=== PATIENT | male | born 1940 | race African-American/Black ===

== ENCOUNTER 2016-09-23 01:32 | Inpatient (IN) | payer MEDICARE, OTHER ==
[~2016-09-23] VITALS: Ht 172.7 cm; Wt 108.9 kg
[~2016-09-23 01:32] MED LIST: ALBU6.7H3 IH; ATOR20TA PO; BUME1TAB4 PO; DIGO250T4 PO; ELIQUIS 5 MG PO; FLUT1DIS3 IH; HYDR-3511 PO; LISI-653 PO; METF100C2 PO; METO-411 PO; NEOM10SO7 OT; OMEP20CA10 PO; P20 PO; SIMV20TA2 PO; SOTA80TA PO; SPIR25TA4 PO; TERAZOSIN; TIOT18CA3 IH; WARF7.5T22 PO; [UNRECOGNIZED DRUG - OTHER]
[2016-09-23] MEDS ORDERED: METHYLPREDNISOLONE SOD SUCC 125 MG/2 ML VIAL IV STA (01:55)
[2016-09-23] MEDS ORDERED: ALBUTEROL (0.083%) 2.5MG/3ML NEB HHN STA (01:55)
[2016-09-23] MEDS ORDERED: MORPHINE SULFATE 4 MG/ML CPJ (NOT FOR IM USE) IV STA (01:55)
[2016-09-23] MEDS ORDERED: IPRATROPIUM BROMIDE (0.02%) 0.5MG/2.5ML NEB HHN STA (01:55)
[2016-09-23] MEDS ORDERED: ONDANSETRON HCL 4MG/2ML VIAL IV STA (01:55)
[2016-09-23] MEDS ORDERED: FUROSEMIDE 40MG/4ML VIAL IV ONE (02:00)
[2016-09-23 02:26] LABS: INR 1.1; PROTHROMBIN TIME 11.7 sec
[2016-09-23 02:29] LABS: BG BASE EXCESS 2.1 mmol/L (-2.0-2.0); BG CARBOXYHEMOGLOBIN 0.8 % (0.5-1.5); BG DEOXYHEMOGLOBIN 7.7 % (0.0-5.0); BG FRACTION INSPIRED OXYGEN 28; BG HCO3 ACT 27.4 mmol/L (22.0-26.0); BG METHEMOGLOBIN 0.2 % (0.0-1.5); BG OXYGEN SATURATION 92.2 % (92.0-98.5); BG OXYHEMOGLOBIN 91.3 % (94.0-97.0); BG PCO2 45.3 mmHg (35.0-45.0); BG PH 7.399 (7.350-7.450); BG PO2 68.9 mmHg (75.0-100.0); BG SAMPLE SITE RIGHT RADIAL; BG TOTAL HEMOGLOBIN 12.7 g/dL (12.0-18.0); BG VENT MODE NASAL CANNULA
[2016-09-23 02:31] LABS: HEMATOCRIT. 37.6 % (42.0-52.0); HEMOGLOBIN. 12.2 g/dL (14.0-18.0); MEAN CORPUSCULAR HEMOGLOBIN 26.3 pg (28.0-32.0); MEAN PLATELET VOLUME 9.8 fl (7.4-10.4); PLATELET 142 x1000/uL (130-400); RED BLOOD CELL COUNT 4.64 mill/uL (4.7-6.1); RED CELL DISTRIBUTION WIDTH 15.3 % (11.6-14.6)
[2016-09-23 02:34] LABS: CARBON DIOXIDE 28 mEq/L (21-32); CHLORIDE 108 mEq/L (98-107); TROPONIN I 0.04 ng/mL (0.00-0.04)
[2016-09-23] MEDS ORDERED: MORPHINE SULFATE 4 MG/ML CPJ (NOT FOR IM USE) IV ONE (05:45)
[2016-09-23 07:49] LABS: PLATELET ESTIMATE NORMAL
[2016-09-23] MEDS: FUROSEMIDE 40MG/4ML VIAL IVP SCH (09:30)
[2016-09-23] MEDS ORDERED: LISINOPRIL 20MG TABLET PO SCH (09:30)
[2016-09-23] MEDS ORDERED: IPRATROPIUM/ALBUTEROL 0.5-3(2.5)MG/3ML NEB HHN PRN (09:30)
[2016-09-23] MEDS ORDERED: NON FORMULARY PATIENT HOME MED EA XX SCH (09:30)
[2016-09-23] MEDS: POTASSIUM CHLORIDE 20MEQ TABLET SR PO SCH (10:15)
[2016-09-23] MEDS: METFORMIN HCL 500MG TABLET PO SCH (12:43)
[2016-09-23] MEDS: DOFETILIDE 500 MCG PO SCH ×2 (14:50→17:49)
[2016-09-23] MEDS: SOTALOL HCL 80MG TABLET PO SCH (15:27)
[2016-09-23 15:48] LABS: CLARITY URINE CLEAR (CLEAR); COLOR URINE YELLOW (YELLOW); KETONES URINE NEGATIVE (NEGATIVE); LEUKOCYTE ESTERASE URINE NEGATIVE (NEGATIVE); NITRITE URINE NEGATIVE (NEGATIVE); OCCULT BLOOD URINE NEGATIVE (NEGATIVE); PROTEIN URINE NEGATIVE (NEGATIVE); UROBILINOGEN URINE 0.2 E.U./dL (0.2-1.0)
[2016-09-23] MEDS: DIGOXIN 250MCG TABLET PO SCH (17:49)
[2016-09-23] MEDS: APIXABAN 5 MG TABLET PO SCH (17:49)
[2016-09-23] MEDS: BUDESONIDE 0.5MG/2ML NEB HHN SCH (20:10)
[2016-09-23] MEDS: IPRATROPIUM/ALBUTEROL 0.5-3(2.5)MG/3ML NEB HHN SCH (20:10)
[2016-09-23] MEDS: ATORVASTATIN CALCIUM 40MG TABLET PO SCH (20:48)
[2016-09-23] MEDS ORDERED: ATORVASTATIN CALCIUM 20MG TABLET PO SCH (21:00)
[2016-09-24] MEDS: IPRATROPIUM/ALBUTEROL 0.5-3(2.5)MG/3ML NEB HHN SCH ×4 (02:10→20:09)
[2016-09-24] MEDS: SOTALOL HCL 80MG TABLET PO SCH ×2 (03:13→15:31)
[2016-09-24] MEDS: OMEPRAZOLE 20MG CAPSULE EXTENDED RELEASE PO SCH (06:38)
[2016-09-24] MEDS: BUDESONIDE 0.5MG/2ML NEB HHN SCH ×2 (07:27→20:09)
[2016-09-24] MEDS: FUROSEMIDE 40MG/4ML VIAL IVP SCH (08:53)
[2016-09-24] MEDS: DOFETILIDE 500 MCG PO SCH ×2 (08:56→18:13)
[2016-09-24] MEDS: METFORMIN HCL 500MG TABLET PO SCH (08:56)
[2016-09-24] MEDS: POTASSIUM CHLORIDE 20MEQ TABLET SR PO SCH (08:56)
[2016-09-24] MEDS: LISINOPRIL 40MG TABLET PO SCH (08:56)
[2016-09-24] MEDS: APIXABAN 5 MG TABLET PO SCH ×2 (08:56→18:13)
[2016-09-24] MEDS: SPIRONOLACTONE 25MG TABLET PO SCH (08:56)
[2016-09-24] MEDS ORDERED: HYDROCODONE/ACETAMINOPHEN 10/325MG TABLET PO PRN (10:00)
[2016-09-24] MEDS ORDERED: MAGNESIUM HYDROXIDE 400MG/5ML 30ML UDC PO PRN (10:00)
[2016-09-24 11:57] LABS: HEMATOCRIT 38.3 % (42.0-52.0); HEMOGLOBIN 12.2 g/dL (14.0-18.0); MEAN CORPUSCULAR HEMOGLOBIN 25.9 pg (28.0-32.0); MEAN CORPUSCULAR VOLUME 81.5 fL (80.0-94.0); PLATELET 160 x1000/uL (130-400); RED CELL DISTRIBUTION WIDTH 15.3 % (11.6-14.6)
[2016-09-24] MEDS ORDERED: BISACODYL 10MG SUPP PR PRN (12:00)
[2016-09-24] MEDS ORDERED: BISACODYL 5MG TABLET PO PRN (12:00)
[2016-09-24 12:22] LABS: CARBON DIOXIDE 34 mEq/L (21-32); CHLORIDE 100 mEq/L (98-107)
[2016-09-24] MEDS: DOCUSATE SODIUM 250MG CAPSULE PO SCH (18:13)
[2016-09-24] MEDS: DIGOXIN 250MCG TABLET PO SCH (18:13)
[2016-09-24] MEDS: ATORVASTATIN CALCIUM 40MG TABLET PO SCH (21:13)
[2016-09-25] MEDS: IPRATROPIUM/ALBUTEROL 0.5-3(2.5)MG/3ML NEB HHN SCH ×2 (01:46→09:24)
[2016-09-25] MEDS: SOTALOL HCL 80MG TABLET PO SCH (03:22)
[2016-09-25] MEDS: OMEPRAZOLE 20MG CAPSULE EXTENDED RELEASE PO SCH (06:24)
[2016-09-25] MEDS: FUROSEMIDE 40MG/4ML VIAL IVP SCH (08:42)
[2016-09-25] MEDS: DOFETILIDE 500 MCG PO SCH (08:43)
[2016-09-25] MEDS: METFORMIN HCL 500MG TABLET PO SCH (08:43)
[2016-09-25] MEDS: DOCUSATE SODIUM 250MG CAPSULE PO SCH (08:46)
[2016-09-25] MEDS: APIXABAN 5 MG TABLET PO SCH (08:46)
[2016-09-25] MEDS: POTASSIUM CHLORIDE 20MEQ TABLET SR PO SCH (08:47)
[2016-09-25] MEDS: SPIRONOLACTONE 25MG TABLET PO SCH (08:48)
[2016-09-25] MEDS: LISINOPRIL 40MG TABLET PO SCH (08:58)
[2016-09-25] MEDS: BUDESONIDE 0.5MG/2ML NEB HHN SCH (09:24)
[2016-09-25 12:14] VITALS: BP 118/76
[2016-09-25] MEDS ORDERED: HYDROCODONE/ACETAMINOPHEN 10/325MG TABLET PO PRN (16:00)
[2017-02-10] MEDS ORDERED: DIGO-26 PO (16:19)
[2017-02-10] MEDS ORDERED: COR25 PO (16:19)
[2017-04-14] MEDS ORDERED: BUME1TAB4 PO (10:08)
== END 2016-09-25 13:10 | disposition home or self-care (01) | DRG 291 ==
LOC: ER 01:32 → 6WST 05:59 → EDBEDREQ 06:06 → EDBEDREQTM 06:06 → ENRESERV 07:10
PROVIDERS: ADMIT Internal Medicine; ATTEND Internal Medicine
DX: I11.0 Hypertensive heart disease with heart failure (principal); J96.00 Acute respiratory failure, unspecified whether with hypoxia or hypercapnia; J44.1 Chronic obstructive pulmonary disease with (acute) exacerbation; I50.23 Acute on chronic systolic (congestive) heart failure; E11.9 Type 2 diabetes mellitus without complications; E66.9 Obesity, unspecified; I48.0 Paroxysmal atrial fibrillation; I42.9 Cardiomyopathy, unspecified; K59.00 Constipation, unspecified; Z79.899 Other long term (current) drug therapy; Z68.36 Body mass index [BMI] 36.0-36.9, adult
CPT/HCPCS: 36415; 36600; 71010; 80048; 80053; 81001; 81025; 82375; 82805; 83880; 84484; 85025; 85027; 85610; 87040; 87086; 93005; 93970; 94640; 94664; 96374; 96375; 96376; 97162; 99291; J1940; J2270; J2405; J2930; J7611; J7620; J7626

== ENCOUNTER 2016-10-10 22:09 | Inpatient (IN) | payer MEDICARE, OTHER ==
[~2016-10-10] VITALS: Ht 172.7 cm; Wt 108.0 kg
[~2016-10-10 22:09] MED LIST changes: +ALBU6.7H2 IH; -ALBU6.7H3 IH; +METO-300 PO; -METO-411 PO
[2016-10-10] MEDS ORDERED: ALBUTEROL (0.083%) 2.5MG/3ML NEB HHN STA (22:35)
[2016-10-10] MEDS ORDERED: IPRATROPIUM BROMIDE (0.02%) 0.5MG/2.5ML NEB HHN STA (22:35)
[2016-10-10] MEDS ORDERED: METHYLPREDNISOLONE SOD SUCC 125 MG/2 ML VIAL IV STA (22:35)
[2016-10-10 22:56] LABS: BASOPHILS % 0.5 % (0.0-2.0); EOSINOPHILS % 2.4 % (0.0-5.0); HEMATOCRIT. 36.5 % (42.0-52.0); HEMOGLOBIN. 11.8 g/dL (14.0-18.0); LYMPHOCYTES % 11.1 % (20.0-50.0); MEAN CORPUSCULAR HEMOGLOBIN 25.9 pg (28.0-32.0); MEAN CORPUSCULAR VOLUME 80.3 fL (80.0-94.0); MEAN PLATELET VOLUME 9.5 fl (7.4-10.4); MONOCYTES % 8.3 % (2.0-8.0); NEUTROPHILS % 77.7 % (40.0-76.0); PLATELET 141 x1000/uL (130-400); RED BLOOD CELL COUNT 4.55 mill/uL (4.7-6.1); RED CELL DISTRIBUTION WIDTH 15.1 % (11.6-14.6)
[2016-10-10 23:00] LABS: CHLORIDE 104 mEq/L (98-107)
[2016-10-10 23:01] LABS: INR 1.1; PROTHROMBIN TIME 11.1 sec
[2016-10-10 23:10] LABS: CARBON DIOXIDE 31 mEq/L (21-32); TROPONIN I 0.03 ng/mL (0.00-0.04)
[2016-10-10] MEDS ORDERED: ONDANSETRON HCL 4MG/2ML VIAL IV ONE (23:15)
[2016-10-10 23:16] LABS: BG BASE EXCESS 0.1 mmol/L (-2.0-2.0); BG CARBOXYHEMOGLOBIN 0.2 % (0.5-1.5); BG FRACTION INSPIRED OXYGEN 21; BG METHEMOGLOBIN 0.3 % (0.0-1.5); BG OXYHEMOGLOBIN 94.5 % (94.0-97.0); BG PCO2 36.8 mmHg (35.0-45.0); BG PH 7.433 (7.350-7.450); BG PO2 78.1 mmHg (75.0-100.0); BG SAMPLE SITE RIGHT RADIAL; BG TOTAL HEMOGLOBIN 12.5 g/dL (12.0-18.0); BG VENT MODE ROOM AIR
[2016-10-10] MEDS ORDERED: FUROSEMIDE 40MG/4ML VIAL IVP ONE (23:45)
[2016-10-11 01:53] LABS: CLARITY URINE CLEAR (CLEAR); COLOR URINE YELLOW (YELLOW); GLUCOSE URINE NEGATIVE (NEGATIVE); KETONES URINE NEGATIVE (NEGATIVE); LEUKOCYTE ESTERASE URINE NEGATIVE (NEGATIVE); NITRITE URINE NEGATIVE (NEGATIVE); OCCULT BLOOD URINE NEGATIVE (NEGATIVE); PROTEIN URINE NEGATIVE (NEGATIVE); SPECIFIC GRAVITY URINE 1.006 (1.005-1.030); UROBILINOGEN URINE 0.2 E.U./dL (0.2-1.0)
[2016-10-11 03:35] VITALS: BP 109/61
[2016-10-11 04:00] VITALS: BP 109/61
[2016-10-11] MEDS ORDERED: DEXTROSE 50% WATER 50ML SYRINGE IV PRN (05:15)
[2016-10-11] MEDS: DILTIAZEM HCL 30MG TABLET PO SCH ×3 (05:49→21:53)
[2016-10-11] MEDS: BLOOD SUGAR DIAGNOSTIC STRIP TEST SCH ×4 (06:31→20:34)
[2016-10-11 08:05] VITALS: BP 117/60
[2016-10-11] MEDS: INSULIN LISPRO 100 UNITS/ML SUBCUT SCH ×4 (08:32→20:41)
[2016-10-11] MEDS: METOPROLOL TARTRATE 25MG TABLET PO SCH ×2 (08:37→20:34)
[2016-10-11] MEDS: APIXABAN 5 MG TABLET PO SCH ×2 (08:37→17:08)
[2016-10-11] MEDS: SPIRONOLACTONE 25MG TABLET PO SCH (08:38)
[2016-10-11] MEDS: LISINOPRIL 5MG TABLET PO SCH (08:38)
[2016-10-11] MEDS: BUMETANIDE 1MG TABLET PO SCH ×3 (09:00→17:08)
[2016-10-11] MEDS: IPRATROPIUM/ALBUTEROL 0.5-3(2.5)MG/3ML NEB HHN SCH ×4 (09:00→21:19)
[2016-10-11] MEDS: HYDROCODONE/ACETAMINOPHEN 5/325MG TABLET PO PRN ×2 (10:30→17:07)
[2016-10-11] MEDS ORDERED: POTASSIUM CHLORIDE 20MEQ TABLET SR PO SCH (14:45)
[2016-10-11] MEDS ORDERED: FUROSEMIDE 40MG/4ML VIAL IVP SCH (14:45)
[2016-10-11] MEDS ORDERED: METHYLPREDNISOLONE SOD SUCC 125 MG/2 ML VIAL IV NR (15:00)
[2016-10-11 16:06] VITALS: BP 116/56
[2016-10-11 20:05] VITALS: BP 101/47
[2016-10-11 20:06] VITALS: BP 97/44
[2016-10-11] MEDS: ATORVASTATIN CALCIUM 20MG TABLET PO SCH (20:40)
[2016-10-11] MEDS ORDERED: ATORVASTATIN CALCIUM 20MG TABLET PO SCH (21:00)
[2016-10-11] MEDS: BUDESONIDE 0.5MG/2ML NEB HHN SCH (21:18)
[2016-10-12] VITALS (7 sets, daily range): BP systolic 106–126; BP diastolic 57–85
[2016-10-12] MEDS: HYDROCODONE/ACETAMINOPHEN 5/325MG TABLET PO PRN (00:27)
[2016-10-12] MEDS: IPRATROPIUM/ALBUTEROL 0.5-3(2.5)MG/3ML NEB HHN SCH ×6 (01:07→21:05)
[2016-10-12] MEDS: DILTIAZEM HCL 30MG TABLET PO SCH ×3 (05:52→21:01)
[2016-10-12 06:09] LABS: CARBON DIOXIDE 31 mEq/L (21-32); CHLORIDE 99 mEq/L (98-107)
[2016-10-12 06:19] LABS: CREATINE KINASE 124 IU/L (39-308); CREATINE KINASE MB FRACTION 1.3 ng/mL (0.5-3.6); HDL CHOLESTEROL 72 mg/dL (40-59); LDL CHOLESTEROL 81 mg/dL (5-100); TROPONIN I 0.02 ng/mL (0.00-0.04)
[2016-10-12] MEDS: BLOOD SUGAR DIAGNOSTIC STRIP TEST SCH ×4 (06:22→20:55)
[2016-10-12 06:23] LABS: HEMATOCRIT. 35.4 % (42.0-52.0); HEMOGLOBIN. 11.7 g/dL (14.0-18.0); MEAN CORPUSCULAR HEMOGLOBIN 26.3 pg (28.0-32.0); MEAN CORPUSCULAR VOLUME 79.6 fL (80.0-94.0); PLATELET 155 x1000/uL (130-400); RED BLOOD CELL COUNT 4.44 mill/uL (4.7-6.1); RED CELL DISTRIBUTION WIDTH 14.8 % (11.6-14.6)
[2016-10-12] MEDS: INSULIN LISPRO 100 UNITS/ML SUBCUT SCH ×4 (07:50→20:57)
[2016-10-12] MEDS: BUDESONIDE 0.5MG/2ML NEB HHN SCH ×2 (08:22→21:05)
[2016-10-12] MEDS: METOPROLOL TARTRATE 25MG TABLET PO SCH ×2 (08:51→20:41)
[2016-10-12] MEDS: APIXABAN 5 MG TABLET PO SCH ×2 (08:51→16:59)
[2016-10-12] MEDS: SPIRONOLACTONE 25MG TABLET PO SCH (08:53)
[2016-10-12] MEDS: BUMETANIDE 1MG TABLET PO SCH ×2 (08:53→16:59)
[2016-10-12] MEDS: LISINOPRIL 5MG TABLET PO SCH (08:53)
[2016-10-12 13:19] LABS: PLATELET ESTIMATE NORMAL
[2016-10-12] MEDS: NAPROXEN 375MG TABLET PO SCH ×2 (13:44→20:55)
[2016-10-12] MEDS: FUROSEMIDE 40MG/4ML VIAL IVP SCH (16:59)
[2016-10-12] MEDS: ATORVASTATIN CALCIUM 20MG TABLET PO SCH (20:55)
[2016-10-13 00:09] VITALS: BP 126/63
[2016-10-13] MEDS: IPRATROPIUM/ALBUTEROL 0.5-3(2.5)MG/3ML NEB HHN SCH ×4 (00:38→11:42)
[2016-10-13 04:47] VITALS: BP 123/65
[2016-10-13] MEDS: DILTIAZEM HCL 30MG TABLET PO SCH ×2 (05:58→13:15)
[2016-10-13 06:47] LABS: CARBON DIOXIDE 31 mEq/L (21-32); CHLORIDE 97 mEq/L (98-107)
[2016-10-13 06:49] LABS: BASOPHILS % 0.6 % (0.0-2.0); EOSINOPHILS % 3.6 % (0.0-5.0); HEMATOCRIT. 39.7 % (42.0-52.0); HEMOGLOBIN. 13.2 g/dL (14.0-18.0); LYMPHOCYTES % 14.8 % (20.0-50.0); MEAN CORPUSCULAR HEMOGLOBIN 26.4 pg (28.0-32.0); MEAN CORPUSCULAR VOLUME 79.6 fL (80.0-94.0); MEAN PLATELET VOLUME 9.7 fl (7.4-10.4); MONOCYTES % 7.6 % (2.0-8.0); NEUTROPHILS % 73.4 % (40.0-76.0); PLATELET 174 x1000/uL (130-400); RED BLOOD CELL COUNT 4.99 mill/uL (4.7-6.1); RED CELL DISTRIBUTION WIDTH 14.8 % (11.6-14.6)
[2016-10-13] MEDS: BLOOD SUGAR DIAGNOSTIC STRIP TEST SCH ×2 (07:20→12:20)
[2016-10-13] MEDS: INSULIN LISPRO 100 UNITS/ML SUBCUT SCH ×2 (07:49→12:50)
[2016-10-13 08:00] VITALS: BP 119/85
[2016-10-13] MEDS: BUDESONIDE 0.5MG/2ML NEB HHN SCH (08:02)
[2016-10-13] MEDS: FUROSEMIDE 40MG/4ML VIAL IVP SCH (08:57)
[2016-10-13] MEDS ORDERED: POTASSIUM CHLORIDE 20MEQ TABLET SR PO SCH (09:15)
[2016-10-13] MEDS: NAPROXEN 375MG TABLET PO SCH (09:26)
[2016-10-13] MEDS: METOPROLOL TARTRATE 25MG TABLET PO SCH (09:26)
[2016-10-13] MEDS: APIXABAN 5 MG TABLET PO SCH (09:26)
[2016-10-13] MEDS: BUMETANIDE 1MG TABLET PO SCH (09:26)
[2016-10-13] MEDS: LISINOPRIL 5MG TABLET PO SCH (09:26)
[2016-10-13] MEDS: SPIRONOLACTONE 25MG TABLET PO SCH (09:26)
[2016-10-13] MEDS ORDERED: MAGNESIUM 2 G PREMIX 50 ML IV SCH (09:30)
[2016-10-13 12:19] VITALS: BP 103/68
[2016-10-13 13:29] VITALS: BP 103/68
== END 2016-10-13 15:05 | disposition home or self-care (01) | DRG 291 ==
LOC: ER 22:23 → 6WST 22:46 → EDBEDREQ 10-11 02:05 → ENRESERV 10-11 02:11
PROVIDERS: ADMIT Internal Medicine; ATTEND Internal Medicine
DX: I11.0 Hypertensive heart disease with heart failure (principal); J96.00 Acute respiratory failure, unspecified whether with hypoxia or hypercapnia; J44.1 Chronic obstructive pulmonary disease with (acute) exacerbation; I48.92 Unspecified atrial flutter; I50.23 Acute on chronic systolic (congestive) heart failure; I42.0 Dilated cardiomyopathy; E11.9 Type 2 diabetes mellitus without complications; E66.9 Obesity, unspecified; E78.5 Hyperlipidemia, unspecified; I48.0 Paroxysmal atrial fibrillation; I48.2 Chronic atrial fibrillation; Z87.891 Personal history of nicotine dependence; Z88.0 Allergy status to penicillin; Z79.899 Other long term (current) drug therapy; Z68.36 Body mass index [BMI] 36.0-36.9, adult
CPT/HCPCS: 36415; 36600; 71010; 80053; 80061; 81003; 82375; 82550; 82553; 82805; 82962; 83735; 83880; 84443; 84484; 85025; 85379; 85610; 93005; 94640; 94644; 96374; 96375; 99285; J1815; J1940; J2405; J2930; J3475; J7050; J7611; J7620; J7626

== ENCOUNTER 2016-11-20 03:27 | Inpatient (IN) | payer MEDICARE, OTHER ==
[~2016-11-20] VITALS: Ht 172.7 cm; Wt 108.9 kg
[~2016-11-20 03:27] MED LIST changes: -ALBU6.7H2 IH; -METO-300 PO; +METO-411 PO
[2016-11-20] MEDS ORDERED: METHYLPREDNISOLONE SOD SUCC 125 MG/2 ML VIAL IV STA (03:52)
[2016-11-20] MEDS ORDERED: IPRATROPIUM BROMIDE (0.02%) 0.5MG/2.5ML NEB HHN STA (03:52)
[2016-11-20] MEDS ORDERED: ALBUTEROL (0.083%) 2.5MG/3ML NEB HHN STA (03:52)
[2016-11-20] MEDS ORDERED: FUROSEMIDE 40MG/4ML VIAL IV STA (03:52)
[2016-11-20] MEDS ORDERED: MAGNESIUM 2 G PREMIX 50 ML IV ONE (04:00)
[2016-11-20 04:27] LABS: BASOPHILS % 1.2 % (0.0-2.0); HEMATOCRIT. 38.7 % (42.0-52.0); HEMOGLOBIN. 12.2 g/dL (14.0-18.0); LYMPHOCYTES % 22.5 % (20.0-50.0); MEAN CORPUSCULAR HEMOGLOBIN 25.8 pg (28.0-32.0); MEAN CORPUSCULAR VOLUME 81.8 fL (80.0-94.0); MEAN PLATELET VOLUME 9.2 fl (7.4-10.4); MONOCYTES % 9.3 % (2.0-8.0); PLATELET 106 x1000/uL (130-400); RED BLOOD CELL COUNT 4.72 mill/uL (4.7-6.1); RED CELL DISTRIBUTION WIDTH 15.8 % (11.6-14.6)
[2016-11-20 04:40] LABS: CARBON DIOXIDE 32 mEq/L (21-32); CHLORIDE 105 mEq/L (98-107); TROPONIN I 0.04 ng/mL (0.00-0.04)
[2016-11-20 08:53] VITALS: BP 110/56
[2016-11-20 09:50] VITALS: BP 110/56
[2016-11-20 12:00] VITALS: BP 113/56
[2016-11-20] MEDS: CARVEDILOL 3.125 MG TABLET PO SCH ×2 (12:19→21:00)
[2016-11-20] MEDS: FUROSEMIDE 40MG/4ML VIAL IVP SCH (12:19)
[2016-11-20] MEDS: SPIRONOLACTONE 25MG TABLET PO SCH (12:19)
[2016-11-20] MEDS: APIXABAN 5 MG TABLET PO SCH ×2 (12:54→17:13)
[2016-11-20 16:00] VITALS: BP 113/49
[2016-11-20 16:05] LABS: HEMATOCRIT 39.3 % (42.0-52.0); HEMOGLOBIN 12.8 g/dL (14.0-18.0); MEAN CORPUSCULAR HEMOGLOBIN 26.2 pg (28.0-32.0); MEAN CORPUSCULAR VOLUME 80.4 fL (80.0-94.0); PLATELET 131 x1000/uL (130-400); RED BLOOD CELL COUNT 4.89 mill/uL (4.7-6.1); RED CELL DISTRIBUTION WIDTH 15.5 % (11.6-14.6)
[2016-11-20 16:39] LABS: CARBON DIOXIDE 30 mEq/L (21-32); CHLORIDE 101 mEq/L (98-107); HDL CHOLESTEROL 77 mg/dL (40-59); LDL CHOLESTEROL 64 mg/dL (5-100); TROPONIN I 0.03 ng/mL (0.00-0.04)
[2016-11-20 16:51] LABS: *AMPHETAMINES SCREEN URINE NEGATIVE (NEGATIVE); *BARBITURATES SCREEN URINE NEGATIVE (NEGATIVE); *BENZODIAZEPINES SCREEN URINE NEGATIVE (NEGATIVE); *COCAINE SCREEN URINE NEGATIVE (NEGATIVE); CANNABINOID URINE SCREEN NEGATIVE (NEGATIVE); METHADONE URINE SCREEN NEGATIVE (NEGATIVE); OPIATES URINE SCREEN PRESUMTIVE POSITIVE (NEGATIVE); PHENCYCLIDINE URINE SCREEN NEGATIVE (NEGATIVE)
[2016-11-20] MEDS: HYDROCODONE/ACETAMINOPHEN 5/325MG TABLET PO PRN (18:12)
[2016-11-20 20:00] VITALS: BP 110/55
[2016-11-20] MEDS: LISINOPRIL 10MG TABLET PO SCH (21:00)
[2016-11-20] MEDS: ATORVASTATIN CALCIUM 20MG TABLET PO SCH (21:46)
[2016-11-21] VITALS: BP 100/53
[2016-11-21] MEDS: HYDROCODONE/ACETAMINOPHEN 5/325MG TABLET PO PRN (00:05)
[2016-11-21 04:00] VITALS: BP 109/60
[2016-11-21 06:42] LABS: HEMATOCRIT. 39.4 % (42.0-52.0); HEMOGLOBIN. 12.7 g/dL (14.0-18.0); MEAN CORPUSCULAR VOLUME 80.8 fL (80.0-94.0); PLATELET 133 x1000/uL (130-400); RED BLOOD CELL COUNT 4.87 mill/uL (4.7-6.1); RED CELL DISTRIBUTION WIDTH 16.2 % (11.6-14.6)
[2016-11-21 07:39] VITALS: BP 108/64
[2016-11-21 08:15] LABS: CHLORIDE 100 mEq/L (98-107)
[2016-11-21 08:23] LABS: CARBON DIOXIDE 30 mEq/L (21-32)
[2016-11-21] MEDS: FUROSEMIDE 40MG/4ML VIAL IVP SCH ×2 (10:11→17:59)
[2016-11-21] MEDS: CARVEDILOL 3.125 MG TABLET PO SCH ×2 (10:12→21:00)
[2016-11-21] MEDS: APIXABAN 5 MG TABLET PO SCH ×2 (10:13→17:59)
[2016-11-21] MEDS: SPIRONOLACTONE 25MG TABLET PO SCH (10:13)
[2016-11-21] MEDS: LISINOPRIL 10MG TABLET PO SCH ×2 (10:13→21:00)
[2016-11-21 11:14] LABS: PLATELET ESTIMATE NORMAL
[2016-11-21 11:45] VITALS: BP 107/51
[2016-11-21 16:00] VITALS: BP 114/56
[2016-11-21] MEDS ORDERED: BUDESONIDE 0.5MG/2ML NEB HHN SCH (16:00)
[2016-11-21] MEDS ORDERED: LEVOFLOXACIN 750MG PREMIX 150 ML IV SCH (18:00)
[2016-11-21 19:14] LABS: CLARITY URINE CLEAR (CLEAR); COLOR URINE YELLOW (YELLOW); GLUCOSE URINE NEGATIVE (NEGATIVE); KETONES URINE NEGATIVE (NEGATIVE); LEUKOCYTE ESTERASE URINE NEGATIVE (NEGATIVE); NITRITE URINE NEGATIVE (NEGATIVE); OCCULT BLOOD URINE NEGATIVE (NEGATIVE); PH URINE 6.5 (4.5-8.0); PROTEIN URINE NEGATIVE (NEGATIVE); SPECIFIC GRAVITY URINE 1.016 (1.005-1.030)
[2016-11-21 19:30] LABS: *AMPHETAMINES SCREEN URINE NEGATIVE (NEGATIVE); *BARBITURATES SCREEN URINE NEGATIVE (NEGATIVE); *BENZODIAZEPINES SCREEN URINE NEGATIVE (NEGATIVE); *COCAINE SCREEN URINE NEGATIVE (NEGATIVE); CANNABINOID URINE SCREEN NEGATIVE (NEGATIVE); METHADONE URINE SCREEN NEGATIVE (NEGATIVE); OPIATES URINE SCREEN PRESUMTIVE POSITIVE (NEGATIVE); PHENCYCLIDINE URINE SCREEN NEGATIVE (NEGATIVE)
[2016-11-21 20:00] VITALS: BP 127/70
[2016-11-21] MEDS: ATORVASTATIN CALCIUM 20MG TABLET PO SCH (21:13)
[2016-11-22] VITALS: BP 157/61
[2016-11-22 04:00] VITALS: BP 126/79
[2016-11-22 07:01] LABS: BASOPHILS % 0.6 % (0.0-2.0); EOSINOPHILS % 2.6 % (0.0-5.0); HEMATOCRIT. 42.2 % (42.0-52.0); HEMOGLOBIN. 13.5 g/dL (14.0-18.0); MEAN CORPUSCULAR HEMOGLOBIN 25.8 pg (28.0-32.0); MEAN CORPUSCULAR VOLUME 80.9 fL (80.0-94.0); MEAN PLATELET VOLUME 9.9 fl (7.4-10.4); MONOCYTES % 9.5 % (2.0-8.0); NEUTROPHILS % 74.3 % (40.0-76.0); PLATELET 147 x1000/uL (130-400); RED BLOOD CELL COUNT 5.22 mill/uL (4.7-6.1)
[2016-11-22 07:18] VITALS: BP 105/51
[2016-11-22 08:39] LABS: CARBON DIOXIDE 31 mEq/L (21-32); CHLORIDE 100 mEq/L (98-107)
[2016-11-22] MEDS: APIXABAN 5 MG TABLET PO SCH (08:47)
[2016-11-22] MEDS: FUROSEMIDE 40MG/4ML VIAL IVP SCH (08:47)
[2016-11-22] MEDS: CARVEDILOL 3.125 MG TABLET PO SCH (08:49)
[2016-11-22] MEDS: LISINOPRIL 10MG TABLET PO SCH (08:49)
[2016-11-22] MEDS: HYDROCODONE/ACETAMINOPHEN 5/325MG TABLET PO PRN (08:49)
[2016-11-22] MEDS ORDERED: POTASSIUM CHLORIDE 20MEQ TABLET SR PO SCH (10:45)
[2016-11-22 11:28] VITALS: BP 112/60
== END 2016-11-22 15:10 | disposition home or self-care (01) | DRG 291 ==
LOC: ER 03:27 → 6WST 05:24 → ENRESERV 07:37
PROVIDERS: ADMIT Family Medicine; ATTEND Family Medicine
DX: I11.0 Hypertensive heart disease with heart failure (principal); J96.00 Acute respiratory failure, unspecified whether with hypoxia or hypercapnia; I47.2 Ventricular tachycardia; J18.9 Pneumonia, unspecified organism; D68.59 Other primary thrombophilia; I48.92 Unspecified atrial flutter; Z99.81 Dependence on supplemental oxygen; J44.1 Chronic obstructive pulmonary disease with (acute) exacerbation; I42.0 Dilated cardiomyopathy; J98.11 Atelectasis; I50.23 Acute on chronic systolic (congestive) heart failure; D72.829 Elevated white blood cell count, unspecified; E11.9 Type 2 diabetes mellitus without complications; E78.5 Hyperlipidemia, unspecified; I48.0 Paroxysmal atrial fibrillation; K21.9 Gastro-esophageal reflux disease without esophagitis; N40.0 Benign prostatic hyperplasia without lower urinary tract symptoms; Z88.0 Allergy status to penicillin; Z79.84 Long term (current) use of oral hypoglycemic drugs; Z79.01 Long term (current) use of anticoagulants; Z79.899 Other long term (current) drug therapy
CPT/HCPCS: 36415; 71010; 80048; 80061; 80162; 80305; 81003; 83735; 83880; 84484; 85025; 85027; 85610; 85730; 93005; 93306; 94640; 96365; 96375; 99285; J1940; J1956; J2930; J3475; J7050; J7611; J7626

== ENCOUNTER 2016-12-22 00:25 | Inpatient (IN) | payer MEDICARE, OTHER ==
[~2016-12-22] VITALS: Ht 172.7 cm; Wt 113.4 kg
[2016-12-22] MEDS ORDERED: FUROSEMIDE 40MG/4ML VIAL IV SCH (01:15)
[2016-12-22] MEDS ORDERED: ALBUTEROL (0.083%) 2.5MG/3ML NEB HHN SCH (01:15)
[2016-12-22] MEDS ORDERED: IPRATROPIUM BROMIDE (0.02%) 0.5MG/2.5ML NEB HHN SCH (01:15)
[2016-12-22 01:38] LABS: BASOPHILS % 0.9 % (0.0-2.0); EOSINOPHILS % 3.4 % (0.0-5.0); HEMATOCRIT. 35.7 % (42.0-52.0); HEMOGLOBIN. 11.7 g/dL (14.0-18.0); LYMPHOCYTES % 11.1 % (20.0-50.0); MEAN CORPUSCULAR HEMOGLOBIN 26.3 pg (28.0-32.0); MEAN CORPUSCULAR VOLUME 80.6 fL (80.0-94.0); MEAN PLATELET VOLUME 9.8 fl (7.4-10.4); MONOCYTES % 9.5 % (2.0-8.0); NEUTROPHILS % 75.1 % (40.0-76.0); PLATELET 122 x1000/uL (130-400); RED BLOOD CELL COUNT 4.43 mill/uL (4.7-6.1); RED CELL DISTRIBUTION WIDTH 16.1 % (11.6-14.6)
[2016-12-22 01:45] LABS: INR 1.1
[2016-12-22 01:54] LABS: CARBON DIOXIDE 30 mEq/L (21-32); CHLORIDE 107 mEq/L (98-107); TROPONIN I 0.04 ng/mL (0.00-0.04)
[2016-12-22] MEDS ORDERED: IPRATROPIUM/ALBUTEROL 0.5-3(2.5)MG/3ML NEB HHN ONE (07:15)
[2016-12-22 08:30] VITALS: BP 144/77
[2016-12-22 12:00] VITALS: BP 124/85
[2016-12-22] MEDS ORDERED: DOCUSATE SODIUM 100MG CAPSULE PO PRN (13:00)
[2016-12-22] MEDS ORDERED: IPRATROPIUM/ALBUTEROL 0.5-3(2.5)MG/3ML NEB INH PRN (13:00)
[2016-12-22] MEDS ORDERED: ONDANSETRON HCL 4MG/2ML VIAL IV PRN (13:00)
[2016-12-22] MEDS ORDERED: GUAIFENESIN 200MG/10ML SUGAR FREE UDC PO PRN (13:00)
[2016-12-22] MEDS ORDERED: CLONIDINE 0.1MG TABLET PO PRN (13:00)
[2016-12-22] MEDS: IPRATROPIUM/ALBUTEROL 0.5-3(2.5)MG/3ML NEB INH SCH ×2 (15:05→21:24)
[2016-12-22] MEDS: BUMETANIDE 1MG/4ML VIAL IV SCH ×2 (15:47→18:32)
[2016-12-22] MEDS: LISINOPRIL 40MG TABLET PO SCH (15:47)
[2016-12-22] MEDS: SPIRONOLACTONE 25MG TABLET PO SCH (15:48)
[2016-12-22] MEDS: APIXABAN 5 MG TABLET PO SCH (15:48)
[2016-12-22 16:00] VITALS: BP 110/69
[2016-12-22 16:53] VITALS: BP 140/75
[2016-12-22] MEDS: HYDROCODONE/ACETAMINOPHEN 5/325MG TABLET PO PRN (19:55)
[2016-12-22 20:00] VITALS: BP 128/73
[2016-12-22] MEDS: ATORVASTATIN CALCIUM 20MG TABLET PO SCH (20:02)
[2016-12-23] VITALS: BP 118/73
[2016-12-23] MEDS: IPRATROPIUM/ALBUTEROL 0.5-3(2.5)MG/3ML NEB INH SCH ×4 (02:42→20:23)
[2016-12-23 04:00] VITALS: BP 124/58
[2016-12-23 06:27] LABS: EOSINOPHILS % 4.6 % (0.0-5.0); HEMATOCRIT. 40.6 % (42.0-52.0); HEMOGLOBIN. 13.2 g/dL (14.0-18.0); LYMPHOCYTES % 11.7 % (20.0-50.0); MEAN CORPUSCULAR HEMOGLOBIN 26.3 pg (28.0-32.0); MEAN CORPUSCULAR VOLUME 80.9 fL (80.0-94.0); MEAN PLATELET VOLUME 10.1 fl (7.4-10.4); MONOCYTES % 10.4 % (2.0-8.0); NEUTROPHILS % 72.3 % (40.0-76.0); PLATELET 96 x1000/uL (130-400); RED BLOOD CELL COUNT 5.02 mill/uL (4.7-6.1); RED CELL DISTRIBUTION WIDTH 16.1 % (11.6-14.6)
[2016-12-23 06:53] LABS: CHLORIDE 99 mEq/L (98-107)
[2016-12-23 06:58] LABS: CARBON DIOXIDE 31 mEq/L (21-32); HDL CHOLESTEROL 53 mg/dL (40-59); LDL CHOLESTEROL 56 mg/dL (5-100)
[2016-12-23 08:00] VITALS: BP 123/79
[2016-12-23] MEDS: SPIRONOLACTONE 25MG TABLET PO SCH (09:07)
[2016-12-23] MEDS: LISINOPRIL 40MG TABLET PO SCH (09:07)
[2016-12-23] MEDS: APIXABAN 5 MG TABLET PO SCH ×2 (09:07→17:46)
[2016-12-23] MEDS: BUMETANIDE 1MG/4ML VIAL IV SCH ×2 (09:29→18:02)
[2016-12-23 12:00] VITALS: BP 115/75
[2016-12-23] MEDS: DILTIAZEM HCL 60MG TABLET PO SCH ×2 (14:38→21:04)
[2016-12-23 16:00] VITALS: BP 112/61
[2016-12-23] MEDS: POTASSIUM CHLORIDE 20MEQ TABLET SR PO NR ×2 (17:00→17:46)
[2016-12-23] MEDS ORDERED: DIGOXIN 250MCG TABLET PO SCH (18:00)
[2016-12-23] MEDS: HYDROCODONE/ACETAMINOPHEN 5/325MG TABLET PO PRN ×2 (18:22→22:12)
[2016-12-23 20:00] VITALS: BP 115/65
[2016-12-23] MEDS: ATORVASTATIN CALCIUM 20MG TABLET PO SCH (21:03)
[2016-12-24] VITALS: BP 120/70
[2016-12-24] MEDS: IPRATROPIUM/ALBUTEROL 0.5-3(2.5)MG/3ML NEB INH SCH ×3 (01:15→14:15)
[2016-12-24 04:00] VITALS: BP 104/57
[2016-12-24] MEDS: DILTIAZEM HCL 60MG TABLET PO SCH ×2 (05:00→14:00)
[2016-12-24 08:00] VITALS: BP 111/65
[2016-12-24] MEDS: APIXABAN 5 MG TABLET PO SCH (08:49)
[2016-12-24] MEDS: SPIRONOLACTONE 25MG TABLET PO SCH (08:50)
[2016-12-24] MEDS: LISINOPRIL 40MG TABLET PO SCH (08:50)
[2016-12-24] MEDS: BUMETANIDE 1MG/4ML VIAL IV SCH (09:00)
[2016-12-24 12:00] VITALS: BP 118/66
== END 2016-12-24 16:00 | disposition home or self-care (01) | DRG 308 ==
LOC: ER 02:00 → 7WST 03:10 → ENRESERV 06:29
PROVIDERS: ADMIT Hospitalist; ATTEND Hospitalist
DX: I48.92 Unspecified atrial flutter (principal); I50.23 Acute on chronic systolic (congestive) heart failure; I42.0 Dilated cardiomyopathy; J44.0 Chronic obstructive pulmonary disease with (acute) lower respiratory infection; J44.9 Chronic obstructive pulmonary disease, unspecified; E11.9 Type 2 diabetes mellitus without complications; I11.0 Hypertensive heart disease with heart failure; I48.2 Chronic atrial fibrillation; E78.5 Hyperlipidemia, unspecified; K21.9 Gastro-esophageal reflux disease without esophagitis; Z82.49 Family history of ischemic heart disease and other diseases of the circulatory system; Z87.891 Personal history of nicotine dependence; Z88.0 Allergy status to penicillin; Z79.01 Long term (current) use of anticoagulants; Z79.899 Other long term (current) drug therapy
CPT/HCPCS: 36415; 71010; 80053; 80061; 80162; 83880; 84484; 85025; 85610; 93005; 93970; 94640; 94664; 96374; 99285; J1940; J3490; J7611; J7620

== ENCOUNTER 2016-12-29 10:10 | Inpatient (IN) | payer MEDICARE, OTHER ==
[~2016-12-29] VITALS: Ht 180.3 cm; Wt 116.1 kg
[2016-12-29] MEDS ORDERED: IPRATROPIUM BROMIDE (0.02%) 0.5MG/2.5ML NEB HHN STA (10:14)
[2016-12-29] MEDS ORDERED: ALBUTEROL (0.083%) 2.5MG/3ML NEB HHN STA (10:14)
[2016-12-29 10:29] LABS: BASOPHILS % 0.6 % (0.0-2.0); EOSINOPHILS % 2.3 % (0.0-5.0); HEMATOCRIT. 38.3 % (42.0-52.0); HEMOGLOBIN. 12.2 g/dL (14.0-18.0); LYMPHOCYTES % 9.3 % (20.0-50.0); MEAN CORPUSCULAR VOLUME 81.8 fL (80.0-94.0); MEAN PLATELET VOLUME 9.1 fl (7.4-10.4); MONOCYTES % 8.2 % (2.0-8.0); NEUTROPHILS % 79.6 % (40.0-76.0); PLATELET 139 x1000/uL (130-400); RED BLOOD CELL COUNT 4.68 mill/uL (4.7-6.1); RED CELL DISTRIBUTION WIDTH 16.2 % (11.6-14.6)
[2016-12-29 10:41] LABS: INR 1.1; PROTHROMBIN TIME 11.5 sec (9.4-11.6)
[2016-12-29 10:48] LABS: CARBON DIOXIDE 33 mEq/L (21-32); CHLORIDE 104 mEq/L (98-107); TROPONIN I 0.04 ng/mL (0.00-0.04)
[2016-12-29] MEDS ORDERED: FUROSEMIDE 40MG/4ML VIAL IVP ONE (11:00)
[2016-12-29 12:13] LABS: BG BASE EXCESS 1.3 mmol/L (-2.0-2.0); BG BILEVEL POS AIRWAY PRESSURE 15/5; BG CARBOXYHEMOGLOBIN 0.3 % (0.5-1.5); BG FRACTION INSPIRED OXYGEN 50; BG HCO3 ACT 26.3 mmol/L (22.0-26.0); BG METHEMOGLOBIN 0.3 % (0.0-1.5); BG OXYHEMOGLOBIN 98.4 % (94.0-97.0); BG PCO2 43.1 mmHg (35.0-45.0); BG PH 7.403 (7.350-7.450); BG PO2 188.6 mmHg (75.0-100.0); BG SAMPLE SITE RIGHT BRACHIAL; BG TOTAL HEMOGLOBIN 12.3 g/dL (12.0-18.0); BG VENT MODE MASK - BIPAP; BG VENT RATE 15 set
[2016-12-29] MEDS ORDERED: IPRATROPIUM/ALBUTEROL 0.5-3(2.5)MG/3ML NEB HHN PRN (16:15)
[2016-12-29 16:26] VITALS: BP 138/71
[2016-12-29 16:27] VITALS: BP 114/58
[2016-12-29 18:00] VITALS: BP 141/74
[2016-12-29] MEDS: METHYLPREDNISOLONE SOD SUCC 40 MG/ML VIAL IV SCH (18:18)
[2016-12-29 20:00] VITALS: BP 122/70
[2016-12-29] MEDS: BUDESONIDE 0.5MG/2ML NEB HHN SCH (20:22)
[2016-12-29] MEDS: IPRATROPIUM/ALBUTEROL 0.5-3(2.5)MG/3ML NEB HHN SCH (20:23)
[2016-12-29] MEDS: APIXABAN 5 MG TABLET PO SCH (21:28)
[2016-12-29 22:00] VITALS: BP 131/61
[2016-12-30] VITALS (11 sets, daily range): BP systolic 105–153; BP diastolic 52–75
[2016-12-30] MEDS: IPRATROPIUM/ALBUTEROL 0.5-3(2.5)MG/3ML NEB HHN SCH ×6 (00:13→19:44)
[2016-12-30] MEDS: METHYLPREDNISOLONE SOD SUCC 40 MG/ML VIAL IV SCH ×3 (02:27→19:03)
[2016-12-30] MEDS: APIXABAN 5 MG TABLET PO SCH ×2 (06:56→17:48)
[2016-12-30] MEDS: BUDESONIDE 0.5MG/2ML NEB HHN SCH ×2 (08:49→19:44)
[2016-12-30] MEDS ORDERED: APIXABAN 5 MG TABLET PO SCH (09:00)
[2016-12-30] MEDS ORDERED: ENOXAPARIN 30MG/0.3ML SYR SUBCUT SCH (09:00)
[2016-12-30 10:37] LABS: BG BASE EXCESS 4.5 mmol/L (-2.0-2.0); BG CARBOXYHEMOGLOBIN 0.8 % (0.5-1.5); BG DEOXYHEMOGLOBIN 3.1 % (0.0-5.0); BG FRACTION INSPIRED OXYGEN 21; BG HCO3 ACT 28.7 mmol/L (22.0-26.0); BG METHEMOGLOBIN 0.4 % (0.0-1.5); BG OXYGEN SATURATION 96.9 % (92.0-98.5); BG OXYHEMOGLOBIN 95.7 % (94.0-97.0); BG PCO2 41.4 mmHg (35.0-45.0); BG PH 7.459 (7.350-7.450); BG PO2 83.9 mmHg (75.0-100.0); BG SAMPLE SITE LEFT RADIAL; BG TOTAL HEMOGLOBIN 13.9 g/dL (12.0-18.0); BG VENT MODE ROOM AIR
[2016-12-30 10:57] LABS: T4 FREE 1.23 ng/dL (0.76-1.46)
[2016-12-30 15:53] LABS: CREATINE KINASE MB FRACTION 2.3 ng/mL (0.5-3.6); TROPONIN I 0.02 ng/mL (0.00-0.04)
[2016-12-30] MEDS ORDERED: ELIQUIS 5 MG PO SCH (18:00)
[2016-12-31] VITALS (12 sets, daily range): BP systolic 100–136; BP diastolic 53–74
[2016-12-31] MEDS: METHYLPREDNISOLONE SOD SUCC 40 MG/ML VIAL IV SCH ×3 (02:33→17:11)
[2016-12-31] MEDS: IPRATROPIUM/ALBUTEROL 0.5-3(2.5)MG/3ML NEB HHN SCH ×6 (04:20→20:07)
[2016-12-31 07:50] LABS: CREATINE KINASE MB FRACTION 2.1 ng/mL (0.5-3.6); TROPONIN I 0.03 ng/mL (0.00-0.04)
[2016-12-31] MEDS: APIXABAN 5 MG TABLET PO SCH ×2 (08:28→16:29)
[2016-12-31] MEDS: BUDESONIDE 0.5MG/2ML NEB HHN SCH ×2 (09:11→20:07)
[2016-12-31] MEDS ORDERED: HYDROCODONE/ACETAMINOPHEN 5/325MG TABLET PO PRN (13:00)
[2016-12-31] MEDS: BUMETANIDE 1MG TABLET PO SCH (16:51)
[2016-12-31] MEDS: METFORMIN HCL 500MG TABLET PO SCH (16:52)
[2016-12-31 18:09] LABS: HEMATOCRIT. 40.2 % (42.0-52.0); HEMOGLOBIN. 12.9 g/dL (14.0-18.0); MEAN CORPUSCULAR VOLUME 80.9 fL (80.0-94.0); MEAN PLATELET VOLUME 10.3 fl (7.4-10.4); PLATELET 162 x1000/uL (130-400); RED BLOOD CELL COUNT 4.97 mill/uL (4.7-6.1); RED CELL DISTRIBUTION WIDTH 15.9 % (11.6-14.6)
[2016-12-31 18:21] LABS: CARBON DIOXIDE 30 mEq/L (21-32); CHLORIDE 103 mEq/L (98-107)
[2016-12-31 20:47] LABS: PLATELET ESTIMATE NORMAL
[2016-12-31] MEDS ORDERED: ATORVASTATIN CALCIUM 20MG TABLET PO SCH (21:00)
[2016-12-31] MEDS: METOPROLOL TARTRATE 50MG TABLET PO SCH (21:36)
[2017-01-01] VITALS: BP 129/69
[2017-01-01] MEDS: IPRATROPIUM/ALBUTEROL 0.5-3(2.5)MG/3ML NEB HHN SCH ×4 (00:23→11:13)
[2017-01-01 02:00] VITALS: BP 125/83
[2017-01-01] MEDS: METHYLPREDNISOLONE SOD SUCC 40 MG/ML VIAL IV SCH ×2 (02:27→10:00)
[2017-01-01 04:00] VITALS: BP 131/79
[2017-01-01] MEDS: METFORMIN HCL 500MG TABLET PO SCH (07:20)
[2017-01-01] MEDS: APIXABAN 5 MG TABLET PO SCH (07:21)
[2017-01-01] MEDS: BUDESONIDE 0.5MG/2ML NEB HHN SCH (07:42)
[2017-01-01 08:03] VITALS: BP 147/69
[2017-01-01] MEDS: METOPROLOL TARTRATE 50MG TABLET PO SCH (08:45)
[2017-01-01] MEDS: BUMETANIDE 1MG TABLET PO SCH (08:45)
[2017-01-01] MEDS ORDERED: LISINOPRIL 40MG TABLET PO SCH (09:00)
[2017-01-01] MEDS ORDERED: MEDICATION NOT ON FORMULARY EA (Metoprolol Succinate 100 MG) PO SCH (09:00)
[2017-01-01] MEDS ORDERED: MEDICATION NOT ON FORMULARY EA (Simvastatin (Zocor) 40 MG) PO SCH (09:00)
[2017-01-01] MEDS ORDERED: SPIRONOLACTONE 25MG TABLET PO SCH (09:00)
[2017-01-01 10:05] VITALS: BP 144/75
[2017-01-01 11:34] VITALS: BP 144/75
== END 2017-01-01 12:05 | disposition home or self-care (01) | DRG 291 ==
LOC: ER 10:19 → EDBEDREQTM 11:39 → EDBEDREQ 11:39 → 3WST 11:42 → EDBEDREQ 11:43 → EDBEDREQTM 11:43 → EDBEDREQSVC 11:43 → ENRESERV 15:28 → CANBEDREQ 16:13
PROVIDERS: ADMIT Family Medicine; ATTEND Internal Medicine
PROC: 5A09357 Assistance with Respiratory Ventilation, Less than 24 Consecutive Hours, Continuous Positive Airway Pressure (ICD-10-PCS; principal; 2016-12-29)
DX: I11.0 Hypertensive heart disease with heart failure (principal); J96.00 Acute respiratory failure, unspecified whether with hypoxia or hypercapnia; I48.92 Unspecified atrial flutter; I42.9 Cardiomyopathy, unspecified; E11.9 Type 2 diabetes mellitus without complications; D72.829 Elevated white blood cell count, unspecified; J44.1 Chronic obstructive pulmonary disease with (acute) exacerbation; I50.23 Acute on chronic systolic (congestive) heart failure; E78.5 Hyperlipidemia, unspecified; T38.0X5A Adverse effect of glucocorticoids and synthetic analogues, initial encounter; E66.01 Morbid (severe) obesity due to excess calories; I25.10 Atherosclerotic heart disease of native coronary artery without angina pectoris; I48.91 Unspecified atrial fibrillation; Z82.49 Family history of ischemic heart disease and other diseases of the circulatory system; Z87.891 Personal history of nicotine dependence; Z88.0 Allergy status to penicillin; Z79.84 Long term (current) use of oral hypoglycemic drugs; Z79.899 Other long term (current) drug therapy; Z68.35 Body mass index [BMI] 35.0-35.9, adult; Y92.89 Other specified places as the place of occurrence of the external cause
CPT/HCPCS: 36415; 36600; 71010; 76700; 80053; 80061; 82375; 82550; 82553; 82805; 82962; 83036; 83880; 84439; 84443; 84484; 85025; 85379; 85610; 93005; 93970; 94640; 94660; 96374; 99291; J1650; J1940; J2920; J7611; J7620; J7626

== ENCOUNTER 2017-01-06 00:53 | Inpatient (IN) | payer MEDICARE, OTHER ==
[~2017-01-06] VITALS: Ht 172.7 cm; Wt 111.1 kg
[~2017-01-06 00:53] MED LIST changes: -ATOR20TA PO; -DIGO250T4 PO; -FLUT1DIS3 IH; -NEOM10SO7 OT; -OMEP20CA10 PO; -P20 PO; -SOTA80TA PO; -WARF7.5T22 PO
[2017-01-06] MEDS ORDERED: ALBUTEROL (0.083%) 2.5MG/3ML NEB HHN STA (01:23)
[2017-01-06] MEDS ORDERED: ONDANSETRON HCL 4MG/2ML VIAL IV STA (01:23)
[2017-01-06] MEDS ORDERED: METHYLPREDNISOLONE SOD SUCC 125 MG/2 ML VIAL IV STA (01:23)
[2017-01-06] MEDS ORDERED: MORPHINE SULFATE 4 MG/ML CPJ (NOT FOR IM USE) IV STA (01:23)
[2017-01-06] MEDS ORDERED: IPRATROPIUM BROMIDE (0.02%) 0.5MG/2.5ML NEB HHN STA (01:23)
[2017-01-06] MEDS ORDERED: ASPIRIN 81MG TABLET PO ONE (01:30)
[2017-01-06] MEDS ORDERED: SODIUM CHLORIDE 0.9% 1000ML BAG (SEPSIS BOLUS) IV ONE (01:30)
[2017-01-06] MEDS ORDERED: NITROGLYCERIN OINT 1GM/INCH UDPKT TD ONE (01:30)
[2017-01-06] MEDS ORDERED: MAGNESIUM 2 G PREMIX 50 ML IV ONE (01:30)
[2017-01-06 01:47] LABS: BASOPHILS % 0.3 % (0.0-2.0); EOSINOPHILS % 4.4 % (0.0-5.0); HEMATOCRIT. 40.4 % (42.0-52.0); HEMOGLOBIN. 13.1 g/dL (14.0-18.0); LYMPHOCYTES % 7.6 % (20.0-50.0); MEAN CORPUSCULAR HEMOGLOBIN 26.6 pg (28.0-32.0); MEAN CORPUSCULAR VOLUME 82.4 fL (80.0-94.0); MEAN PLATELET VOLUME 9.4 fl (7.4-10.4); MONOCYTES % 8.2 % (2.0-8.0); NEUTROPHILS % 79.5 % (40.0-76.0); PLATELET 128 x1000/uL (130-400); RED BLOOD CELL COUNT 4.91 mill/uL (4.7-6.1); RED CELL DISTRIBUTION WIDTH 16.1 % (11.6-14.6)
[2017-01-06 01:55] LABS: D-DIMER < 0.19 mg/L FEU (<0.50); INR 1.1; PROTHROMBIN TIME 11.5 sec (9.4-11.6)
[2017-01-06 02:03] LABS: CARBON DIOXIDE 32 mEq/L (21-32); CHLORIDE 104 mEq/L (98-107); ETHANOL BLOOD < 10 mg/dL; TROPONIN I 0.06 ng/mL (0.00-0.04)
[2017-01-06] MEDS ORDERED: MORPHINE SULFATE 2 MG/ML CPJ (NOT FOR IM USE) IV ONE (02:23)
[2017-01-06] MEDS ORDERED: FUROSEMIDE 40MG/4ML VIAL IVP SCH (03:30)
[2017-01-06 10:53] VITALS: BP 138/83
[2017-01-06] MEDS ORDERED: IPRATROPIUM/ALBUTEROL 0.5-3(2.5)MG/3ML NEB HHN PRN (11:00)
[2017-01-06] MEDS ORDERED: DEXTROSE 50% WATER 50ML SYRINGE IV PRN (11:15)
[2017-01-06] MEDS: BLOOD SUGAR DIAGNOSTIC STRIP TEST SCH ×3 (12:13→21:19)
[2017-01-06 12:25] VITALS: BP 116/78
[2017-01-06] MEDS: INSULIN LISPRO 100 UNITS/ML SUBCUT SCH ×3 (13:06→21:19)
[2017-01-06 16:00] VITALS: BP 99/64
[2017-01-06] MEDS: ENOXAPARIN 30MG/0.3ML SYR SUBCUT SCH (18:07)
[2017-01-06 18:12] LABS: CREATINE KINASE MB FRACTION 2.9 ng/mL (0.5-3.6); TROPONIN I 0.03 ng/mL (0.00-0.04)
[2017-01-06 20:00] VITALS: BP 105/70
[2017-01-06] MEDS: BUDESONIDE 0.5MG/2ML NEB HHN SCH (20:55)
[2017-01-06] MEDS: IPRATROPIUM/ALBUTEROL 0.5-3(2.5)MG/3ML NEB HHN SCH (20:55)
[2017-01-06] MEDS: FAMOTIDINE 20MG/2ML VIAL IV SCH (21:20)
[2017-01-07] VITALS: BP 131/78
[2017-01-07] MEDS: IPRATROPIUM/ALBUTEROL 0.5-3(2.5)MG/3ML NEB HHN SCH ×4 (01:19→21:12)
[2017-01-07] MEDS ORDERED: ACETAMINOPHEN 650MG/20.3ML UDC PO PRN (02:30)
[2017-01-07 04:00] VITALS: BP 140/68
[2017-01-07] MEDS: BLOOD SUGAR DIAGNOSTIC STRIP TEST SCH ×4 (06:26→21:14)
[2017-01-07] MEDS: INSULIN LISPRO 100 UNITS/ML SUBCUT SCH ×4 (06:26→21:00)
[2017-01-07] MEDS: ENOXAPARIN 30MG/0.3ML SYR SUBCUT SCH (06:36)
[2017-01-07 08:00] VITALS: BP 126/82
[2017-01-07] MEDS: BUDESONIDE 0.5MG/2ML NEB HHN SCH ×2 (09:11→21:12)
[2017-01-07] MEDS: FAMOTIDINE 20MG/2ML VIAL IV SCH ×2 (09:48→22:43)
[2017-01-07] MEDS: FUROSEMIDE 40MG/4ML VIAL IVP SCH (09:48)
[2017-01-07 12:00] VITALS: BP 131/86
[2017-01-07] MEDS ORDERED: MEDICATION NOT ON FORMULARY EA (Metoprolol Succinate 100 MG) PO SCH (15:15)
[2017-01-07] MEDS ORDERED: MEDICATION NOT ON FORMULARY EA (Simvastatin (Zocor) 40 MG) PO SCH (15:15)
[2017-01-07 16:00] VITALS: BP 108/78
[2017-01-07] MEDS: SPIRONOLACTONE 25MG TABLET PO SCH (16:00)
[2017-01-07] MEDS: LISINOPRIL 40MG TABLET PO SCH (16:00)
[2017-01-07] MEDS: METOPROLOL TARTRATE 50MG TABLET PO SCH ×2 (16:01→21:13)
[2017-01-07] MEDS: APIXABAN 5 MG TABLET PO SCH (17:39)
[2017-01-07] MEDS ORDERED: ELIQUIS 5 MG PO SCH (18:00)
[2017-01-07 20:00] VITALS: BP 109/61
[2017-01-07 20:51] LABS: BASOPHILS % 0.4 % (0.0-2.0); EOSINOPHILS % 1.6 % (0.0-5.0); HEMATOCRIT. 39.4 % (42.0-52.0); HEMOGLOBIN. 12.6 g/dL (14.0-18.0); LYMPHOCYTES % 8.8 % (20.0-50.0); MEAN CORPUSCULAR HEMOGLOBIN 26.3 pg (28.0-32.0); MEAN CORPUSCULAR VOLUME 82.1 fL (80.0-94.0); MEAN PLATELET VOLUME 9.6 fl (7.4-10.4); MONOCYTES % 8.4 % (2.0-8.0); NEUTROPHILS % 80.8 % (40.0-76.0); PLATELET 150 x1000/uL (130-400); RED BLOOD CELL COUNT 4.79 mill/uL (4.7-6.1); RED CELL DISTRIBUTION WIDTH 16.4 % (11.6-14.6)
[2017-01-07 20:58] LABS: CHLORIDE 102 mEq/L (98-107)
[2017-01-07] MEDS ORDERED: ATORVASTATIN CALCIUM 20MG TABLET PO SCH (21:00)
[2017-01-07] MEDS ORDERED: METOPROLOL TARTRATE 50MG TABLET PO SCH (21:00)
[2017-01-07 21:12] LABS: CARBON DIOXIDE 33 mEq/L (21-32)
[2017-01-07] MEDS: BUMETANIDE 1MG TABLET PO SCH (21:13)
[2017-01-08] VITALS: BP 112/53
[2017-01-08] MEDS: IPRATROPIUM/ALBUTEROL 0.5-3(2.5)MG/3ML NEB HHN SCH ×2 (00:56→01:28)
[2017-01-08 04:00] VITALS: BP 147/85
[2017-01-08] MEDS: INSULIN LISPRO 100 UNITS/ML SUBCUT SCH (06:20)
[2017-01-08] MEDS: BLOOD SUGAR DIAGNOSTIC STRIP TEST SCH ×2 (06:20→11:45)
[2017-01-08] MEDS: APIXABAN 5 MG TABLET PO SCH (07:15)
[2017-01-08] MEDS: IPRATROPIUM/ALBUTEROL 0.5-3(2.5)MG/3ML NEB HHN PRN ×2 (07:32→11:09)
[2017-01-08] MEDS: BUDESONIDE 0.5MG/2ML NEB HHN SCH (07:32)
[2017-01-08 08:00] VITALS: BP 114/70
[2017-01-08] MEDS: SPIRONOLACTONE 25MG TABLET PO SCH (08:34)
[2017-01-08] MEDS: BUMETANIDE 1MG TABLET PO SCH (08:34)
[2017-01-08] MEDS: METOPROLOL TARTRATE 50MG TABLET PO SCH (08:35)
[2017-01-08] MEDS: LISINOPRIL 40MG TABLET PO SCH (08:35)
[2017-01-08] MEDS: FUROSEMIDE 40MG/4ML VIAL IVP SCH (08:35)
[2017-01-08] MEDS: FAMOTIDINE 20MG/2ML VIAL IV SCH (08:35)
[2017-01-08 11:50] VITALS: BP 118/59
== END 2017-01-08 11:53 | disposition home or self-care (01) | DRG 291 ==
LOC: ER 01:03 → 5WST 06:29 → ENRESERV 07:00
PROVIDERS: ADMIT Family Medicine; ATTEND Family Medicine
DX: I11.0 Hypertensive heart disease with heart failure (principal); J96.00 Acute respiratory failure, unspecified whether with hypoxia or hypercapnia; J44.1 Chronic obstructive pulmonary disease with (acute) exacerbation; I48.92 Unspecified atrial flutter; I50.23 Acute on chronic systolic (congestive) heart failure; I48.91 Unspecified atrial fibrillation; I42.9 Cardiomyopathy, unspecified; E11.9 Type 2 diabetes mellitus without complications; E78.00 Pure hypercholesterolemia, unspecified; K29.70 Gastritis, unspecified, without bleeding; K21.9 Gastro-esophageal reflux disease without esophagitis; G89.29 Other chronic pain; Z79.899 Other long term (current) drug therapy; Z88.0 Allergy status to penicillin
CPT/HCPCS: 36415; 71010; 80053; 82550; 82553; 82962; 83605; 83690; 83880; 84484; 85025; 85379; 85610; 87040; 93005; 94640; 96365; 96366; 96375; 99285; G0482; J1650; J1815; J1940; J2270; J2405; J2930; J3475; J3490; J7030; J7611; J7620; J7626

== ENCOUNTER 2017-01-10 02:41 | Inpatient (IN) | payer MEDICARE, OTHER ==
[~2017-01-10] VITALS: Ht 172.7 cm; Wt 111.6 kg
[~2017-01-10 02:41] MED LIST changes: -TERAZOSIN; -[UNRECOGNIZED DRUG - OTHER]
[2017-01-10] MEDS ORDERED: ALBUTEROL (0.083%) 2.5MG/3ML NEB HHN STA (03:19)
[2017-01-10] MEDS ORDERED: METHYLPREDNISOLONE SOD SUCC 125 MG/2 ML VIAL IV STA (03:19)
[2017-01-10] MEDS ORDERED: IPRATROPIUM BROMIDE (0.02%) 0.5MG/2.5ML NEB HHN STA (03:19)
[2017-01-10] MEDS ORDERED: ASPIRIN 81MG TABLET PO ONE (03:30)
[2017-01-10] MEDS ORDERED: LEVOFLOXACIN 750MG PREMIX 150 ML IV ONE (03:30)
[2017-01-10] MEDS ORDERED: NITROGLYCERIN OINT 1GM/INCH UDPKT TD ONE (03:30)
[2017-01-10] MEDS ORDERED: MAGNESIUM 2 G PREMIX 50 ML IV ONE (03:30)
[2017-01-10 03:54] LABS: PROTHROMBIN TIME 10.9 sec (9.4-11.6)
[2017-01-10 03:57] LABS: BASOPHILS % 0.6 % (0.0-2.0); EOSINOPHILS % 2.6 % (0.0-5.0); HEMOGLOBIN. 12.9 g/dL (14.0-18.0); LYMPHOCYTES % 10.2 % (20.0-50.0); MEAN CORPUSCULAR HEMOGLOBIN 26.6 pg (28.0-32.0); MEAN CORPUSCULAR VOLUME 82.6 fL (80.0-94.0); MEAN PLATELET VOLUME 9.4 fl (7.4-10.4); MONOCYTES % 8.6 % (2.0-8.0); PLATELET 120 x1000/uL (130-400); RED BLOOD CELL COUNT 4.84 mill/uL (4.7-6.1); RED CELL DISTRIBUTION WIDTH 16.5 % (11.6-14.6)
[2017-01-10 04:04] LABS: CARBON DIOXIDE 32 mEq/L (21-32); CHLORIDE 104 mEq/L (98-107); ETHANOL BLOOD < 10 mg/dL; TROPONIN I 0.05 ng/mL (0.00-0.04)
[2017-01-10 04:05] LABS: BG BASE EXCESS 3.3 mmol/L (-2.0-2.0); BG CARBOXYHEMOGLOBIN 0.5 % (0.5-1.5); BG DEOXYHEMOGLOBIN 0.7 % (0.0-5.0); BG FRACTION INSPIRED OXYGEN 60; BG HCO3 ACT 27.5 mmol/L (22.0-26.0); BG METHEMOGLOBIN 0.4 % (0.0-1.5); BG OXYGEN SATURATION 99.3 % (92.0-98.5); BG OXYHEMOGLOBIN 98.4 % (94.0-97.0); BG PCO2 40.6 mmHg (35.0-45.0); BG PH 7.449 (7.350-7.450); BG PO2 219.3 mmHg (75.0-100.0); BG SAMPLE SITE RIGHT RADIAL; BG TOTAL HEMOGLOBIN 13.4 g/dL (12.0-18.0)
[2017-01-10] MEDS ORDERED: SODIUM CHLORIDE 0.9% 1000ML BAG (SEPSIS BOLUS) IV ONE (06:30)
[2017-01-10] MEDS ORDERED: FUROSEMIDE 40MG/4ML VIAL IVP ONE (06:30)
[2017-01-10 08:19] LABS: *AMPHETAMINES SCREEN URINE NEGATIVE (NEGATIVE); *BARBITURATES SCREEN URINE NEGATIVE (NEGATIVE); *BENZODIAZEPINES SCREEN URINE NEGATIVE (NEGATIVE); *COCAINE SCREEN URINE NEGATIVE (NEGATIVE); CANNABINOID URINE SCREEN NEGATIVE (NEGATIVE); METHADONE URINE SCREEN NEGATIVE (NEGATIVE); OPIATES URINE SCREEN PRESUMTIVE POSITIVE (NEGATIVE); PHENCYCLIDINE URINE SCREEN NEGATIVE (NEGATIVE)
[2017-01-10] MEDS ORDERED: DEXTROSE 50% WATER 50ML SYRINGE IV PRN (10:00)
[2017-01-10] MEDS ORDERED: HYDROMORPHONE HCL/PF 2MG/ML CPJ IV PRN (10:00)
[2017-01-10] MEDS ORDERED: HYDROCODONE/ACETAMINOPHEN 10/325MG TABLET PO PRN (10:00)
[2017-01-10] MEDS ORDERED: IPRATROPIUM/ALBUTEROL 0.5-3(2.5)MG/3ML NEB INH PRN (10:00)
[2017-01-10] MEDS ORDERED: ACETAMINOPHEN 325MG TABLET PO PRN (10:00)
[2017-01-10] MEDS ORDERED: ONDANSETRON HCL 4MG/2ML VIAL IV PRN (10:00)
[2017-01-10] MEDS ORDERED: HYDROCODONE/ACETAMINOPHEN 5/325MG TABLET PO PRN (10:00)
[2017-01-10 11:45] VITALS: BP 119/66
[2017-01-10] MEDS ORDERED: AZITHROMYCIN IVPB XX SCH (11:45)
[2017-01-10 12:00] VITALS: BP 119/60
[2017-01-10] MEDS: BLOOD SUGAR DIAGNOSTIC STRIP TEST SCH ×3 (12:15→20:24)
[2017-01-10] MEDS: METHYLPREDNISOLONE SOD SUCC 40 MG/ML VIAL IV SCH ×2 (12:19→20:23)
[2017-01-10] MEDS: LISINOPRIL 40MG TABLET PO SCH (12:20)
[2017-01-10] MEDS: SPIRONOLACTONE 25MG TABLET PO SCH (12:20)
[2017-01-10] MEDS: INSULIN LISPRO 100 UNITS/ML SUBCUT SCH ×3 (12:21→20:24)
[2017-01-10] MEDS ORDERED: AZITHROMYCIN 500 MG in DEXT 5% WATER 250 ML IV SCH (14:00)
[2017-01-10 14:29] LABS: TROPONIN I 0.03 ng/mL (0.00-0.04)
[2017-01-10] MEDS: AZITHROMYCIN 500 MG in DEXT 5% WATER 250 ML IV SCH (14:54)
[2017-01-10 16:00] VITALS: BP 107/65
[2017-01-10] MEDS: APIXABAN 5 MG TABLET PO SCH (16:54)
[2017-01-10] MEDS ORDERED: BUMETANIDE 1MG TABLET PO SCH (17:00)
[2017-01-10] MEDS: BUMETANIDE 1MG/4ML VIAL IV SCH (17:53)
[2017-01-10 20:00] VITALS: BP 118/64
[2017-01-10] MEDS: CARVEDILOL 3.125 MG TABLET PO SCH (20:24)
[2017-01-10 23:22] LABS: TROPONIN I 0.03 ng/mL (0.00-0.04)
[2017-01-11] VITALS: BP 117/58
[2017-01-11] MEDS: IPRATROPIUM/ALBUTEROL 0.5-3(2.5)MG/3ML NEB INH SCH ×7 (00:27→20:24)
[2017-01-11 04:00] VITALS: BP 118/69
[2017-01-11] MEDS: METHYLPREDNISOLONE SOD SUCC 40 MG/ML VIAL IV SCH ×2 (05:38→12:08)
[2017-01-11] MEDS: INSULIN LISPRO 100 UNITS/ML SUBCUT SCH ×4 (06:35→21:02)
[2017-01-11] MEDS: BLOOD SUGAR DIAGNOSTIC STRIP TEST SCH ×4 (06:35→20:29)
[2017-01-11 06:37] LABS: CARBON DIOXIDE 32 mEq/L (21-32); CHLORIDE 102 mEq/L (98-107); HDL CHOLESTEROL 79 mg/dL (40-59); LDL CHOLESTEROL 94 mg/dL (5-100); TROPONIN I 0.03 ng/mL (0.00-0.04)
[2017-01-11 07:32] VITALS: BP 122/80
[2017-01-11 08:05] LABS: HEMATOCRIT. 41.6 % (42.0-52.0); HEMOGLOBIN. 13.1 g/dL (14.0-18.0); MEAN CORPUSCULAR HEMOGLOBIN 26.2 pg (28.0-32.0); MEAN CORPUSCULAR VOLUME 83.2 fL (80.0-94.0); MEAN PLATELET VOLUME 10.8 fl (7.4-10.4); PLATELET 137 x1000/uL (130-400); RED CELL DISTRIBUTION WIDTH 16.5 % (11.6-14.6)
[2017-01-11] MEDS: BUDESONIDE 0.5MG/2ML NEB HHN SCH ×2 (08:06→20:24)
[2017-01-11] MEDS: BUMETANIDE 1MG/4ML VIAL IV SCH ×2 (08:19→17:02)
[2017-01-11] MEDS: SPIRONOLACTONE 25MG TABLET PO SCH (08:20)
[2017-01-11] MEDS: CARVEDILOL 3.125 MG TABLET PO SCH ×2 (08:20→21:02)
[2017-01-11] MEDS: APIXABAN 5 MG TABLET PO SCH ×2 (08:20→17:02)
[2017-01-11] MEDS: LISINOPRIL 40MG TABLET PO SCH (08:20)
[2017-01-11] MEDS ORDERED: AMLODIPINE 2.5MG TABLET PO SCH (09:00)
[2017-01-11 12:14] VITALS: BP 107/59
[2017-01-11] MEDS: AZITHROMYCIN 500 MG in DEXT 5% WATER 250 ML IV SCH (14:11)
[2017-01-11 16:14] VITALS: BP 113/67
[2017-01-11 16:41] LABS: PLATELET ESTIMATE NORMAL
[2017-01-11 20:00] VITALS: BP 102/60
[2017-01-11] MEDS ORDERED: METHYLPREDNISOLONE SOD SUCC 40 MG/ML VIAL IV SCH (21:00)
[2017-01-12] VITALS: BP 106/65
[2017-01-12 08:00] VITALS: BP 135/72
[2017-01-12] MEDS: IPRATROPIUM/ALBUTEROL 0.5-3(2.5)MG/3ML NEB INH SCH (09:40)
[2017-01-12] MEDS: BUDESONIDE 0.5MG/2ML NEB HHN SCH (09:40)
[2017-01-12 09:52] LABS: HEMATOCRIT. 42.9 % (42.0-52.0); HEMOGLOBIN. 13.6 g/dL (14.0-18.0); MEAN CORPUSCULAR HEMOGLOBIN 26.2 pg (28.0-32.0); MEAN CORPUSCULAR VOLUME 82.4 fL (80.0-94.0); MEAN PLATELET VOLUME 10.1 fl (7.4-10.4); PLATELET 149 x1000/uL (130-400); RED BLOOD CELL COUNT 5.21 mill/uL (4.7-6.1); RED CELL DISTRIBUTION WIDTH 16.6 % (11.6-14.6)
[2017-01-12 10:27] LABS: CARBON DIOXIDE 32 mEq/L (21-32); CHLORIDE 100 mEq/L (98-107); TROPONIN I 0.03 ng/mL (0.00-0.04)
[2017-01-12 10:50] VITALS: BP 135/72
[2017-01-13 05:54] LABS: PLATELET ESTIMATE NORMAL
== END 2017-01-12 11:55 | disposition home or self-care (01) | DRG 871 ==
LOC: ER 02:41 → 8WST 06:21 → ENRESERV 09:54 → CANRESERV 09:54 → ENRESERV 10:25
PROVIDERS: ADMIT Internal Medicine; ATTEND Internal Medicine
DX: A41.9 Sepsis, unspecified organism (principal); J96.20 Acute and chronic respiratory failure, unspecified whether with hypoxia or hypercapnia; I47.2 Ventricular tachycardia; I50.43 Acute on chronic combined systolic (congestive) and diastolic (congestive) heart failure; E87.2 Acidosis; J44.0 Chronic obstructive pulmonary disease with (acute) lower respiratory infection; J44.1 Chronic obstructive pulmonary disease with (acute) exacerbation; I42.0 Dilated cardiomyopathy; I11.0 Hypertensive heart disease with heart failure; I48.0 Paroxysmal atrial fibrillation; E11.9 Type 2 diabetes mellitus without complications; G89.29 Other chronic pain; I49.3 Ventricular premature depolarization; Z87.891 Personal history of nicotine dependence; Z88.0 Allergy status to penicillin
CPT/HCPCS: 36415; 36600; 71010; 71250; 80053; 80061; 80305; 82375; 82550; 82805; 82962; 83605; 83690; 83880; 84443; 84484; 85025; 85610; 87040; 87086; 93005; 93970; 94640; 94664; 96361; 96365; 96366; 96367; 96375; 99285; C1893; G0482; J0456; J1815; J1940; J1956; J2920; J2930; J3475; J3490; J7030; J7050; J7060; J7611; J7620; J7626

== ENCOUNTER 2017-01-15 19:40 | Inpatient (IN) | payer MEDICARE, OTHER ==
[~2017-01-15] VITALS: Ht 172.7 cm; Wt 112.0 kg
[2017-01-15] MEDS ORDERED: FUROSEMIDE 40MG/4ML VIAL IV STA (22:00)
[2017-01-15] MEDS ORDERED: ASPIRIN 81MG TABLET PO STA (22:00)
[2017-01-15] MEDS ORDERED: METHYLPREDNISOLONE SOD SUCC 125 MG/2 ML VIAL IV STA (22:00)
[2017-01-15 23:44] LABS: BASOPHILS % 0.5 % (0.0-2.0); EOSINOPHILS % 2.9 % (0.0-5.0); HEMATOCRIT. 42.2 % (42.0-52.0); HEMOGLOBIN. 13.5 g/dL (14.0-18.0); LYMPHOCYTES % 9.7 % (20.0-50.0); MEAN CORPUSCULAR HEMOGLOBIN 26.8 pg (28.0-32.0); MEAN CORPUSCULAR VOLUME 83.8 fL (80.0-94.0); MEAN PLATELET VOLUME 9.5 fl (7.4-10.4); MONOCYTES % 6.7 % (2.0-8.0); NEUTROPHILS % 80.2 % (40.0-76.0); PLATELET 114 x1000/uL (130-400); RED BLOOD CELL COUNT 5.04 mill/uL (4.7-6.1); RED CELL DISTRIBUTION WIDTH 16.3 % (11.6-14.6)
[2017-01-15 23:50] LABS: INR 1.1; PARTIAL THROMBOPLASTIN TIME 24.1 sec (23.4-31.0); PROTHROMBIN TIME 11.9 sec (9.4-11.6)
[2017-01-15 23:59] LABS: CARBON DIOXIDE 31 mEq/L (21-32); CHLORIDE 104 mEq/L (98-107); TROPONIN I 0.06 ng/mL (0.00-0.04)
[2017-01-16 03:42] VITALS: BP 114/67
[2017-01-16 03:43] VITALS: BP 114/67
[2017-01-16 08:00] VITALS: BP 128/66
[2017-01-16] MEDS ORDERED: ENOXAPARIN 30MG/0.3ML SYR SUBCUT SCH (09:00)
[2017-01-16] MEDS ORDERED: FUROSEMIDE 40MG/4ML VIAL IVP SCH ×3 (09:00→21:00)
[2017-01-16 09:37] LABS: HEMATOCRIT. 41.2 % (42.0-52.0); HEMOGLOBIN. 13.1 g/dL (14.0-18.0); MEAN CORPUSCULAR HEMOGLOBIN 26.2 pg (28.0-32.0); MEAN CORPUSCULAR VOLUME 82.3 fL (80.0-94.0); MEAN PLATELET VOLUME 9.4 fl (7.4-10.4); PLATELET 113 x1000/uL (130-400); RED BLOOD CELL COUNT 5.01 mill/uL (4.7-6.1); RED CELL DISTRIBUTION WIDTH 16.5 % (11.6-14.6)
[2017-01-16 09:59] LABS: CARBON DIOXIDE 32 mEq/L (21-32); CHLORIDE 98 mEq/L (98-107); CREATINE KINASE 63 IU/L (39-308); CREATINE KINASE MB FRACTION 2.5 ng/mL (0.5-3.6); TROPONIN I 0.04 ng/mL (0.00-0.04)
[2017-01-16 12:00] VITALS: BP 114/61
[2017-01-16 13:04] LABS: *AMPHETAMINES SCREEN URINE NEGATIVE (NEGATIVE); *BARBITURATES SCREEN URINE NEGATIVE (NEGATIVE); *BENZODIAZEPINES SCREEN URINE NEGATIVE (NEGATIVE); *COCAINE SCREEN URINE NEGATIVE (NEGATIVE); CANNABINOID URINE SCREEN NEGATIVE (NEGATIVE); METHADONE URINE SCREEN NEGATIVE (NEGATIVE); OPIATES URINE SCREEN PRESUMTIVE POSITIVE (NEGATIVE); PHENCYCLIDINE URINE SCREEN NEGATIVE (NEGATIVE)
[2017-01-16] MEDS ORDERED: DEXTROSE 50% WATER 50ML SYRINGE IV PRN (13:15)
[2017-01-16] MEDS ORDERED: PREDNISONE 20MG TABLET PO SCH (14:00)
[2017-01-16 16:00] VITALS: BP 100/53
[2017-01-16] MEDS ORDERED: HYDROCODONE/ACETAMINOPHEN 5/325MG TABLET PO PRN (16:30)
[2017-01-16 16:40] LABS: CREATINE KINASE MB FRACTION 2.4 ng/mL (0.5-3.6); TROPONIN I 0.02 ng/mL (0.00-0.04)
[2017-01-16] MEDS: METOPROLOL TARTRATE 50MG TABLET PO SCH (17:00)
[2017-01-16] MEDS ORDERED: BUMETANIDE 1MG TABLET PO SCH (17:00)
[2017-01-16] MEDS: BLOOD SUGAR DIAGNOSTIC STRIP TEST SCH ×2 (17:28→20:57)
[2017-01-16 17:42] LABS: PLATELET ESTIMATE SLIGHTLY DECREASED
[2017-01-16] MEDS ORDERED: ELIQUIS 5 MG PO SCH (18:00)
[2017-01-16] MEDS: FUROSEMIDE 40MG/4ML VIAL IVP SCH (18:03)
[2017-01-16] MEDS: APIXABAN 5 MG TABLET PO SCH (18:03)
[2017-01-16] MEDS: INSULIN LISPRO 100 UNITS/ML SUBCUT SCH ×2 (18:10→21:21)
[2017-01-16 20:00] VITALS: BP 98/62
[2017-01-16] MEDS: ATORVASTATIN CALCIUM 20MG TABLET PO SCH (21:18)
[2017-01-16] MEDS: FAMOTIDINE 20MG TABLET PO SCH (21:18)
[2017-01-17] MEDS: IPRATROPIUM BROMIDE (0.02%) 0.5MG/2.5ML NEB HHN SCH ×4 (02:01→20:49)
[2017-01-17] MEDS: BUDESONIDE 0.5MG/2ML NEB HHN SCH ×3 (02:01→20:49)
[2017-01-17 06:52] LABS: HEMATOCRIT. 40.9 % (42.0-52.0); HEMOGLOBIN. 13.3 g/dL (14.0-18.0); MEAN CORPUSCULAR HEMOGLOBIN 27.1 pg (28.0-32.0); MEAN CORPUSCULAR VOLUME 83.4 fL (80.0-94.0); PLATELET 117 x1000/uL (130-400); RED CELL DISTRIBUTION WIDTH 16.5 % (11.6-14.6)
[2017-01-17] MEDS: INSULIN LISPRO 100 UNITS/ML SUBCUT SCH ×4 (07:01→21:53)
[2017-01-17] MEDS: BLOOD SUGAR DIAGNOSTIC STRIP TEST SCH ×4 (07:01→21:00)
[2017-01-17] MEDS: FUROSEMIDE 40MG/4ML VIAL IVP SCH ×2 (07:08→17:34)
[2017-01-17 08:00] VITALS: BP 102/69
[2017-01-17 08:13] LABS: CARBON DIOXIDE 35 mEq/L (21-32); CHLORIDE 99 mEq/L (98-107)
[2017-01-17] MEDS: METOPROLOL TARTRATE 50MG TABLET PO SCH (09:00)
[2017-01-17] MEDS ORDERED: MEDICATION NOT ON FORMULARY EA (Simvastatin (Zocor) 40 MG) PO SCH (09:00)
[2017-01-17] MEDS ORDERED: MEDICATION NOT ON FORMULARY EA (Tiotropium Bromide (Spiriva) 18 MCG) IH SCH (09:00)
[2017-01-17] MEDS ORDERED: LISINOPRIL 40MG TABLET PO SCH (09:00)
[2017-01-17] MEDS ORDERED: MEDICATION NOT ON FORMULARY EA (Metoprolol Succinate 100 MG) PO SCH (09:00)
[2017-01-17] MEDS ORDERED: METFORMIN HCL 500 MG PO SCH (09:00)
[2017-01-17] MEDS: APIXABAN 5 MG TABLET PO SCH ×2 (09:22→17:32)
[2017-01-17] MEDS: METFORMIN HCL 500MG TABLET PO SCH (09:22)
[2017-01-17] MEDS: SPIRONOLACTONE 25MG TABLET PO SCH (09:26)
[2017-01-17 12:00] VITALS: BP 116/65
[2017-01-17 14:08] LABS: PLATELET ESTIMATE SLIGHTLY DECREASED
[2017-01-17] MEDS: DILTIAZEM HCL 90MG TABLET PO SCH ×2 (14:11→21:50)
[2017-01-17] MEDS ORDERED: PROMETHAZINE/DEXTROMETHORPHAN 6.25-15MG/5ML BOTTLE 120ML PO PRN (14:30)
[2017-01-17 16:00] VITALS: BP 102/65
[2017-01-17 20:00] VITALS: BP 94/51
[2017-01-17] MEDS: FAMOTIDINE 20MG TABLET PO SCH (21:48)
[2017-01-17] MEDS: ATORVASTATIN CALCIUM 20MG TABLET PO SCH (21:50)
[2017-01-18] VITALS: BP 120/60
[2017-01-18] MEDS: IPRATROPIUM BROMIDE (0.02%) 0.5MG/2.5ML NEB HHN SCH ×2 (00:40→08:11)
[2017-01-18 04:00] VITALS: BP 109/70
[2017-01-18] MEDS: FUROSEMIDE 40MG/4ML VIAL IVP SCH (06:05)
[2017-01-18] MEDS: DILTIAZEM HCL 90MG TABLET PO SCH (06:05)
[2017-01-18 06:10] LABS: CHLORIDE 99 mEq/L (98-107)
[2017-01-18] MEDS: INSULIN LISPRO 100 UNITS/ML SUBCUT SCH ×2 (06:11→12:15)
[2017-01-18] MEDS: BLOOD SUGAR DIAGNOSTIC STRIP TEST SCH ×2 (06:11→12:57)
[2017-01-18 06:22] LABS: CARBON DIOXIDE 32 mEq/L (21-32)
[2017-01-18 06:30] LABS: BASOPHILS % 0.1 % (0.0-2.0); EOSINOPHILS % 1.8 % (0.0-5.0); HEMATOCRIT. 42.9 % (42.0-52.0); HEMOGLOBIN. 13.8 g/dL (14.0-18.0); LYMPHOCYTES % 11.2 % (20.0-50.0); MEAN CORPUSCULAR HEMOGLOBIN 26.6 pg (28.0-32.0); MEAN CORPUSCULAR VOLUME 82.8 fL (80.0-94.0); MEAN PLATELET VOLUME 9.7 fl (7.4-10.4); NEUTROPHILS % 79.9 % (40.0-76.0); PLATELET 127 x1000/uL (130-400); RED BLOOD CELL COUNT 5.18 mill/uL (4.7-6.1); RED CELL DISTRIBUTION WIDTH 16.7 % (11.6-14.6)
[2017-01-18 08:00] VITALS: BP 103/60
[2017-01-18] MEDS ORDERED: LISINOPRIL 20MG TABLET PO SCH (09:00)
[2017-01-18] MEDS: METFORMIN HCL 500MG TABLET PO SCH (09:00)
[2017-01-18] MEDS: SPIRONOLACTONE 25MG TABLET PO SCH (09:57)
[2017-01-18] MEDS: APIXABAN 5 MG TABLET PO SCH (09:57)
[2017-01-18 12:00] VITALS: BP 119/53
[2017-01-18 13:16] VITALS: BP 119/53
== END 2017-01-18 13:50 | disposition home or self-care (01) | DRG 291 ==
LOC: ER 19:44 → 5WST 01-16 00:29 → EDBEDREQTM 01-16 00:36 → EDBEDREQ 01-16 00:36 → ENRESERV 01-16 01:18
PROVIDERS: ADMIT Internal Medicine; ATTEND Internal Medicine
DX: I11.0 Hypertensive heart disease with heart failure (principal); J96.00 Acute respiratory failure, unspecified whether with hypoxia or hypercapnia; E66.01 Morbid (severe) obesity due to excess calories; I42.0 Dilated cardiomyopathy; E11.9 Type 2 diabetes mellitus without complications; D72.829 Elevated white blood cell count, unspecified; I48.92 Unspecified atrial flutter; J44.1 Chronic obstructive pulmonary disease with (acute) exacerbation; I50.23 Acute on chronic systolic (congestive) heart failure; G89.29 Other chronic pain; T38.0X5A Adverse effect of glucocorticoids and synthetic analogues, initial encounter; R10.9 Unspecified abdominal pain; I48.0 Paroxysmal atrial fibrillation; E78.5 Hyperlipidemia, unspecified; Z79.01 Long term (current) use of anticoagulants; Z79.899 Other long term (current) drug therapy; Z88.0 Allergy status to penicillin; Z79.84 Long term (current) use of oral hypoglycemic drugs; Z68.37 Body mass index [BMI] 37.0-37.9, adult
CPT/HCPCS: 36415; 71010; 80048; 80053; 80305; 82550; 82553; 82962; 83036; 83605; 83735; 83880; 84484; 85025; 85610; 85730; 87040; 87086; 93005; 93970; 94640; 94664; 96374; 96375; 97110; 97116; 97162; 99285; C1893; J1650; J1815; J1940; J2930; J7626

== ENCOUNTER 2017-01-25 09:42 | Inpatient (IN) | payer MEDICARE, OTHER ==
[~2017-01-25] VITALS: Ht 172.7 cm; Wt 111.1 kg
[2017-01-25] MEDS ORDERED: NITROGLYCERIN OINT 1GM/INCH UDPKT TD STA (10:01)
[2017-01-25] MEDS ORDERED: FUROSEMIDE 40MG/4ML VIAL IV STA (10:01)
[2017-01-25 10:38] LABS: BASOPHILS % 0.6 % (0.0-2.0); EOSINOPHILS % 3.8 % (0.0-5.0); HEMATOCRIT. 39.1 % (42.0-52.0); HEMOGLOBIN. 12.5 g/dL (14.0-18.0); LYMPHOCYTES % 12.8 % (20.0-50.0); MEAN CORPUSCULAR HEMOGLOBIN 26.8 pg (28.0-32.0); MEAN PLATELET VOLUME 9.3 fl (7.4-10.4); NEUTROPHILS % 74.8 % (40.0-76.0); PLATELET 118 x1000/uL (130-400); RED BLOOD CELL COUNT 4.66 mill/uL (4.7-6.1); RED CELL DISTRIBUTION WIDTH 16.4 % (11.6-14.6)
[2017-01-25 10:45] LABS: PROTHROMBIN TIME 10.6 sec (9.4-11.6)
[2017-01-25 10:56] LABS: CARBON DIOXIDE 33 mEq/L (21-32); CHLORIDE 106 mEq/L (98-107); TROPONIN I 0.05 ng/mL (0.00-0.04)
[2017-01-25 12:00] VITALS: BP 91/61
[2017-01-25 13:08] VITALS: BP 112/64
[2017-01-25] MEDS ORDERED: ENOXAPARIN 40MG/0.4ML SYR SUBCUT SCH ×2 (14:00→16:30)
[2017-01-25 16:00] VITALS: BP 94/48
[2017-01-25] MEDS ORDERED: MVI, ADULT NO.1 10 ML, FOLIC ACID 1 MG, THIAMINE HCL 100 MG in SODIUM CHLORIDE 0.9% 1,0... IV SCH ×4 (16:30)
[2017-01-25] MEDS ORDERED: MORPHINE SULFATE 4 MG/ML CPJ (NOT FOR IM USE) IV PRN (16:30)
[2017-01-25] MEDS ORDERED: LORAZEPAM 2MG/ML CPJ IV PRN (16:30)
[2017-01-25] MEDS ORDERED: FUROSEMIDE 40MG/4ML VIAL IV SCH (16:30)
[2017-01-25] MEDS ORDERED: BUMETANIDE 1MG TABLET PO SCH (17:00)
[2017-01-25] MEDS: FERROUS SULFATE 325MG TABLET PO SCH (17:14)
[2017-01-25] MEDS: HYDROCODONE/ACETAMINOPHEN 5/325MG TABLET PO PRN ×2 (17:15→23:26)
[2017-01-25] MEDS: INSULIN LISPRO 100 UNITS/ML SUBCUT SCH ×2 (17:15→20:50)
[2017-01-25] MEDS ORDERED: DEXTROSE 50% WATER 50ML SYRINGE IV PRN (17:15)
[2017-01-25] MEDS ORDERED: ELIQUIS 5 MG PO SCH (18:00)
[2017-01-25 20:00] VITALS: BP 105/60
[2017-01-25 20:43] LABS: TROPONIN I 0.06 ng/mL (0.00-0.04)
[2017-01-25] MEDS: ATORVASTATIN CALCIUM 20MG TABLET PO SCH (20:49)
[2017-01-25] MEDS: METOPROLOL TARTRATE 50MG TABLET PO SCH (20:49)
[2017-01-25] MEDS: BLOOD SUGAR DIAGNOSTIC STRIP TEST SCH (20:50)
[2017-01-25] MEDS: IPRATROPIUM/ALBUTEROL 0.5-3(2.5)MG/3ML NEB INH PRN (22:07)
[2017-01-26] VITALS: BP 110/62
[2017-01-26 04:00] VITALS: BP 111/57
[2017-01-26 04:47] LABS: CARBON DIOXIDE 30 mEq/L (21-32); CHLORIDE 103 mEq/L (98-107); CREATINE KINASE 71 IU/L (39-308); TROPONIN I 0.06 ng/mL (0.00-0.04)
[2017-01-26] MEDS: IPRATROPIUM/ALBUTEROL 0.5-3(2.5)MG/3ML NEB INH PRN (05:10)
[2017-01-26 05:41] LABS: BASOPHILS % 0.9 % (0.0-2.0); EOSINOPHILS % 5.5 % (0.0-5.0); HEMATOCRIT 37.5 % (42.0-52.0); HEMATOCRIT. 37.5 % (42.0-52.0); HEMOGLOBIN 11.8 g/dL (14.0-18.0); HEMOGLOBIN. 11.8 g/dL (14.0-18.0); LYMPHOCYTES % 16.8 % (20.0-50.0); MEAN CORPUSCULAR HEMOGLOBIN 26.3 pg (28.0-32.0); MEAN CORPUSCULAR VOLUME 83.5 fL (80.0-94.0); MEAN PLATELET VOLUME 10.1 fl (7.4-10.4); MONOCYTES % 8.5 % (2.0-8.0); NEUTROPHILS % 68.3 % (40.0-76.0); PLATELET 120 x1000/uL (130-400); RED BLOOD CELL COUNT 4.49 mill/uL (4.7-6.1); RED CELL DISTRIBUTION WIDTH 16.5 % (11.6-14.6)
[2017-01-26 06:06] LABS: *AMPHETAMINES SCREEN URINE NEGATIVE (NEGATIVE); *BARBITURATES SCREEN URINE NEGATIVE (NEGATIVE); *BENZODIAZEPINES SCREEN URINE NEGATIVE (NEGATIVE); *COCAINE SCREEN URINE NEGATIVE (NEGATIVE); CANNABINOID URINE SCREEN NEGATIVE (NEGATIVE); OPIATES URINE SCREEN PRESUMTIVE POSITIVE (NEGATIVE); PHENCYCLIDINE URINE SCREEN NEGATIVE (NEGATIVE)
[2017-01-26 06:30] LABS: METHADONE URINE SCREEN NEGATIVE (NEGATIVE)
[2017-01-26] MEDS: BLOOD SUGAR DIAGNOSTIC STRIP TEST SCH ×4 (06:39→21:39)
[2017-01-26] MEDS: INSULIN LISPRO 100 UNITS/ML SUBCUT SCH ×4 (06:39→21:00)
[2017-01-26 08:00] VITALS: BP 100/61
[2017-01-26] MEDS ORDERED: METFORMIN HCL 500 MG PO SCH (09:00)
[2017-01-26] MEDS: METOPROLOL TARTRATE 50MG TABLET PO SCH ×2 (09:00→21:00)
[2017-01-26] MEDS ORDERED: SPIRONOLACTONE 5MG/ML 1ML ORAL SYR(NEO) PO SCH (09:00)
[2017-01-26] MEDS ORDERED: LISINOPRIL 40MG TABLET PO SCH (09:00)
[2017-01-26] MEDS ORDERED: MEDICATION NOT ON FORMULARY EA (Metoprolol Succinate 100 MG) PO SCH (09:00)
[2017-01-26] MEDS ORDERED: MEDICATION NOT ON FORMULARY EA (Simvastatin (Zocor) 40 MG) PO SCH (09:00)
[2017-01-26] MEDS: APIXABAN 5 MG TABLET PO SCH ×2 (09:26→18:15)
[2017-01-26] MEDS: FERROUS SULFATE 325MG TABLET PO SCH (09:26)
[2017-01-26] MEDS: THIAMINE HCL 100MG TABLET PO SCH (09:26)
[2017-01-26] MEDS: ASPIRIN 81MG EC TABLET PO SCH (09:27)
[2017-01-26] MEDS: METFORMIN HCL 500MG SR TABLET 24HR PO SCH (09:27)
[2017-01-26] MEDS: MULTIVITAMINS,THER W-MINERALS TABLET PO SCH (09:27)
[2017-01-26] MEDS: FOLIC ACID 1MG TABLET PO SCH (09:27)
[2017-01-26 11:54] LABS: TROPONIN I 0.05 ng/mL (0.00-0.04)
[2017-01-26 12:00] VITALS: BP 116/56
[2017-01-26 15:56] VITALS: BP 107/41
[2017-01-26] MEDS: IPRATROPIUM/ALBUTEROL 0.5-3(2.5)MG/3ML NEB HHN SCH ×2 (17:29→21:04)
[2017-01-26] MEDS: FUROSEMIDE 40MG/4ML VIAL IV SCH (18:15)
[2017-01-26 20:00] VITALS: BP 100/61
[2017-01-26] MEDS: BUDESONIDE 0.5MG/2ML NEB HHN SCH (21:03)
[2017-01-26] MEDS: ATORVASTATIN CALCIUM 20MG TABLET PO SCH (21:38)
[2017-01-27] VITALS: BP 113/47
[2017-01-27] MEDS: IPRATROPIUM/ALBUTEROL 0.5-3(2.5)MG/3ML NEB HHN SCH ×5 (00:43→20:25)
[2017-01-27 04:00] VITALS: BP 111/58
[2017-01-27] MEDS: FUROSEMIDE 40MG/4ML VIAL IV SCH ×2 (06:45→17:41)
[2017-01-27] MEDS: BLOOD SUGAR DIAGNOSTIC STRIP TEST SCH ×4 (06:45→20:39)
[2017-01-27] MEDS: INSULIN LISPRO 100 UNITS/ML SUBCUT SCH ×4 (06:55→20:43)
[2017-01-27 08:00] VITALS: BP 100/63
[2017-01-27] MEDS: BUDESONIDE 0.5MG/2ML NEB HHN SCH ×2 (08:28→20:25)
[2017-01-27] MEDS: MULTIVITAMINS,THER W-MINERALS TABLET PO SCH (08:49)
[2017-01-27] MEDS: THIAMINE HCL 100MG TABLET PO SCH (08:49)
[2017-01-27] MEDS: FOLIC ACID 1MG TABLET PO SCH (08:49)
[2017-01-27] MEDS: ASPIRIN 81MG EC TABLET PO SCH (08:50)
[2017-01-27] MEDS: METFORMIN HCL 500MG SR TABLET 24HR PO SCH (08:50)
[2017-01-27] MEDS: APIXABAN 5 MG TABLET PO SCH ×2 (08:50→17:41)
[2017-01-27] MEDS: FERROUS SULFATE 325MG TABLET PO SCH (08:50)
[2017-01-27] MEDS: CARVEDILOL 12.5MG TABLET PO SCH ×2 (08:54→20:12)
[2017-01-27] MEDS: LISINOPRIL 40MG TABLET PO SCH (08:55)
[2017-01-27] MEDS: HYDROCODONE/ACETAMINOPHEN 5/325MG TABLET PO PRN ×2 (11:03→20:13)
[2017-01-27 12:00] VITALS: BP 112/70
[2017-01-27 16:16] VITALS: BP 105/69
[2017-01-27 20:00] VITALS: BP 110/48
[2017-01-27] MEDS: ATORVASTATIN CALCIUM 10MG TABLET PO SCH (20:11)
[2017-01-27 23:56] LABS: CLARITY URINE CLEAR (CLEAR); COLOR URINE YELLOW (YELLOW); GLUCOSE URINE NEGATIVE (NEGATIVE); KETONES URINE NEGATIVE (NEGATIVE); LEUKOCYTE ESTERASE URINE TRACE (NEGATIVE); NITRITE URINE NEGATIVE (NEGATIVE); OCCULT BLOOD URINE NEGATIVE (NEGATIVE); PROTEIN URINE NEGATIVE (NEGATIVE); SPECIFIC GRAVITY URINE 1.013 (1.005-1.030); UROBILINOGEN URINE 0.2 E.U./dL (0.2-1.0)
[2017-01-28] VITALS: BP 114/62
[2017-01-28] MEDS: IPRATROPIUM/ALBUTEROL 0.5-3(2.5)MG/3ML NEB HHN SCH ×6 (00:34→22:56)
[2017-01-28] MEDS: HYDROCODONE/ACETAMINOPHEN 5/325MG TABLET PO PRN ×3 (01:01→21:04)
[2017-01-28 04:00] VITALS: BP 107/61
[2017-01-28 05:41] LABS: BASOPHILS % 0.9 % (0.0-2.0); EOSINOPHILS % 4.3 % (0.0-5.0); HEMOGLOBIN. 12.7 g/dL (14.0-18.0); LYMPHOCYTES % 10.5 % (20.0-50.0); MEAN CORPUSCULAR VOLUME 82.8 fL (80.0-94.0); MEAN PLATELET VOLUME 9.5 fl (7.4-10.4); MONOCYTES % 8.5 % (2.0-8.0); NEUTROPHILS % 75.8 % (40.0-76.0); PLATELET 130 x1000/uL (130-400); RED BLOOD CELL COUNT 4.71 mill/uL (4.7-6.1); RED CELL DISTRIBUTION WIDTH 15.8 % (11.6-14.6)
[2017-01-28 06:01] LABS: CARBON DIOXIDE 32 mEq/L (21-32); CHLORIDE 97 mEq/L (98-107); PHOSPHORUS 2.8 mg/dL (2.5-4.9); TROPONIN I 0.05 ng/mL (0.00-0.04)
[2017-01-28] MEDS: FUROSEMIDE 40MG/4ML VIAL IV SCH (07:01)
[2017-01-28] MEDS: APIXABAN 5 MG TABLET PO SCH ×2 (07:01→16:50)
[2017-01-28] MEDS: BLOOD SUGAR DIAGNOSTIC STRIP TEST SCH ×4 (07:04→20:07)
[2017-01-28] MEDS: INSULIN LISPRO 100 UNITS/ML SUBCUT SCH ×4 (07:05→20:08)
[2017-01-28 08:00] VITALS: BP 106/55
[2017-01-28] MEDS: BUDESONIDE 0.5MG/2ML NEB HHN SCH ×2 (08:32→22:56)
[2017-01-28] MEDS: METFORMIN HCL 500MG SR TABLET 24HR PO SCH (08:47)
[2017-01-28] MEDS: ASPIRIN 81MG EC TABLET PO SCH (08:47)
[2017-01-28] MEDS: MULTIVITAMINS,THER W-MINERALS TABLET PO SCH (08:48)
[2017-01-28] MEDS: THIAMINE HCL 100MG TABLET PO SCH (08:48)
[2017-01-28] MEDS: CARVEDILOL 12.5MG TABLET PO SCH ×2 (08:48→21:00)
[2017-01-28] MEDS: FERROUS SULFATE 325MG TABLET PO SCH (08:48)
[2017-01-28] MEDS: FOLIC ACID 1MG TABLET PO SCH (08:48)
[2017-01-28] MEDS: LISINOPRIL 40MG TABLET PO SCH (08:48)
[2017-01-28 12:00] VITALS: BP 108/61
[2017-01-28 16:00] VITALS: BP 109/68
[2017-01-28] MEDS: FUROSEMIDE 40MG/4ML VIAL IVP SCH (17:44)
[2017-01-28 20:00] VITALS: BP 95/55
[2017-01-28] MEDS: LACTULOSE 20G/30ML UDC PO SCH ×2 (20:35→21:04)
[2017-01-28] MEDS ORDERED: FUROSEMIDE 40MG TABLET PO SCH (21:00)
[2017-01-28] MEDS: ATORVASTATIN CALCIUM 10MG TABLET PO SCH (21:04)
[2017-01-29] VITALS: BP 133/73
[2017-01-29] MEDS: IPRATROPIUM/ALBUTEROL 0.5-3(2.5)MG/3ML NEB HHN SCH ×5 (00:50→15:27)
[2017-01-29] MEDS: LACTULOSE 20G/30ML UDC PO SCH ×3 (03:18→14:54)
[2017-01-29 04:00] VITALS: BP 103/66
[2017-01-29] MEDS: BLOOD SUGAR DIAGNOSTIC STRIP TEST SCH ×2 (05:52→11:55)
[2017-01-29] MEDS: HYDROCODONE/ACETAMINOPHEN 5/325MG TABLET PO PRN (06:08)
[2017-01-29] MEDS: FUROSEMIDE 40MG/4ML VIAL IVP SCH (07:15)
[2017-01-29] MEDS: INSULIN LISPRO 100 UNITS/ML SUBCUT SCH ×2 (07:15→11:55)
[2017-01-29] MEDS: BUDESONIDE 0.5MG/2ML NEB HHN SCH (07:20)
[2017-01-29 08:00] VITALS: BP 109/64
[2017-01-29] MEDS: LISINOPRIL 40MG TABLET PO SCH (08:34)
[2017-01-29] MEDS: CARVEDILOL 12.5MG TABLET PO SCH (08:34)
[2017-01-29] MEDS: FOLIC ACID 1MG TABLET PO SCH (08:35)
[2017-01-29] MEDS: THIAMINE HCL 100MG TABLET PO SCH (08:35)
[2017-01-29] MEDS: METFORMIN HCL 500MG SR TABLET 24HR PO SCH (08:35)
[2017-01-29] MEDS: APIXABAN 5 MG TABLET PO SCH (08:35)
[2017-01-29] MEDS: MULTIVITAMINS,THER W-MINERALS TABLET PO SCH (08:35)
[2017-01-29] MEDS: FERROUS SULFATE 325MG TABLET PO SCH (08:35)
[2017-01-29] MEDS: ASPIRIN 81MG EC TABLET PO SCH (08:35)
[2017-01-29 10:20] LABS: CARBON DIOXIDE 30 mEq/L (21-32); CHLORIDE 100 mEq/L (98-107)
[2017-01-29 12:02] VITALS: BP 101/65
[2017-01-29 15:25] VITALS: BP 103/66
[2017-01-29 16:00] VITALS: BP 116/76
== END 2017-01-29 16:00 | disposition home or self-care (01) | DRG 291 ==
LOC: ER 09:54 → 5WST 11:16 → EDBEDREQTM 11:18 → EDBEDREQ 11:18 → ENRESERV 11:39
PROVIDERS: ADMIT Internal Medicine Nephrology; ATTEND Internal Medicine Nephrology
DX: I11.0 Hypertensive heart disease with heart failure (principal); J96.00 Acute respiratory failure, unspecified whether with hypoxia or hypercapnia; I47.2 Ventricular tachycardia; E66.01 Morbid (severe) obesity due to excess calories; E11.9 Type 2 diabetes mellitus without complications; D50.9 Iron deficiency anemia, unspecified; I48.92 Unspecified atrial flutter; I50.43 Acute on chronic combined systolic (congestive) and diastolic (congestive) heart failure; I42.0 Dilated cardiomyopathy; I48.0 Paroxysmal atrial fibrillation; E78.5 Hyperlipidemia, unspecified; J44.9 Chronic obstructive pulmonary disease, unspecified; Z60.2 Problems related to living alone; E78.00 Pure hypercholesterolemia, unspecified; Z82.49 Family history of ischemic heart disease and other diseases of the circulatory system; Z88.0 Allergy status to penicillin; Z79.899 Other long term (current) drug therapy; Z68.37 Body mass index [BMI] 37.0-37.9, adult
CPT/HCPCS: 36415; 71010; 80048; 80053; 80305; 81001; 82550; 82553; 82962; 83605; 83690; 83735; 83880; 84100; 84443; 84484; 85025; 85027; 85610; 87040; 93005; 94640; 94664; 96374; 99285; J1650; J1815; J1940; J7620; J7626

== ENCOUNTER 2017-02-02 10:15 | Emergency (ER) | payer MEDICARE, OTHER ==
[~2017-02-02] VITALS: Ht 177.8 cm; Wt 95.0 kg
[2017-02-02] MEDS ORDERED: PREDNISONE 20MG TABLET PO STA (10:39)
[2017-02-02] MEDS ORDERED: IPRATROPIUM BROMIDE (0.02%) 0.5MG/2.5ML NEB HHN STA (10:39)
[2017-02-02] MEDS ORDERED: ALBUTEROL (0.083%) 2.5MG/3ML NEB HHN STA (10:39)
[2017-02-02 10:50] LABS: BASOPHILS % 0.8 % (0.0-2.0); EOSINOPHILS % 1.9 % (0.0-5.0); HEMATOCRIT. 40.2 % (42.0-52.0); MEAN CORPUSCULAR HEMOGLOBIN 27.3 pg (28.0-32.0); MEAN CORPUSCULAR VOLUME 84.5 fL (80.0-94.0); MEAN PLATELET VOLUME 9.3 fl (7.4-10.4); NEUTROPHILS % 76.3 % (40.0-76.0); PLATELET 152 x1000/uL (130-400); RED BLOOD CELL COUNT 4.76 mill/uL (4.7-6.1); RED CELL DISTRIBUTION WIDTH 16.3 % (11.6-14.6)
[2017-02-02 11:05] LABS: INR 1.1; PROTHROMBIN TIME 11.2 sec (9.4-11.6)
[2017-02-02 11:12] LABS: CARBON DIOXIDE 26 mEq/L (21-32); CHLORIDE 108 mEq/L (98-107); TROPONIN I 0.05 ng/mL (0.00-0.04)
[2017-02-02 13:50] VITALS: BP 111/56
== END 2017-02-02 14:14 | disposition home or self-care (01) ==
LOC: ER 10:22
DX: J44.1 Chronic obstructive pulmonary disease with (acute) exacerbation (principal); R10.9 Unspecified abdominal pain; I50.9 Heart failure, unspecified; I11.0 Hypertensive heart disease with heart failure; I48.91 Unspecified atrial fibrillation; E11.9 Type 2 diabetes mellitus without complications; Z88.0 Allergy status to penicillin; Z79.01 Long term (current) use of anticoagulants
CPT/HCPCS: 36415; 71010; 80053; 83880; 84484; 85025; 85610; 93005; 94640; 99285; J7512; J7611

== ENCOUNTER 2017-03-01 18:22 | Inpatient (IN) | payer MEDICARE, OTHER ==
[~2017-03-01] VITALS: Ht 172.7 cm; Wt 109.9 kg
[~2017-03-01 18:22] MED LIST changes: +COR25 PO; +DIGO-26 PO
[2017-03-01] MEDS ORDERED: ASPIRIN 81MG TABLET PO STA (18:57)
[2017-03-01] MEDS ORDERED: NITROGLYCERIN OINT 1GM/INCH UDPKT TD STA (18:57)
[2017-03-01] MEDS ORDERED: FUROSEMIDE 40MG/4ML VIAL IV STA (18:57)
[2017-03-01 19:37] LABS: BASOPHILS % 0.5 % (0.0-2.0); EOSINOPHILS % 2.4 % (0.0-5.0); HEMATOCRIT. 40.1 % (42.0-52.0); HEMOGLOBIN. 12.8 g/dL (14.0-18.0); LYMPHOCYTES % 9.2 % (20.0-50.0); MEAN CORPUSCULAR VOLUME 84.5 fL (80.0-94.0); MEAN PLATELET VOLUME 9.6 fl (7.4-10.4); MONOCYTES % 8.2 % (2.0-8.0); NEUTROPHILS % 79.7 % (40.0-76.0); PLATELET 140 x1000/uL (130-400); RED BLOOD CELL COUNT 4.75 mill/uL (4.7-6.1); RED CELL DISTRIBUTION WIDTH 15.7 % (11.6-14.6)
[2017-03-01 19:43] LABS: INR 1.1; PARTIAL THROMBOPLASTIN TIME 26.4 sec (23.4-31.0); PROTHROMBIN TIME 11.8 sec (9.4-11.6)
[2017-03-01 19:51] LABS: CARBON DIOXIDE 32 mEq/L (21-32); CHLORIDE 102 mEq/L (98-107); TROPONIN I 0.04 ng/mL (0.00-0.04)
[2017-03-01] MEDS ORDERED: ONDANSETRON HCL 4MG/2ML VIAL IV PRN (21:30)
[2017-03-01] MEDS ORDERED: IPRATROPIUM/ALBUTEROL 0.5-3(2.5)MG/3ML NEB INH PRN (21:30)
[2017-03-01] MEDS ORDERED: ACETAMINOPHEN 325MG TABLET PO PRN (21:30)
[2017-03-01] MEDS ORDERED: MAGNESIUM/ALUMINUM HYDROXIDE/SIMETHICONE 30ML UDC PO PRN (21:30)
[2017-03-01] MEDS ORDERED: LORAZEPAM 2MG/ML CPJ IV PRN (21:30)
[2017-03-01] MEDS ORDERED: DIPHENHYDRAMINE 50MG/ML VIAL IV PRN (21:30)
[2017-03-01] MEDS ORDERED: ENOXAPARIN 40MG/0.4ML SYR SUBCUT SCH (21:30)
[2017-03-01] MEDS ORDERED: GUAIFENESIN 200MG/10ML SUGAR FREE UDC PO PRN (21:30)
[2017-03-01] MEDS ORDERED: CLONIDINE 0.1MG TABLET PO PRN (21:30)
[2017-03-01] MEDS ORDERED: NA PHOS,M-B/NA PHOS,DI-BA ENEMA 118ML PR PRN (21:30)
[2017-03-01] MEDS ORDERED: DOCUSATE SODIUM 100MG CAPSULE PO PRN (21:30)
[2017-03-01 22:15] VITALS: BP 128/73
[2017-03-01 22:43] LABS: CHLORIDE 101 mEq/L (98-107)
[2017-03-01 22:49] VITALS: BP 128/77
[2017-03-01 22:51] LABS: CARBON DIOXIDE 34 mEq/L (21-32)
[2017-03-01 22:53] LABS: TROPONIN I 0.06 ng/mL (0.00-0.04)
[2017-03-01] MEDS ORDERED: METO-396 PO (22:58)
[2017-03-01] MEDS ORDERED: ATOR40TA70 PO (22:58)
[2017-03-01] MEDS ORDERED: DOFE500C4 PO (22:58)
[2017-03-01] MEDS ORDERED: METF500T4 PO (22:58)
[2017-03-01] MEDS ORDERED: ALBU2.5V13 NEB (22:58)
[2017-03-01] MEDS ORDERED: LISI-604 PO (22:58)
[2017-03-01] MEDS ORDERED: ALBUTEROL (0.083%) 2.5MG/3ML NEB HHN PRN (23:30)
[2017-03-01] MEDS ORDERED: DEXTROSE 50% WATER 50ML SYRINGE IV PRN (23:30)
[2017-03-02] VITALS: BP 106/53
[2017-03-02 04:00] VITALS: BP 123/34
[2017-03-02] MEDS: BLOOD SUGAR DIAGNOSTIC STRIP TEST SCH ×4 (06:00→21:03)
[2017-03-02] MEDS: INSULIN LISPRO 100 UNITS/ML SUBCUT SCH ×4 (06:08→21:00)
[2017-03-02 06:23] LABS: BASOPHILS % 0.7 % (0.0-2.0); EOSINOPHILS % 4.8 % (0.0-5.0); HEMATOCRIT. 37.1 % (42.0-52.0); HEMOGLOBIN. 12.1 g/dL (14.0-18.0); LYMPHOCYTES % 10.3 % (20.0-50.0); MEAN CORPUSCULAR HEMOGLOBIN 27.2 pg (28.0-32.0); MEAN CORPUSCULAR VOLUME 83.3 fL (80.0-94.0); MEAN PLATELET VOLUME 9.8 fl (7.4-10.4); MONOCYTES % 10.6 % (2.0-8.0); NEUTROPHILS % 73.6 % (40.0-76.0); PLATELET 142 x1000/uL (130-400); RED BLOOD CELL COUNT 4.45 mill/uL (4.7-6.1); RED CELL DISTRIBUTION WIDTH 15.6 % (11.6-14.6)
[2017-03-02 07:21] LABS: CHLORIDE 103 mEq/L (98-107)
[2017-03-02 07:49] LABS: CARBON DIOXIDE 31 mEq/L (21-32); HDL CHOLESTEROL 66 mg/dL (40-59); LDL CHOLESTEROL 64 mg/dL (5-100); T4 FREE 1.25 ng/dL (0.76-1.46); TROPONIN I 0.05 ng/mL (0.00-0.04)
[2017-03-02 08:10] VITALS: BP 106/58
[2017-03-02] MEDS: BUMETANIDE 1MG TABLET PO SCH ×2 (08:10→21:00)
[2017-03-02] MEDS: LISINOPRIL 20MG TABLET PO SCH (08:10)
[2017-03-02] MEDS ORDERED: MEDICATION NOT ON FORMULARY EA (Metoprolol Succinate 1 TAB) PO SCH (09:00)
[2017-03-02] MEDS ORDERED: ASPIRIN 81MG EC TABLET PO SCH (09:00)
[2017-03-02] MEDS ORDERED: METFORMIN HCL 500MG TABLET PO SCH (09:00)
[2017-03-02] MEDS ORDERED: ENOXAPARIN 30MG/0.3ML SYR SUBCUT SCH (09:00)
[2017-03-02] MEDS ORDERED: DOFETILIDE 500 MCG PO SCH ×2 (09:00)
[2017-03-02] MEDS ORDERED: FUROSEMIDE 40MG/4ML VIAL IV SCH (09:00)
[2017-03-02 11:35] VITALS: BP 103/53
[2017-03-02] MEDS ORDERED: SPIRONOLACTONE 25MG TABLET PO SCH (13:15)
[2017-03-02 17:02] VITALS: BP 115/48
[2017-03-02] MEDS: ATORVASTATIN CALCIUM 40MG TABLET PO SCH (17:20)
[2017-03-02] MEDS: APIXABAN 5 MG TABLET PO SCH (17:21)
[2017-03-02] MEDS: METFORMIN HCL 500MG TABLET PO SCH (17:21)
[2017-03-02 17:28] LABS: CREATINE KINASE MB FRACTION 1.8 ng/mL (0.5-3.6); T4 FREE 1.14 ng/dL (0.76-1.46); TROPONIN I 0.05 ng/mL (0.00-0.04)
[2017-03-02] MEDS ORDERED: ELIQUIS 5 MG PO SCH (18:00)
[2017-03-02 20:00] VITALS: BP 114/53
[2017-03-02] MEDS: METOPROLOL TARTRATE 25MG TABLET PO SCH (20:59)
[2017-03-02] MEDS: HYDROCODONE/ACETAMINOPHEN 10/325MG TABLET PO PRN (21:03)
[2017-03-02] MEDS: BUDESONIDE 0.5MG/2ML NEB HHN SCH (22:25)
[2017-03-02] MEDS: IPRATROPIUM/ALBUTEROL 0.5-3(2.5)MG/3ML NEB HHN SCH (22:30)
[2017-03-02 23:21] LABS: CREATINE KINASE MB FRACTION 1.5 ng/mL (0.5-3.6); TROPONIN I 0.06 ng/mL (0.00-0.04)
[2017-03-03] VITALS: BP 109/45
[2017-03-03] MEDS: HYDROCODONE/ACETAMINOPHEN 10/325MG TABLET PO PRN ×3 (01:22→22:37)
[2017-03-03] MEDS: IPRATROPIUM/ALBUTEROL 0.5-3(2.5)MG/3ML NEB HHN SCH ×4 (03:08→19:59)
[2017-03-03 04:00] VITALS: BP 97/53
[2017-03-03] MEDS: METFORMIN HCL 500MG TABLET PO SCH ×2 (07:15→17:38)
[2017-03-03] MEDS: INSULIN LISPRO 100 UNITS/ML SUBCUT SCH ×4 (07:15→20:04)
[2017-03-03] MEDS: BLOOD SUGAR DIAGNOSTIC STRIP TEST SCH ×4 (07:16→19:55)
[2017-03-03 08:00] VITALS: BP 97/54
[2017-03-03] MEDS: BUDESONIDE 0.5MG/2ML NEB HHN SCH ×2 (08:25→20:00)
[2017-03-03 08:48] LABS: CREATINE KINASE MB FRACTION 1.4 ng/mL (0.5-3.6); TROPONIN I 0.05 ng/mL (0.00-0.04)
[2017-03-03] MEDS: LISINOPRIL 20MG TABLET PO SCH (09:00)
[2017-03-03] MEDS: METOPROLOL TARTRATE 25MG TABLET PO SCH ×2 (09:00→20:06)
[2017-03-03] MEDS: SPIRONOLACTONE 50MG TABLET PO SCH (09:32)
[2017-03-03] MEDS: APIXABAN 5 MG TABLET PO SCH ×2 (09:32→17:38)
[2017-03-03] MEDS: BUMETANIDE 1MG TABLET PO SCH ×2 (09:32→20:07)
[2017-03-03 12:00] VITALS: BP 102/52
[2017-03-03 16:00] VITALS: BP 91/44
[2017-03-03] MEDS: ATORVASTATIN CALCIUM 40MG TABLET PO SCH (17:38)
[2017-03-03 20:00] VITALS: BP 101/42
[2017-03-04] VITALS: BP 118/66
[2017-03-04] MEDS: BLOOD SUGAR DIAGNOSTIC STRIP TEST SCH ×4 (05:42→21:08)
[2017-03-04] MEDS: INSULIN LISPRO 100 UNITS/ML SUBCUT SCH ×4 (05:42→21:00)
[2017-03-04 05:44] VITALS: BP 101/46
[2017-03-04] MEDS: METFORMIN HCL 500MG TABLET PO SCH ×2 (06:45→17:18)
[2017-03-04] MEDS: LISINOPRIL 20MG TABLET PO SCH (09:00)
[2017-03-04] MEDS: METOPROLOL TARTRATE 25MG TABLET PO SCH ×2 (09:00→21:00)
[2017-03-04] MEDS: IPRATROPIUM/ALBUTEROL 0.5-3(2.5)MG/3ML NEB HHN SCH ×4 (09:20→20:06)
[2017-03-04] MEDS: BUDESONIDE 0.5MG/2ML NEB HHN SCH ×2 (09:22→20:06)
[2017-03-04] MEDS: APIXABAN 5 MG TABLET PO SCH ×2 (09:38→17:18)
[2017-03-04] MEDS: BUMETANIDE 1MG TABLET PO SCH ×2 (09:38→21:00)
[2017-03-04] MEDS: SPIRONOLACTONE 50MG TABLET PO SCH (09:38)
[2017-03-04 16:00] VITALS: BP 111/59
[2017-03-04] MEDS: ATORVASTATIN CALCIUM 40MG TABLET PO SCH (17:18)
[2017-03-04 20:00] VITALS: BP 96/51
[2017-03-05] VITALS: BP 111/55
[2017-03-05] MEDS: IPRATROPIUM/ALBUTEROL 0.5-3(2.5)MG/3ML NEB HHN SCH ×2 (00:44→08:37)
[2017-03-05 04:00] VITALS: BP 133/77
[2017-03-05] MEDS: BLOOD SUGAR DIAGNOSTIC STRIP TEST SCH (06:01)
[2017-03-05] MEDS: INSULIN LISPRO 100 UNITS/ML SUBCUT SCH (06:01)
[2017-03-05 08:00] VITALS: BP 90/61
[2017-03-05] MEDS: METFORMIN HCL 500MG TABLET PO SCH (08:15)
[2017-03-05] MEDS: BUDESONIDE 0.5MG/2ML NEB HHN SCH (08:37)
[2017-03-05] MEDS: METOPROLOL TARTRATE 25MG TABLET PO SCH (09:00)
[2017-03-05] MEDS: SPIRONOLACTONE 50MG TABLET PO SCH (09:00)
[2017-03-05] MEDS: APIXABAN 5 MG TABLET PO SCH (09:00)
[2017-03-05] MEDS: BUMETANIDE 1MG TABLET PO SCH (09:00)
[2017-03-05] MEDS: LISINOPRIL 20MG TABLET PO SCH (09:00)
[2017-03-05 10:16] VITALS: BP 90/61
== END 2017-03-05 11:28 | disposition home or self-care (01) | DRG 291 ==
LOC: ER 18:29 → 5WST 20:54 → ENRESERV 21:11 → EDBEDREQTM 21:16 → EDBEDREQ 21:16
PROVIDERS: ADMIT Internal Medicine; ATTEND Internal Medicine
DX: I11.0 Hypertensive heart disease with heart failure (principal); J96.00 Acute respiratory failure, unspecified whether with hypoxia or hypercapnia; I48.92 Unspecified atrial flutter; J44.1 Chronic obstructive pulmonary disease with (acute) exacerbation; I50.23 Acute on chronic systolic (congestive) heart failure; I42.9 Cardiomyopathy, unspecified; I48.91 Unspecified atrial fibrillation; E11.9 Type 2 diabetes mellitus without complications; E66.01 Morbid (severe) obesity due to excess calories; E78.00 Pure hypercholesterolemia, unspecified; I25.10 Atherosclerotic heart disease of native coronary artery without angina pectoris; Z79.01 Long term (current) use of anticoagulants; Z79.84 Long term (current) use of oral hypoglycemic drugs; Z79.899 Other long term (current) drug therapy; Z91.14 Patient's other noncompliance with medication regimen; Z88.6 Allergy status to analgesic agent; Z88.0 Allergy status to penicillin
CPT/HCPCS: 36415; 71010; 80048; 80053; 80061; 82550; 82553; 82962; 83036; 83880; 84439; 84443; 84484; 85025; 85379; 85610; 85730; 93005; 93306; 93970; 94640; 96374; 99285; J1650; J1940; J7611; J7620; J7626

== ENCOUNTER 2018-04-13 15:28 | Inpatient (IN) | payer MEDICARE, MEDICAID, OTHER ==
[~2018-04-13] VITALS: Ht 172.7 cm; Wt 117.9 kg
[~2018-04-13 15:28] MED LIST changes: +ALBU2.5V13 NEB; +ATOR40TA70 PO; -COR25 PO; -DIGO-26 PO; +DOFE500C4 PO; +LISI-604 PO; -LISI-653 PO; +METF-414 PO; -METF100C2 PO; +METO-396 PO; -METO-411 PO; +OXYC5CAP12 MT; +POTA99TA4 MT; -SIMV20TA2 PO; -SPIR25TA4 PO; -TIOT18CA3 IH
[2018-04-13] MEDS ORDERED: ACETAMINOPHEN 325MG TABLET PO STA (15:51)
[2018-04-13] MEDS ORDERED: SODIUM CHLORIDE 0.9% 1000ML BAG (SEPSIS BOLUS) IV ONE (16:00)
[2018-04-13] MEDS ORDERED: LEVOFLOXACIN 750MG PREMIX 150 ML IV ONE (16:00)
[2018-04-13] MEDS ORDERED: VANCOMYCIN 1 G PREMIX 200 ML IV ONE (16:00)
[2018-04-13 16:35] LABS: BASOPHILS % 0.4 % (0.0-2.0); EOSINOPHILS % 2.1 % (0.0-5.0); HEMATOCRIT. 41.4 % (42.0-52.0); HEMOGLOBIN. 13.3 g/dL (14.0-18.0); LYMPHOCYTES % 11.2 % (20.0-50.0); MEAN CORPUSCULAR HEMOGLOBIN 26.7 pg (28.0-32.0); MEAN CORPUSCULAR VOLUME 83.5 fL (80.0-94.0); MEAN PLATELET VOLUME 8.8 fl (7.4-10.4); MONOCYTES % 13.7 % (2.0-8.0); NEUTROPHILS % 72.6 % (40.0-76.0); PLATELET 136 x1000/uL (130-400); RED BLOOD CELL COUNT 4.96 mill/uL (4.7-6.1); RED CELL DISTRIBUTION WIDTH 17.1 % (11.6-14.6)
[2018-04-13 16:42] LABS: CHLORIDE 91 mEq/L (98-107)
[2018-04-13 16:46] LABS: INR 1.1; PROTHROMBIN TIME 11.5 sec (9.1-11.1)
[2018-04-13 18:34] LABS: CLARITY URINE CLEAR (CLEAR); COLOR URINE YELLOW (YELLOW); KETONES URINE NEGATIVE (NEGATIVE); LEUKOCYTE ESTERASE URINE NEGATIVE (NEGATIVE); NITRITE URINE NEGATIVE (NEGATIVE); OCCULT BLOOD URINE NEGATIVE (NEGATIVE); PROTEIN URINE NEGATIVE (NEGATIVE); SPECIFIC GRAVITY URINE 1.014 (1.005-1.030); UROBILINOGEN URINE 0.2 E.U./dL (0.2-1.0)
[2018-04-13] MEDS ORDERED: CLONIDINE 0.1MG TABLET PO PRN (19:30)
[2018-04-13] MEDS ORDERED: ENOXAPARIN 150MG/ML SYR SUBCUT ONE (19:30)
[2018-04-13] MEDS ORDERED: ACETAMINOPHEN 325MG TABLET PO PRN (19:30)
[2018-04-13] MEDS ORDERED: ONDANSETRON HCL 4MG/2ML INJ IV PRN (19:30)
[2018-04-13] MEDS: SODIUM CHLORIDE 0.45% 1,000 ML IV SCH (20:19)
[2018-04-13 23:40] VITALS: BP 107/59
[2018-04-14] VITALS: BP 107/59
[2018-04-14 04:00] VITALS: BP 124/44
[2018-04-14 07:25] LABS: BASOPHILS % 0.6 % (0.0-2.0); HEMATOCRIT. 36.7 % (42.0-52.0); HEMOGLOBIN. 11.9 g/dL (14.0-18.0); LYMPHOCYTES % 11.1 % (20.0-50.0); MEAN CORPUSCULAR HEMOGLOBIN 26.7 pg (28.0-32.0); MEAN CORPUSCULAR VOLUME 82.6 fL (80.0-94.0); MEAN PLATELET VOLUME 9.4 fl (7.4-10.4); MONOCYTES % 14.9 % (2.0-8.0); NEUTROPHILS % 69.4 % (40.0-76.0); PLATELET 153 x1000/uL (130-400); RED BLOOD CELL COUNT 4.44 mill/uL (4.7-6.1); RED CELL DISTRIBUTION WIDTH 16.6 % (11.6-14.6)
[2018-04-14 07:35] LABS: CHLORIDE 98 mEq/L (98-107)
[2018-04-14] MEDS ORDERED: NA PHOS,M-B/NA PHOS,DI-BA ENEMA 118ML PR NR (07:45)
[2018-04-14] MEDS ORDERED: LACTULOSE 20G/30ML UDC PO NR (07:45)
[2018-04-14 07:47] LABS: HDL CHOLESTEROL 40 mg/dL (40-59)
[2018-04-14 07:48] LABS: LDL CHOLESTEROL 54 mg/dL (5-100)
[2018-04-14 08:00] VITALS: BP 110/49
[2018-04-14] MEDS ORDERED: ENOXAPARIN 40MG/0.4ML SYR SUBCUT SCH (09:00)
[2018-04-14 09:40] LABS: BG BASE EXCESS 6.9 mmol/L (-2.0-2.0); BG CARBOXYHEMOGLOBIN 1.7 % (0.5-1.5); BG DEOXYHEMOGLOBIN 3.3 % (0.0-5.0); BG FRACTION INSPIRED OXYGEN 21; BG HCO3 ACT 33.6 mmol/L (22.0-26.0); BG METHEMOGLOBIN 0.2 % (0.0-1.5); BG OXYGEN SATURATION 96.6 % (92.0-98.5); BG OXYHEMOGLOBIN 94.8 % (94.0-97.0); BG PCO2 56.9 mmHg (35.0-45.0); BG PH 7.389 (7.350-7.450); BG PO2 90.2 mmHg (75.0-100.0); BG SAMPLE SITE RIGHT RADIAL; BG TOTAL HEMOGLOBIN 13.5 g/dL (12.0-18.0); BG VENT MODE ROOM AIR
[2018-04-14] MEDS: SODIUM CHLORIDE 0.45% 1,000 ML IV SCH (09:58)
[2018-04-14] MEDS: APIXABAN 5 MG TABLET PO SCH ×2 (09:59→21:41)
[2018-04-14] MEDS: FUROSEMIDE 40MG/4ML VIAL IVP SCH ×2 (09:59→17:16)
[2018-04-14 12:00] VITALS: BP 119/59
[2018-04-14] MEDS ORDERED: LIDOCAINE HCL/PF 1% 2ML VIAL ONE (14:40)
[2018-04-14 16:00] VITALS: BP 115/55
[2018-04-14] MEDS ORDERED: LEVOFLOXACIN 500MG PREMIX 100 ML IV SCH (16:00)
[2018-04-14] MEDS: LEVOFLOXACIN 500MG PREMIX 100 ML IV SCH (17:15)
[2018-04-14 20:00] VITALS: BP 107/54
[2018-04-14] MEDS: ATORVASTATIN CALCIUM 40MG TABLET PO SCH (21:42)
[2018-04-15] VITALS (7 sets, daily range): BP systolic 110–134; BP diastolic 53–64
[2018-04-15] MEDS: SODIUM CHLORIDE 0.45% 1,000 ML IV SCH ×2 (04:29→09:41)
[2018-04-15 07:45] LABS: HEMATOCRIT. 37.8 % (42.0-52.0); HEMOGLOBIN. 11.9 g/dL (14.0-18.0); MEAN CORPUSCULAR HEMOGLOBIN 26.3 pg (28.0-32.0); MEAN CORPUSCULAR VOLUME 83.5 fL (80.0-94.0); PLATELET 148 x1000/uL (130-400); RED BLOOD CELL COUNT 4.53 mill/uL (4.7-6.1)
[2018-04-15 08:14] LABS: CHLORIDE 98 mEq/L (98-107)
[2018-04-15] MEDS: IPRATROPIUM/ALBUTEROL 0.5-3(2.5)MG/3ML NEB INH SCH ×3 (08:31→20:32)
[2018-04-15] MEDS: FUROSEMIDE 40MG/4ML VIAL IVP SCH ×2 (09:41→18:05)
[2018-04-15] MEDS: APIXABAN 5 MG TABLET PO SCH ×2 (09:41→21:17)
[2018-04-15] MEDS: CARVEDILOL 6.25 MG TABLET PO SCH ×2 (13:47→21:17)
[2018-04-15 14:22] LABS: PLATELET ESTIMATE NORMAL
[2018-04-15] MEDS: LEVOFLOXACIN 500MG PREMIX 100 ML IV SCH (16:32)
[2018-04-15] MEDS: GUAIFENESIN 600MG ER TABLET PO SCH (21:17)
[2018-04-15] MEDS: ATORVASTATIN CALCIUM 40MG TABLET PO SCH (21:17)
[2018-04-16] VITALS: BP 118/66
[2018-04-16] MEDS: IPRATROPIUM/ALBUTEROL 0.5-3(2.5)MG/3ML NEB INH SCH ×4 (02:55→21:33)
[2018-04-16 04:00] VITALS: BP 103/57
[2018-04-16 05:51] LABS: BASOPHILS % 0.5 % (0.0-2.0); EOSINOPHILS % 4.3 % (0.0-5.0); HEMATOCRIT. 38.9 % (42.0-52.0); HEMOGLOBIN. 12.6 g/dL (14.0-18.0); LYMPHOCYTES % 12.2 % (20.0-50.0); MEAN CORPUSCULAR HEMOGLOBIN 26.7 pg (28.0-32.0); MEAN CORPUSCULAR VOLUME 82.8 fL (80.0-94.0); MEAN PLATELET VOLUME 9.1 fl (7.4-10.4); MONOCYTES % 13.3 % (2.0-8.0); NEUTROPHILS % 69.7 % (40.0-76.0); PLATELET 151 x1000/uL (130-400); RED CELL DISTRIBUTION WIDTH 15.8 % (11.6-14.6)
[2018-04-16 06:00] LABS: CHLORIDE 98 mEq/L (98-107)
[2018-04-16 08:00] VITALS: BP 127/66
[2018-04-16] MEDS: APIXABAN 5 MG TABLET PO SCH (10:10)
[2018-04-16] MEDS: ASCORBIC ACID 500 MG TABLET PO SCH (10:10)
[2018-04-16] MEDS: GUAIFENESIN 600MG ER TABLET PO SCH (10:10)
[2018-04-16] MEDS: ZINC SULFATE 220 MG ( 50 ) CAPSULE PO SCH (10:10)
[2018-04-16] MEDS: CARVEDILOL 6.25 MG TABLET PO SCH ×2 (10:11→21:00)
[2018-04-16] MEDS: FUROSEMIDE 40MG/4ML VIAL IVP SCH ×2 (10:11→16:58)
[2018-04-16] MEDS: SODIUM CHLORIDE 0.45% 1,000 ML IV SCH (10:12)
[2018-04-16 12:00] VITALS: BP 104/77
[2018-04-16 16:00] VITALS: BP 100/60
[2018-04-16] MEDS ORDERED: LORAZEPAM 2MG/ML CPJ IV NR (16:05)
[2018-04-16] MEDS: LEVOFLOXACIN 500MG PREMIX 100 ML IV SCH (16:58)
[2018-04-16 20:00] VITALS: BP 95/50
[2018-04-17] VITALS: BP 127/67
[2018-04-17] MEDS: APIXABAN 5 MG TABLET PO SCH ×3 (00:58→21:17)
[2018-04-17] MEDS: ATORVASTATIN CALCIUM 40MG TABLET PO SCH ×2 (00:58→21:17)
[2018-04-17] MEDS: GUAIFENESIN 600MG ER TABLET PO SCH ×3 (00:58→21:17)
[2018-04-17] MEDS: IPRATROPIUM/ALBUTEROL 0.5-3(2.5)MG/3ML NEB INH SCH ×4 (01:48→20:21)
[2018-04-17 04:00] VITALS: BP 119/62
[2018-04-17 08:00] VITALS: BP 110/50
[2018-04-17] MEDS: ZINC SULFATE 220 MG ( 50 ) CAPSULE PO SCH (08:59)
[2018-04-17] MEDS: ASCORBIC ACID 500 MG TABLET PO SCH (08:59)
[2018-04-17] MEDS: FUROSEMIDE 40MG/4ML VIAL IVP SCH ×2 (08:59→17:52)
[2018-04-17] MEDS: CARVEDILOL 6.25 MG TABLET PO SCH ×2 (09:00→21:00)
[2018-04-17] MEDS: HYDROCODONE/APAP 7.5/325MG 1 TAB TABLET PO PRN (09:01)
[2018-04-17 10:36] LABS: CHLORIDE 95 mEq/L (98-107)
[2018-04-17 10:38] LABS: HEMATOCRIT. 39.2 % (42.0-52.0); HEMOGLOBIN. 12.6 g/dL (14.0-18.0); MEAN CORPUSCULAR VOLUME 83.8 fL (80.0-94.0); PLATELET 167 x1000/uL (130-400); RED BLOOD CELL COUNT 4.68 mill/uL (4.7-6.1); RED CELL DISTRIBUTION WIDTH 15.7 % (11.6-14.6)
[2018-04-17 12:00] VITALS: BP 100/54
[2018-04-17 12:09] LABS: PLATELET ESTIMATE NORMAL
[2018-04-17] MEDS ORDERED: LORAZEPAM 2MG/ML CPJ IV NR (12:30)
[2018-04-17 16:00] VITALS: BP 103/55
[2018-04-17] MEDS ORDERED: LEVOFLOXACIN 500MG TABLET PO SCH (17:00)
[2018-04-17] MEDS: SODIUM CHLORIDE 0.45% 1,000 ML IV SCH (17:51)
[2018-04-17 20:00] VITALS: BP 107/51
[2018-04-18] VITALS (7 sets, daily range): BP systolic 104–121; BP diastolic 50–76
[2018-04-18] MEDS: IPRATROPIUM/ALBUTEROL 0.5-3(2.5)MG/3ML NEB INH SCH ×3 (00:39→11:56)
[2018-04-18] MEDS: HYDROCODONE/APAP 7.5/325MG 1 TAB TABLET PO PRN (02:12)
[2018-04-18] MEDS: ZINC SULFATE 220 MG ( 50 ) CAPSULE PO SCH (08:28)
[2018-04-18] MEDS: CARVEDILOL 6.25 MG TABLET PO SCH (08:28)
[2018-04-18] MEDS: ASCORBIC ACID 500 MG TABLET PO SCH (08:28)
[2018-04-18] MEDS: GUAIFENESIN 600MG ER TABLET PO SCH (08:28)
[2018-04-18] MEDS: APIXABAN 5 MG TABLET PO SCH (08:28)
[2018-04-18] MEDS: FUROSEMIDE 40MG/4ML VIAL IVP SCH (08:29)
== END 2018-04-18 16:20 | DRG 314 ==
LOC: ER 15:28 → 8WST 19:17 → EDBEDREQTM 19:28 → EDBEDREQSVC 19:28 → EDBEDREQ 19:28 → ENRESERV 20:55 → 8WST 04-17 14:57
PROVIDERS: ADMIT Hospitalist; ATTEND Hospitalist
DX: I95.9 Hypotension, unspecified (principal); E43 Unspecified severe protein-calorie malnutrition; G92 Toxic encephalopathy; I50.23 Acute on chronic systolic (congestive) heart failure; N17.9 Acute kidney failure, unspecified; E87.1 Hypo-osmolality and hyponatremia; I48.1 Persistent atrial fibrillation; I42.0 Dilated cardiomyopathy; J98.11 Atelectasis; M48.56XA Collapsed vertebra, not elsewhere classified, lumbar region, initial encounter for fracture; R65.10 Systemic inflammatory response syndrome (SIRS) of non-infectious origin without acute organ dysfunction; I11.0 Hypertensive heart disease with heart failure; E87.5 Hyperkalemia; E11.65 Type 2 diabetes mellitus with hyperglycemia; L89.159 Pressure ulcer of sacral region, unspecified stage; I48.2 Chronic atrial fibrillation; E66.01 Morbid (severe) obesity due to excess calories; E78.5 Hyperlipidemia, unspecified; J44.9 Chronic obstructive pulmonary disease, unspecified; K21.9 Gastro-esophageal reflux disease without esophagitis; K57.90 Diverticulosis of intestine, part unspecified, without perforation or abscess without bleeding; L89.309 Pressure ulcer of unspecified buttock, unspecified stage; M47.816 Spondylosis without myelopathy or radiculopathy, lumbar region; M48.02 Spinal stenosis, cervical region; M50.322 Other cervical disc degeneration at C5-C6 level; Z82.49 Family history of ischemic heart disease and other diseases of the circulatory system; Z86.74 Personal history of sudden cardiac arrest; Z79.01 Long term (current) use of anticoagulants; Z88.0 Allergy status to penicillin; Z91.19 Patient's noncompliance with other medical treatment and regimen; Z68.39 Body mass index [BMI] 39.0-39.9, adult; Z88.5 Allergy status to narcotic agent
CPT/HCPCS: 36415; 36600; 70551; 71045; 72141; 72146; 72148; 74176; 80048; 80061; 82375; 82805; 83605; 84484; 92523; 93005; 93306; 93970; 94640; 96365; 96366; 96367; 96372; 97162; 97166; 97530; 99291; C1893; J1650; J1940; J1956; J2060; J3370; J3490; J7030; J7620

== ENCOUNTER 2018-06-08 02:17 | Inpatient (IN) | payer MEDICARE, OTHER ==
[~2018-06-08] VITALS: Ht 175.3 cm; Wt 126.3 kg
[2018-06-08] MEDS ORDERED: ALBUTEROL (0.083%) 2.5MG/3ML NEB HHN STA (02:23)
[2018-06-08] MEDS ORDERED: ONDANSETRON HCL 4MG/2ML INJ IV STA (02:23)
[2018-06-08] MEDS ORDERED: IPRATROPIUM BROMIDE (0.02%) 0.5MG/2.5ML NEB HHN STA (02:23)
[2018-06-08] MEDS ORDERED: ASPIRIN 81MG TABLET PO ONE (02:30)
[2018-06-08 03:05] LABS: HEMATOCRIT. 39.3 % (42.0-52.0); HEMOGLOBIN. 11.9 g/dL (14.0-18.0); MEAN CORPUSCULAR HEMOGLOBIN 26.2 pg (28.0-32.0); MEAN CORPUSCULAR VOLUME 86.6 fL (80.0-94.0); MEAN PLATELET VOLUME 9.1 fl (7.4-10.4); PLATELET 171 x1000/uL (130-400); RED BLOOD CELL COUNT 4.54 mill/uL (4.7-6.1); RED CELL DISTRIBUTION WIDTH 16.6 % (11.6-14.6)
[2018-06-08 04:13] LABS: PLATELET ESTIMATE NORMAL
[2018-06-08 04:22] LABS: BG BASE EXCESS 17.8 mmol/L (-2.0-2.0); BG CARBOXYHEMOGLOBIN 0.8 % (0.5-1.5); BG DEOXYHEMOGLOBIN 56.1 % (0.0-5.0); BG FRACTION INSPIRED OXYGEN 45; BG HCO3 ACT 48.3 mmol/L (22.0-26.0); BG METHEMOGLOBIN 0.1 % (0.0-1.5); BG OXYGEN SATURATION 43.4 % (92.0-98.5); BG PCO2 100.4 mmHg (35.0-45.0); BG PO2 < 30.3 mmHg (75.0-100.0); BG SAMPLE SITE LEFT RADIAL; BG TOTAL HEMOGLOBIN 11.2 g/dL (12.0-18.0); BG VENT MODE MASK - SIMPLE
[2018-06-08 04:26] LABS: CHLORIDE 95 mEq/L (98-107)
[2018-06-08] MEDS ORDERED: ALBUTEROL (0.083%) 2.5MG/3ML NEB HHN ONE (04:45)
[2018-06-08] MEDS ORDERED: METHYLPREDNISOLONE SOD SUCC 125 MG/2 ML VIAL IV ONE (04:45)
[2018-06-08] MEDS ORDERED: FUROSEMIDE 20MG/2ML VIAL IVP ONE (05:30)
[2018-06-08 05:37] LABS: BG BASE EXCESS 14.4 mmol/L (-2.0-2.0); BG CARBOXYHEMOGLOBIN 0.7 % (0.5-1.5); BG DEOXYHEMOGLOBIN 1.4 % (0.0-5.0); BG FRACTION INSPIRED OXYGEN 60; BG HCO3 ACT 44.5 mmol/L (22.0-26.0); BG METHEMOGLOBIN 0.3 % (0.0-1.5); BG OXYGEN SATURATION 98.6 % (92.0-98.5); BG OXYHEMOGLOBIN 97.6 % (94.0-97.0); BG PCO2 92.1 mmHg (35.0-45.0); BG PH 7.302 (7.350-7.450); BG PO2 145.1 mmHg (75.0-100.0); BG SAMPLE SITE RIGHT RADIAL
[2018-06-08] MEDS ORDERED: ZOLPIDEM TARTRATE 5MG TABLET PO PRN (09:45)
[2018-06-08] MEDS ORDERED: NA PHOS,M-B/NA PHOS,DI-BA ENEMA 118ML PR PRN (09:45)
[2018-06-08] MEDS ORDERED: GUAIFENESIN 200MG/10ML SUGAR FREE UDC PO PRN (09:45)
[2018-06-08] MEDS ORDERED: ONDANSETRON HCL 4MG/2ML INJ IV PRN (09:45)
[2018-06-08] MEDS ORDERED: ACETAMINOPHEN 325MG TABLET PO PRN (09:45)
[2018-06-08] MEDS ORDERED: MAGNESIUM/ALUMINUM HYDROXIDE/SIMETHICONE 30ML UDC PO PRN (09:45)
[2018-06-08] MEDS ORDERED: DEXTROSE 50% WATER 50ML SYRINGE IV PRN (09:45)
[2018-06-08] MEDS ORDERED: KETOROLAC 15MG/ML VIAL IV PRN (09:45)
[2018-06-08] MEDS ORDERED: IPRATROPIUM/ALBUTEROL 0.5-3(2.5)MG/3ML NEB INH PRN (09:45)
[2018-06-08] MEDS ORDERED: CLONIDINE 0.1MG TABLET PO PRN (09:45)
[2018-06-08] MEDS ORDERED: NITROGLYCERIN 0.4MG TABLET SL SL PRN (09:45)
[2018-06-08] MEDS ORDERED: GUAIFENESIN/DM 600MG/30MG ER TAB 12HR PO NR (10:00)
[2018-06-08] MEDS ORDERED: LEVOFLOXACIN 500MG PREMIX 100 ML IV SCH (10:15)
[2018-06-08] MEDS ORDERED: ENOXAPARIN 40MG/0.4ML SYR SUBCUT NR (10:30)
[2018-06-08] MEDS: IPRATROPIUM/ALBUTEROL 0.5-3(2.5)MG/3ML NEB HHN SCH (13:00)
[2018-06-08] MEDS: BLOOD SUGAR DIAGNOSTIC STRIP TEST SCH ×2 (13:26→22:33)
[2018-06-08 14:19] LABS: BG BILEVEL POS AIRWAY PRESSURE 20/5; BG CARBOXYHEMOGLOBIN 0.8 % (0.5-1.5); BG DEOXYHEMOGLOBIN 3.3 % (0.0-5.0); BG FRACTION INSPIRED OXYGEN 40; BG HCO3 ACT 49.8 mmol/L (22.0-26.0); BG METHEMOGLOBIN 0.1 % (0.0-1.5); BG OXYGEN SATURATION 96.7 % (92.0-98.5); BG OXYHEMOGLOBIN 95.8 % (94.0-97.0); BG PCO2 89.4 mmHg (35.0-45.0); BG PH 7.364 (7.350-7.450); BG PO2 94.9 mmHg (75.0-100.0); BG SAMPLE SITE RIGHT RADIAL; BG TOTAL HEMOGLOBIN 12.3 g/dL (12.0-18.0); BG VENT MODE MASK - BIPAP
[2018-06-08 17:55] LABS: CREATINE KINASE MB FRACTION 1.2 ng/mL (0.5-3.6)
[2018-06-08 21:30] VITALS: BP 140/69
[2018-06-08 22:00] VITALS: BP 117/76
[2018-06-08] MEDS ORDERED: ACETAZOLAMIDE SODIUM 500MG/VIAL IV NR (22:00)
[2018-06-08] MEDS ORDERED: ENOXAPARIN 30MG/0.3ML SYR SUBCUT SCH (22:00)
[2018-06-08] MEDS: INSULIN LISPRO 100 UNITS/ML SUBCUT SCH (22:34)
[2018-06-08] MEDS: SPIRONOLACTONE 25MG TABLET PO SCH (22:36)
[2018-06-08] MEDS: FAMOTIDINE 20MG TABLET PO SCH (22:36)
[2018-06-08] MEDS: GUAIFENESIN/DM 600MG/30MG ER TAB 12HR PO SCH (22:36)
[2018-06-08] MEDS: ASCORBIC ACID 500 MG TABLET PO SCH (22:36)
[2018-06-08] MEDS: METHYLPREDNISOLONE SOD SUCC 125 MG/2 ML VIAL IV SCH (22:37)
[2018-06-08] MEDS: FUROSEMIDE 40MG/4ML VIAL IVP SCH (22:37)
[2018-06-09] VITALS (11 sets, daily range): BP systolic 99–124; BP diastolic 41–79
[2018-06-09] MEDS: IPRATROPIUM/ALBUTEROL 0.5-3(2.5)MG/3ML NEB HHN SCH ×6 (00:34→20:36)
[2018-06-09 00:41] LABS: CREATINE KINASE 71 IU/L (39-308)
[2018-06-09 00:43] LABS: CREATINE KINASE MB FRACTION < 1.0 ng/mL (0.5-3.6)
[2018-06-09] MEDS ORDERED: LIDO700A30 TP (04:54)
[2018-06-09] MEDS ORDERED: METH10TA7 PO (04:54)
[2018-06-09] MEDS ORDERED: AMIO100T4 PO (04:54)
[2018-06-09] MEDS ORDERED: GUAI600T88 PO (04:54)
[2018-06-09] MEDS ORDERED: OMEP20TA2 PO (04:54)
[2018-06-09] MEDS ORDERED: ACET-2178 PO ×2 (04:54→05:00)
[2018-06-09] MEDS ORDERED: SPIR25TA6 PO (04:54)
[2018-06-09] MEDS ORDERED: FURO-152 PO (04:54)
[2018-06-09] MEDS ORDERED: TRAM50TA3 PO (04:54)
[2018-06-09] MEDS ORDERED: SIME125C PO (04:54)
[2018-06-09] MEDS ORDERED: CARV6.2548 PO (04:54)
[2018-06-09] MEDS ORDERED: DOCU-150 PO (04:54)
[2018-06-09] MEDS: TRAMADOL 50MG TABLET PO PRN ×2 (04:56→17:51)
[2018-06-09] MEDS: METHYLPREDNISOLONE SOD SUCC 125 MG/2 ML VIAL IV SCH ×3 (06:00→21:34)
[2018-06-09] MEDS: BLOOD SUGAR DIAGNOSTIC STRIP TEST SCH ×4 (06:32→20:05)
[2018-06-09 07:48] LABS: HEMATOCRIT. 33.6 % (42.0-52.0); HEMOGLOBIN. 10.3 g/dL (14.0-18.0); MEAN CORPUSCULAR HEMOGLOBIN 25.9 pg (28.0-32.0); MEAN CORPUSCULAR VOLUME 84.6 fL (80.0-94.0); PLATELET 186 x1000/uL (130-400); RED BLOOD CELL COUNT 3.97 mill/uL (4.7-6.1); RED CELL DISTRIBUTION WIDTH 16.5 % (11.6-14.6)
[2018-06-09] MEDS: INSULIN LISPRO 100 UNITS/ML SUBCUT SCH ×4 (07:52→20:05)
[2018-06-09] MEDS: FUROSEMIDE 40MG/4ML VIAL IVP SCH ×2 (07:52→16:43)
[2018-06-09 08:12] LABS: CHLORIDE 91 mEq/L (98-107)
[2018-06-09] MEDS ORDERED: ENOXAPARIN 30MG/0.3ML SYR SUBCUT SCH (09:00)
[2018-06-09] MEDS: ZINC SULFATE 220 MG ( 50 ) CAPSULE PO SCH (09:42)
[2018-06-09] MEDS: FAMOTIDINE 20MG TABLET PO SCH ×2 (09:42→20:11)
[2018-06-09] MEDS: DOCUSATE SODIUM 100MG CAPSULE PO PRN ×2 (09:42→20:11)
[2018-06-09] MEDS: SPIRONOLACTONE 25MG TABLET PO SCH ×2 (09:42→20:11)
[2018-06-09] MEDS: ASCORBIC ACID 500 MG TABLET PO SCH ×2 (09:42→20:11)
[2018-06-09] MEDS: ASPIRIN 325MG EC TABLET PO SCH (09:42)
[2018-06-09] MEDS: GUAIFENESIN/DM 600MG/30MG ER TAB 12HR PO SCH ×2 (09:43→20:11)
[2018-06-09] MEDS ORDERED: LEVOFLOXACIN 500MG PREMIX 100 ML IV SCH (11:00)
[2018-06-09 12:42] LABS: BG BASE EXCESS 17.6 mmol/L (-2.0-2.0); BG CARBOXYHEMOGLOBIN 0.5 % (0.5-1.5); BG DEOXYHEMOGLOBIN 3.3 % (0.0-5.0); BG FRACTION INSPIRED OXYGEN 28; BG HCO3 ACT 44.7 mmol/L (22.0-26.0); BG OXYGEN SATURATION 96.7 % (92.0-98.5); BG OXYHEMOGLOBIN 96.2 % (94.0-97.0); BG PCO2 66.7 mmHg (35.0-45.0); BG PH 7.444 (7.350-7.450); BG SAMPLE SITE RIGHT RADIAL; BG TOTAL HEMOGLOBIN 11.4 g/dL (12.0-18.0); BG VENT MODE NASAL CANNULA
[2018-06-09] MEDS ORDERED: LIDOCAINE HCL/PF 1% 2ML VIAL ONE (15:45)
[2018-06-09] MEDS: APIXABAN 5 MG TABLET PO SCH (16:43)
[2018-06-09 21:56] LABS: PLATELET ESTIMATE NORMAL
[2018-06-10] VITALS (13 sets, daily range): BP systolic 105–153; BP diastolic 48–85
[2018-06-10] MEDS: TRAMADOL 50MG TABLET PO PRN ×2 (00:06→06:06)
[2018-06-10] MEDS: IPRATROPIUM/ALBUTEROL 0.5-3(2.5)MG/3ML NEB HHN SCH ×6 (00:13→20:54)
[2018-06-10 06:01] LABS: CHLORIDE 90 mEq/L (98-107)
[2018-06-10] MEDS: METHYLPREDNISOLONE SOD SUCC 125 MG/2 ML VIAL IV SCH ×2 (06:01→13:48)
[2018-06-10 06:05] LABS: HEMATOCRIT. 33.3 % (42.0-52.0); HEMOGLOBIN. 10.4 g/dL (14.0-18.0); MEAN CORPUSCULAR HEMOGLOBIN 26.1 pg (28.0-32.0); MEAN PLATELET VOLUME 9.8 fl (7.4-10.4); PLATELET 189 x1000/uL (130-400); RED BLOOD CELL COUNT 3.96 mill/uL (4.7-6.1); RED CELL DISTRIBUTION WIDTH 16.7 % (11.6-14.6)
[2018-06-10] MEDS: BLOOD SUGAR DIAGNOSTIC STRIP TEST SCH ×4 (06:06→20:29)
[2018-06-10] MEDS: FUROSEMIDE 40MG/4ML VIAL IVP SCH ×2 (08:06→16:58)
[2018-06-10] MEDS: INSULIN LISPRO 100 UNITS/ML SUBCUT SCH ×4 (08:07→20:51)
[2018-06-10] MEDS: GUAIFENESIN/DM 600MG/30MG ER TAB 12HR PO SCH ×2 (08:21→20:29)
[2018-06-10] MEDS: FAMOTIDINE 20MG TABLET PO SCH ×2 (08:21→20:29)
[2018-06-10] MEDS: ASCORBIC ACID 500 MG TABLET PO SCH ×2 (08:21→20:29)
[2018-06-10] MEDS: ZINC SULFATE 220 MG ( 50 ) CAPSULE PO SCH (08:21)
[2018-06-10] MEDS: ASPIRIN 325MG EC TABLET PO SCH (08:21)
[2018-06-10] MEDS: SPIRONOLACTONE 25MG TABLET PO SCH ×2 (08:21→20:29)
[2018-06-10] MEDS: DOCUSATE SODIUM 100MG CAPSULE PO PRN ×2 (08:21→16:57)
[2018-06-10] MEDS: APIXABAN 5 MG TABLET PO SCH ×2 (08:21→16:57)
[2018-06-10 12:43] LABS: *COCAINE SCREEN URINE NEGATIVE (NEGATIVE); METHADONE URINE SCREEN NEGATIVE (NEGATIVE); OPIATES URINE SCREEN PRESUMTIVE POSITIVE (NEGATIVE)
[2018-06-10 12:44] LABS: *AMPHETAMINES SCREEN URINE NEGATIVE (NEGATIVE); *BARBITURATES SCREEN URINE NEGATIVE (NEGATIVE); *BENZODIAZEPINES SCREEN URINE NEGATIVE (NEGATIVE); PHENCYCLIDINE URINE SCREEN NEGATIVE (NEGATIVE)
[2018-06-10 12:46] LABS: CANNABINOID URINE SCREEN NEGATIVE (NEGATIVE)
[2018-06-10] MEDS: LEVOFLOXACIN 500MG PREMIX 100 ML IV SCH (13:48)
[2018-06-10] MEDS: LACTULOSE 20G/30ML UDC PO SCH ×2 (13:56→21:04)
[2018-06-10 20:48] LABS: PLATELET ESTIMATE NORMAL
[2018-06-10] MEDS: METHYLPREDNISOLONE SOD SUCC 40 MG/ML VIAL IV SCH (22:00)
[2018-06-11] VITALS (11 sets, daily range): BP systolic 93–132; BP diastolic 42–77
[2018-06-11] MEDS: IPRATROPIUM/ALBUTEROL 0.5-3(2.5)MG/3ML NEB HHN SCH ×6 (01:19→20:44)
[2018-06-11] MEDS: LACTULOSE 20G/30ML UDC PO SCH ×3 (05:45→20:55)
[2018-06-11] MEDS: BLOOD SUGAR DIAGNOSTIC STRIP TEST SCH ×4 (05:46→20:56)
[2018-06-11] MEDS: METHYLPREDNISOLONE SOD SUCC 40 MG/ML VIAL IV SCH ×2 (08:15→20:56)
[2018-06-11] MEDS: FUROSEMIDE 40MG/4ML VIAL IVP SCH ×2 (08:15→17:10)
[2018-06-11] MEDS: ZINC SULFATE 220 MG ( 50 ) CAPSULE PO SCH (08:15)
[2018-06-11] MEDS: ASCORBIC ACID 500 MG TABLET PO SCH ×2 (08:16→20:56)
[2018-06-11] MEDS: GUAIFENESIN/DM 600MG/30MG ER TAB 12HR PO SCH ×2 (08:16→20:55)
[2018-06-11] MEDS: FAMOTIDINE 20MG TABLET PO SCH ×2 (08:16→20:55)
[2018-06-11] MEDS: SPIRONOLACTONE 25MG TABLET PO SCH ×2 (08:16→20:56)
[2018-06-11] MEDS: APIXABAN 5 MG TABLET PO SCH ×2 (08:16→17:10)
[2018-06-11] MEDS: ASPIRIN 81MG EC TABLET PO SCH (08:16)
[2018-06-11] MEDS: INSULIN LISPRO 100 UNITS/ML SUBCUT SCH ×4 (08:28→22:01)
[2018-06-11] MEDS: LEVOFLOXACIN 500MG PREMIX 100 ML IV SCH (12:26)
[2018-06-11] MEDS: DOCUSATE SODIUM 100MG CAPSULE PO PRN (17:10)
[2018-06-12] VITALS (12 sets, daily range): BP systolic 123–152; BP diastolic 55–95
[2018-06-12] MEDS: IPRATROPIUM/ALBUTEROL 0.5-3(2.5)MG/3ML NEB HHN SCH ×5 (01:45→17:12)
[2018-06-12] MEDS: BLOOD SUGAR DIAGNOSTIC STRIP TEST SCH ×3 (05:20→17:46)
[2018-06-12] MEDS: LACTULOSE 20G/30ML UDC PO SCH ×2 (05:20→13:28)
[2018-06-12] MEDS: ASCORBIC ACID 500 MG TABLET PO SCH (08:36)
[2018-06-12] MEDS: GUAIFENESIN/DM 600MG/30MG ER TAB 12HR PO SCH (08:36)
[2018-06-12] MEDS: APIXABAN 5 MG TABLET PO SCH ×2 (08:37→17:53)
[2018-06-12] MEDS: ZINC SULFATE 220 MG ( 50 ) CAPSULE PO SCH (08:37)
[2018-06-12] MEDS: FAMOTIDINE 20MG TABLET PO SCH (08:37)
[2018-06-12] MEDS: PREDNISONE 20MG TABLET PO SCH ×2 (08:37→17:53)
[2018-06-12] MEDS: FUROSEMIDE 40MG/4ML VIAL IVP SCH ×2 (08:37→17:53)
[2018-06-12] MEDS: ASPIRIN 81MG EC TABLET PO SCH (08:38)
[2018-06-12] MEDS: DOCUSATE SODIUM 100MG CAPSULE PO PRN (08:38)
[2018-06-12] MEDS: SPIRONOLACTONE 25MG TABLET PO SCH (08:38)
[2018-06-12] MEDS: INSULIN LISPRO 100 UNITS/ML SUBCUT SCH ×3 (08:40→17:55)
[2018-06-12] MEDS: LEVOFLOXACIN 500MG PREMIX 100 ML IV SCH (13:28)
== END 2018-06-12 19:45 | DRG 291 ==
LOC: ER 02:17 → 3WST 05:20 → EDBEDREQSVC 16:53 → ENRESERV 16:55 → CANRESERV 16:55 → EDBEDREQSVC 17:06 → ENRESERV 19:14
PROVIDERS: ADMIT Internal Medicine; ATTEND Internal Medicine
PROC: 5A09357 Assistance with Respiratory Ventilation, Less than 24 Consecutive Hours, Continuous Positive Airway Pressure (ICD-10-PCS; principal; 2018-06-08)
DX: I11.0 Hypertensive heart disease with heart failure (principal); J96.02 Acute respiratory failure with hypercapnia; J96.01 Acute respiratory failure with hypoxia; J44.1 Chronic obstructive pulmonary disease with (acute) exacerbation; E44.0 Moderate protein-calorie malnutrition; E87.4 Mixed disorder of acid-base balance; I48.1 Persistent atrial fibrillation; I48.92 Unspecified atrial flutter; Z68.41 Body mass index [BMI] 40.0-44.9, adult; L89.320 Pressure ulcer of left buttock, unstageable; L89.310 Pressure ulcer of right buttock, unstageable; E78.00 Pure hypercholesterolemia, unspecified; I50.23 Acute on chronic systolic (congestive) heart failure; I42.0 Dilated cardiomyopathy; D72.829 Elevated white blood cell count, unspecified; E11.9 Type 2 diabetes mellitus without complications; D63.8 Anemia in other chronic diseases classified elsewhere; I48.2 Chronic atrial fibrillation; E66.01 Morbid (severe) obesity due to excess calories; E78.5 Hyperlipidemia, unspecified; Z79.4 Long term (current) use of insulin; Z79.01 Long term (current) use of anticoagulants; Z88.5 Allergy status to narcotic agent; Z88.0 Allergy status to penicillin; Z79.899 Other long term (current) drug therapy
CPT/HCPCS: 36415; 36600; 71045; 80048; 80061; 80305; 82375; 82550; 82553; 82805; 82962; 83036; 83880; 84134; 84484; 93005; 93970; 94640; 94660; 96374; 96375; 97162; 99285; A6261; J1120; J1650; J1815; J1885; J1940; J1956; J2405; J2920; J2930; J3490; J7050; J7512; J7611; J7620

== ENCOUNTER 2018-07-19 19:07 | Inpatient (IN) | payer MEDICARE, MEDICAID, OTHER ==
[~2018-07-19] VITALS: Ht 172.7 cm; Wt 118.1 kg
[~2018-07-19 19:07] MED LIST changes: -ALBU2.5V13 NEB; -ATOR40TA70 PO; -DOFE500C4 PO; -ELIQUIS 5 MG PO; -HYDR-3511 PO; -LISI-604 PO; -METF-414 PO; -METO-396 PO; -OXYC5CAP12 MT; -POTA99TA4 MT
[2018-07-19] MEDS ORDERED: MORPHINE SULFATE 4 MG/ML CPJ (NOT FOR IM USE) IV STA (20:25)
[2018-07-19] MEDS ORDERED: ONDANSETRON HCL 4MG/2ML INJ IV STA (20:25)
[2018-07-19] MEDS ORDERED: SODIUM CHLORIDE 0.9% 1,000 ML IV ONE (20:25)
[2018-07-19] MEDS ORDERED: IPRATROPIUM/ALBUTEROL 0.5-3(2.5)MG/3ML NEB HHN ONE (20:30)
[2018-07-19 21:12] LABS: HEMATOCRIT. 43.5 % (42.0-52.0); HEMOGLOBIN. 14.1 g/dL (14.0-18.0); MEAN CORPUSCULAR HEMOGLOBIN 27.8 pg (28.0-32.0); MEAN PLATELET VOLUME 8.8 fl (7.4-10.4); PLATELET 174 x1000/uL (130-400); RED BLOOD CELL COUNT 5.06 mill/uL (4.7-6.1); RED CELL DISTRIBUTION WIDTH 17.6 % (11.6-14.6)
[2018-07-19 21:20] LABS: CHLORIDE 92 mEq/L (98-107)
[2018-07-19 21:21] LABS: INR 1.1; PARTIAL THROMBOPLASTIN TIME 30.6 sec (23.4-31.0); PROTHROMBIN TIME 11.1 sec (9.6-11.0)
[2018-07-19 21:42] LABS: PLATELET ESTIMATE NORMAL
[2018-07-19] MEDS ORDERED: LEVOFLOXACIN 750MG PREMIX 150 ML IV ONE (22:45)
[2018-07-19] MEDS ORDERED: METRONIDAZOLE 500 MG PREMIX 100 ML IV ONE (22:45)
[2018-07-19] MEDS: DEXT 5%/0.45% NACL 1000ML 1,000 ML IV SCH (23:05)
[2018-07-19] MEDS ORDERED: LEVOFLOXACIN 500MG PREMIX 100 ML IV SCH (23:15)
[2018-07-19] MEDS ORDERED: DEXTROSE 50% WATER 50ML SYRINGE IV PRN (23:15)
[2018-07-19] MEDS ORDERED: MAGNESIUM/ALUMINUM HYDROXIDE/SIMETHICONE 30ML UDC PO PRN (23:15)
[2018-07-19] MEDS ORDERED: LORAZEPAM 0.5MG TABLET PO PRN (23:15)
[2018-07-19] MEDS ORDERED: DIPHENHYDRAMINE 50MG/ML VIAL IV PRN (23:15)
[2018-07-19] MEDS ORDERED: KETOROLAC 15MG/ML VIAL IV PRN (23:15)
[2018-07-19] MEDS ORDERED: NITROGLYCERIN 0.4MG TABLET SL SL PRN (23:15)
[2018-07-19] MEDS ORDERED: TRAMADOL 50MG TABLET PO PRN (23:15)
[2018-07-19] MEDS ORDERED: CLONIDINE 0.1MG TABLET PO PRN (23:15)
[2018-07-19] MEDS ORDERED: ACETAMINOPHEN 325MG TABLET PO PRN (23:15)
[2018-07-19] MEDS ORDERED: ZOLPIDEM TARTRATE 5MG TABLET PO PRN (23:15)
[2018-07-19] MEDS ORDERED: ENOXAPARIN 40MG/0.4ML SYR SUBCUT SCH (23:15)
[2018-07-19] MEDS ORDERED: GUAIFENESIN 200MG/10ML SUGAR FREE UDC PO PRN (23:15)
[2018-07-19] MEDS ORDERED: DOCUSATE SODIUM 100MG CAPSULE PO PRN (23:15)
[2018-07-19] MEDS ORDERED: ONDANSETRON HCL 4MG/2ML INJ IV PRN (23:15)
[2018-07-20] VITALS (8 sets, daily range): BP systolic 109–153; BP diastolic 49–77
[2018-07-20] MEDS ORDERED: MORPHINE SULFATE 4 MG/ML CPJ (NOT FOR IM USE) IV ONE (00:30)
[2018-07-20] MEDS ORDERED: ONDANSETRON HCL 4MG/2ML INJ IV ONE (00:30)
[2018-07-20] MEDS: METRONIDAZOLE 500 MG PREMIX 100 ML IV SCH ×2 (05:05→14:00)
[2018-07-20] MEDS: INSULIN LISPRO 100 UNITS/ML SUBCUT SCH ×4 (07:20→20:30)
[2018-07-20] MEDS: BLOOD SUGAR DIAGNOSTIC STRIP TEST SCH ×4 (07:29→20:30)
[2018-07-20] MEDS: ENOXAPARIN 30MG/0.3ML SYR SUBCUT SCH ×3 (08:37→20:07)
[2018-07-20] MEDS: MORPHINE SULFATE 4 MG/ML CPJ (NOT FOR IM USE) IV PRN ×3 (08:38→17:33)
[2018-07-20] MEDS: METOPROLOL TARTRATE 25MG TABLET PO SCH ×2 (08:38→20:08)
[2018-07-20] MEDS: PANTOPRAZOLE SODIUM 40 MG/VIAL IV SCH (08:39)
[2018-07-20] MEDS: DEXT 5%/0.45% NACL 1000ML 1,000 ML IV SCH ×2 (08:39→19:32)
[2018-07-20 20:06] LABS: CHLORIDE 97 mEq/L (98-107)
[2018-07-20 20:07] LABS: HEMATOCRIT. 42.7 % (42.0-52.0); HEMOGLOBIN. 13.8 g/dL (14.0-18.0); MEAN CORPUSCULAR HEMOGLOBIN 28.4 pg (28.0-32.0); MEAN PLATELET VOLUME 8.8 fl (7.4-10.4); PLATELET 137 x1000/uL (130-400); RED BLOOD CELL COUNT 4.85 mill/uL (4.7-6.1); RED CELL DISTRIBUTION WIDTH 17.2 % (11.6-14.6)
[2018-07-20] MEDS: IPRATROPIUM/ALBUTEROL 0.5-3(2.5)MG/3ML NEB INH PRN (20:07)
[2018-07-20] MEDS: LEVOFLOXACIN 500MG PREMIX 100 ML IV SCH (20:08)
[2018-07-21] VITALS (11 sets, daily range): BP systolic 102–147; BP diastolic 49–75
[2018-07-21] MEDS: METRONIDAZOLE 500 MG PREMIX 100 ML IV SCH ×4 (00:24→22:33)
[2018-07-21 01:09] LABS: PLATELET ESTIMATE NORMAL
[2018-07-21] MEDS: MORPHINE SULFATE 4 MG/ML CPJ (NOT FOR IM USE) IV PRN ×4 (01:34→20:19)
[2018-07-21] MEDS: IPRATROPIUM/ALBUTEROL 0.5-3(2.5)MG/3ML NEB INH PRN ×2 (04:09→22:00)
[2018-07-21] MEDS: DEXT 5%/0.45% NACL 1000ML 1,000 ML IV SCH ×2 (06:25→15:59)
[2018-07-21] MEDS: BLOOD SUGAR DIAGNOSTIC STRIP TEST SCH ×4 (06:25→20:18)
[2018-07-21] MEDS: INSULIN LISPRO 100 UNITS/ML SUBCUT SCH ×4 (07:20→20:18)
[2018-07-21] MEDS: ENOXAPARIN 30MG/0.3ML SYR SUBCUT SCH ×2 (09:00→20:18)
[2018-07-21] MEDS ORDERED: DIATR MEGLU/DIATRIZOATE SOLN 120ML ONE (09:27)
[2018-07-21] MEDS: PANTOPRAZOLE SODIUM 40 MG/VIAL IV SCH (10:44)
[2018-07-21] MEDS: METOPROLOL TARTRATE 25MG TABLET PO SCH ×2 (10:44→20:18)
[2018-07-21 13:42] LABS: CHLORIDE 99 mEq/L (98-107)
[2018-07-21] MEDS: CEFEPIME 1,000 MG in DEXTROSE 5% WATER 50 ML IV SCH (15:53)
[2018-07-21] MEDS: MUPIROCIN 2% OINT 22GM NS SCH (20:18)
[2018-07-21] MEDS: LEVOFLOXACIN 500MG PREMIX 100 ML IV SCH (20:18)
[2018-07-22] VITALS (15 sets, daily range): BP systolic 103–148; BP diastolic 37–110
[2018-07-22] MEDS: DEXT 5%/0.45% NACL 1000ML 1,000 ML IV SCH ×2 (00:09→11:05)
[2018-07-22] MEDS: MORPHINE SULFATE 4 MG/ML CPJ (NOT FOR IM USE) IV PRN ×3 (00:09→20:09)
[2018-07-22] MEDS: CEFEPIME 1,000 MG in DEXTROSE 5% WATER 50 ML IV SCH ×2 (02:22→14:29)
[2018-07-22] MEDS: BLOOD SUGAR DIAGNOSTIC STRIP TEST SCH ×4 (06:21→20:34)
[2018-07-22] MEDS: METRONIDAZOLE 500 MG PREMIX 100 ML IV SCH ×3 (06:21→23:39)
[2018-07-22] MEDS: INSULIN LISPRO 100 UNITS/ML SUBCUT SCH ×4 (06:21→20:35)
[2018-07-22] MEDS: METOPROLOL TARTRATE 25MG TABLET PO SCH ×2 (08:26→22:26)
[2018-07-22] MEDS: FAMOTIDINE 20MG TABLET PO SCH ×2 (08:27→16:18)
[2018-07-22] MEDS: ENOXAPARIN 30MG/0.3ML SYR SUBCUT SCH ×2 (08:28→20:40)
[2018-07-22] MEDS: MUPIROCIN 2% OINT 22GM NS SCH ×2 (08:28→20:09)
[2018-07-22] MEDS ORDERED: LIDOCAINE HCL 1% 20ML VIAL (Pyxis) INJ ONE (10:28)
[2018-07-22 12:38] LABS: CHLORIDE 101 mEq/L (98-107)
[2018-07-22 12:40] LABS: BASOPHILS % 0.3 % (0.0-2.0); EOSINOPHILS % 0.8 % (0.0-5.0); HEMATOCRIT. 39.4 % (42.0-52.0); HEMOGLOBIN. 12.9 g/dL (14.0-18.0); LYMPHOCYTES % 7.4 % (20.0-50.0); MEAN CORPUSCULAR HEMOGLOBIN 28.5 pg (28.0-32.0); MEAN CORPUSCULAR VOLUME 86.8 fL (80.0-94.0); MEAN PLATELET VOLUME 8.7 fl (7.4-10.4); NEUTROPHILS % 84.5 % (40.0-76.0); PLATELET 132 x1000/uL (130-400); RED BLOOD CELL COUNT 4.53 mill/uL (4.7-6.1); RED CELL DISTRIBUTION WIDTH 16.8 % (11.6-14.6)
[2018-07-22] MEDS: FUROSEMIDE 40MG/4ML VIAL IVP SCH ×2 (12:57→16:17)
[2018-07-22] MEDS: LEVOFLOXACIN 500MG PREMIX 100 ML IV SCH (20:10)
[2018-07-23] VITALS (12 sets, daily range): BP systolic 99–169; BP diastolic 55–97
[2018-07-23] MEDS: IPRATROPIUM/ALBUTEROL 0.5-3(2.5)MG/3ML NEB INH PRN ×2 (00:08→21:06)
[2018-07-23] MEDS: DEXT 5%/0.45% NACL 1000ML 1,000 ML IV SCH ×3 (01:26→17:37)
[2018-07-23] MEDS: MORPHINE SULFATE 4 MG/ML CPJ (NOT FOR IM USE) IV PRN ×3 (05:11→20:09)
[2018-07-23] MEDS: CEFEPIME 1,000 MG in DEXTROSE 5% WATER 50 ML IV SCH ×2 (05:13→14:33)
[2018-07-23] MEDS: BLOOD SUGAR DIAGNOSTIC STRIP TEST SCH ×4 (05:32→21:49)
[2018-07-23] MEDS: INSULIN LISPRO 100 UNITS/ML SUBCUT SCH ×4 (05:32→21:00)
[2018-07-23] MEDS: FUROSEMIDE 40MG/4ML VIAL IVP SCH ×2 (06:49→17:31)
[2018-07-23] MEDS: METRONIDAZOLE 500 MG PREMIX 100 ML IV SCH ×2 (06:57→14:33)
[2018-07-23 07:23] LABS: BASOPHILS % 0.6 % (0.0-2.0); EOSINOPHILS % 1.1 % (0.0-5.0); HEMATOCRIT. 37.6 % (42.0-52.0); LYMPHOCYTES % 7.7 % (20.0-50.0); MEAN CORPUSCULAR HEMOGLOBIN 27.7 pg (28.0-32.0); MEAN CORPUSCULAR VOLUME 86.7 fL (80.0-94.0); MEAN PLATELET VOLUME 8.6 fl (7.4-10.4); MONOCYTES % 8.4 % (2.0-8.0); NEUTROPHILS % 82.2 % (40.0-76.0); PLATELET 142 x1000/uL (130-400); RED BLOOD CELL COUNT 4.34 mill/uL (4.7-6.1); RED CELL DISTRIBUTION WIDTH 16.7 % (11.6-14.6)
[2018-07-23 07:37] LABS: CHLORIDE 100 mEq/L (98-107)
[2018-07-23] MEDS: FAMOTIDINE 20MG TABLET PO SCH ×2 (08:35→17:31)
[2018-07-23] MEDS: ENOXAPARIN 30MG/0.3ML SYR SUBCUT SCH ×2 (08:35→20:10)
[2018-07-23] MEDS: MUPIROCIN 2% OINT 22GM NS SCH ×2 (08:35→20:11)
[2018-07-23] MEDS: METOPROLOL TARTRATE 25MG TABLET PO SCH ×2 (08:35→21:14)
[2018-07-23] MEDS: LEVOFLOXACIN 500MG PREMIX 100 ML IV SCH (21:13)
[2018-07-24] VITALS (12 sets, daily range): BP systolic 92–152; BP diastolic 40–87
[2018-07-24] MEDS: MORPHINE SULFATE 4 MG/ML CPJ (NOT FOR IM USE) IV PRN ×5 (00:38→18:25)
[2018-07-24] MEDS: METRONIDAZOLE 500 MG PREMIX 100 ML IV SCH ×3 (00:44→15:45)
[2018-07-24] MEDS: CEFEPIME 1,000 MG in DEXTROSE 5% WATER 50 ML IV SCH ×2 (02:14→13:21)
[2018-07-24] MEDS: DEXT 5%/0.45% NACL 1000ML 1,000 ML IV SCH ×2 (04:26→13:05)
[2018-07-24] MEDS: FUROSEMIDE 40MG/4ML VIAL IVP SCH ×2 (06:34→17:51)
[2018-07-24 06:43] LABS: CHLORIDE 100 mEq/L (98-107)
[2018-07-24 06:45] LABS: BASOPHILS % 0.7 % (0.0-2.0); HEMATOCRIT. 37.6 % (42.0-52.0); LYMPHOCYTES % 11.9 % (20.0-50.0); MEAN CORPUSCULAR HEMOGLOBIN 27.7 pg (28.0-32.0); MEAN CORPUSCULAR VOLUME 86.5 fL (80.0-94.0); MEAN PLATELET VOLUME 9.1 fl (7.4-10.4); NEUTROPHILS % 75.4 % (40.0-76.0); PLATELET 136 x1000/uL (130-400); RED BLOOD CELL COUNT 4.35 mill/uL (4.7-6.1); RED CELL DISTRIBUTION WIDTH 17.5 % (11.6-14.6)
[2018-07-24] MEDS: BLOOD SUGAR DIAGNOSTIC STRIP TEST SCH ×3 (07:04→17:47)
[2018-07-24] MEDS: INSULIN LISPRO 100 UNITS/ML SUBCUT SCH ×3 (07:04→17:20)
[2018-07-24] MEDS: MUPIROCIN 2% OINT 22GM NS SCH (08:38)
[2018-07-24] MEDS: METOPROLOL TARTRATE 25MG TABLET PO SCH (08:38)
[2018-07-24] MEDS: FAMOTIDINE 20MG TABLET PO SCH ×2 (08:38→17:51)
[2018-07-24] MEDS: ENOXAPARIN 30MG/0.3ML SYR SUBCUT SCH (08:39)
== END 2018-07-24 21:35 | DRG 871 ==
LOC: ER 19:07 → 3WST 22:52 → EDBEDREQSVC 22:54 → EDBEDREQTM 22:54 → EDBEDREQ 22:54 → SUPCPDRO 23:03 → ENRESERV 23:26
PROVIDERS: ADMIT Internal Medicine; ATTEND Internal Medicine
PROC: 02HV33Z Insertion of Infusion Device into Superior Vena Cava, Percutaneous Approach (ICD-10-PCS; principal; 2018-07-21)
PROC: B5181ZA Fluoroscopy of Superior Vena Cava using Low Osmolar Contrast, Guidance (ICD-10-PCS; 2018-07-21)
PROC: B548ZZA Ultrasonography of Superior Vena Cava, Guidance (ICD-10-PCS; 2018-07-21)
PROC: 02HV33Z Insertion of Infusion Device into Superior Vena Cava, Percutaneous Approach (ICD-10-PCS; 2018-07-22)
PROC: B5181ZA Fluoroscopy of Superior Vena Cava using Low Osmolar Contrast, Guidance (ICD-10-PCS; 2018-07-22)
PROC: B548ZZA Ultrasonography of Superior Vena Cava, Guidance (ICD-10-PCS; 2018-07-22)
DX: A41.9 Sepsis, unspecified organism (principal); K65.9 Peritonitis, unspecified; K57.80 Diverticulitis of intestine, part unspecified, with perforation and abscess without bleeding; E44.0 Moderate protein-calorie malnutrition; I48.92 Unspecified atrial flutter; I47.2 Ventricular tachycardia; I42.0 Dilated cardiomyopathy; Z68.41 Body mass index [BMI] 40.0-44.9, adult; R32 Unspecified urinary incontinence; I11.0 Hypertensive heart disease with heart failure; I50.9 Heart failure, unspecified; J44.9 Chronic obstructive pulmonary disease, unspecified; D64.9 Anemia, unspecified; E11.65 Type 2 diabetes mellitus with hyperglycemia; E66.01 Morbid (severe) obesity due to excess calories; E78.5 Hyperlipidemia, unspecified; G47.33 Obstructive sleep apnea (adult) (pediatric); I25.10 Atherosclerotic heart disease of native coronary artery without angina pectoris; I48.2 Chronic atrial fibrillation; Z22.322 Carrier or suspected carrier of Methicillin resistant Staphylococcus aureus; Z79.01 Long term (current) use of anticoagulants; Z79.4 Long term (current) use of insulin; Z68.39 Body mass index [BMI] 39.0-39.9, adult; Z88.0 Allergy status to penicillin; Z88.8 Allergy status to other drugs, medicaments and biological substances; Z79.899 Other long term (current) drug therapy; Z87.891 Personal history of nicotine dependence
CPT/HCPCS: 36415; 36569; 36573; 71045; 74176; 80048; 82962; 83036; 83605; 83735; 83880; 84134; 84484; 93005; 93970; 94640; 97162; 97530; 99285; A6261; C1725; C9113; J0692; J1650; J1815; J1940; J1956; J2270; J2405; J3490; J7030; J7040; J7050; J7060; J7620; Q9963; A4315

== ENCOUNTER 2018-09-22 10:12 | Emergency (ER) | payer MEDICARE, MEDICAID, OTHER ==
[~2018-09-22] VITALS: Ht 180.3 cm; Wt 91.0 kg
[~2018-09-22 10:12] MED LIST changes: -BUME1TAB4 PO; +BUME1TAB8 PO
[2018-09-22] MEDS ORDERED: MORPHINE SULFATE 4 MG/ML CPJ (NOT FOR IM USE) IV ONE ×2 (10:45→18:00)
[2018-09-22 11:29] LABS: HEMATOCRIT. 38.3 % (42.0-52.0); HEMOGLOBIN. 11.9 g/dL (14.0-18.0); MEAN CORPUSCULAR HEMOGLOBIN 27.7 pg (28.0-32.0); PLATELET 165 x1000/uL (130-400); RED BLOOD CELL COUNT 4.31 mill/uL (4.7-6.1); RED CELL DISTRIBUTION WIDTH 16.4 % (11.6-14.6)
[2018-09-22 11:36] LABS: INR 1.1; PROTHROMBIN TIME 11.6 sec (9.6-11.0)
[2018-09-22 11:37] LABS: CHLORIDE 98 mEq/L (98-107)
[2018-09-22 12:13] LABS: PLATELET ESTIMATE NORMAL
[2018-09-22] MEDS ORDERED: IOHEXOL-300 100 ML BOTTLE ONE (14:18)
[2018-09-22] MEDS ORDERED: ONDANSETRON HCL 4MG/2ML INJ IV ONE (18:00)
[2018-09-22] MEDS ORDERED: DIPHENHYDRAMINE 50MG/ML VIAL IV ONE (18:00)
[2018-09-22 20:24] VITALS: BP 176/81
== END 2018-09-22 20:27 ==
LOC: ER 10:12 → EDBEDREQTM 13:05 → CANRESERV 14:10 → ENRESERV 14:10 → CANBEDREQ 15:35 → ER 20:27
DX: R10.11 Right upper quadrant pain (principal); R10.31 Right lower quadrant pain; I11.0 Hypertensive heart disease with heart failure; I50.9 Heart failure, unspecified; J44.9 Chronic obstructive pulmonary disease, unspecified; I48.91 Unspecified atrial fibrillation; E11.9 Type 2 diabetes mellitus without complications; Z88.0 Allergy status to penicillin; Z88.9 Allergy status to unspecified drugs, medicaments and biological substances
CPT/HCPCS: 96374; 96375; 96376; 99284; J1200; J2270; J2405; Q9967; 36415; 71045; 74177; 76705; 83605; 84484

== ENCOUNTER 2018-09-25 12:34 | Inpatient (IN) | payer MEDICARE, OTHER ==
[2018-09-25] VITALS (33 sets, daily range): BP systolic 62–164; BP diastolic 34–142
[~2018-09-25] VITALS: Ht 172.7 cm; Wt 123.4 kg
[2018-09-25] MEDS ORDERED: IPRATROPIUM BROMIDE (0.02%) 0.5MG/2.5ML NEB HHN STA (12:46)
[2018-09-25] MEDS ORDERED: ALBUTEROL (0.083%) 2.5MG/3ML NEB ONE (12:49)
[2018-09-25] MEDS ORDERED: IPRATROPIUM BROMIDE (0.02%) 0.5MG/2.5ML NEB ONE (12:50)
[2018-09-25] MEDS ORDERED: ETOMIDATE 2MG/ML 10ML VIAL IV ONE ×2 (12:59→13:15)
[2018-09-25] MEDS ORDERED: SUCCINYLCHOLINE CHLORIDE 200MG/10ML IV ONE ×2 (12:59→13:15)
[2018-09-25] MEDS ORDERED: SODIUM CHLORIDE 0.9% 10ML VIAL ONE (12:59)
[2018-09-25] MEDS ORDERED: EPINEPHRINE 0.1MG/ML (1:10,000) 10ML SYR ONE (12:59)
[2018-09-25] MEDS ORDERED: ALBUTEROL (0.083%) 2.5MG/3ML NEB HHN SCH (13:00)
[2018-09-25] MEDS ORDERED: FUROSEMIDE 40MG/4ML VIAL IV ONE (13:00)
[2018-09-25] MEDS ORDERED: PROPOFOL 10MG/ML 100ML 100 ML IV ONE (13:15)
[2018-09-25] MEDS ORDERED: NOREPINEPHRINE 4MG/250ML PMX 250 ML IV ONE (13:28)
[2018-09-25] MEDS ORDERED: MIDAZOLAM HCL 2 MG/2 ML VIAL ONE (13:29)
[2018-09-25 13:32] LABS: HEMOGLOBIN. 12.1 g/dL (14.0-18.0); MEAN CORPUSCULAR HEMOGLOBIN 27.6 pg (28.0-32.0); MEAN CORPUSCULAR VOLUME 90.9 fL (80.0-94.0); MEAN PLATELET VOLUME 9.4 fl (7.4-10.4); PLATELET 182 x1000/uL (130-400); RED BLOOD CELL COUNT 4.41 mill/uL (4.7-6.1); RED CELL DISTRIBUTION WIDTH 16.2 % (11.6-14.6)
[2018-09-25 13:41] LABS: CHLORIDE 94 mEq/L (98-107)
[2018-09-25 13:49] LABS: INR 1.2; PARTIAL THROMBOPLASTIN TIME 29.7 sec (23.4-31.0); PROTHROMBIN TIME 12.2 sec (9.6-11.0)
[2018-09-25 13:53] LABS: PLATELET ESTIMATE NORMAL
[2018-09-25 14:23] LABS: BG BASE EXCESS -11.6 mmol/L (-2.0-2.0); BG CARBOXYHEMOGLOBIN 0.7 % (0.5-1.5); BG DEOXYHEMOGLOBIN 14.1 % (0.0-5.0); BG FRACTION INSPIRED OXYGEN 100; BG HCO3 ACT 14.6 mmol/L (22.0-26.0); BG METHEMOGLOBIN 0.5 % (0.0-1.5); BG OXYGEN SATURATION 85.7 % (92.0-98.5); BG OXYHEMOGLOBIN 84.7 % (94.0-97.0); BG PCO2 34.3 mmHg (35.0-45.0); BG PH 7.246 (7.350-7.450); BG PO2 58.5 mmHg (75.0-100.0); BG SAMPLE SITE RIGHT RADIAL; BG TIDAL VOLUME(mL) 550 mL; BG TOTAL HEMOGLOBIN 4.8 g/dL (12.0-18.0); BG VENT MODE VENT - A/C; BG VENT RATE 14 set
[2018-09-25] MEDS ORDERED: DOBUTAMINE HCL IN DEXTROSE 5 % 250 ML IV STA (14:23)
[2018-09-25] MEDS ORDERED: NOREPINEPHRINE 4 MG in DEXT 5% WATER 250 ML IV STA (14:23)
[2018-09-25] MEDS ORDERED: LEVOFLOXACIN 750MG PREMIX 150 ML IV ONE (14:30)
[2018-09-25] MEDS ORDERED: MEROPENEM 1,000 MG in SODIUM CHLORIDE 0.9% 100 ML IV ONE (14:30)
[2018-09-25] MEDS ORDERED: VANCOMYCIN 1 G PREMIX 200 ML IV SCH (14:30)
[2018-09-25 14:31] LABS: CLARITY URINE CLEAR (CLEAR); COLOR URINE DARK YELLOW (YELLOW); KETONES URINE NEGATIVE (NEGATIVE); LEUKOCYTE ESTERASE URINE NEGATIVE (NEGATIVE); NITRITE URINE NEGATIVE (NEGATIVE); OCCULT BLOOD URINE NEGATIVE (NEGATIVE); PROTEIN URINE TRACE (NEGATIVE); SPECIFIC GRAVITY URINE 1.021 (1.005-1.030); UROBILINOGEN URINE 0.2 E.U./dL (0.2-1.0)
[2018-09-25] MEDS: IPRATROPIUM/ALBUTEROL 0.5-3(2.5)MG/3ML NEB HHN SCH ×2 (14:40→19:50)
[2018-09-25] MEDS ORDERED: DOBUTAMINE HCL IN DEXTROSE 5 % 250 ML IV SCH (15:15)
[2018-09-25] MEDS ORDERED: NOREPINEPHRINE 16 MG in DEXT 5% WATER 234 ML IV PRN ×2 (15:30→18:45)
[2018-09-25] MEDS ORDERED: VANCOMYCIN 1250MG in DEXTROSE 5% WATER 250ML IV SCH (18:00)
[2018-09-25 18:15] LABS: BG CARBOXYHEMOGLOBIN 0.4 % (0.5-1.5); BG DEOXYHEMOGLOBIN 0.4 % (0.0-5.0); BG FRACTION INSPIRED OXYGEN 100; BG HCO3 ACT 35.4 mmol/L (22.0-26.0); BG METHEMOGLOBIN 0.6 % (0.0-1.5); BG OXYGEN SATURATION 99.6 % (92.0-98.5); BG OXYHEMOGLOBIN 98.6 % (94.0-97.0); BG PCO2 69.6 mmHg (35.0-45.0); BG PH 7.324 (7.350-7.450); BG PO2 315.6 mmHg (75.0-100.0); BG SAMPLE SITE RIGHT RADIAL; BG TIDAL VOLUME(mL) 550 mL; BG TOTAL HEMOGLOBIN 12.9 g/dL (12.0-18.0); BG VENT MODE VENT - A/C; BG VENT RATE 14 set
[2018-09-25] MEDS: METRONIDAZOLE 500 MG PREMIX 100 ML IV SCH (18:17)
[2018-09-25] MEDS: FAMOTIDINE 20MG/2ML VIAL IV SCH (18:19)
[2018-09-25] MEDS: PROPOFOL 10MG/ML 100ML 100 ML IV SCH (18:20)
[2018-09-25 18:46] LABS: *AMPHETAMINES SCREEN URINE NEGATIVE (NEGATIVE); *BARBITURATES SCREEN URINE NEGATIVE (NEGATIVE); *BENZODIAZEPINES SCREEN URINE PRESUMTIVE POSITIVE (NEGATIVE); *COCAINE SCREEN URINE NEGATIVE (NEGATIVE); OPIATES URINE SCREEN PRESUMTIVE POSITIVE (NEGATIVE)
[2018-09-25 18:47] LABS: CANNABINOID URINE SCREEN NEGATIVE (NEGATIVE); METHADONE URINE SCREEN NEGATIVE (NEGATIVE); PHENCYCLIDINE URINE SCREEN NEGATIVE (NEGATIVE)
[2018-09-26] VITALS (96 sets, daily range): BP systolic 77–138; BP diastolic 28–102
[2018-09-26] MEDS: ACETYLCYSTEINE 100MG/ML 10% VIAL 4ML INH SCH ×4 (00:14→23:46)
[2018-09-26] MEDS: IPRATROPIUM/ALBUTEROL 0.5-3(2.5)MG/3ML NEB HHN SCH ×7 (00:14→23:46)
[2018-09-26] MEDS: PROPOFOL 10MG/ML 100ML 100 ML IV SCH ×2 (00:31→05:47)
[2018-09-26] MEDS: METRONIDAZOLE 500 MG PREMIX 100 ML IV SCH ×3 (01:12→18:38)
[2018-09-26 05:32] LABS: CHLORIDE 95 mEq/L (98-107)
[2018-09-26 05:36] LABS: HEMATOCRIT. 36.1 % (42.0-52.0); HEMOGLOBIN. 11.1 g/dL (14.0-18.0); MEAN CORPUSCULAR HEMOGLOBIN 27.7 pg (28.0-32.0); MEAN CORPUSCULAR VOLUME 89.6 fL (80.0-94.0); PLATELET 165 x1000/uL (130-400); RED BLOOD CELL COUNT 4.03 mill/uL (4.7-6.1); RED CELL DISTRIBUTION WIDTH 16.2 % (11.6-14.6)
[2018-09-26 07:48] LABS: BG BASE EXCESS 9.9 mmol/L (-2.0-2.0); BG CARBOXYHEMOGLOBIN 0.6 % (0.5-1.5); BG DEOXYHEMOGLOBIN 2.2 % (0.0-5.0); BG HCO3 ACT 33.3 mmol/L (22.0-26.0); BG METHEMOGLOBIN 0.2 % (0.0-1.5); BG OXYGEN SATURATION 97.8 % (92.0-98.5); BG PCO2 40.1 mmHg (35.0-45.0); BG PH 7.537 (7.350-7.450); BG PO2 92.4 mmHg (75.0-100.0); BG SAMPLE SITE RIGHT RADIAL; BG TIDAL VOLUME(mL) 550 mL; BG TOTAL HEMOGLOBIN 11.6 g/dL (12.0-18.0); BG VENT MODE VENT - A/C; BG VENT RATE 18 set
[2018-09-26] MEDS: FAMOTIDINE 20MG/2ML VIAL IV SCH (08:48)
[2018-09-26] MEDS: DOBUTAMINE 250MG PREMIX 250 ML IV SCH ×5 (08:48→22:43)
[2018-09-26 09:53] LABS: NUCLEATED RED BLOOD CELLS 1 /100 WBC; PLATELET ESTIMATE NORMAL
[2018-09-26] MEDS: FENTANYL CITRATE/PF 500 MCG in SODIUM CHLORIDE 0.9% 40 ML IV PRN ×2 (10:24→18:39)
[2018-09-26] MEDS: MIDAZOLAM HCL 100 MG in DEXT 5% WATER 80 ML IV PRN (10:25)
[2018-09-26] MEDS: VANCOMYCIN 1250MG in DEXTROSE 5% WATER 250ML IV SCH (12:11)
[2018-09-26] MEDS: LEVOFLOXACIN 750MG PREMIX 150 ML IV SCH (14:48)
[2018-09-26] MEDS ORDERED: LEVOFLOXACIN 500MG PREMIX 100 ML IV SCH ×2 (16:00)
[2018-09-27] VITALS (73 sets, daily range): BP systolic 67–154; BP diastolic 23–100
[2018-09-27] MEDS: METRONIDAZOLE 500 MG PREMIX 100 ML IV SCH ×3 (01:09→20:00)
[2018-09-27] MEDS: DOBUTAMINE 250MG PREMIX 250 ML IV SCH ×7 (02:29→23:22)
[2018-09-27] MEDS: IPRATROPIUM/ALBUTEROL 0.5-3(2.5)MG/3ML NEB HHN SCH ×5 (04:20→20:26)
[2018-09-27 05:12] LABS: HEMATOCRIT. 32.6 % (42.0-52.0); HEMOGLOBIN. 10.3 g/dL (14.0-18.0); MEAN CORPUSCULAR HEMOGLOBIN 27.8 pg (28.0-32.0); MEAN CORPUSCULAR VOLUME 87.9 fL (80.0-94.0); MEAN PLATELET VOLUME 9.5 fl (7.4-10.4); PLATELET 154 x1000/uL (130-400); RED BLOOD CELL COUNT 3.71 mill/uL (4.7-6.1); RED CELL DISTRIBUTION WIDTH 16.2 % (11.6-14.6)
[2018-09-27] MEDS: VANCOMYCIN 1250MG in DEXTROSE 5% WATER 250ML IV SCH (05:13)
[2018-09-27 05:22] LABS: CHLORIDE 97 mEq/L (98-107)
[2018-09-27 05:30] LABS: VANCOMYCIN TROUGH 13.6 ug/mL (5.0-10.0)
[2018-09-27] MEDS: MIDAZOLAM HCL 100 MG in DEXT 5% WATER 80 ML IV PRN (06:40)
[2018-09-27 07:21] LABS: PLATELET ESTIMATE NORMAL
[2018-09-27] MEDS: FENTANYL CITRATE/PF 500 MCG in SODIUM CHLORIDE 0.9% 40 ML IV PRN (07:27)
[2018-09-27] MEDS: ACETYLCYSTEINE 100MG/ML 10% VIAL 4ML INH SCH ×2 (08:20→16:52)
[2018-09-27 08:27] LABS: BG BASE EXCESS 6.9 mmol/L (-2.0-2.0); BG CARBOXYHEMOGLOBIN 0.3 % (0.5-1.5); BG FRACTION INSPIRED OXYGEN 40; BG HCO3 ACT 32.7 mmol/L (22.0-26.0); BG METHEMOGLOBIN 0.2 % (0.0-1.5); BG OXYHEMOGLOBIN 96.5 % (94.0-97.0); BG PCO2 52.9 mmHg (35.0-45.0); BG PH 7.409 (7.350-7.450); BG PO2 97.2 mmHg (75.0-100.0); BG SAMPLE SITE LEFT BRACHIAL; BG TIDAL VOLUME(mL) 550 mL; BG VENT MODE VENT - A/C; BG VENT RATE 14 set
[2018-09-27] MEDS: FAMOTIDINE 20MG/2ML VIAL IV SCH (08:45)
[2018-09-27] MEDS: FUROSEMIDE 40MG/4ML VIAL IVP SCH (10:23)
[2018-09-27] MEDS ORDERED: KCL 20MEQ/100ML PREMIX 100 ML IV NR (10:30)
[2018-09-27] MEDS: LEVOFLOXACIN 750MG PREMIX 150 ML IV SCH (14:46)
[2018-09-27] MEDS ORDERED: FUROSEMIDE 40MG/4ML VIAL IVP NR (19:00)
[2018-09-27] MEDS ORDERED: METOLAZONE 10MG TABLET PEG NR (19:00)
[2018-09-27] MEDS: VANCOMYCIN 1500MG in DEXTROSE 5% WATER 250ML IV SCH (21:29)
[2018-09-28] VITALS (94 sets, daily range): BP systolic 39–142; BP diastolic 19–103
[2018-09-28] MEDS: ACETYLCYSTEINE 100MG/ML 10% VIAL 4ML INH SCH ×4 (00:12→23:45)
[2018-09-28] MEDS: IPRATROPIUM/ALBUTEROL 0.5-3(2.5)MG/3ML NEB HHN SCH ×7 (00:12→23:45)
[2018-09-28] MEDS: METRONIDAZOLE 500 MG PREMIX 100 ML IV SCH ×3 (02:07→16:52)
[2018-09-28] MEDS: DOBUTAMINE 250MG PREMIX 250 ML IV SCH ×2 (02:57→06:11)
[2018-09-28 05:13] LABS: HEMOGLOBIN. 11.4 g/dL (14.0-18.0); MEAN CORPUSCULAR HEMOGLOBIN 27.9 pg (28.0-32.0); MEAN CORPUSCULAR VOLUME 88.5 fL (80.0-94.0); MEAN PLATELET VOLUME 9.2 fl (7.4-10.4); PLATELET 163 x1000/uL (130-400); RED BLOOD CELL COUNT 4.07 mill/uL (4.7-6.1); RED CELL DISTRIBUTION WIDTH 16.6 % (11.6-14.6)
[2018-09-28 05:34] LABS: CHLORIDE 93 mEq/L (98-107)
[2018-09-28] MEDS: FUROSEMIDE 40MG/4ML VIAL IVP SCH ×2 (08:36→16:52)
[2018-09-28] MEDS: FAMOTIDINE 20MG/2ML VIAL IV SCH (08:36)
[2018-09-28 11:15] LABS: NUCLEATED RED BLOOD CELLS 1 /100 WBC
[2018-09-28 11:18] LABS: PLATELET ESTIMATE NORMAL
[2018-09-28] MEDS: VANCOMYCIN 1500MG in DEXTROSE 5% WATER 250ML IV SCH (12:25)
[2018-09-28] MEDS: LEVOFLOXACIN 750MG PREMIX 150 ML IV SCH (13:55)
[2018-09-28] MEDS ORDERED: DOBUTAMINE 250MG PREMIX 250 ML IV SCH (16:31)
[2018-09-29] VITALS (88 sets, daily range): BP systolic 74–138; BP diastolic 27–90
[2018-09-29] MEDS: ACETYLCYSTEINE 100MG/ML 10% VIAL 4ML INH SCH ×3 (00:12→16:15)
[2018-09-29] MEDS: FENTANYL CITRATE/PF 500 MCG in SODIUM CHLORIDE 0.9% 40 ML IV PRN ×2 (00:57→19:01)
[2018-09-29] MEDS: METRONIDAZOLE 500 MG PREMIX 100 ML IV SCH ×3 (02:08→17:06)
[2018-09-29] MEDS: IPRATROPIUM/ALBUTEROL 0.5-3(2.5)MG/3ML NEB HHN SCH ×5 (03:04→20:15)
[2018-09-29 04:54] LABS: BASOPHILS % 0.2 % (0.0-2.0); EOSINOPHILS % 5.9 % (0.0-5.0); HEMATOCRIT. 34.5 % (42.0-52.0); HEMOGLOBIN. 10.7 g/dL (14.0-18.0); LYMPHOCYTES % 10.9 % (20.0-50.0); MEAN CORPUSCULAR HEMOGLOBIN 27.1 pg (28.0-32.0); MEAN CORPUSCULAR VOLUME 87.3 fL (80.0-94.0); MEAN PLATELET VOLUME 9.3 fl (7.4-10.4); MONOCYTES % 9.2 % (2.0-8.0); NEUTROPHILS % 73.8 % (40.0-76.0); PLATELET 173 x1000/uL (130-400); RED BLOOD CELL COUNT 3.95 mill/uL (4.7-6.1); RED CELL DISTRIBUTION WIDTH 16.4 % (11.6-14.6)
[2018-09-29 05:01] LABS: CHLORIDE 91 mEq/L (98-107)
[2018-09-29] MEDS: MIDAZOLAM HCL 100 MG in DEXT 5% WATER 80 ML IV PRN (05:39)
[2018-09-29] MEDS ORDERED: PHENYLEPHRINE 20 MG in DEXT 5% WATER 248 ML IV PRN (06:00)
[2018-09-29] MEDS: VANCOMYCIN 1500MG in DEXTROSE 5% WATER 250ML IV SCH ×2 (06:17→23:37)
[2018-09-29] MEDS: FUROSEMIDE 40MG/4ML VIAL IVP SCH ×2 (06:17→17:06)
[2018-09-29 08:32] LABS: BG BASE EXCESS 12.7 mmol/L (-2.0-2.0); BG CARBOXYHEMOGLOBIN 0.3 % (0.5-1.5); BG DEOXYHEMOGLOBIN 3.1 % (0.0-5.0); BG FRACTION INSPIRED OXYGEN 40; BG HCO3 ACT 38.3 mmol/L (22.0-26.0); BG METHEMOGLOBIN 0.3 % (0.0-1.5); BG OXYGEN SATURATION 96.9 % (92.0-98.5); BG OXYHEMOGLOBIN 96.3 % (94.0-97.0); BG PCO2 53.8 mmHg (35.0-45.0); BG PO2 89.5 mmHg (75.0-100.0); BG SAMPLE SITE RIGHT RADIAL; BG TIDAL VOLUME(mL) 550 mL; BG TOTAL HEMOGLOBIN 11.8 g/dL (12.0-18.0); BG VENT MODE VENT - A/C; BG VENT RATE 14 set
[2018-09-29] MEDS: FAMOTIDINE 20MG/2ML VIAL IV SCH (10:15)
[2018-09-29] MEDS: LEVOFLOXACIN 750MG PREMIX 150 ML IV SCH (13:43)
[2018-09-30] VITALS (76 sets, daily range): BP systolic 89–152; BP diastolic 42–78
[2018-09-30] MEDS: ACETYLCYSTEINE 100MG/ML 10% VIAL 4ML INH SCH ×3 (00:08→16:47)
[2018-09-30] MEDS: IPRATROPIUM/ALBUTEROL 0.5-3(2.5)MG/3ML NEB HHN SCH ×6 (00:12→20:30)
[2018-09-30] MEDS: METRONIDAZOLE 500 MG PREMIX 100 ML IV SCH ×3 (02:02→18:51)
[2018-09-30] MEDS: MIDAZOLAM HCL 100 MG in DEXT 5% WATER 80 ML IV PRN (02:57)
[2018-09-30 05:18] LABS: HEMATOCRIT. 35.6 % (42.0-52.0); HEMOGLOBIN. 11.2 g/dL (14.0-18.0); MEAN CORPUSCULAR HEMOGLOBIN 27.4 pg (28.0-32.0); MEAN CORPUSCULAR VOLUME 87.1 fL (80.0-94.0); MEAN PLATELET VOLUME 9.5 fl (7.4-10.4); PLATELET 188 x1000/uL (130-400); RED BLOOD CELL COUNT 4.09 mill/uL (4.7-6.1); RED CELL DISTRIBUTION WIDTH 16.3 % (11.6-14.6)
[2018-09-30 05:35] LABS: CHLORIDE 89 mEq/L (98-107)
[2018-09-30] MEDS: FENTANYL CITRATE/PF 500 MCG in SODIUM CHLORIDE 0.9% 40 ML IV PRN (07:28)
[2018-09-30] MEDS: FUROSEMIDE 40MG/4ML VIAL IVP SCH ×2 (08:25→16:44)
[2018-09-30] MEDS: FAMOTIDINE 20MG/2ML VIAL IV SCH (08:26)
[2018-09-30 09:29] LABS: BG BASE EXCESS 14.1 mmol/L (-2.0-2.0); BG CARBOXYHEMOGLOBIN 0.3 % (0.5-1.5); BG DEOXYHEMOGLOBIN 3.2 % (0.0-5.0); BG HCO3 ACT 41.8 mmol/L (22.0-26.0); BG METHEMOGLOBIN 0.7 % (0.0-1.5); BG OXYGEN SATURATION 96.8 % (92.0-98.5); BG OXYHEMOGLOBIN 95.8 % (94.0-97.0); BG PCO2 67.1 mmHg (35.0-45.0); BG PH 7.412 (7.350-7.450); BG PO2 92.9 mmHg (75.0-100.0); BG SAMPLE SITE RIGHT RADIAL; BG TIDAL VOLUME(mL) 550 mL; BG TOTAL HEMOGLOBIN 13.2 g/dL (12.0-18.0); BG VENT MODE VENT - SIMV; BG VENT RATE 10 set
[2018-09-30 10:33] LABS: PLATELET ESTIMATE NORMAL
[2018-09-30] MEDS: ENOXAPARIN 30MG/0.3ML SYR SUBCUT SCH ×2 (12:52→21:12)
[2018-09-30] MEDS: LEVOFLOXACIN 750MG PREMIX 150 ML IV SCH (16:43)
[2018-09-30] MEDS: BUDESONIDE 0.5MG/2ML NEB HHN SCH ×2 (16:47→20:30)
[2018-10-01] VITALS (47 sets, daily range): BP systolic 56–164; BP diastolic 23–103
[2018-10-01] MEDS: IPRATROPIUM/ALBUTEROL 0.5-3(2.5)MG/3ML NEB HHN SCH ×6 (00:08→20:05)
[2018-10-01] MEDS: METRONIDAZOLE 500 MG PREMIX 100 ML IV SCH ×3 (02:22→19:26)
[2018-10-01] MEDS: VANCOMYCIN 1500MG in DEXTROSE 5% WATER 250ML IV SCH (05:50)
[2018-10-01] MEDS: FUROSEMIDE 40MG/4ML VIAL IVP SCH (06:08)
[2018-10-01] MEDS: BUDESONIDE 0.5MG/2ML NEB HHN SCH ×2 (07:42→20:04)
[2018-10-01 08:09] LABS: BG BASE EXCESS 19.2 mmol/L (-2.0-2.0); BG CARBOXYHEMOGLOBIN 0.9 % (0.5-1.5); BG HCO3 ACT 47.7 mmol/L (22.0-26.0); BG METHEMOGLOBIN 0.2 % (0.0-1.5); BG OXYHEMOGLOBIN 95.9 % (94.0-97.0); BG PCO2 77.5 mmHg (35.0-45.0); BG PH 7.407 (7.350-7.450); BG SAMPLE SITE RIGHT RADIAL; BG TIDAL VOLUME(mL) 550 mL; BG TOTAL HEMOGLOBIN 12.1 g/dL (12.0-18.0); BG VENT MODE VENT - SIMV; BG VENT RATE 10 set
[2018-10-01] MEDS: ENOXAPARIN 30MG/0.3ML SYR SUBCUT SCH ×2 (10:27→21:18)
[2018-10-01] MEDS: METHYLPREDNISOLONE SOD SUCC 40 MG/ML VIAL IV SCH ×2 (10:28→19:27)
[2018-10-01] MEDS: FAMOTIDINE 20MG/2ML VIAL IV SCH (10:28)
[2018-10-01 13:24] LABS: BG CARBOXYHEMOGLOBIN 0.8 % (0.5-1.5); BG DEOXYHEMOGLOBIN 3.6 % (0.0-5.0); BG FRACTION INSPIRED OXYGEN 40; BG HCO3 ACT 45.1 mmol/L (22.0-26.0); BG METHEMOGLOBIN 0.2 % (0.0-1.5); BG OXYGEN SATURATION 96.4 % (92.0-98.5); BG OXYHEMOGLOBIN 95.4 % (94.0-97.0); BG PCO2 80.8 mmHg (35.0-45.0); BG PH 7.365 (7.350-7.450); BG PO2 92.8 mmHg (75.0-100.0); BG PRESSURE SUPPORT 8; BG SAMPLE SITE LEFT RADIAL; BG TOTAL HEMOGLOBIN 12.5 g/dL (12.0-18.0); BG VENT MODE VENT - CPAP
[2018-10-01] MEDS: LEVOFLOXACIN 750MG PREMIX 150 ML IV SCH (14:56)
[2018-10-01] MEDS: FUROSEMIDE 100MG/10ML VIAL IVP SCH (19:26)
[2018-10-02] VITALS (37 sets, daily range): BP systolic 92–140; BP diastolic 33–80
[2018-10-02] MEDS: IPRATROPIUM/ALBUTEROL 0.5-3(2.5)MG/3ML NEB HHN SCH ×6 (00:30→20:30)
[2018-10-02] MEDS: METRONIDAZOLE 500 MG PREMIX 100 ML IV SCH ×3 (01:30→17:45)
[2018-10-02] MEDS: METHYLPREDNISOLONE SOD SUCC 40 MG/ML VIAL IV SCH ×3 (01:31→17:45)
[2018-10-02] MEDS: VANCOMYCIN 1500MG in DEXTROSE 5% WATER 250ML IV SCH (05:00)
[2018-10-02 05:15] LABS: HEMATOCRIT. 35.3 % (42.0-52.0); HEMOGLOBIN. 11.4 g/dL (14.0-18.0); MEAN CORPUSCULAR HEMOGLOBIN 28.1 pg (28.0-32.0); MEAN CORPUSCULAR VOLUME 86.9 fL (80.0-94.0); PLATELET 204 x1000/uL (130-400); RED BLOOD CELL COUNT 4.06 mill/uL (4.7-6.1)
[2018-10-02 05:32] LABS: CHLORIDE 90 mEq/L (98-107)
[2018-10-02] MEDS: FUROSEMIDE 100MG/10ML VIAL IVP SCH ×2 (06:39→17:45)
[2018-10-02] MEDS: BUDESONIDE 0.5MG/2ML NEB HHN SCH ×2 (08:15→20:30)
[2018-10-02] MEDS: ENOXAPARIN 30MG/0.3ML SYR SUBCUT SCH ×2 (08:40→21:50)
[2018-10-02] MEDS: FAMOTIDINE 20MG/2ML VIAL IV SCH (08:40)
[2018-10-02] MEDS ORDERED: DEXTROSE 50% WATER 50ML SYRINGE IV PRN (11:00)
[2018-10-02] MEDS: BLOOD SUGAR DIAGNOSTIC STRIP TEST SCH ×3 (11:47→21:59)
[2018-10-02] MEDS: INSULIN LISPRO 100 UNITS/ML SUBCUT SCH ×3 (11:58→21:59)
[2018-10-02 12:58] LABS: BG BASE EXCESS 21.5 mmol/L (-2.0-2.0); BG CARBOXYHEMOGLOBIN 0.1 % (0.5-1.5); BG FRACTION INSPIRED OXYGEN 40; BG HCO3 ACT 49.1 mmol/L (22.0-26.0); BG METHEMOGLOBIN 0.4 % (0.0-1.5); BG OXYHEMOGLOBIN 96.5 % (94.0-97.0); BG PCO2 68.8 mmHg (35.0-45.0); BG PH 7.471 (7.350-7.450); BG PRESSURE SUPPORT 8; BG SAMPLE SITE RIGHT RADIAL; BG TOTAL HEMOGLOBIN 12.4 g/dL (12.0-18.0); BG VENT MODE VENT - CPAP
[2018-10-02] MEDS: LEVOFLOXACIN 750MG PREMIX 150 ML IV SCH (16:20)
[2018-10-02 17:04] LABS: PLATELET ESTIMATE NORMAL
[2018-10-03] VITALS (34 sets, daily range): BP systolic 3–166; BP diastolic 34–93
[2018-10-03] MEDS: METHYLPREDNISOLONE SOD SUCC 40 MG/ML VIAL IV SCH ×3 (02:00→17:22)
[2018-10-03] MEDS: IPRATROPIUM/ALBUTEROL 0.5-3(2.5)MG/3ML NEB HHN SCH ×7 (02:12→20:00)
[2018-10-03 05:39] LABS: HEMATOCRIT. 35.6 % (42.0-52.0); HEMOGLOBIN. 11.1 g/dL (14.0-18.0); MEAN CORPUSCULAR VOLUME 87.1 fL (80.0-94.0); MEAN PLATELET VOLUME 9.2 fl (7.4-10.4); PLATELET 220 x1000/uL (130-400); RED BLOOD CELL COUNT 4.09 mill/uL (4.7-6.1); RED CELL DISTRIBUTION WIDTH 16.4 % (11.6-14.6)
[2018-10-03 05:45] LABS: CHLORIDE 92 mEq/L (98-107)
[2018-10-03] MEDS: FUROSEMIDE 100MG/10ML VIAL IVP SCH ×2 (06:31→17:22)
[2018-10-03] MEDS: BLOOD SUGAR DIAGNOSTIC STRIP TEST SCH ×4 (06:32→21:45)
[2018-10-03] MEDS: INSULIN LISPRO 100 UNITS/ML SUBCUT SCH ×4 (06:35→21:44)
[2018-10-03] MEDS: BUDESONIDE 0.5MG/2ML NEB HHN SCH (07:53)
[2018-10-03 07:58] LABS: PLATELET ESTIMATE NORMAL
[2018-10-03] MEDS: FAMOTIDINE 20MG/2ML VIAL IV SCH (08:30)
[2018-10-03] MEDS: ENOXAPARIN 30MG/0.3ML SYR SUBCUT SCH ×2 (08:30→21:42)
[2018-10-03] MEDS ORDERED: POTASSIUM CHLORIDE 20MEQ/PACKET PO NR (09:00)
[2018-10-03] MEDS: ACETAMINOPHEN 650MG/20.3ML UDC PO PRN (10:20)
[2018-10-03] MEDS: ACETYLCYSTEINE 100MG/ML 10% VIAL 4ML INH SCH (12:04)
[2018-10-03] MEDS: INSULIN GLARGINE UD 100 UNITS/ML SYR SUBCUT SCH (21:45)
[2018-10-04] VITALS (18 sets, daily range): BP systolic 97–167; BP diastolic 48–87
[2018-10-04] MEDS: IPRATROPIUM/ALBUTEROL 0.5-3(2.5)MG/3ML NEB HHN SCH ×6 (00:10→21:00)
[2018-10-04] MEDS: ACETYLCYSTEINE 100MG/ML 10% VIAL 4ML INH SCH ×3 (00:11→16:31)
[2018-10-04 05:33] LABS: HEMATOCRIT. 37.3 % (42.0-52.0); HEMOGLOBIN. 11.6 g/dL (14.0-18.0); MEAN CORPUSCULAR HEMOGLOBIN 27.2 pg (28.0-32.0); MEAN CORPUSCULAR VOLUME 87.3 fL (80.0-94.0); MEAN PLATELET VOLUME 8.8 fl (7.4-10.4); PLATELET 219 x1000/uL (130-400); RED BLOOD CELL COUNT 4.27 mill/uL (4.7-6.1); RED CELL DISTRIBUTION WIDTH 16.1 % (11.6-14.6)
[2018-10-04 05:34] LABS: CHLORIDE 93 mEq/L (98-107)
[2018-10-04] MEDS: BLOOD SUGAR DIAGNOSTIC STRIP TEST SCH ×4 (06:35→21:19)
[2018-10-04 06:57] LABS: PLATELET ESTIMATE NORMAL
[2018-10-04] MEDS: INSULIN LISPRO 100 UNITS/ML SUBCUT SCH ×4 (07:00→21:25)
[2018-10-04] MEDS ORDERED: BUDESONIDE 0.5MG/2ML NEB ONE (07:57)
[2018-10-04] MEDS: FAMOTIDINE 20MG/2ML VIAL IV SCH (09:00)
[2018-10-04] MEDS: METHYLPREDNISOLONE SOD SUCC 40 MG/ML VIAL IV SCH (09:00)
[2018-10-04] MEDS: ENOXAPARIN 30MG/0.3ML SYR SUBCUT SCH ×2 (09:00→21:13)
[2018-10-04] MEDS: FUROSEMIDE 100MG/10ML VIAL IVP SCH ×2 (09:00→18:09)
[2018-10-04] MEDS: BUDESONIDE 0.5MG/2ML NEB HHN SCH ×2 (16:34→21:00)
[2018-10-04] MEDS: INSULIN GLARGINE UD 100 UNITS/ML SYR SUBCUT SCH (21:25)
[2018-10-05] VITALS (16 sets, daily range): BP systolic 82–156; BP diastolic 35–99
[2018-10-05] MEDS: IPRATROPIUM/ALBUTEROL 0.5-3(2.5)MG/3ML NEB HHN SCH ×6 (05:09→21:32)
[2018-10-05] MEDS: INSULIN LISPRO 100 UNITS/ML SUBCUT SCH ×4 (06:00→21:06)
[2018-10-05] MEDS: BLOOD SUGAR DIAGNOSTIC STRIP TEST SCH ×4 (06:00→21:00)
[2018-10-05] MEDS: FUROSEMIDE 100MG/10ML VIAL IVP SCH ×2 (06:41→17:14)
[2018-10-05 07:41] LABS: HEMATOCRIT. 37.7 % (42.0-52.0); HEMOGLOBIN. 11.8 g/dL (14.0-18.0); MEAN CORPUSCULAR HEMOGLOBIN 27.1 pg (28.0-32.0); MEAN CORPUSCULAR VOLUME 86.5 fL (80.0-94.0); MEAN PLATELET VOLUME 9.3 fl (7.4-10.4); PLATELET 248 x1000/uL (130-400); RED BLOOD CELL COUNT 4.36 mill/uL (4.7-6.1); RED CELL DISTRIBUTION WIDTH 16.3 % (11.6-14.6)
[2018-10-05 07:56] LABS: CHLORIDE 88 mEq/L (98-107)
[2018-10-05] MEDS: METHYLPREDNISOLONE SOD SUCC 40 MG/ML VIAL IV SCH (08:20)
[2018-10-05] MEDS: FAMOTIDINE 20MG/2ML VIAL IV SCH (08:20)
[2018-10-05] MEDS: ENOXAPARIN 30MG/0.3ML SYR SUBCUT SCH ×2 (08:21→21:06)
[2018-10-05] MEDS: BUDESONIDE 0.5MG/2ML NEB HHN SCH (08:59)
[2018-10-05 12:48] LABS: PLATELET ESTIMATE NORMAL
[2018-10-05] MEDS ORDERED: TRAMADOL 50MG TABLET PO PRN (17:00)
[2018-10-05] MEDS ORDERED: POTASSIUM CHLORIDE 20MEQ TABLET SR PO NR (18:45)
[2018-10-05] MEDS: INSULIN GLARGINE UD 100 UNITS/ML SYR SUBCUT SCH (21:07)
[2018-10-06] VITALS (13 sets, daily range): BP systolic 103–168; BP diastolic 36–92
[2018-10-06] MEDS: IPRATROPIUM/ALBUTEROL 0.5-3(2.5)MG/3ML NEB HHN SCH ×6 (01:17→21:42)
[2018-10-06] MEDS: BUDESONIDE 0.5MG/2ML NEB HHN SCH ×3 (01:17→21:42)
[2018-10-06] MEDS: ACETYLCYSTEINE 100MG/ML 10% VIAL 4ML INH SCH ×3 (04:51→17:33)
[2018-10-06] MEDS: BLOOD SUGAR DIAGNOSTIC STRIP TEST SCH ×4 (06:50→20:45)
[2018-10-06 07:52] LABS: CHLORIDE 88 mEq/L (98-107)
[2018-10-06] MEDS: FUROSEMIDE 100MG/10ML VIAL IVP SCH (07:53)
[2018-10-06] MEDS: INSULIN LISPRO 100 UNITS/ML SUBCUT SCH ×4 (07:53→21:00)
[2018-10-06] MEDS: FAMOTIDINE 20MG/2ML VIAL IV SCH (09:52)
[2018-10-06] MEDS: METHYLPREDNISOLONE SOD SUCC 40 MG/ML VIAL IV SCH (09:53)
[2018-10-06] MEDS: ENOXAPARIN 30MG/0.3ML SYR SUBCUT SCH ×2 (10:07→20:46)
[2018-10-06] MEDS: POTASSIUM CHLORIDE 20MEQ TABLET SR PO SCH (10:09)
[2018-10-06] MEDS: HYDRALAZINE HCL 10MG TABLET PO SCH ×2 (14:00→22:42)
[2018-10-06] MEDS: SPIRONOLACTONE 25MG TABLET PO SCH (14:17)
[2018-10-06] MEDS: FUROSEMIDE 40MG TABLET PO SCH (18:33)
[2018-10-06] MEDS: INSULIN GLARGINE UD 100 UNITS/ML SYR SUBCUT SCH (22:43)
[2018-10-07] VITALS (13 sets, daily range): BP systolic 101–128; BP diastolic 38–87
[2018-10-07] MEDS: IPRATROPIUM/ALBUTEROL 0.5-3(2.5)MG/3ML NEB HHN SCH ×7 (01:22→23:48)
[2018-10-07] MEDS: ACETYLCYSTEINE 100MG/ML 10% VIAL 4ML INH SCH ×4 (01:22→23:48)
[2018-10-07] MEDS: HYDRALAZINE HCL 10MG TABLET PO SCH ×3 (06:20→22:09)
[2018-10-07] MEDS: FUROSEMIDE 40MG TABLET PO SCH ×2 (06:20→18:04)
[2018-10-07] MEDS: BLOOD SUGAR DIAGNOSTIC STRIP TEST SCH ×4 (07:01→21:00)
[2018-10-07] MEDS: INSULIN LISPRO 100 UNITS/ML SUBCUT SCH ×4 (07:20→22:10)
[2018-10-07] MEDS: BUDESONIDE 0.5MG/2ML NEB HHN SCH (08:59)
[2018-10-07] MEDS: METHYLPREDNISOLONE SOD SUCC 40 MG/ML VIAL IV SCH (09:13)
[2018-10-07] MEDS: FAMOTIDINE 20MG/2ML VIAL IV SCH (09:13)
[2018-10-07] MEDS: POTASSIUM CHLORIDE 20MEQ TABLET SR PO SCH (09:13)
[2018-10-07] MEDS: SPIRONOLACTONE 25MG TABLET PO SCH (09:14)
[2018-10-07] MEDS: ENOXAPARIN 30MG/0.3ML SYR SUBCUT SCH (09:15)
[2018-10-07 12:51] LABS: HEMATOCRIT. 35.9 % (42.0-52.0); HEMOGLOBIN. 11.2 g/dL (14.0-18.0); MEAN CORPUSCULAR HEMOGLOBIN 26.9 pg (28.0-32.0); MEAN PLATELET VOLUME 9.2 fl (7.4-10.4); PLATELET 254 x1000/uL (130-400); RED BLOOD CELL COUNT 4.18 mill/uL (4.7-6.1); RED CELL DISTRIBUTION WIDTH 16.2 % (11.6-14.6)
[2018-10-07 13:01] LABS: CHLORIDE 89 mEq/L (98-107)
[2018-10-07 15:15] LABS: PLATELET ESTIMATE NORMAL
[2018-10-07] MEDS: MUPIROCIN 2% OINT 22GM NS SCH (22:07)
[2018-10-07] MEDS: CARVEDILOL 3.125 MG TABLET PO SCH (22:08)
[2018-10-07] MEDS: INSULIN GLARGINE UD 100 UNITS/ML SYR SUBCUT SCH (22:09)
[2018-10-07] MEDS: ENOXAPARIN 120MG/0.8ML SYR SUBCUT SCH (22:11)
[2018-10-08] VITALS (14 sets, daily range): BP systolic 91–130; BP diastolic 38–90
[2018-10-08] MEDS: ACETAMINOPHEN 650MG/20.3ML UDC PO PRN ×2 (01:29→18:57)
[2018-10-08] MEDS: IPRATROPIUM/ALBUTEROL 0.5-3(2.5)MG/3ML NEB HHN SCH ×5 (04:09→21:19)
[2018-10-08] MEDS: HYDRALAZINE HCL 10MG TABLET PO SCH (06:00)
[2018-10-08] MEDS: FUROSEMIDE 40MG TABLET PO SCH ×3 (06:00→18:54)
[2018-10-08] MEDS: BLOOD SUGAR DIAGNOSTIC STRIP TEST SCH ×4 (06:57→22:28)
[2018-10-08] MEDS: INSULIN LISPRO 100 UNITS/ML SUBCUT SCH ×4 (07:20→22:38)
[2018-10-08 07:26] LABS: HEMATOCRIT. 34.6 % (42.0-52.0); MEAN CORPUSCULAR HEMOGLOBIN 27.3 pg (28.0-32.0); MEAN CORPUSCULAR VOLUME 86.1 fL (80.0-94.0); MEAN PLATELET VOLUME 9.1 fl (7.4-10.4); PLATELET 270 x1000/uL (130-400); RED BLOOD CELL COUNT 4.02 mill/uL (4.7-6.1); RED CELL DISTRIBUTION WIDTH 15.7 % (11.6-14.6)
[2018-10-08 07:48] LABS: CHLORIDE 91 mEq/L (98-107)
[2018-10-08] MEDS: ACETYLCYSTEINE 100MG/ML 10% VIAL 4ML INH SCH ×2 (08:32→15:28)
[2018-10-08] MEDS: CARVEDILOL 3.125 MG TABLET PO SCH ×2 (09:00→21:00)
[2018-10-08] MEDS: FAMOTIDINE 20MG/2ML VIAL IV SCH (09:05)
[2018-10-08] MEDS: POTASSIUM CHLORIDE 20MEQ TABLET SR PO SCH (09:06)
[2018-10-08] MEDS: MUPIROCIN 2% OINT 22GM NS SCH ×2 (09:06→22:24)
[2018-10-08] MEDS: ENOXAPARIN 120MG/0.8ML SYR SUBCUT SCH ×2 (09:07→22:06)
[2018-10-08] MEDS: GUAIFENESIN 200MG/10ML SUGAR FREE UDC PO PRN (11:31)
[2018-10-08] MEDS: SPIRONOLACTONE 25MG TABLET PO SCH (11:31)
[2018-10-08 14:03] LABS: PLATELET ESTIMATE NORMAL
[2018-10-08] MEDS ORDERED: MUPIROCIN 2% OINT 22GM NS SCH (21:00)
[2018-10-08] MEDS: BUDESONIDE 0.5MG/2ML NEB HHN SCH (21:19)
[2018-10-08] MEDS: INSULIN GLARGINE UD 100 UNITS/ML SYR SUBCUT SCH (22:40)
[2018-10-09] VITALS (13 sets, daily range): BP systolic 93–135; BP diastolic 47–90
[2018-10-09] MEDS: ACETYLCYSTEINE 100MG/ML 10% VIAL 4ML INH SCH ×3 (01:04→15:58)
[2018-10-09] MEDS: IPRATROPIUM/ALBUTEROL 0.5-3(2.5)MG/3ML NEB HHN SCH ×6 (01:04→20:34)
[2018-10-09] MEDS: FUROSEMIDE 40MG TABLET PO SCH ×2 (05:21→17:48)
[2018-10-09] MEDS: BLOOD SUGAR DIAGNOSTIC STRIP TEST SCH ×4 (06:39→20:37)
[2018-10-09] MEDS: INSULIN LISPRO 100 UNITS/ML SUBCUT SCH ×4 (06:40→20:37)
[2018-10-09 06:45] LABS: HEMATOCRIT. 37.1 % (42.0-52.0); HEMOGLOBIN. 11.8 g/dL (14.0-18.0); MEAN CORPUSCULAR HEMOGLOBIN 27.5 pg (28.0-32.0); MEAN CORPUSCULAR VOLUME 86.4 fL (80.0-94.0); MEAN PLATELET VOLUME 9.1 fl (7.4-10.4); PLATELET 255 x1000/uL (130-400); RED BLOOD CELL COUNT 4.29 mill/uL (4.7-6.1); RED CELL DISTRIBUTION WIDTH 16.1 % (11.6-14.6)
[2018-10-09 07:30] LABS: CHLORIDE 92 mEq/L (98-107)
[2018-10-09] MEDS: MUPIROCIN 2% OINT 22GM NS SCH ×2 (09:00→22:52)
[2018-10-09] MEDS: BUDESONIDE 0.5MG/2ML NEB HHN SCH ×2 (09:20→20:34)
[2018-10-09] MEDS: FAMOTIDINE 20MG/2ML VIAL IV SCH (09:46)
[2018-10-09] MEDS: POTASSIUM CHLORIDE 20MEQ TABLET SR PO SCH (09:46)
[2018-10-09] MEDS: SPIRONOLACTONE 25MG TABLET PO SCH (09:46)
[2018-10-09] MEDS: CARVEDILOL 3.125 MG TABLET PO SCH ×2 (09:47→22:51)
[2018-10-09] MEDS: ACETAMINOPHEN 650MG/20.3ML UDC PO PRN (09:47)
[2018-10-09] MEDS: ENOXAPARIN 120MG/0.8ML SYR SUBCUT SCH ×2 (09:51→22:52)
[2018-10-09 10:20] LABS: PLATELET ESTIMATE NORMAL
[2018-10-09] MEDS ORDERED: FAMOTIDINE 20MG TABLET PO SCH (11:00)
[2018-10-09] MEDS ORDERED: GUAIFENESIN 600MG ER TABLET PO NR (16:00)
[2018-10-09] MEDS: GUAIFENESIN 600MG ER TABLET PO SCH (22:51)
[2018-10-09] MEDS: INSULIN GLARGINE UD 100 UNITS/ML SYR SUBCUT SCH (22:53)
[2018-10-10] VITALS (12 sets, daily range): BP systolic 102–150; BP diastolic 51–75
[2018-10-10] MEDS: GUAIFENESIN 200MG/10ML SUGAR FREE UDC PO PRN ×3 (00:27→21:34)
[2018-10-10] MEDS: ACETYLCYSTEINE 100MG/ML 10% VIAL 4ML INH SCH ×4 (01:10→17:15)
[2018-10-10] MEDS: IPRATROPIUM/ALBUTEROL 0.5-3(2.5)MG/3ML NEB HHN SCH ×6 (01:21→21:30)
[2018-10-10 06:11] LABS: CHLORIDE 96 mEq/L (98-107)
[2018-10-10] MEDS: FUROSEMIDE 40MG TABLET PO SCH ×2 (06:31→17:51)
[2018-10-10 07:00] LABS: HEMATOCRIT. 35.9 % (42.0-52.0); HEMOGLOBIN. 11.1 g/dL (14.0-18.0); MEAN CORPUSCULAR VOLUME 87.7 fL (80.0-94.0); MEAN PLATELET VOLUME 10.4 fl (7.4-10.4); PLATELET 195 x1000/uL (130-400); RED CELL DISTRIBUTION WIDTH 16.4 % (11.6-14.6)
[2018-10-10] MEDS: BLOOD SUGAR DIAGNOSTIC STRIP TEST SCH ×4 (07:34→21:19)
[2018-10-10] MEDS: POTASSIUM CHLORIDE 20MEQ TABLET SR PO SCH (08:30)
[2018-10-10] MEDS: FAMOTIDINE 20MG TABLET PO SCH (08:30)
[2018-10-10] MEDS: SPIRONOLACTONE 25MG TABLET PO SCH (08:30)
[2018-10-10] MEDS: ENOXAPARIN 120MG/0.8ML SYR SUBCUT SCH ×2 (08:31→21:24)
[2018-10-10] MEDS: MUPIROCIN 2% OINT 22GM NS SCH ×2 (08:31→21:26)
[2018-10-10] MEDS: CARVEDILOL 3.125 MG TABLET PO SCH ×2 (08:31→21:31)
[2018-10-10] MEDS: INSULIN LISPRO 100 UNITS/ML SUBCUT SCH ×4 (08:33→21:00)
[2018-10-10] MEDS: GUAIFENESIN 600MG ER TABLET PO SCH ×2 (08:34→21:23)
[2018-10-10] MEDS: BUDESONIDE 0.5MG/2ML NEB HHN SCH ×2 (09:07→21:30)
[2018-10-10] MEDS ORDERED: METH10TA7 MT (14:23)
[2018-10-10] MEDS ORDERED: AMI2 MT (14:23)
[2018-10-10] MEDS ORDERED: DOCU250C69 PO (14:23)
[2018-10-10] MEDS ORDERED: APIX5TAB MT (14:23)
[2018-10-10] MEDS ORDERED: POLY17PO3 MT (14:23)
[2018-10-10] MEDS ORDERED: ATOR40TA70 MT (14:23)
[2018-10-10] MEDS ORDERED: SIME80TA15 PO (14:23)
[2018-10-10] MEDS ORDERED: SPIR25TA6 PO (14:23)
[2018-10-10 16:57] LABS: PLATELET ESTIMATE NORMAL
[2018-10-10] MEDS: INSULIN GLARGINE UD 100 UNITS/ML SYR SUBCUT SCH (21:23)
[2018-10-11] VITALS (10 sets, daily range): BP systolic 97–131; BP diastolic 48–76
[2018-10-11] MEDS: IPRATROPIUM/ALBUTEROL 0.5-3(2.5)MG/3ML NEB HHN SCH ×6 (01:10→20:31)
[2018-10-11] MEDS: FUROSEMIDE 40MG TABLET PO SCH ×2 (06:17→17:19)
[2018-10-11] MEDS: BLOOD SUGAR DIAGNOSTIC STRIP TEST SCH ×4 (06:19→21:38)
[2018-10-11] MEDS: BUDESONIDE 0.5MG/2ML NEB HHN SCH ×2 (07:17→20:28)
[2018-10-11] MEDS: INSULIN LISPRO 100 UNITS/ML SUBCUT SCH ×5 (07:20→21:00)
[2018-10-11] MEDS: FAMOTIDINE 20MG TABLET PO SCH (08:23)
[2018-10-11] MEDS: GUAIFENESIN 600MG ER TABLET PO SCH ×2 (08:23→21:54)
[2018-10-11] MEDS: SPIRONOLACTONE 25MG TABLET PO SCH (08:23)
[2018-10-11] MEDS: POTASSIUM CHLORIDE 20MEQ TABLET SR PO SCH (08:24)
[2018-10-11] MEDS: CARVEDILOL 3.125 MG TABLET PO SCH (08:24)
[2018-10-11] MEDS: ENOXAPARIN 120MG/0.8ML SYR SUBCUT SCH (08:24)
[2018-10-11] MEDS: MUPIROCIN 2% OINT 22GM NS SCH ×2 (08:26→22:22)
[2018-10-11] MEDS: INSULIN GLARGINE UD 100 UNITS/ML SYR SUBCUT SCH (13:50)
[2018-10-11] MEDS: IPRATROPIUM/ALBUTEROL 0.5-3(2.5)MG/3ML NEB HHN PRN (14:27)
[2018-10-11] MEDS: APIXABAN 5 MG TABLET PO SCH (17:19)
[2018-10-11] MEDS: CARVEDILOL 6.25 MG TABLET PO SCH (23:03)
[2018-10-12] VITALS: BP 97/56
[2018-10-12] MEDS: IPRATROPIUM/ALBUTEROL 0.5-3(2.5)MG/3ML NEB HHN SCH ×6 (00:46→20:07)
[2018-10-12 04:00] VITALS: BP 108/53
[2018-10-12] MEDS: FUROSEMIDE 40MG TABLET PO SCH ×2 (06:01→17:31)
[2018-10-12] MEDS: BUDESONIDE 0.5MG/2ML NEB HHN SCH ×2 (07:29→20:07)
[2018-10-12] MEDS: BLOOD SUGAR DIAGNOSTIC STRIP TEST SCH ×4 (07:29→20:42)
[2018-10-12] MEDS: INSULIN LISPRO 100 UNITS/ML SUBCUT SCH ×4 (07:30→20:41)
[2018-10-12 07:55] LABS: HEMOGLOBIN. 11.1 g/dL (14.0-18.0); MEAN CORPUSCULAR HEMOGLOBIN 27.4 pg (28.0-32.0); MEAN CORPUSCULAR VOLUME 86.6 fL (80.0-94.0); MEAN PLATELET VOLUME 10.1 fl (7.4-10.4); PLATELET 221 x1000/uL (130-400); RED BLOOD CELL COUNT 4.04 mill/uL (4.7-6.1); RED CELL DISTRIBUTION WIDTH 16.6 % (11.6-14.6)
[2018-10-12 08:00] VITALS: BP 114/57
[2018-10-12] MEDS: SPIRONOLACTONE 25MG TABLET PO SCH (08:10)
[2018-10-12] MEDS: GUAIFENESIN 600MG ER TABLET PO SCH ×2 (08:10→20:40)
[2018-10-12] MEDS: APIXABAN 5 MG TABLET PO SCH ×2 (08:10→17:31)
[2018-10-12] MEDS: POTASSIUM CHLORIDE 20MEQ TABLET SR PO SCH (08:10)
[2018-10-12] MEDS: FAMOTIDINE 20MG TABLET PO SCH (08:10)
[2018-10-12] MEDS: CARVEDILOL 6.25 MG TABLET PO SCH ×2 (08:11→20:40)
[2018-10-12] MEDS: MUPIROCIN 2% OINT 22GM NS SCH ×2 (08:11→21:34)
[2018-10-12 08:27] LABS: CHLORIDE 95 mEq/L (98-107)
[2018-10-12 10:28] LABS: PLATELET ESTIMATE NORMAL
[2018-10-12 11:59] VITALS: BP 114/68
[2018-10-12 14:54] LABS: BG CARBOXYHEMOGLOBIN 0.2 % (0.5-1.5); BG DEOXYHEMOGLOBIN 7.5 % (0.0-5.0); BG FRACTION INSPIRED OXYGEN 28; BG HCO3 ACT 35.9 mmol/L (22.0-26.0); BG METHEMOGLOBIN 0.1 % (0.0-1.5); BG OXYGEN SATURATION 92.5 % (92.0-98.5); BG OXYHEMOGLOBIN 92.2 % (94.0-97.0); BG PCO2 48.7 mmHg (35.0-45.0); BG PH 7.485 (7.350-7.450); BG PO2 64.4 mmHg (75.0-100.0); BG SAMPLE SITE RIGHT BRACHIAL; BG TOTAL HEMOGLOBIN 11.4 g/dL (12.0-18.0); BG VENT MODE NASAL CANNULA
[2018-10-12 16:00] VITALS: BP 138/78
[2018-10-12 20:00] VITALS: BP 132/76
[2018-10-12] MEDS: INSULIN GLARGINE UD 100 UNITS/ML SYR SUBCUT SCH (21:35)
[2018-10-13] VITALS: BP 112/57
[2018-10-13] MEDS: IPRATROPIUM/ALBUTEROL 0.5-3(2.5)MG/3ML NEB HHN SCH ×6 (00:49→21:13)
[2018-10-13 04:00] VITALS: BP 123/49
[2018-10-13] MEDS: FUROSEMIDE 40MG TABLET PO SCH ×2 (05:58→17:44)
[2018-10-13] MEDS: BLOOD SUGAR DIAGNOSTIC STRIP TEST SCH ×4 (06:32→20:57)
[2018-10-13] MEDS: INSULIN LISPRO 100 UNITS/ML SUBCUT SCH ×4 (06:32→20:56)
[2018-10-13 08:00] VITALS: BP 93/54
[2018-10-13 08:03] LABS: HEMATOCRIT. 33.8 % (42.0-52.0); HEMOGLOBIN. 10.5 g/dL (14.0-18.0); MEAN CORPUSCULAR VOLUME 86.7 fL (80.0-94.0); MEAN PLATELET VOLUME 9.7 fl (7.4-10.4); PLATELET 220 x1000/uL (130-400); RED CELL DISTRIBUTION WIDTH 16.9 % (11.6-14.6)
[2018-10-13] MEDS: GUAIFENESIN 200MG/10ML SUGAR FREE UDC PO PRN (08:06)
[2018-10-13] MEDS: POTASSIUM CHLORIDE 20MEQ TABLET SR PO SCH (08:07)
[2018-10-13] MEDS: SPIRONOLACTONE 25MG TABLET PO SCH ×2 (08:09→08:15)
[2018-10-13 08:10] LABS: CHLORIDE 93 mEq/L (98-107)
[2018-10-13] MEDS: FAMOTIDINE 20MG TABLET PO SCH (08:10)
[2018-10-13] MEDS: GUAIFENESIN 600MG ER TABLET PO SCH ×2 (08:10→20:51)
[2018-10-13] MEDS: APIXABAN 5 MG TABLET PO SCH ×2 (08:10→17:44)
[2018-10-13] MEDS: CARVEDILOL 6.25 MG TABLET PO SCH ×2 (08:15→20:38)
[2018-10-13] MEDS: BUDESONIDE 0.5MG/2ML NEB HHN SCH ×2 (08:22→21:14)
[2018-10-13 10:23] LABS: PLATELET ESTIMATE NORMAL
[2018-10-13 12:00] VITALS: BP 96/54
[2018-10-13 16:00] VITALS: BP 93/47
[2018-10-13] MEDS: TRAMADOL 50MG TABLET PO PRN (17:44)
[2018-10-13 20:00] VITALS: BP 107/54
[2018-10-13] MEDS: INSULIN GLARGINE UD 100 UNITS/ML SYR SUBCUT SCH (20:57)
[2018-10-14] VITALS (7 sets, daily range): BP systolic 87–115; BP diastolic 50–64
[2018-10-14] MEDS: IPRATROPIUM/ALBUTEROL 0.5-3(2.5)MG/3ML NEB HHN SCH ×6 (00:51→20:14)
[2018-10-14] MEDS: INSULIN LISPRO 100 UNITS/ML SUBCUT SCH ×4 (06:07→20:17)
[2018-10-14] MEDS: BLOOD SUGAR DIAGNOSTIC STRIP TEST SCH ×4 (06:07→20:17)
[2018-10-14] MEDS: FUROSEMIDE 40MG TABLET PO SCH ×2 (06:08→18:31)
[2018-10-14 06:48] LABS: BASOPHILS % 0.3 % (0.0-2.0); EOSINOPHILS % 1.3 % (0.0-5.0); HEMOGLOBIN. 10.4 g/dL (14.0-18.0); LYMPHOCYTES % 7.2 % (20.0-50.0); MEAN CORPUSCULAR HEMOGLOBIN 27.3 pg (28.0-32.0); MEAN PLATELET VOLUME 10.1 fl (7.4-10.4); MONOCYTES % 8.3 % (2.0-8.0); NEUTROPHILS % 82.9 % (40.0-76.0); PLATELET 230 x1000/uL (130-400); RED BLOOD CELL COUNT 3.79 mill/uL (4.7-6.1)
[2018-10-14 06:56] LABS: CHLORIDE 95 mEq/L (98-107)
[2018-10-14] MEDS: APIXABAN 5 MG TABLET PO SCH ×2 (10:51→18:31)
[2018-10-14] MEDS: FAMOTIDINE 20MG TABLET PO SCH (10:52)
[2018-10-14] MEDS: POTASSIUM CHLORIDE 20MEQ TABLET SR PO SCH (10:52)
[2018-10-14] MEDS: GUAIFENESIN 600MG ER TABLET PO SCH ×2 (10:52→20:36)
[2018-10-14] MEDS: SPIRONOLACTONE 25MG TABLET PO SCH (10:53)
[2018-10-14] MEDS: CARVEDILOL 6.25 MG TABLET PO SCH ×2 (10:54→20:35)
[2018-10-14] MEDS: TRAMADOL 50MG TABLET PO PRN ×2 (10:55→23:39)
[2018-10-14] MEDS: BUDESONIDE 0.5MG/2ML NEB HHN SCH ×2 (11:00→11:53)
[2018-10-14] MEDS: INSULIN GLARGINE UD 100 UNITS/ML SYR SUBCUT SCH (23:45)
[2018-10-15] VITALS: BP 105/71
[2018-10-15] MEDS: IPRATROPIUM/ALBUTEROL 0.5-3(2.5)MG/3ML NEB HHN SCH ×5 (01:24→19:34)
[2018-10-15 04:00] VITALS: BP 101/52
[2018-10-15] MEDS: FUROSEMIDE 40MG TABLET PO SCH ×2 (06:14→18:12)
[2018-10-15] MEDS: BLOOD SUGAR DIAGNOSTIC STRIP TEST SCH ×4 (06:20→21:11)
[2018-10-15] MEDS: INSULIN LISPRO 100 UNITS/ML SUBCUT SCH ×4 (06:20→21:00)
[2018-10-15] MEDS: BUDESONIDE 0.5MG/2ML NEB HHN SCH ×2 (07:42→19:35)
[2018-10-15] MEDS: IPRATROPIUM/ALBUTEROL 0.5-3(2.5)MG/3ML NEB HHN PRN (07:43)
[2018-10-15 08:00] VITALS: BP 112/60
[2018-10-15] MEDS: POTASSIUM CHLORIDE 20MEQ TABLET SR PO SCH (09:01)
[2018-10-15] MEDS: FAMOTIDINE 20MG TABLET PO SCH (09:01)
[2018-10-15] MEDS: GUAIFENESIN 600MG ER TABLET PO SCH ×2 (09:01→20:39)
[2018-10-15] MEDS: APIXABAN 5 MG TABLET PO SCH ×2 (09:01→18:12)
[2018-10-15] MEDS: SPIRONOLACTONE 25MG TABLET PO SCH (09:02)
[2018-10-15] MEDS: CARVEDILOL 6.25 MG TABLET PO SCH ×2 (09:02→20:39)
[2018-10-15 12:01] VITALS: BP 107/57
[2018-10-15 16:00] VITALS: BP 103/58
[2018-10-15 20:00] VITALS: BP 130/53
[2018-10-15] MEDS: INSULIN GLARGINE UD 100 UNITS/ML SYR SUBCUT SCH (21:39)
[2018-10-16] VITALS: BP 116/76
[2018-10-16] MEDS: IPRATROPIUM/ALBUTEROL 0.5-3(2.5)MG/3ML NEB HHN SCH ×5 (00:12→17:00)
[2018-10-16 04:00] VITALS: BP 117/63
[2018-10-16] MEDS: INSULIN LISPRO 100 UNITS/ML SUBCUT SCH ×3 (06:06→17:28)
[2018-10-16] MEDS: BLOOD SUGAR DIAGNOSTIC STRIP TEST SCH ×3 (06:06→17:28)
[2018-10-16] MEDS: FUROSEMIDE 40MG TABLET PO SCH (06:07)
[2018-10-16 08:00] VITALS: BP 114/60
[2018-10-16] MEDS: POTASSIUM CHLORIDE 20MEQ TABLET SR PO SCH (09:00)
[2018-10-16] MEDS: GUAIFENESIN 600MG ER TABLET PO SCH (10:17)
[2018-10-16] MEDS: APIXABAN 5 MG TABLET PO SCH ×2 (10:17→16:41)
[2018-10-16] MEDS: FAMOTIDINE 20MG TABLET PO SCH (10:18)
[2018-10-16] MEDS: SPIRONOLACTONE 25MG TABLET PO SCH (10:18)
[2018-10-16] MEDS: CARVEDILOL 6.25 MG TABLET PO SCH (10:18)
[2018-10-16 12:00] VITALS: BP 112/63
[2018-10-16] MEDS: TRAMADOL 50MG TABLET PO PRN (16:42)
[2018-10-16 18:20] VITALS: BP 101/62
== END 2018-10-16 19:00 | disposition home health service (06) | DRG 870 ==
LOC: ER 12:34 → MICUSO 13:10 → EDBEDREQ 13:27 → EDBEDREQSVC 13:37 → ENRESERV 14:40 → 3WST 10-04 13:20 → 8WST 10-11 12:20
PROVIDERS: ADMIT Internal Medicine; ATTEND Internal Medicine
PROC: 5A1955Z Respiratory Ventilation, Greater than 96 Consecutive Hours (ICD-10-PCS; principal; 2018-09-25)
PROC: 0BH17EZ Insertion of Endotracheal Airway into Trachea, Via Natural or Artificial Opening (ICD-10-PCS; 2018-09-25)
PROC: B54MZZA Ultrasonography of Right Upper Extremity Veins, Guidance (ICD-10-PCS; 2018-09-25)
PROC: 05HY33Z Insertion of Infusion Device into Upper Vein, Percutaneous Approach (ICD-10-PCS; 2018-09-25)
PROC: 5A09357 Assistance with Respiratory Ventilation, Less than 24 Consecutive Hours, Continuous Positive Airway Pressure (ICD-10-PCS; 2018-09-25)
PROC: 5A09357 Assistance with Respiratory Ventilation, Less than 24 Consecutive Hours, Continuous Positive Airway Pressure (ICD-10-PCS; 2018-10-03)
DX: A41.9 Sepsis, unspecified organism (principal); J18.1 Lobar pneumonia, unspecified organism; J96.01 Acute respiratory failure with hypoxia; I50.43 Acute on chronic combined systolic (congestive) and diastolic (congestive) heart failure; N17.9 Acute kidney failure, unspecified; J44.1 Chronic obstructive pulmonary disease with (acute) exacerbation; I42.0 Dilated cardiomyopathy; E44.0 Moderate protein-calorie malnutrition; E87.4 Mixed disorder of acid-base balance; G93.40 Encephalopathy, unspecified; I47.2 Ventricular tachycardia; I48.1 Persistent atrial fibrillation; J44.0 Chronic obstructive pulmonary disease with (acute) lower respiratory infection; Z68.41 Body mass index [BMI] 40.0-44.9, adult; I25.5 Ischemic cardiomyopathy; E66.01 Morbid (severe) obesity due to excess calories; E78.5 Hyperlipidemia, unspecified; E87.5 Hyperkalemia; D64.9 Anemia, unspecified; D72.823 Leukemoid reaction; E11.65 Type 2 diabetes mellitus with hyperglycemia; E87.6 Hypokalemia; G47.33 Obstructive sleep apnea (adult) (pediatric); I11.0 Hypertensive heart disease with heart failure; I49.3 Ventricular premature depolarization; R31.0 Gross hematuria; T38.0X5A Adverse effect of glucocorticoids and synthetic analogues, initial encounter; Z79.899 Other long term (current) drug therapy; Z87.891 Personal history of nicotine dependence; Z93.1 Gastrostomy status; Z99.81 Dependence on supplemental oxygen; Z88.0 Allergy status to penicillin; Z88.8 Allergy status to other drugs, medicaments and biological substances; Z78.1 Physical restraint status
CPT/HCPCS: 31500; 36415; 36556; 36600; 71045; 80048; 80202; 80305; 82375; 82805; 82962; 83605; 83735; 83880; 84478; 84484; 87070; 92610; 93005; 93306; 94002; 94003; 94640; 94667; 96365; 96368; 97110; 97161; 97164; 97165; 97530; 97535; 99291; 99292; A6261; J0330; J1250; J1650; J1815; J1940; J1956; J2185; J2250; J2370; J2704; J2920; J3010; J3370; J3480; J3490; J7050; J7060; J7070; J7608; J7611; J7620; J7626; A4315

== ENCOUNTER 2018-10-16 22:41 | Inpatient (IN) | payer MEDICARE, OTHER ==
[~2018-10-16] VITALS: Ht 182.9 cm; Wt 104.3 kg
[~2018-10-16 22:41] MED LIST changes: +AMI2 MT; +APIX5TAB MT; +ATOR40TA70 MT; +DOCU250C69 PO; +METH10TA7 MT; +POLY17PO3 MT; +SIME80TA15 PO; +SPIR25TA6 PO
[2018-10-16] MEDS ORDERED: NITROGLYCERIN 0.4MG TABLET SL SL PRN (23:00)
[2018-10-16] MEDS ORDERED: SODIUM CHLORIDE 0.9% 500 ML IV ONE (23:00)
[2018-10-16] MEDS ORDERED: ASPIRIN 81MG TABLET PO ONE (23:00)
[2018-10-16 23:42] LABS: HEMATOCRIT. 35.9 % (42.0-52.0); HEMOGLOBIN. 11.3 g/dL (14.0-18.0); MEAN CORPUSCULAR HEMOGLOBIN 27.2 pg (28.0-32.0); MEAN CORPUSCULAR VOLUME 86.8 fL (80.0-94.0); MEAN PLATELET VOLUME 9.3 fl (7.4-10.4); PLATELET 257 x1000/uL (130-400); RED BLOOD CELL COUNT 4.14 mill/uL (4.7-6.1); RED CELL DISTRIBUTION WIDTH 16.9 % (11.6-14.6)
[2018-10-16 23:44] LABS: CHLORIDE 94 mEq/L (98-107)
[2018-10-17] VITALS (10 sets, daily range): BP systolic 90–137; BP diastolic 24–68
[2018-10-17 03:24] LABS: PLATELET ESTIMATE NORMAL
[2018-10-17] MEDS ORDERED: ONDANSETRON HCL 4MG/2ML INJ IV PRN (04:00)
[2018-10-17] MEDS ORDERED: CLONIDINE 0.1MG TABLET PO PRN (04:00)
[2018-10-17] MEDS ORDERED: ACETAMINOPHEN 325MG TABLET PO PRN (04:00)
[2018-10-17] MEDS ORDERED: GUAIFENESIN 200MG/10ML SUGAR FREE UDC PO PRN (06:45)
[2018-10-17] MEDS ORDERED: NITROGLYCERIN 0.4MG TABLET SL SL PRN (06:45)
[2018-10-17] MEDS ORDERED: DOCUSATE SODIUM 100MG CAPSULE PO PRN (06:45)
[2018-10-17] MEDS: APIXABAN 5 MG TABLET PO SCH ×2 (08:58→18:05)
[2018-10-17] MEDS: FAMOTIDINE 20MG TABLET PO SCH ×2 (08:58→20:23)
[2018-10-17] MEDS: FUROSEMIDE 40MG/4ML VIAL IV SCH ×2 (09:02→18:06)
[2018-10-17] MEDS: CARVEDILOL 3.125 MG TABLET PO SCH ×2 (09:02→20:22)
[2018-10-17] MEDS: GUAIFENESIN 600MG ER TABLET PO SCH ×2 (09:07→20:22)
[2018-10-17] MEDS: HYDROCODONE/ACETAMINOPHEN 5/325MG TABLET PO PRN ×3 (09:09→22:29)
[2018-10-17] MEDS: METRONIDAZOLE 500 MG PREMIX 100 ML IV SCH ×3 (12:07→20:04)
[2018-10-17] MEDS: CEFEPIME 1,000 MG in DEXTROSE 5% WATER 50 ML IV SCH ×3 (12:08→22:28)
[2018-10-17] MEDS: INSULIN LISPRO 100 UNITS/ML SUBCUT SCH ×3 (13:00→20:26)
[2018-10-17] MEDS ORDERED: DEXTROSE 50% WATER 50ML SYRINGE IV PRN (13:00)
[2018-10-17] MEDS ORDERED: LIDOCAINE HCL 1% 20ML VIAL (Pyxis) INJ ONE (13:09)
[2018-10-17] MEDS: BLOOD SUGAR DIAGNOSTIC STRIP TEST SCH ×3 (13:33→20:23)
[2018-10-17] MEDS ORDERED: FUROSEMIDE 20MG/2ML VIAL IVP NR (14:30)
[2018-10-17] MEDS: IPRATROPIUM/ALBUTEROL 0.5-3(2.5)MG/3ML NEB INH PRN (15:45)
[2018-10-17] MEDS: SPIRONOLACTONE 25MG TABLET PO SCH (18:16)
[2018-10-17] MEDS ORDERED: ZOLPIDEM TARTRATE 5MG TABLET PO PRN (21:00)
[2018-10-18] VITALS (12 sets, daily range): BP systolic 93–133; BP diastolic 49–81
[2018-10-18] MEDS: METRONIDAZOLE 500 MG PREMIX 100 ML IV SCH ×3 (01:31→17:42)
[2018-10-18] MEDS: SPIRONOLACTONE 25MG TABLET PO SCH ×2 (06:23→17:43)
[2018-10-18] MEDS: IPRATROPIUM/ALBUTEROL 0.5-3(2.5)MG/3ML NEB INH PRN ×2 (06:29→21:18)
[2018-10-18 06:46] LABS: CHLORIDE 96 mEq/L (98-107)
[2018-10-18 06:49] LABS: HEMATOCRIT. 33.3 % (42.0-52.0); HEMOGLOBIN. 10.3 g/dL (14.0-18.0); MEAN CORPUSCULAR HEMOGLOBIN 26.8 pg (28.0-32.0); MEAN CORPUSCULAR VOLUME 86.9 fL (80.0-94.0); MEAN PLATELET VOLUME 9.7 fl (7.4-10.4); PLATELET 205 x1000/uL (130-400); RED BLOOD CELL COUNT 3.84 mill/uL (4.7-6.1); RED CELL DISTRIBUTION WIDTH 16.9 % (11.6-14.6)
[2018-10-18 06:56] LABS: LDL CHOLESTEROL 73 mg/dL (5-100)
[2018-10-18 06:57] LABS: HDL CHOLESTEROL 33 mg/dL (40-59)
[2018-10-18] MEDS: INSULIN LISPRO 100 UNITS/ML SUBCUT SCH ×4 (08:00→20:47)
[2018-10-18] MEDS: BLOOD SUGAR DIAGNOSTIC STRIP TEST SCH ×4 (08:08→20:47)
[2018-10-18] MEDS: GUAIFENESIN 600MG ER TABLET PO SCH ×2 (08:25→20:46)
[2018-10-18] MEDS: APIXABAN 5 MG TABLET PO SCH ×2 (08:31→17:41)
[2018-10-18] MEDS: FAMOTIDINE 20MG TABLET PO SCH ×2 (08:32→20:46)
[2018-10-18] MEDS: CARVEDILOL 3.125 MG TABLET PO SCH ×2 (08:34→20:47)
[2018-10-18] MEDS: FUROSEMIDE 40MG/4ML VIAL IV SCH ×2 (08:34→17:41)
[2018-10-18 10:45] LABS: PLATELET ESTIMATE NORMAL
[2018-10-18] MEDS: CEFEPIME 1,000 MG in DEXTROSE 5% WATER 50 ML IV SCH (12:10)
[2018-10-18] MEDS: HYDROCODONE/ACETAMINOPHEN 5/325MG TABLET PO PRN (20:46)
[2018-10-19] VITALS (11 sets, daily range): BP systolic 94–140; BP diastolic 30–77
[2018-10-19] MEDS: CEFEPIME 1,000 MG in DEXTROSE 5% WATER 50 ML IV SCH ×3 (00:04→22:14)
[2018-10-19] MEDS: METRONIDAZOLE 500 MG PREMIX 100 ML IV SCH ×3 (01:56→18:51)
[2018-10-19] MEDS: SPIRONOLACTONE 25MG TABLET PO SCH ×2 (06:38→18:51)
[2018-10-19] MEDS: IPRATROPIUM/ALBUTEROL 0.5-3(2.5)MG/3ML NEB INH PRN ×2 (08:00→16:14)
[2018-10-19] MEDS: BLOOD SUGAR DIAGNOSTIC STRIP TEST SCH ×4 (08:30→20:27)
[2018-10-19] MEDS: INSULIN LISPRO 100 UNITS/ML SUBCUT SCH ×4 (08:30→20:32)
[2018-10-19] MEDS: FAMOTIDINE 20MG TABLET PO SCH ×2 (09:32→20:26)
[2018-10-19] MEDS: APIXABAN 5 MG TABLET PO SCH ×2 (09:32→18:51)
[2018-10-19] MEDS: DOCUSATE SODIUM 100MG CAPSULE PO PRN (09:32)
[2018-10-19] MEDS: GUAIFENESIN 600MG ER TABLET PO SCH ×2 (09:32→20:26)
[2018-10-19] MEDS: ONDANSETRON HCL 4MG/2ML INJ IV PRN (09:32)
[2018-10-19] MEDS: FUROSEMIDE 40MG/4ML VIAL IV SCH ×2 (09:34→18:50)
[2018-10-19] MEDS: CARVEDILOL 3.125 MG TABLET PO SCH ×2 (09:34→20:27)
[2018-10-19] MEDS: HYDROCODONE/ACETAMINOPHEN 5/325MG TABLET PO PRN ×2 (14:13→22:13)
[2018-10-20] VITALS (12 sets, daily range): BP systolic 104–144; BP diastolic 54–97
[2018-10-20] MEDS: METRONIDAZOLE 500 MG PREMIX 100 ML IV SCH ×3 (01:35→17:17)
[2018-10-20] MEDS: SPIRONOLACTONE 25MG TABLET PO SCH ×2 (05:20→17:19)
[2018-10-20] MEDS: BLOOD SUGAR DIAGNOSTIC STRIP TEST SCH ×4 (07:30→21:08)
[2018-10-20 08:40] LABS: BG BASE EXCESS 3.7 mmol/L (-2.0-2.0); BG CARBOXYHEMOGLOBIN 0.1 % (0.5-1.5); BG DEOXYHEMOGLOBIN 8.3 % (0.0-5.0); BG FRACTION INSPIRED OXYGEN 28; BG HCO3 ACT 34.6 mmol/L (22.0-26.0); BG OXYGEN SATURATION 91.6 % (92.0-98.5); BG OXYHEMOGLOBIN 90.6 % (94.0-97.0); BG PCO2 93.7 mmHg (35.0-45.0); BG PH 7.185 (7.350-7.450); BG PO2 78.4 mmHg (75.0-100.0); BG SAMPLE SITE LEFT RADIAL; BG VENT MODE NASAL CANNULA
[2018-10-20] MEDS: GUAIFENESIN 600MG ER TABLET PO SCH ×2 (08:52→21:07)
[2018-10-20] MEDS: APIXABAN 5 MG TABLET PO SCH ×2 (08:52→17:19)
[2018-10-20] MEDS: FUROSEMIDE 40MG/4ML VIAL IV SCH ×2 (08:52→17:17)
[2018-10-20] MEDS: FAMOTIDINE 20MG TABLET PO SCH ×2 (08:52→21:07)
[2018-10-20] MEDS: CARVEDILOL 3.125 MG TABLET PO SCH ×2 (08:53→21:08)
[2018-10-20] MEDS: INSULIN LISPRO 100 UNITS/ML SUBCUT SCH ×4 (10:09→21:00)
[2018-10-20 11:35] LABS: BG BASE EXCESS 7.7 mmol/L (-2.0-2.0); BG CARBOXYHEMOGLOBIN 0.2 % (0.5-1.5); BG DEOXYHEMOGLOBIN 2.2 % (0.0-5.0); BG FRACTION INSPIRED OXYGEN 50; BG METHEMOGLOBIN 0.4 % (0.0-1.5); BG OXYGEN SATURATION 97.8 % (92.0-98.5); BG OXYHEMOGLOBIN 97.2 % (94.0-97.0); BG PCO2 103.9 mmHg (35.0-45.0); BG PH 7.192 (7.350-7.450); BG PO2 130.6 mmHg (75.0-100.0); BG PRESSURE SUPPORT 6; BG SAMPLE SITE LEFT RADIAL; BG TOTAL HEMOGLOBIN 11.4 g/dL (12.0-18.0); BG VENT MODE MASK - BIPAP; BG VENT RATE 16 set
[2018-10-20] MEDS: IPRATROPIUM/ALBUTEROL 0.5-3(2.5)MG/3ML NEB INH PRN (11:59)
[2018-10-20] MEDS: CEFEPIME 1,000 MG in DEXTROSE 5% WATER 50 ML IV SCH ×2 (13:37→22:14)
[2018-10-20 15:07] LABS: BG BASE EXCESS 9.2 mmol/L (-2.0-2.0); BG BILEVEL POS AIRWAY PRESSURE ST=20/5; BG CARBOXYHEMOGLOBIN 0.3 % (0.5-1.5); BG FRACTION INSPIRED OXYGEN 28; BG METHEMOGLOBIN 0.3 % (0.0-1.5); BG OXYHEMOGLOBIN 94.4 % (94.0-97.0); BG PCO2 70.2 mmHg (35.0-45.0); BG PO2 78.3 mmHg (75.0-100.0); BG PRESSURE SUPPORT 15; BG SAMPLE SITE RIGHT RADIAL; BG VENT MODE MASK - BIPAP; BG VENT RATE 20 set
[2018-10-21] VITALS (13 sets, daily range): BP systolic 104–140; BP diastolic 50–92
[2018-10-21] MEDS: HYDROCODONE/ACETAMINOPHEN 5/325MG TABLET PO PRN ×3 (00:10→19:07)
[2018-10-21] MEDS: METRONIDAZOLE 500 MG PREMIX 100 ML IV SCH ×3 (01:27→18:04)
[2018-10-21] MEDS: SPIRONOLACTONE 25MG TABLET PO SCH ×2 (05:14→18:04)
[2018-10-21] MEDS: BLOOD SUGAR DIAGNOSTIC STRIP TEST SCH ×4 (07:55→21:00)
[2018-10-21] MEDS: INSULIN LISPRO 100 UNITS/ML SUBCUT SCH ×4 (07:56→22:36)
[2018-10-21] MEDS: CARVEDILOL 3.125 MG TABLET PO SCH ×2 (08:35→21:43)
[2018-10-21] MEDS: GUAIFENESIN 600MG ER TABLET PO SCH ×2 (08:35→21:42)
[2018-10-21] MEDS: FUROSEMIDE 40MG/4ML VIAL IV SCH ×2 (08:35→18:04)
[2018-10-21] MEDS: APIXABAN 5 MG TABLET PO SCH ×2 (08:35→18:04)
[2018-10-21] MEDS: FAMOTIDINE 20MG TABLET PO SCH ×2 (08:35→21:43)
[2018-10-21 08:40] LABS: BG BASE EXCESS 9.7 mmol/L (-2.0-2.0); BG BILEVEL POS AIRWAY PRESSURE 20/5; BG CARBOXYHEMOGLOBIN 0.3 % (0.5-1.5); BG DEOXYHEMOGLOBIN 1.6 % (0.0-5.0); BG FRACTION INSPIRED OXYGEN 28; BG HCO3 ACT 35.7 mmol/L (22.0-26.0); BG METHEMOGLOBIN 0.3 % (0.0-1.5); BG OXYGEN SATURATION 98.4 % (92.0-98.5); BG OXYHEMOGLOBIN 97.8 % (94.0-97.0); BG PCO2 55.9 mmHg (35.0-45.0); BG PH 7.423 (7.350-7.450); BG PO2 116.2 mmHg (75.0-100.0); BG SAMPLE SITE RIGHT RADIAL; BG VENT MODE MASK - BIPAP
[2018-10-21] MEDS: CEFEPIME 1,000 MG in DEXTROSE 5% WATER 50 ML IV SCH ×2 (10:43→22:47)
[2018-10-21] MEDS ORDERED: LIDOCAINE HCL/PF 1% 2ML VIAL ONE (12:50)
[2018-10-21] MEDS: PREDNISONE 20MG TABLET PO SCH (14:19)
[2018-10-22] VITALS (11 sets, daily range): BP systolic 99–134; BP diastolic 56–91
[2018-10-22] MEDS: GUAIFENESIN 200MG/10ML SUGAR FREE UDC PO PRN (00:23)
[2018-10-22] MEDS: METRONIDAZOLE 500 MG PREMIX 100 ML IV SCH ×3 (01:02→17:26)
[2018-10-22] MEDS: IPRATROPIUM/ALBUTEROL 0.5-3(2.5)MG/3ML NEB INH PRN (05:25)
[2018-10-22 06:12] LABS: HEMATOCRIT. 32.9 % (42.0-52.0); HEMOGLOBIN. 10.2 g/dL (14.0-18.0); MEAN CORPUSCULAR HEMOGLOBIN 26.9 pg (28.0-32.0); MEAN CORPUSCULAR VOLUME 86.9 fL (80.0-94.0); MEAN PLATELET VOLUME 8.9 fl (7.4-10.4); PLATELET 186 x1000/uL (130-400); RED BLOOD CELL COUNT 3.79 mill/uL (4.7-6.1); RED CELL DISTRIBUTION WIDTH 17.2 % (11.6-14.6)
[2018-10-22 06:13] LABS: CHLORIDE 97 mEq/L (98-107)
[2018-10-22] MEDS: SPIRONOLACTONE 25MG TABLET PO SCH ×2 (06:26→17:25)
[2018-10-22] MEDS: BLOOD SUGAR DIAGNOSTIC STRIP TEST SCH ×4 (07:30→20:46)
[2018-10-22] MEDS: INSULIN LISPRO 100 UNITS/ML SUBCUT SCH ×4 (08:00→20:47)
[2018-10-22] MEDS: GUAIFENESIN 600MG ER TABLET PO SCH ×2 (08:30→20:46)
[2018-10-22] MEDS: APIXABAN 5 MG TABLET PO SCH ×2 (08:30→17:26)
[2018-10-22] MEDS: PREDNISONE 20MG TABLET PO SCH (08:30)
[2018-10-22] MEDS: FAMOTIDINE 20MG TABLET PO SCH ×2 (08:30→20:46)
[2018-10-22] MEDS: FUROSEMIDE 40MG/4ML VIAL IV SCH ×2 (08:30→17:24)
[2018-10-22] MEDS: CARVEDILOL 3.125 MG TABLET PO SCH ×2 (08:32→20:46)
[2018-10-22] MEDS: CEFEPIME 1,000 MG in DEXTROSE 5% WATER 50 ML IV SCH ×2 (10:40→23:52)
[2018-10-22 13:54] LABS: NUCLEATED RED BLOOD CELLS 1 /100 WBC
[2018-10-22 13:55] LABS: PLATELET ESTIMATE NORMAL
[2018-10-23] VITALS (12 sets, daily range): BP systolic 107–133; BP diastolic 57–82
[2018-10-23] MEDS: METRONIDAZOLE 500 MG PREMIX 100 ML IV SCH ×3 (03:59→17:18)
[2018-10-23] MEDS: SPIRONOLACTONE 25MG TABLET PO SCH ×2 (05:52→17:17)
[2018-10-23] MEDS: BLOOD SUGAR DIAGNOSTIC STRIP TEST SCH ×4 (07:30→21:00)
[2018-10-23] MEDS: INSULIN LISPRO 100 UNITS/ML SUBCUT SCH ×4 (08:00→21:40)
[2018-10-23] MEDS: IPRATROPIUM/ALBUTEROL 0.5-3(2.5)MG/3ML NEB INH PRN ×2 (08:12→12:41)
[2018-10-23] MEDS: FUROSEMIDE 40MG/4ML VIAL IV SCH ×2 (09:36→17:18)
[2018-10-23] MEDS: GUAIFENESIN 600MG ER TABLET PO SCH ×2 (09:37→21:16)
[2018-10-23] MEDS: APIXABAN 5 MG TABLET PO SCH ×2 (09:37→17:18)
[2018-10-23] MEDS: CARVEDILOL 3.125 MG TABLET PO SCH ×2 (09:37→21:16)
[2018-10-23] MEDS: FAMOTIDINE 20MG TABLET PO SCH ×2 (09:37→21:17)
[2018-10-23] MEDS: PREDNISONE 20MG TABLET PO SCH (09:38)
[2018-10-23] MEDS: CEFEPIME 1,000 MG in DEXTROSE 5% WATER 50 ML IV SCH ×2 (11:15→23:18)
[2018-10-23] MEDS: IPRATROPIUM/ALBUTEROL 0.5-3(2.5)MG/3ML NEB HHN SCH ×2 (15:31→20:36)
[2018-10-24] VITALS (12 sets, daily range): BP systolic 86–126; BP diastolic 46–88
[2018-10-24] MEDS: IPRATROPIUM/ALBUTEROL 0.5-3(2.5)MG/3ML NEB HHN SCH ×4 (00:19→20:50)
[2018-10-24] MEDS: METRONIDAZOLE 500 MG PREMIX 100 ML IV SCH ×3 (02:09→17:52)
[2018-10-24] MEDS: SPIRONOLACTONE 25MG TABLET PO SCH ×2 (06:38→17:48)
[2018-10-24] MEDS: BLOOD SUGAR DIAGNOSTIC STRIP TEST SCH ×4 (07:30→21:13)
[2018-10-24] MEDS: INSULIN LISPRO 100 UNITS/ML SUBCUT SCH ×4 (08:00→21:19)
[2018-10-24] MEDS: CARVEDILOL 3.125 MG TABLET PO SCH ×2 (09:00→21:04)
[2018-10-24] MEDS: GUAIFENESIN 600MG ER TABLET PO SCH ×2 (09:29→21:00)
[2018-10-24] MEDS: PREDNISONE 20MG TABLET PO SCH (09:29)
[2018-10-24] MEDS: FAMOTIDINE 20MG TABLET PO SCH ×2 (09:29→21:00)
[2018-10-24] MEDS: FUROSEMIDE 40MG/4ML VIAL IV SCH ×2 (09:31→17:48)
[2018-10-24] MEDS: APIXABAN 5 MG TABLET PO SCH ×2 (09:31→17:48)
[2018-10-24] MEDS: CEFEPIME 1,000 MG in DEXTROSE 5% WATER 50 ML IV SCH ×2 (12:17→22:23)
[2018-10-25] VITALS (10 sets, daily range): BP systolic 106–133; BP diastolic 50–80
[2018-10-25] MEDS: IPRATROPIUM/ALBUTEROL 0.5-3(2.5)MG/3ML NEB HHN SCH ×4 (01:51→21:11)
[2018-10-25] MEDS: SPIRONOLACTONE 25MG TABLET PO SCH ×2 (06:18→17:24)
[2018-10-25] MEDS: BLOOD SUGAR DIAGNOSTIC STRIP TEST SCH ×4 (07:50→21:32)
[2018-10-25] MEDS: FUROSEMIDE 40MG/4ML VIAL IV SCH ×2 (08:33→17:21)
[2018-10-25] MEDS: FAMOTIDINE 20MG TABLET PO SCH ×2 (08:33→21:30)
[2018-10-25] MEDS: ACETAMINOPHEN 325MG TABLET PO PRN ×2 (08:33→20:05)
[2018-10-25] MEDS: PREDNISONE 20MG TABLET PO SCH (08:33)
[2018-10-25] MEDS: APIXABAN 5 MG TABLET PO SCH ×2 (08:34→17:21)
[2018-10-25] MEDS: GUAIFENESIN 600MG ER TABLET PO SCH ×2 (08:34→21:30)
[2018-10-25] MEDS: CARVEDILOL 3.125 MG TABLET PO SCH ×2 (08:34→21:31)
[2018-10-25] MEDS: INSULIN LISPRO 100 UNITS/ML SUBCUT SCH ×4 (08:43→21:32)
[2018-10-25] MEDS: ONDANSETRON HCL 4MG/2ML INJ IV PRN (09:55)
[2018-10-26] VITALS: BP 125/66
[2018-10-26] MEDS: IPRATROPIUM/ALBUTEROL 0.5-3(2.5)MG/3ML NEB HHN SCH ×4 (01:17→20:55)
[2018-10-26 04:00] VITALS: BP 129/77
[2018-10-26] MEDS: SPIRONOLACTONE 25MG TABLET PO SCH (06:17)
[2018-10-26] MEDS: BLOOD SUGAR DIAGNOSTIC STRIP TEST SCH ×4 (06:23→21:10)
[2018-10-26] MEDS: INSULIN LISPRO 100 UNITS/ML SUBCUT SCH ×4 (06:23→21:36)
[2018-10-26 08:00] VITALS: BP 126/74
[2018-10-26] MEDS: FUROSEMIDE 40MG/4ML VIAL IV SCH ×2 (09:22→17:34)
[2018-10-26] MEDS: PREDNISONE 20MG TABLET PO SCH (09:22)
[2018-10-26] MEDS: GUAIFENESIN 600MG ER TABLET PO SCH ×2 (09:23→21:09)
[2018-10-26] MEDS: TRAMADOL 50MG TABLET PO PRN (09:23)
[2018-10-26] MEDS: FAMOTIDINE 20MG TABLET PO SCH ×2 (09:23→21:09)
[2018-10-26] MEDS: LOSARTAN POTASSIUM 25 MG TABLET PO SCH (09:24)
[2018-10-26] MEDS: CARVEDILOL 3.125 MG TABLET PO SCH ×2 (09:24→21:09)
[2018-10-26] MEDS: APIXABAN 5 MG TABLET PO SCH ×2 (09:25→17:34)
[2018-10-26 12:00] VITALS: BP 105/65
[2018-10-26 16:00] VITALS: BP 98/65
[2018-10-26 20:00] VITALS: BP 132/75
[2018-10-27] VITALS: BP 110/68
[2018-10-27] MEDS: FUROSEMIDE 40MG/4ML VIAL IV SCH ×4 (01:11→22:41)
[2018-10-27] MEDS: IPRATROPIUM/ALBUTEROL 0.5-3(2.5)MG/3ML NEB HHN SCH ×4 (02:08→20:25)
[2018-10-27 04:00] VITALS: BP 100/68
[2018-10-27 06:02] LABS: BASOPHILS % 0.2 % (0.0-2.0); EOSINOPHILS % 1.8 % (0.0-5.0); HEMATOCRIT. 39.3 % (42.0-52.0); HEMOGLOBIN. 12.3 g/dL (14.0-18.0); LYMPHOCYTES % 7.7 % (20.0-50.0); MEAN CORPUSCULAR HEMOGLOBIN 27.3 pg (28.0-32.0); MEAN CORPUSCULAR VOLUME 87.1 fL (80.0-94.0); MEAN PLATELET VOLUME 9.5 fl (7.4-10.4); MONOCYTES % 8.6 % (2.0-8.0); NEUTROPHILS % 81.7 % (40.0-76.0); PLATELET 171 x1000/uL (130-400); RED BLOOD CELL COUNT 4.51 mill/uL (4.7-6.1); RED CELL DISTRIBUTION WIDTH 18.7 % (11.6-14.6)
[2018-10-27 06:10] LABS: CHLORIDE 91 mEq/L (98-107)
[2018-10-27] MEDS: SPIRONOLACTONE 25MG TABLET PO SCH ×3 (06:20→22:42)
[2018-10-27] MEDS: BLOOD SUGAR DIAGNOSTIC STRIP TEST SCH ×4 (06:25→21:32)
[2018-10-27] MEDS: INSULIN LISPRO 100 UNITS/ML SUBCUT SCH ×4 (06:25→21:00)
[2018-10-27] MEDS: TRAMADOL 50MG TABLET PO PRN ×3 (06:53→18:31)
[2018-10-27 08:00] VITALS: BP 91/59
[2018-10-27] MEDS: LOSARTAN POTASSIUM 25 MG TABLET PO SCH (09:00)
[2018-10-27] MEDS: CARVEDILOL 6.25 MG TABLET PO SCH ×2 (09:00→22:43)
[2018-10-27] MEDS: APIXABAN 5 MG TABLET PO SCH ×2 (09:15→17:15)
[2018-10-27] MEDS: GUAIFENESIN 600MG ER TABLET PO SCH ×2 (09:15→22:43)
[2018-10-27] MEDS: FAMOTIDINE 20MG TABLET PO SCH ×2 (09:15→22:42)
[2018-10-27] MEDS: PREDNISONE 20MG TABLET PO SCH (09:15)
[2018-10-27 12:00] VITALS: BP 100/58
[2018-10-27] MEDS: DOCUSATE SODIUM 100MG CAPSULE PO PRN (14:57)
[2018-10-27 16:00] VITALS: BP 110/76
[2018-10-27] MEDS: SIMETHICONE 80MG TABLET CHEW PO PRN (17:18)
[2018-10-27] MEDS: LACTULOSE 20G/30ML UDC PO PRN (18:09)
[2018-10-27 20:00] VITALS: BP 121/76
[2018-10-28] VITALS: BP 130/80
[2018-10-28] MEDS: IPRATROPIUM/ALBUTEROL 0.5-3(2.5)MG/3ML NEB HHN SCH ×5 (01:45→21:18)
[2018-10-28] MEDS: TRAMADOL 50MG TABLET PO PRN (03:24)
[2018-10-28 04:00] VITALS: BP 145/80
[2018-10-28] MEDS: BLOOD SUGAR DIAGNOSTIC STRIP TEST SCH ×4 (05:24→21:00)
[2018-10-28] MEDS: INSULIN LISPRO 100 UNITS/ML SUBCUT SCH ×4 (05:28→23:08)
[2018-10-28] MEDS: LACTULOSE 20G/30ML UDC PO PRN (09:57)
[2018-10-28] MEDS: GUAIFENESIN 600MG ER TABLET PO SCH ×2 (09:57→21:59)
[2018-10-28] MEDS: APIXABAN 5 MG TABLET PO SCH ×2 (09:57→16:58)
[2018-10-28] MEDS: PREDNISONE 5MG TABLET PO SCH (09:57)
[2018-10-28] MEDS: FAMOTIDINE 20MG TABLET PO SCH ×2 (09:58→21:59)
[2018-10-28] MEDS: LOSARTAN POTASSIUM 25 MG TABLET PO SCH (09:58)
[2018-10-28] MEDS: CARVEDILOL 6.25 MG TABLET PO SCH ×2 (09:58→21:00)
[2018-10-28] MEDS: FUROSEMIDE 40MG/4ML VIAL IV SCH ×2 (10:53→16:58)
[2018-10-28 12:00] VITALS: BP 100/55
[2018-10-28 16:00] VITALS: BP 101/54
[2018-10-28] MEDS: SPIRONOLACTONE 25MG TABLET PO SCH (17:07)
[2018-10-28 20:00] VITALS: BP 91/51
[2018-10-29] VITALS: BP 114/60
[2018-10-29] MEDS: IPRATROPIUM/ALBUTEROL 0.5-3(2.5)MG/3ML NEB HHN SCH ×4 (01:33→20:44)
[2018-10-29 04:00] VITALS: BP 102/65
[2018-10-29] MEDS: TRAMADOL 50MG TABLET PO PRN ×3 (04:54→21:51)
[2018-10-29] MEDS: SPIRONOLACTONE 25MG TABLET PO SCH ×2 (06:34→17:59)
[2018-10-29] MEDS: FUROSEMIDE 40MG/4ML VIAL IV SCH ×2 (06:34→17:57)
[2018-10-29] MEDS: BLOOD SUGAR DIAGNOSTIC STRIP TEST SCH ×4 (06:35→21:31)
[2018-10-29] MEDS: INSULIN LISPRO 100 UNITS/ML SUBCUT SCH ×4 (06:48→21:54)
[2018-10-29] MEDS: APIXABAN 5 MG TABLET PO SCH ×2 (09:53→17:58)
[2018-10-29] MEDS: PREDNISONE 5MG TABLET PO SCH (09:53)
[2018-10-29] MEDS: FAMOTIDINE 20MG TABLET PO SCH ×2 (09:54→20:38)
[2018-10-29] MEDS: LOSARTAN POTASSIUM 25 MG TABLET PO SCH (09:54)
[2018-10-29] MEDS: CARVEDILOL 6.25 MG TABLET PO SCH ×2 (09:54→20:39)
[2018-10-29] MEDS: GUAIFENESIN 600MG ER TABLET PO SCH ×2 (09:54→20:38)
[2018-10-29 12:00] VITALS: BP 96/56
[2018-10-29 16:00] VITALS: BP 115/58
[2018-10-29 16:21] LABS: CHLORIDE 91 mEq/L (98-107)
[2018-10-29] MEDS ORDERED: MAGNESIUM 1 G PREMIX 100 ML IV NR (19:00)
[2018-10-29 20:00] VITALS: BP 122/79
[2018-10-29] MEDS: ACETAMINOPHEN 325MG TABLET PO PRN (20:07)
[2018-10-29] MEDS: DOCUSATE SODIUM 100MG CAPSULE PO PRN (20:38)
[2018-10-29] MEDS ORDERED: MINERAL OIL ENEMA 133ML PR NR (22:00)
[2018-10-30] VITALS: BP 116/82
[2018-10-30] MEDS: IPRATROPIUM/ALBUTEROL 0.5-3(2.5)MG/3ML NEB HHN SCH (02:10)
[2018-10-30 04:00] VITALS: BP 106/57
[2018-10-30] MEDS: FUROSEMIDE 40MG/4ML VIAL IV SCH ×2 (06:25→18:26)
[2018-10-30] MEDS: SPIRONOLACTONE 25MG TABLET PO SCH ×2 (06:25→17:23)
[2018-10-30] MEDS: BLOOD SUGAR DIAGNOSTIC STRIP TEST SCH ×4 (06:25→21:00)
[2018-10-30] MEDS: INSULIN LISPRO 100 UNITS/ML SUBCUT SCH ×3 (06:42→17:23)
[2018-10-30 08:00] VITALS: BP 116/73
[2018-10-30] MEDS: GUAIFENESIN 600MG ER TABLET PO SCH ×2 (08:33→21:00)
[2018-10-30] MEDS: CARVEDILOL 6.25 MG TABLET PO SCH ×2 (08:33→21:00)
[2018-10-30] MEDS: PREDNISONE 5MG TABLET PO SCH (08:34)
[2018-10-30] MEDS: APIXABAN 5 MG TABLET PO SCH ×2 (08:34→17:00)
[2018-10-30] MEDS: FAMOTIDINE 20MG TABLET PO SCH ×2 (08:34→21:00)
[2018-10-30] MEDS: LOSARTAN POTASSIUM 25 MG TABLET PO SCH (08:34)
[2018-10-30] MEDS ORDERED: DIATR MEGLU/DIATRIZOATE SOLN 30ML PO SCH (11:00)
[2018-10-30 12:00] VITALS: BP_SYST 109; BP_SYST 92; BP_DIAS 68; BP_DIAS 70
[2018-10-30] MEDS: MORPHINE SULFATE 2 MG/ML CPJ (NOT FOR IM USE) IV PRN (13:22)
[2018-10-30 16:00] VITALS: BP 107/51
[2018-10-30] MEDS ORDERED: IOHEXOL-300 100 ML BOTTLE ONE ×2 (16:04→21:07)
[2018-10-30] MEDS: DEXT 5%/LACTATED RINGERS 1,000 ML IV SCH (18:26)
[2018-10-30 20:00] VITALS: BP 138/90
[2018-10-31] VITALS: BP 114/73
[2018-10-31] MEDS: ONDANSETRON HCL 4MG/2ML INJ IV PRN
[2018-10-31] MEDS: INSULIN LISPRO 100 UNITS/ML SUBCUT SCH ×5 (00:08→21:00)
[2018-10-31] MEDS: IPRATROPIUM/ALBUTEROL 0.5-3(2.5)MG/3ML NEB HHN SCH ×4 (02:05→20:13)
[2018-10-31 04:00] VITALS: BP 113/75
[2018-10-31] MEDS: SPIRONOLACTONE 25MG TABLET PO SCH ×2 (06:00→17:44)
[2018-10-31] MEDS: BLOOD SUGAR DIAGNOSTIC STRIP TEST SCH ×4 (06:10→21:54)
[2018-10-31] MEDS: FUROSEMIDE 40MG/4ML VIAL IV SCH ×2 (06:16→17:58)
[2018-10-31] MEDS: DEXT 5%/LACTATED RINGERS 1,000 ML IV SCH ×2 (06:17→21:59)
[2018-10-31 08:00] VITALS: BP 111/61
[2018-10-31] MEDS: CARVEDILOL 6.25 MG TABLET PO SCH ×2 (09:00→21:00)
[2018-10-31] MEDS: GUAIFENESIN 600MG ER TABLET PO SCH ×2 (09:00→21:00)
[2018-10-31] MEDS: LOSARTAN POTASSIUM 25 MG TABLET PO SCH (09:00)
[2018-10-31] MEDS: APIXABAN 5 MG TABLET PO SCH ×2 (09:00→17:00)
[2018-10-31] MEDS: PREDNISONE 5MG TABLET PO SCH (09:00)
[2018-10-31] MEDS: FAMOTIDINE 20MG TABLET PO SCH ×2 (09:00→21:00)
[2018-10-31 12:00] VITALS: BP 118/74
[2018-10-31 16:00] VITALS: BP 145/99
[2018-10-31 17:32] LABS: CHLORIDE 90 mEq/L (98-107)
[2018-10-31 20:00] VITALS: BP 125/85
[2018-11-01] VITALS: BP 134/80
[2018-11-01] MEDS: MORPHINE SULFATE 2 MG/ML CPJ (NOT FOR IM USE) IV PRN ×2 (00:44→11:22)
[2018-11-01 04:00] VITALS: BP 102/56
[2018-11-01] MEDS: SPIRONOLACTONE 25MG TABLET PO SCH ×2 (05:18→18:00)
[2018-11-01] MEDS: FUROSEMIDE 40MG/4ML VIAL IV SCH (06:25)
[2018-11-01] MEDS: INSULIN LISPRO 100 UNITS/ML SUBCUT SCH ×4 (06:25→21:00)
[2018-11-01] MEDS: BLOOD SUGAR DIAGNOSTIC STRIP TEST SCH ×4 (06:25→21:00)
[2018-11-01 08:00] VITALS: BP 113/71
[2018-11-01] MEDS: IPRATROPIUM/ALBUTEROL 0.5-3(2.5)MG/3ML NEB HHN SCH ×4 (08:35→21:15)
[2018-11-01] MEDS: CARVEDILOL 6.25 MG TABLET PO SCH ×2 (09:00→21:00)
[2018-11-01] MEDS: FAMOTIDINE 20MG TABLET PO SCH ×2 (09:00→21:00)
[2018-11-01] MEDS: LOSARTAN POTASSIUM 25 MG TABLET PO SCH (09:00)
[2018-11-01] MEDS: GUAIFENESIN 600MG ER TABLET PO SCH ×2 (09:00→21:00)
[2018-11-01] MEDS: APIXABAN 5 MG TABLET PO SCH ×2 (09:00→17:00)
[2018-11-01] MEDS: PREDNISONE 5MG TABLET PO SCH (09:00)
[2018-11-01 12:00] VITALS: BP 114/52
[2018-11-01 16:00] VITALS: BP 109/52
[2018-11-01 20:00] VITALS: BP 113/50
[2018-11-02] VITALS: BP 101/55
[2018-11-02] MEDS: IPRATROPIUM/ALBUTEROL 0.5-3(2.5)MG/3ML NEB HHN SCH ×4 (01:21→21:41)
[2018-11-02 04:00] VITALS: BP 149/61
[2018-11-02] MEDS: SPIRONOLACTONE 25MG TABLET PO SCH ×2 (04:57→17:06)
[2018-11-02] MEDS: BLOOD SUGAR DIAGNOSTIC STRIP TEST SCH ×4 (06:35→21:04)
[2018-11-02] MEDS: INSULIN LISPRO 100 UNITS/ML SUBCUT SCH ×4 (06:35→21:00)
[2018-11-02 08:00] VITALS: BP 95/47
[2018-11-02] MEDS: CARVEDILOL 6.25 MG TABLET PO SCH ×2 (09:00→21:00)
[2018-11-02] MEDS: LOSARTAN POTASSIUM 25 MG TABLET PO SCH (09:00)
[2018-11-02] MEDS: FAMOTIDINE 20MG TABLET PO SCH ×2 (10:16→21:00)
[2018-11-02] MEDS: FUROSEMIDE 40MG/4ML VIAL IV SCH (10:16)
[2018-11-02] MEDS: GUAIFENESIN 600MG ER TABLET PO SCH ×2 (10:16→21:00)
[2018-11-02] MEDS: APIXABAN 5 MG TABLET PO SCH ×2 (10:28→17:05)
[2018-11-02] MEDS: PREDNISONE 5MG TABLET PO SCH (10:29)
[2018-11-02 16:00] VITALS: BP 114/63
[2018-11-02 20:00] VITALS: BP 113/73
[2018-11-02] MEDS: MORPHINE SULFATE 2 MG/ML CPJ (NOT FOR IM USE) IV PRN (21:20)
[2018-11-03] VITALS: BP 111/62
[2018-11-03] MEDS: IPRATROPIUM/ALBUTEROL 0.5-3(2.5)MG/3ML NEB HHN SCH ×4 (02:10→21:24)
[2018-11-03 04:00] VITALS: BP 102/66
[2018-11-03] MEDS: SPIRONOLACTONE 25MG TABLET PO SCH ×2 (05:48→18:00)
[2018-11-03] MEDS: BLOOD SUGAR DIAGNOSTIC STRIP TEST SCH ×4 (06:37→21:06)
[2018-11-03] MEDS: INSULIN LISPRO 100 UNITS/ML SUBCUT SCH ×4 (06:37→21:17)
[2018-11-03 07:41] LABS: CHLORIDE 100 mEq/L (98-107)
[2018-11-03 08:00] VITALS: BP 138/79
[2018-11-03] MEDS: GUAIFENESIN 600MG ER TABLET PO SCH ×2 (09:00→21:12)
[2018-11-03] MEDS: FAMOTIDINE 20MG TABLET PO SCH ×2 (09:48→21:12)
[2018-11-03] MEDS: PREDNISONE 5MG TABLET PO SCH (09:48)
[2018-11-03] MEDS: FUROSEMIDE 40MG/4ML VIAL IV SCH (09:48)
[2018-11-03] MEDS: CARVEDILOL 6.25 MG TABLET PO SCH ×3 (09:49→17:35)
[2018-11-03] MEDS: APIXABAN 5 MG TABLET PO SCH ×2 (09:49→17:35)
[2018-11-03] MEDS: LOSARTAN POTASSIUM 25 MG TABLET PO SCH (09:50)
[2018-11-03 12:00] VITALS: BP 127/69
[2018-11-03] MEDS ORDERED: KCL 20MEQ/100ML PREMIX 100 ML IV NR (12:30)
[2018-11-03] MEDS: DEXT 5%/LACTATED RINGERS 1,000 ML IV SCH (12:46)
[2018-11-03 16:00] VITALS: BP 101/63
[2018-11-03] MEDS: ACETAMINOPHEN 325MG TABLET PO PRN (17:34)
[2018-11-03 20:00] VITALS: BP 105/63
[2018-11-04] VITALS: BP 98/58
[2018-11-04] MEDS: DEXT 5%/LACTATED RINGERS 1,000 ML IV SCH ×2 (00:03→21:29)
[2018-11-04] MEDS: IPRATROPIUM/ALBUTEROL 0.5-3(2.5)MG/3ML NEB HHN SCH ×4 (02:36→21:10)
[2018-11-04 04:00] VITALS: BP 103/56
[2018-11-04] MEDS: SPIRONOLACTONE 25MG TABLET PO SCH ×2 (05:57→17:18)
[2018-11-04] MEDS: BLOOD SUGAR DIAGNOSTIC STRIP TEST SCH ×4 (06:04→20:27)
[2018-11-04] MEDS: INSULIN LISPRO 100 UNITS/ML SUBCUT SCH ×4 (06:04→20:27)
[2018-11-04 07:36] LABS: CHLORIDE 92 mEq/L (98-107)
[2018-11-04 08:00] VITALS: BP 103/54
[2018-11-04] MEDS: LOSARTAN POTASSIUM 25 MG TABLET PO SCH (08:45)
[2018-11-04] MEDS: FAMOTIDINE 20MG TABLET PO SCH ×2 (09:07→20:23)
[2018-11-04] MEDS: APIXABAN 5 MG TABLET PO SCH ×2 (09:08→17:18)
[2018-11-04] MEDS: PREDNISONE 5MG TABLET PO SCH (09:08)
[2018-11-04] MEDS: CARVEDILOL 6.25 MG TABLET PO SCH ×3 (09:08→17:18)
[2018-11-04] MEDS: FUROSEMIDE 40MG/4ML VIAL IV SCH (09:08)
[2018-11-04] MEDS: GUAIFENESIN 600MG ER TABLET PO SCH ×2 (09:15→20:23)
[2018-11-04 12:00] VITALS: BP 90/52
[2018-11-04] MEDS ORDERED: KCL 20MEQ/100ML PREMIX 100 ML IV ONE (12:45)
[2018-11-04] MEDS ORDERED: KCL 20MEQ/100ML PREMIX 100 ML IV SCH (14:00)
[2018-11-04 16:00] VITALS: BP 110/66
[2018-11-04 20:00] VITALS: BP 124/66
[2018-11-04] MEDS: IPRATROPIUM/ALBUTEROL 0.5-3(2.5)MG/3ML NEB INH PRN (22:25)
[2018-11-04] MEDS: ONDANSETRON HCL 4MG/2ML INJ IV PRN (22:49)
[2018-11-05] VITALS: BP 117/89
[2018-11-05] MEDS: IPRATROPIUM/ALBUTEROL 0.5-3(2.5)MG/3ML NEB HHN SCH ×4 (02:27→20:21)
[2018-11-05] MEDS: DEXT 5%/LACTATED RINGERS 1,000 ML IV SCH (02:43)
[2018-11-05 04:00] VITALS: BP 110/63
[2018-11-05] MEDS: SPIRONOLACTONE 25MG TABLET PO SCH ×2 (06:03→18:00)
[2018-11-05] MEDS: INSULIN LISPRO 100 UNITS/ML SUBCUT SCH ×4 (06:09→21:17)
[2018-11-05] MEDS: BLOOD SUGAR DIAGNOSTIC STRIP TEST SCH ×4 (06:09→20:45)
[2018-11-05 08:00] VITALS: BP 100/51
[2018-11-05] MEDS: CARVEDILOL 6.25 MG TABLET PO SCH ×3 (08:17→17:00)
[2018-11-05] MEDS: LOSARTAN POTASSIUM 25 MG TABLET PO SCH (08:17)
[2018-11-05] MEDS: APIXABAN 5 MG TABLET PO SCH ×2 (10:58→17:45)
[2018-11-05] MEDS: FUROSEMIDE 40MG/4ML VIAL IV SCH (10:58)
[2018-11-05] MEDS: PREDNISONE 5MG TABLET PO SCH (10:58)
[2018-11-05] MEDS: FAMOTIDINE 20MG TABLET PO SCH ×2 (10:58→20:45)
[2018-11-05 12:00] VITALS: BP 132/60
[2018-11-05] MEDS: GUAIFENESIN 600MG ER TABLET PO SCH ×2 (13:40→20:45)
[2018-11-05 16:00] VITALS: BP 91/53
[2018-11-05] MEDS: SIMETHICONE 80MG TABLET CHEW PO PRN (18:52)
[2018-11-05 20:00] VITALS: BP 103/53
[2018-11-06] VITALS: BP 107/73
[2018-11-06] MEDS: IPRATROPIUM/ALBUTEROL 0.5-3(2.5)MG/3ML NEB HHN SCH ×5 (01:31→20:47)
[2018-11-06 04:00] VITALS: BP 112/50
[2018-11-06] MEDS: DEXT 5%/LACTATED RINGERS 1,000 ML IV SCH ×2 (05:23→17:25)
[2018-11-06] MEDS: SPIRONOLACTONE 25MG TABLET PO SCH ×2 (05:45→17:18)
[2018-11-06 05:46] LABS: CHLORIDE 91 mEq/L (98-107)
[2018-11-06 06:14] LABS: BASOPHILS % 0.3 % (0.0-2.0); EOSINOPHILS % 0.8 % (0.0-5.0); HEMATOCRIT. 35.1 % (42.0-52.0); LYMPHOCYTES % 9.2 % (20.0-50.0); MEAN CORPUSCULAR HEMOGLOBIN 26.7 pg (28.0-32.0); MEAN CORPUSCULAR VOLUME 85.7 fL (80.0-94.0); MEAN PLATELET VOLUME 9.5 fl (7.4-10.4); MONOCYTES % 7.3 % (2.0-8.0); NEUTROPHILS % 82.4 % (40.0-76.0); PLATELET 179 x1000/uL (130-400); RED CELL DISTRIBUTION WIDTH 18.1 % (11.6-14.6)
[2018-11-06] MEDS: BLOOD SUGAR DIAGNOSTIC STRIP TEST SCH ×4 (06:34→21:00)
[2018-11-06] MEDS: INSULIN LISPRO 100 UNITS/ML SUBCUT SCH ×4 (06:34→22:01)
[2018-11-06] MEDS: SIMETHICONE 80MG TABLET CHEW PO PRN (06:50)
[2018-11-06 08:00] VITALS: BP 107/64
[2018-11-06] MEDS: LOSARTAN POTASSIUM 25 MG TABLET PO SCH (08:14)
[2018-11-06] MEDS: GUAIFENESIN 600MG ER TABLET PO SCH ×2 (08:25→21:26)
[2018-11-06] MEDS: FUROSEMIDE 40MG/4ML VIAL IV SCH (08:25)
[2018-11-06] MEDS: FAMOTIDINE 20MG TABLET PO SCH ×2 (08:25→21:26)
[2018-11-06] MEDS: CARVEDILOL 6.25 MG TABLET PO SCH ×3 (08:26→17:00)
[2018-11-06] MEDS: PREDNISONE 5MG TABLET PO SCH (08:26)
[2018-11-06 12:00] VITALS: BP 97/52
[2018-11-06 16:00] VITALS: BP 95/58
[2018-11-06] MEDS: APIXABAN 5 MG TABLET PO SCH (17:18)
[2018-11-06 20:00] VITALS: BP 111/73
[2018-11-06] MEDS: ACETAMINOPHEN 325MG TABLET PO PRN (21:59)
[2018-11-07] VITALS: BP 96/56
[2018-11-07] MEDS: IPRATROPIUM/ALBUTEROL 0.5-3(2.5)MG/3ML NEB HHN SCH ×4 (01:50→20:28)
[2018-11-07 04:00] VITALS: BP 97/51
[2018-11-07] MEDS: INSULIN LISPRO 100 UNITS/ML SUBCUT SCH ×4 (06:40→21:21)
[2018-11-07] MEDS: BLOOD SUGAR DIAGNOSTIC STRIP TEST SCH ×4 (06:40→21:20)
[2018-11-07] MEDS: SPIRONOLACTONE 25MG TABLET PO SCH (06:40)
[2018-11-07] MEDS: LACTULOSE 20G/30ML UDC PO PRN (06:55)
[2018-11-07 08:00] VITALS: BP 111/66
[2018-11-07 08:11] LABS: BASOPHILS % 0.3 % (0.0-2.0); EOSINOPHILS % 0.9 % (0.0-5.0); HEMATOCRIT. 37.1 % (42.0-52.0); HEMOGLOBIN. 11.5 g/dL (14.0-18.0); LYMPHOCYTES % 12.1 % (20.0-50.0); MEAN CORPUSCULAR HEMOGLOBIN 26.8 pg (28.0-32.0); MEAN CORPUSCULAR VOLUME 86.2 fL (80.0-94.0); MEAN PLATELET VOLUME 9.8 fl (7.4-10.4); MONOCYTES % 7.5 % (2.0-8.0); NEUTROPHILS % 79.2 % (40.0-76.0); PLATELET 168 x1000/uL (130-400); RED BLOOD CELL COUNT 4.31 mill/uL (4.7-6.1); RED CELL DISTRIBUTION WIDTH 18.4 % (11.6-14.6)
[2018-11-07 08:22] LABS: CHLORIDE 92 mEq/L (98-107)
[2018-11-07] MEDS: DEXT 5%/LACTATED RINGERS 1,000 ML IV SCH ×2 (09:46→20:19)
[2018-11-07] MEDS: GUAIFENESIN 600MG ER TABLET PO SCH ×2 (09:46→20:18)
[2018-11-07] MEDS: CARVEDILOL 6.25 MG TABLET PO SCH ×3 (09:47→17:00)
[2018-11-07] MEDS: FAMOTIDINE 20MG TABLET PO SCH ×2 (09:47→20:18)
[2018-11-07] MEDS: APIXABAN 5 MG TABLET PO SCH ×2 (09:47→18:08)
[2018-11-07] MEDS: LOSARTAN POTASSIUM 25 MG TABLET PO SCH (09:48)
[2018-11-07] MEDS: PREDNISONE 5MG TABLET PO SCH (09:48)
[2018-11-07] MEDS: FUROSEMIDE 40MG/4ML VIAL IV SCH ×3 (09:48→17:00)
[2018-11-07] MEDS: POTASSIUM CHLORIDE 20MEQ/PACKET PO SCH ×2 (10:42→18:05)
[2018-11-07 12:00] VITALS: BP 99/63
[2018-11-07] MEDS: SIMETHICONE 80MG TABLET CHEW PO PRN ×2 (13:09→20:18)
[2018-11-07 16:00] VITALS: BP 114/68
[2018-11-07] MEDS: DOCUSATE SODIUM 100MG CAPSULE PO PRN (18:08)
[2018-11-07 20:00] VITALS: BP 101/77
[2018-11-08 00:04] VITALS: BP 100/70
[2018-11-08] MEDS: IPRATROPIUM/ALBUTEROL 0.5-3(2.5)MG/3ML NEB HHN SCH ×4 (01:23→21:06)
[2018-11-08 04:00] VITALS: BP 100/50
[2018-11-08] MEDS: SPIRONOLACTONE 25MG TABLET PO SCH ×2 (06:00→18:01)
[2018-11-08] MEDS: BLOOD SUGAR DIAGNOSTIC STRIP TEST SCH ×4 (06:13→19:59)
[2018-11-08] MEDS: INSULIN LISPRO 100 UNITS/ML SUBCUT SCH ×4 (06:15→20:53)
[2018-11-08 07:10] LABS: BASOPHILS % 0.5 % (0.0-2.0); EOSINOPHILS % 1.2 % (0.0-5.0); HEMATOCRIT. 38.5 % (42.0-52.0); HEMOGLOBIN. 12.1 g/dL (14.0-18.0); MEAN CORPUSCULAR HEMOGLOBIN 27.2 pg (28.0-32.0); MEAN CORPUSCULAR VOLUME 86.4 fL (80.0-94.0); MEAN PLATELET VOLUME 9.7 fl (7.4-10.4); MONOCYTES % 7.3 % (2.0-8.0); PLATELET 149 x1000/uL (130-400); RED BLOOD CELL COUNT 4.46 mill/uL (4.7-6.1); RED CELL DISTRIBUTION WIDTH 18.6 % (11.6-14.6)
[2018-11-08 07:16] LABS: CHLORIDE 93 mEq/L (98-107)
[2018-11-08 08:00] VITALS: BP 100/60
[2018-11-08] MEDS ORDERED: NA PHOS,M-B/NA PHOS,DI-BA ENEMA 118ML PR NR (08:45)
[2018-11-08] MEDS: POTASSIUM CHLORIDE 20MEQ/PACKET PO SCH ×3 (09:00→17:00)
[2018-11-08] MEDS: LOSARTAN POTASSIUM 25 MG TABLET PO SCH (09:00)
[2018-11-08] MEDS: FAMOTIDINE 20MG TABLET PO SCH ×2 (09:07→20:52)
[2018-11-08] MEDS: GUAIFENESIN 600MG ER TABLET PO SCH ×2 (09:07→20:52)
[2018-11-08] MEDS: FUROSEMIDE 40MG/4ML VIAL IV SCH ×3 (09:07→17:45)
[2018-11-08] MEDS: CARVEDILOL 6.25 MG TABLET PO SCH ×3 (09:07→17:46)
[2018-11-08] MEDS: PREDNISONE 5MG TABLET PO SCH (09:08)
[2018-11-08] MEDS: SORBITOL 70% SOLN 30ML PO SCH (09:08)
[2018-11-08] MEDS: APIXABAN 5 MG TABLET PO SCH ×2 (09:08→17:45)
[2018-11-08] MEDS: SIMETHICONE 80MG TABLET CHEW PO PRN (09:47)
[2018-11-08 12:00] VITALS: BP 102/62
[2018-11-08] MEDS: DEXT 5%/LACTATED RINGERS 1,000 ML IV SCH (13:34)
[2018-11-08 16:00] VITALS: BP 100/50
[2018-11-08 20:00] VITALS: BP 98/60
[2018-11-09 00:02] VITALS: BP 102/56
[2018-11-09] MEDS: IPRATROPIUM/ALBUTEROL 0.5-3(2.5)MG/3ML NEB HHN SCH ×4 (01:00→22:09)
[2018-11-09] MEDS: DEXT 5%/LACTATED RINGERS 1,000 ML IV SCH ×2 (02:26→12:33)
[2018-11-09 04:00] VITALS: BP 112/64
[2018-11-09] MEDS: SIMETHICONE 80MG TABLET CHEW PO PRN ×2 (05:06→18:24)
[2018-11-09] MEDS: BLOOD SUGAR DIAGNOSTIC STRIP TEST SCH ×4 (05:17→21:50)
[2018-11-09] MEDS: INSULIN LISPRO 100 UNITS/ML SUBCUT SCH ×4 (06:12→22:11)
[2018-11-09] MEDS: SPIRONOLACTONE 25MG TABLET PO SCH ×2 (06:17→17:34)
[2018-11-09 08:00] VITALS: BP 102/60
[2018-11-09] MEDS: CARVEDILOL 6.25 MG TABLET PO SCH ×4 (08:38→17:00)
[2018-11-09] MEDS: LOSARTAN POTASSIUM 25 MG TABLET PO SCH (08:39)
[2018-11-09] MEDS: FAMOTIDINE 20MG TABLET PO SCH ×2 (08:54→21:49)
[2018-11-09] MEDS: POTASSIUM CHLORIDE 20MEQ/PACKET PO SCH ×2 (08:54→17:00)
[2018-11-09] MEDS: APIXABAN 5 MG TABLET PO SCH ×2 (08:54→17:23)
[2018-11-09] MEDS: GUAIFENESIN 600MG ER TABLET PO SCH ×2 (08:54→21:00)
[2018-11-09] MEDS: SORBITOL 70% SOLN 30ML PO SCH (08:54)
[2018-11-09] MEDS: FUROSEMIDE 40MG/4ML VIAL IV SCH ×3 (08:55→17:23)
[2018-11-09] MEDS: PREDNISONE 5MG TABLET PO SCH (09:44)
[2018-11-09 12:00] VITALS: BP 102/72
[2018-11-09 12:08] LABS: BASOPHILS % 0.6 % (0.0-2.0); EOSINOPHILS % 1.1 % (0.0-5.0); HEMATOCRIT. 37.9 % (42.0-52.0); HEMOGLOBIN. 11.9 g/dL (14.0-18.0); LYMPHOCYTES % 9.1 % (20.0-50.0); MEAN CORPUSCULAR VOLUME 85.9 fL (80.0-94.0); MEAN PLATELET VOLUME 9.7 fl (7.4-10.4); MONOCYTES % 7.8 % (2.0-8.0); NEUTROPHILS % 81.4 % (40.0-76.0); PLATELET 144 x1000/uL (130-400); RED BLOOD CELL COUNT 4.41 mill/uL (4.7-6.1); RED CELL DISTRIBUTION WIDTH 18.4 % (11.6-14.6)
[2018-11-09 12:13] LABS: CHLORIDE 95 mEq/L (98-107)
[2018-11-09 16:00] VITALS: BP 97/67
[2018-11-09 20:00] VITALS: BP 116/74
[2018-11-10] VITALS: BP 101/57
[2018-11-10] MEDS: DEXT 5%/LACTATED RINGERS 1,000 ML IV SCH ×2 (03:26→13:31)
[2018-11-10] MEDS: IPRATROPIUM/ALBUTEROL 0.5-3(2.5)MG/3ML NEB HHN SCH ×4 (03:47→20:54)
[2018-11-10 04:00] VITALS: BP 105/67
[2018-11-10] MEDS: SIMETHICONE 80MG TABLET CHEW PO PRN (04:27)
[2018-11-10] MEDS: SPIRONOLACTONE 25MG TABLET PO SCH ×2 (06:07→17:13)
[2018-11-10] MEDS: BLOOD SUGAR DIAGNOSTIC STRIP TEST SCH ×4 (06:12→20:15)
[2018-11-10] MEDS: INSULIN LISPRO 100 UNITS/ML SUBCUT SCH ×4 (07:37→20:24)
[2018-11-10 08:30] VITALS: BP 107/60
[2018-11-10] MEDS: PREDNISONE 5MG TABLET PO SCH (10:05)
[2018-11-10] MEDS: SORBITOL 70% SOLN 30ML PO SCH (10:05)
[2018-11-10] MEDS: FAMOTIDINE 20MG TABLET PO SCH ×2 (10:05→20:21)
[2018-11-10] MEDS: FUROSEMIDE 40MG/4ML VIAL IV SCH ×3 (10:05→17:13)
[2018-11-10] MEDS: CARVEDILOL 6.25 MG TABLET PO SCH ×3 (10:06→17:14)
[2018-11-10] MEDS: POTASSIUM CHLORIDE 20MEQ/PACKET PO SCH ×2 (10:06→17:00)
[2018-11-10] MEDS: GUAIFENESIN 600MG ER TABLET PO SCH ×2 (10:06→20:21)
[2018-11-10] MEDS: LOSARTAN POTASSIUM 25 MG TABLET PO SCH (10:06)
[2018-11-10] MEDS: APIXABAN 5 MG TABLET PO SCH ×2 (10:06→17:14)
[2018-11-10 10:39] LABS: CHLORIDE 94 mEq/L (98-107)
[2018-11-10 12:40] VITALS: BP 99/68
[2018-11-10 16:00] VITALS: BP 117/59
[2018-11-10 20:00] VITALS: BP 117/70
[2018-11-11] VITALS: BP 121/68
[2018-11-11] MEDS: IPRATROPIUM/ALBUTEROL 0.5-3(2.5)MG/3ML NEB HHN SCH ×4 (01:40→21:08)
[2018-11-11 04:00] VITALS: BP 118/75
[2018-11-11] MEDS: DEXT 5%/LACTATED RINGERS 1,000 ML IV SCH ×2 (05:23→18:43)
[2018-11-11] MEDS: SPIRONOLACTONE 25MG TABLET PO SCH ×2 (05:32→18:44)
[2018-11-11] MEDS: BLOOD SUGAR DIAGNOSTIC STRIP TEST SCH ×3 (06:23→21:33)
[2018-11-11] MEDS: INSULIN LISPRO 100 UNITS/ML SUBCUT SCH ×4 (06:23→21:36)
[2018-11-11 08:00] VITALS: BP 100/70
[2018-11-11] MEDS: SORBITOL 70% SOLN 30ML PO SCH (09:00)
[2018-11-11] MEDS: FUROSEMIDE 40MG/4ML VIAL IV SCH ×3 (09:36→18:44)
[2018-11-11] MEDS: SIMETHICONE 80MG TABLET CHEW PO PRN (09:37)
[2018-11-11] MEDS: APIXABAN 5 MG TABLET PO SCH ×2 (09:37→18:44)
[2018-11-11] MEDS: FAMOTIDINE 20MG TABLET PO SCH ×2 (09:37→20:36)
[2018-11-11] MEDS: GUAIFENESIN 600MG ER TABLET PO SCH ×2 (09:37→20:36)
[2018-11-11] MEDS: LOSARTAN POTASSIUM 25 MG TABLET PO SCH (09:39)
[2018-11-11] MEDS: CARVEDILOL 6.25 MG TABLET PO SCH ×3 (09:39→18:44)
[2018-11-11] MEDS: POTASSIUM CHLORIDE 20MEQ/PACKET PO SCH ×2 (09:39→18:44)
[2018-11-11] MEDS: PREDNISONE 5MG TABLET PO SCH (10:08)
[2018-11-11 12:00] VITALS: BP 117/55
[2018-11-11 16:00] VITALS: BP 101/70
[2018-11-11 20:06] VITALS: BP 115/64
[2018-11-11] MEDS: NYSTATIN POWDER 15GM TOP SCH (21:39)
[2018-11-12] VITALS: BP 110/60
[2018-11-12] MEDS: IPRATROPIUM/ALBUTEROL 0.5-3(2.5)MG/3ML NEB HHN SCH ×4 (01:03→20:13)
[2018-11-12 04:00] VITALS: BP 106/67
[2018-11-12] MEDS: SIMETHICONE 80MG TABLET CHEW PO PRN ×2 (04:10→16:50)
[2018-11-12] MEDS: BLOOD SUGAR DIAGNOSTIC STRIP TEST SCH ×3 (05:55→21:01)
[2018-11-12] MEDS: INSULIN LISPRO 100 UNITS/ML SUBCUT SCH ×3 (06:00→21:03)
[2018-11-12] MEDS: SPIRONOLACTONE 25MG TABLET PO SCH ×2 (06:13→17:10)
[2018-11-12 08:00] VITALS: BP 110/76
[2018-11-12] MEDS: FAMOTIDINE 20MG TABLET PO SCH ×2 (08:58→20:35)
[2018-11-12] MEDS: PREDNISONE 5MG TABLET PO SCH (08:59)
[2018-11-12] MEDS: CARVEDILOL 6.25 MG TABLET PO SCH ×3 (08:59→17:00)
[2018-11-12] MEDS: LOSARTAN POTASSIUM 25 MG TABLET PO SCH (09:00)
[2018-11-12] MEDS: APIXABAN 5 MG TABLET PO SCH ×2 (09:00→16:51)
[2018-11-12] MEDS: POTASSIUM CHLORIDE 20MEQ/PACKET PO SCH ×3 (09:00→16:50)
[2018-11-12] MEDS: SORBITOL 70% SOLN 30ML PO SCH (09:00)
[2018-11-12] MEDS: DEXT 5%/LACTATED RINGERS 1,000 ML IV SCH ×2 (09:53→22:28)
[2018-11-12] MEDS: NYSTATIN POWDER 15GM TOP SCH ×3 (09:56→16:51)
[2018-11-12] MEDS: GUAIFENESIN 600MG ER TABLET PO SCH ×2 (09:56→20:35)
[2018-11-12] MEDS: FUROSEMIDE 40MG/4ML VIAL IV SCH ×3 (10:40→16:33)
[2018-11-12 12:00] VITALS: BP 118/69
[2018-11-12 16:00] VITALS: BP 95/59
[2018-11-12 20:00] VITALS: BP 98/52
[2018-11-12] MEDS: GUAIFENESIN 200MG/10ML SUGAR FREE UDC PO PRN (23:00)
[2018-11-13] VITALS: BP 95/57
[2018-11-13] MEDS: IPRATROPIUM/ALBUTEROL 0.5-3(2.5)MG/3ML NEB HHN SCH ×4 (01:30→21:39)
[2018-11-13] MEDS: SIMETHICONE 80MG TABLET CHEW PO PRN (01:52)
[2018-11-13 04:00] VITALS: BP 105/59
[2018-11-13] MEDS: IPRATROPIUM/ALBUTEROL 0.5-3(2.5)MG/3ML NEB INH PRN (04:19)
[2018-11-13] MEDS: SPIRONOLACTONE 25MG TABLET PO SCH ×2 (06:15→18:18)
[2018-11-13] MEDS: INSULIN LISPRO 100 UNITS/ML SUBCUT SCH ×4 (06:17→22:08)
[2018-11-13] MEDS: BLOOD SUGAR DIAGNOSTIC STRIP TEST SCH ×4 (06:17→21:00)
[2018-11-13 08:00] VITALS: BP 100/67
[2018-11-13] MEDS: PREDNISONE 5MG TABLET PO SCH (09:17)
[2018-11-13] MEDS: APIXABAN 5 MG TABLET PO SCH ×2 (09:17→16:51)
[2018-11-13] MEDS: FUROSEMIDE 40MG/4ML VIAL IV SCH ×3 (09:17→16:52)
[2018-11-13] MEDS: SORBITOL 70% SOLN 30ML PO SCH (09:17)
[2018-11-13] MEDS: NYSTATIN POWDER 15GM TOP SCH ×3 (09:17→18:15)
[2018-11-13] MEDS: FAMOTIDINE 20MG TABLET PO SCH ×2 (09:17→22:08)
[2018-11-13] MEDS: CARVEDILOL 6.25 MG TABLET PO SCH ×3 (09:18→16:52)
[2018-11-13] MEDS: LOSARTAN POTASSIUM 25 MG TABLET PO SCH (09:18)
[2018-11-13] MEDS: GUAIFENESIN 600MG ER TABLET PO SCH ×2 (09:18→22:08)
[2018-11-13] MEDS: POTASSIUM CHLORIDE 20MEQ/PACKET PO SCH ×2 (09:21→16:51)
[2018-11-13] MEDS: DEXT 5%/LACTATED RINGERS 1,000 ML IV SCH (09:44)
[2018-11-13 12:00] VITALS: BP 103/60
[2018-11-13 16:00] VITALS: BP 165/56
[2018-11-13 20:00] VITALS: BP 95/59
[2018-11-14] VITALS: BP 102/60
[2018-11-14] MEDS: DEXT 5%/LACTATED RINGERS 1,000 ML IV SCH ×2 (00:11→13:07)
[2018-11-14 04:00] VITALS: BP 94/62
[2018-11-14] MEDS: IPRATROPIUM/ALBUTEROL 0.5-3(2.5)MG/3ML NEB HHN SCH ×4 (04:39→20:47)
[2018-11-14] MEDS: SPIRONOLACTONE 25MG TABLET PO SCH ×2 (05:26→17:43)
[2018-11-14] MEDS: INSULIN LISPRO 100 UNITS/ML SUBCUT SCH ×2 (06:07→13:06)
[2018-11-14] MEDS: BLOOD SUGAR DIAGNOSTIC STRIP TEST SCH ×2 (06:07→12:38)
[2018-11-14 08:28] VITALS: BP 129/81
[2018-11-14] MEDS: GUAIFENESIN 600MG ER TABLET PO SCH (09:00)
[2018-11-14] MEDS: POTASSIUM CHLORIDE 20MEQ TABLET SR PO SCH (10:30)
[2018-11-14] MEDS: CARVEDILOL 6.25 MG TABLET PO SCH (10:30)
[2018-11-14] MEDS: LOSARTAN POTASSIUM 25 MG TABLET PO SCH (10:30)
[2018-11-14] MEDS: PREDNISONE 5MG TABLET PO SCH (10:31)
[2018-11-14] MEDS: APIXABAN 5 MG TABLET PO SCH ×2 (10:31→17:41)
[2018-11-14] MEDS: FAMOTIDINE 20MG TABLET PO SCH (10:31)
[2018-11-14] MEDS: NYSTATIN POWDER 15GM TOP SCH ×3 (10:32→17:43)
[2018-11-14] MEDS: FUROSEMIDE 40MG/4ML VIAL IV SCH ×2 (10:32→17:15)
[2018-11-14] MEDS: SORBITOL 70% SOLN 30ML PO SCH (10:33)
[2018-11-14 12:00] VITALS: BP 99/66
[2018-11-14 16:00] VITALS: BP 91/57
[2018-11-14] MEDS ORDERED: MORPHINE SULFATE 2 MG/ML CPJ (NOT FOR IM USE) IV PRN (16:30)
[2018-11-14] MEDS ORDERED: KETOROLAC 15MG/ML VIAL IV PRN (17:15)
[2018-11-14 20:00] VITALS: BP 101/59
[2018-11-15] VITALS: BP 120/66
[2018-11-15] MEDS: IPRATROPIUM/ALBUTEROL 0.5-3(2.5)MG/3ML NEB HHN SCH ×3 (01:50→21:19)
[2018-11-15] MEDS: DEXT 5%/LACTATED RINGERS 1,000 ML IV SCH (02:43)
[2018-11-15 04:00] VITALS: BP 109/66
[2018-11-15] MEDS: SPIRONOLACTONE 25MG TABLET PO SCH ×2 (05:55→18:00)
[2018-11-15] MEDS ORDERED: NA PHOS,M-B/NA PHOS,DI-BA ENEMA 118ML PR STA (07:36)
[2018-11-15 08:00] VITALS: BP 102/64
[2018-11-15] MEDS: FUROSEMIDE 40MG/4ML VIAL IV SCH ×2 (08:23→16:33)
[2018-11-15] MEDS: PREDNISONE 5MG TABLET PO SCH (08:25)
[2018-11-15] MEDS: POTASSIUM CHLORIDE 20MEQ TABLET SR PO SCH (08:25)
[2018-11-15] MEDS: LOSARTAN POTASSIUM 25 MG TABLET PO SCH (08:25)
[2018-11-15] MEDS: APIXABAN 5 MG TABLET PO SCH ×2 (08:25→16:32)
[2018-11-15] MEDS: BISACODYL 10MG SUPP PR SCH ×2 (08:26→08:53)
[2018-11-15] MEDS: SORBITOL 70% SOLN 30ML PO SCH ×2 (08:26→08:53)
[2018-11-15] MEDS: NYSTATIN POWDER 15GM TOP SCH ×3 (08:29→16:35)
[2018-11-15] MEDS ORDERED: MORPHINE SULFATE 4 MG/ML CPJ (NOT FOR IM USE) IV PRN (11:15)
[2018-11-15] MEDS: SIMETHICONE 80MG TABLET CHEW PO PRN (11:20)
[2018-11-15 12:00] VITALS: BP 107/57
[2018-11-15] MEDS ORDERED: FUROSEMIDE 40MG/4ML VIAL IVP NR (12:30)
[2018-11-15 16:00] VITALS: BP 100/65
[2018-11-15] MEDS ORDERED: SORBITOL 70% SOLN 30ML PO NR (16:00)
[2018-11-15] MEDS: METOCLOPRAMIDE HCL 10MG/2ML VIAL IV SCH ×2 (16:33→22:00)
[2018-11-15 17:27] LABS: HEMATOCRIT. 39.7 % (42.0-52.0); HEMOGLOBIN. 12.2 g/dL (14.0-18.0); MEAN CORPUSCULAR HEMOGLOBIN 26.9 pg (28.0-32.0); MEAN CORPUSCULAR VOLUME 87.4 fL (80.0-94.0); MEAN PLATELET VOLUME 9.7 fl (7.4-10.4); PLATELET 146 x1000/uL (130-400); RED BLOOD CELL COUNT 4.54 mill/uL (4.7-6.1)
[2018-11-15 17:36] LABS: CHLORIDE 93 mEq/L (98-107)
[2018-11-15 20:00] VITALS: BP 95/60
[2018-11-15 22:26] LABS: PLATELET ESTIMATE NORMAL
[2018-11-16] VITALS: BP 104/65
[2018-11-16] MEDS: IPRATROPIUM/ALBUTEROL 0.5-3(2.5)MG/3ML NEB HHN SCH ×4 (01:15→21:07)
[2018-11-16] MEDS: METOCLOPRAMIDE HCL 10MG/2ML VIAL IV SCH ×5 (03:12→23:55)
[2018-11-16 04:00] VITALS: BP 108/99
[2018-11-16] MEDS: SPIRONOLACTONE 25MG TABLET PO SCH ×2 (05:27→17:22)
[2018-11-16 08:00] VITALS: BP 130/59
[2018-11-16] MEDS: BISACODYL 10MG SUPP PR SCH ×2 (09:00→09:46)
[2018-11-16] MEDS: FUROSEMIDE 40MG/4ML VIAL IV SCH ×2 (09:44→17:21)
[2018-11-16] MEDS: SORBITOL 70% SOLN 30ML PO SCH (09:45)
[2018-11-16] MEDS: PREDNISONE 5MG TABLET PO SCH (09:45)
[2018-11-16] MEDS: APIXABAN 5 MG TABLET PO SCH ×2 (09:45→17:21)
[2018-11-16] MEDS: POTASSIUM CHLORIDE 20MEQ TABLET SR PO SCH (09:45)
[2018-11-16] MEDS: LOSARTAN POTASSIUM 25 MG TABLET PO SCH (09:45)
[2018-11-16 09:46] LABS: BASOPHILS % 0.5 % (0.0-2.0); EOSINOPHILS % 1.8 % (0.0-5.0); HEMATOCRIT. 37.7 % (42.0-52.0); HEMOGLOBIN. 11.4 g/dL (14.0-18.0); LYMPHOCYTES % 7.6 % (20.0-50.0); MEAN CORPUSCULAR HEMOGLOBIN 26.3 pg (28.0-32.0); MEAN CORPUSCULAR VOLUME 86.7 fL (80.0-94.0); MEAN PLATELET VOLUME 9.2 fl (7.4-10.4); MONOCYTES % 7.8 % (2.0-8.0); NEUTROPHILS % 82.3 % (40.0-76.0); PLATELET 129 x1000/uL (130-400); RED BLOOD CELL COUNT 4.35 mill/uL (4.7-6.1); RED CELL DISTRIBUTION WIDTH 17.6 % (11.6-14.6)
[2018-11-16] MEDS: NYSTATIN POWDER 15GM TOP SCH ×3 (09:46→17:22)
[2018-11-16 09:59] LABS: CHLORIDE 93 mEq/L (98-107)
[2018-11-16 12:00] VITALS: BP 110/71
[2018-11-16 16:00] VITALS: BP 104/69
[2018-11-16 20:00] VITALS: BP 105/60
[2018-11-17] VITALS (7 sets, daily range): BP systolic 90–106; BP diastolic 53–64
[2018-11-17] MEDS: METOCLOPRAMIDE HCL 10MG/2ML VIAL IV SCH ×2 (00:06→17:10)
[2018-11-17] MEDS: IPRATROPIUM/ALBUTEROL 0.5-3(2.5)MG/3ML NEB HHN SCH ×4 (01:30→20:47)
[2018-11-17] MEDS: SPIRONOLACTONE 25MG TABLET PO SCH ×2 (06:31→17:10)
[2018-11-17] MEDS: FUROSEMIDE 40MG/4ML VIAL IV SCH ×2 (07:06→17:11)
[2018-11-17] MEDS: LOSARTAN POTASSIUM 25 MG TABLET PO SCH (09:00)
[2018-11-17] MEDS: POTASSIUM CHLORIDE 20MEQ TABLET SR PO SCH (09:31)
[2018-11-17] MEDS: APIXABAN 5 MG TABLET PO SCH ×2 (09:31→17:06)
[2018-11-17] MEDS: BISACODYL 10MG SUPP PR SCH (09:32)
[2018-11-17] MEDS: PREDNISONE 5MG TABLET PO SCH (09:35)
[2018-11-17] MEDS: NYSTATIN POWDER 15GM TOP SCH ×2 (09:35→17:00)
[2018-11-17] MEDS: SORBITOL 70% SOLN 30ML PO SCH (09:36)
[2018-11-18 00:06] VITALS: BP 114/69
[2018-11-18] MEDS: METOCLOPRAMIDE HCL 10MG/2ML VIAL IV SCH ×4 (00:26→17:44)
[2018-11-18] MEDS: IPRATROPIUM/ALBUTEROL 0.5-3(2.5)MG/3ML NEB HHN SCH ×5 (01:30→20:11)
[2018-11-18 04:00] VITALS: BP 110/65
[2018-11-18] MEDS: FUROSEMIDE 40MG/4ML VIAL IV SCH (06:07)
[2018-11-18] MEDS: SPIRONOLACTONE 25MG TABLET PO SCH ×2 (06:07→17:48)
[2018-11-18 08:00] VITALS: BP 112/64
[2018-11-18] MEDS: LOSARTAN POTASSIUM 25 MG TABLET PO SCH (08:53)
[2018-11-18] MEDS: POTASSIUM CHLORIDE 20MEQ TABLET SR PO SCH (08:53)
[2018-11-18] MEDS: APIXABAN 5 MG TABLET PO SCH ×2 (08:58→17:44)
[2018-11-18] MEDS: PREDNISONE 5MG TABLET PO SCH (08:58)
[2018-11-18] MEDS: BISACODYL 10MG SUPP PR SCH (09:00)
[2018-11-18 12:00] VITALS: BP 114/45
[2018-11-18] MEDS: CARVEDILOL 3.125 MG TABLET PO SCH ×2 (13:35→22:29)
[2018-11-18] MEDS: FUROSEMIDE 40MG TABLET PO SCH ×2 (13:35→20:18)
[2018-11-18] MEDS: NYSTATIN POWDER 15GM TOP SCH ×3 (13:36→17:48)
[2018-11-18 16:00] VITALS: BP 93/53
[2018-11-18 20:00] VITALS: BP 104/63
[2018-11-19 00:22] VITALS: BP 119/60
[2018-11-19] MEDS: IPRATROPIUM/ALBUTEROL 0.5-3(2.5)MG/3ML NEB HHN SCH ×4 (01:48→19:52)
[2018-11-19 04:00] VITALS: BP 94/68
[2018-11-19] MEDS: SPIRONOLACTONE 25MG TABLET PO SCH ×2 (06:05→17:23)
[2018-11-19] MEDS: METOCLOPRAMIDE HCL 10MG/2ML VIAL IV SCH ×5 (06:05→23:59)
[2018-11-19 07:10] LABS: BASOPHILS % 0.4 % (0.0-2.0); EOSINOPHILS % 1.9 % (0.0-5.0); HEMATOCRIT. 37.9 % (42.0-52.0); HEMOGLOBIN. 12.1 g/dL (14.0-18.0); LYMPHOCYTES % 8.9 % (20.0-50.0); MEAN CORPUSCULAR HEMOGLOBIN 27.1 pg (28.0-32.0); MEAN CORPUSCULAR VOLUME 85.3 fL (80.0-94.0); MEAN PLATELET VOLUME 9.3 fl (7.4-10.4); MONOCYTES % 6.9 % (2.0-8.0); NEUTROPHILS % 81.9 % (40.0-76.0); PLATELET 104 x1000/uL (130-400); RED BLOOD CELL COUNT 4.45 mill/uL (4.7-6.1); RED CELL DISTRIBUTION WIDTH 17.8 % (11.6-14.6)
[2018-11-19 07:22] LABS: CHLORIDE 89 mEq/L (98-107)
[2018-11-19 08:00] VITALS: BP 120/65
[2018-11-19] MEDS: PREDNISONE 5MG TABLET PO SCH (08:46)
[2018-11-19] MEDS: APIXABAN 5 MG TABLET PO SCH ×2 (08:46→17:23)
[2018-11-19] MEDS: POTASSIUM CHLORIDE 20MEQ TABLET SR PO SCH (08:46)
[2018-11-19] MEDS: NYSTATIN POWDER 15GM TOP SCH ×3 (08:47→17:23)
[2018-11-19] MEDS: BISACODYL 10MG SUPP PR SCH (08:47)
[2018-11-19] MEDS: LOSARTAN POTASSIUM 25 MG TABLET PO SCH (08:52)
[2018-11-19 12:00] VITALS: BP 112/54
[2018-11-19] MEDS: FUROSEMIDE 40MG TABLET PO SCH ×2 (13:44→20:04)
[2018-11-19] MEDS: CARVEDILOL 3.125 MG TABLET PO SCH ×2 (13:45→20:04)
[2018-11-19] MEDS: ACETAZOLAMIDE 250MG TABLET PO SCH ×3 (13:45→23:59)
[2018-11-19 16:00] VITALS: BP 91/50
[2018-11-19 20:00] VITALS: BP 80/40
[2018-11-20] VITALS: BP 130/61
[2018-11-20] MEDS: IPRATROPIUM/ALBUTEROL 0.5-3(2.5)MG/3ML NEB HHN SCH ×4 (01:25→21:34)
[2018-11-20 04:00] VITALS: BP 104/62
[2018-11-20] MEDS: METOCLOPRAMIDE HCL 10MG/2ML VIAL IV SCH ×4 (06:19→23:19)
[2018-11-20] MEDS: SPIRONOLACTONE 25MG TABLET PO SCH (06:19)
[2018-11-20] MEDS: ACETAZOLAMIDE 250MG TABLET PO SCH ×4 (06:19→23:19)
[2018-11-20 08:00] VITALS: BP 115/104
[2018-11-20] MEDS: BISACODYL 10MG SUPP PR SCH (08:58)
[2018-11-20] MEDS: APIXABAN 5 MG TABLET PO SCH ×2 (08:58→17:49)
[2018-11-20] MEDS: POTASSIUM CHLORIDE 20MEQ TABLET SR PO SCH (08:58)
[2018-11-20] MEDS: PREDNISONE 5MG TABLET PO SCH (09:00)
[2018-11-20] MEDS: NYSTATIN POWDER 15GM TOP SCH ×3 (09:00→17:50)
[2018-11-20] MEDS: LOSARTAN POTASSIUM 25 MG TABLET PO SCH (09:01)
[2018-11-20] MEDS: CARVEDILOL 3.125 MG TABLET PO SCH ×2 (11:06→23:00)
[2018-11-20] MEDS: FUROSEMIDE 40MG TABLET PO SCH ×2 (11:06→23:20)
[2018-11-20 12:03] VITALS: BP 116/71
[2018-11-20 15:52] VITALS: BP 108/51
[2018-11-21 00:15] VITALS: BP 109/65
[2018-11-21 04:00] VITALS: BP 139/70
[2018-11-21] MEDS: ACETAZOLAMIDE 250MG TABLET PO SCH ×3 (06:33→17:26)
[2018-11-21] MEDS: METOCLOPRAMIDE HCL 10MG/2ML VIAL IV SCH ×3 (06:33→17:26)
[2018-11-21] MEDS: LOSARTAN POTASSIUM 25 MG TABLET PO SCH (08:30)
[2018-11-21] MEDS: APIXABAN 5 MG TABLET PO SCH ×2 (08:30→17:26)
[2018-11-21] MEDS: BISACODYL 10MG SUPP PR SCH (08:30)
[2018-11-21] MEDS: POTASSIUM CHLORIDE 20MEQ TABLET SR PO SCH (08:30)
[2018-11-21] MEDS: NYSTATIN POWDER 15GM TOP SCH ×3 (08:31→17:32)
[2018-11-21] MEDS: SPIRONOLACTONE 25MG TABLET PO SCH (08:32)
[2018-11-21] MEDS: CARVEDILOL 3.125 MG TABLET PO SCH (11:00)
[2018-11-21 12:00] VITALS: BP 93/68
[2018-11-21] MEDS ORDERED: LACTULOSE 20G/30ML UDC PO NR (16:40)
[2018-11-21 20:00] VITALS: BP 103/57
[2018-11-22] VITALS: BP 99/56
[2018-11-22] MEDS: ACETAZOLAMIDE 250MG TABLET PO SCH ×2 (00:01→06:20)
[2018-11-22] MEDS: METOCLOPRAMIDE HCL 10MG/2ML VIAL IV SCH ×4 (00:01→17:41)
[2018-11-22] MEDS: FUROSEMIDE 20MG TABLET PO SCH ×2 (00:01→10:44)
[2018-11-22] MEDS: CARVEDILOL 3.125 MG TABLET PO SCH ×3 (00:01→23:00)
[2018-11-22 04:00] VITALS: BP 111/45
[2018-11-22 08:00] VITALS: BP 126/65
[2018-11-22] MEDS: LOSARTAN POTASSIUM 25 MG TABLET PO SCH (10:43)
[2018-11-22] MEDS: POTASSIUM CHLORIDE 20MEQ TABLET SR PO SCH (10:44)
[2018-11-22] MEDS: SPIRONOLACTONE 25MG TABLET PO SCH (10:44)
[2018-11-22] MEDS: BISACODYL 10MG SUPP PR SCH (10:45)
[2018-11-22] MEDS: APIXABAN 5 MG TABLET PO SCH ×2 (10:46→17:41)
[2018-11-22] MEDS: NYSTATIN POWDER 15GM TOP SCH ×3 (10:47→17:37)
[2018-11-22 12:00] VITALS: BP 118/74
[2018-11-22] MEDS ORDERED: NA PHOS,M-B/NA PHOS,DI-BA ENEMA 118ML PR NR (12:30)
[2018-11-22] MEDS: LACTULOSE 20G/30ML UDC PO SCH ×3 (13:07→20:19)
[2018-11-22 16:00] VITALS: BP 138/79
[2018-11-22 16:27] LABS: CHLORIDE 95 mEq/L (98-107)
[2018-11-22 16:28] LABS: HEMATOCRIT. 39.1 % (42.0-52.0); HEMOGLOBIN. 12.1 g/dL (14.0-18.0); MEAN CORPUSCULAR HEMOGLOBIN 26.8 pg (28.0-32.0); MEAN CORPUSCULAR VOLUME 86.9 fL (80.0-94.0); MEAN PLATELET VOLUME 9.8 fl (7.4-10.4); PLATELET 140 x1000/uL (130-400); RED CELL DISTRIBUTION WIDTH 17.6 % (11.6-14.6)
[2018-11-22 17:31] LABS: PLATELET ESTIMATE NORMAL
[2018-11-22 20:00] VITALS: BP 103/43
[2018-11-23] VITALS: BP 100/45
[2018-11-23] MEDS: FUROSEMIDE 20MG TABLET PO SCH ×3 (01:26→21:27)
[2018-11-23] MEDS: METOCLOPRAMIDE HCL 10MG/2ML VIAL IV SCH ×4 (01:26→17:34)
[2018-11-23 04:00] VITALS: BP 107/59
[2018-11-23 08:01] VITALS: BP 108/49
[2018-11-23] MEDS: BISACODYL 10MG SUPP PR SCH (09:00)
[2018-11-23] MEDS: POTASSIUM CHLORIDE 20MEQ TABLET SR PO SCH (09:00)
[2018-11-23] MEDS: APIXABAN 5 MG TABLET PO SCH ×2 (09:08→17:34)
[2018-11-23] MEDS: LOSARTAN POTASSIUM 25 MG TABLET PO SCH (09:08)
[2018-11-23] MEDS: SPIRONOLACTONE 25MG TABLET PO SCH (09:08)
[2018-11-23] MEDS: NYSTATIN POWDER 15GM TOP SCH ×3 (09:16→17:36)
[2018-11-23] MEDS: DOCUSATE SODIUM 100MG CAPSULE PO SCH ×2 (09:16→17:34)
[2018-11-23] MEDS: CARVEDILOL 3.125 MG TABLET PO SCH ×2 (11:00→23:00)
[2018-11-23 12:00] VITALS: BP 114/49
[2018-11-23 16:00] VITALS: BP 93/51
[2018-11-23 20:00] VITALS: BP 95/49
[2018-11-23] MEDS: POLYETHYLENE GLYCOL 3350 (17GM) 1 DOSE PACK PO SCH (21:27)
[2018-11-24] VITALS: BP 98/57
[2018-11-24] MEDS: METOCLOPRAMIDE HCL 10MG/2ML VIAL IV SCH ×5 (00:09→23:46)
[2018-11-24 04:00] VITALS: BP 106/56
[2018-11-24 08:00] VITALS: BP 89/43
[2018-11-24] MEDS: SPIRONOLACTONE 25MG TABLET PO SCH ×2 (08:36→08:40)
[2018-11-24] MEDS: POTASSIUM CHLORIDE 20MEQ TABLET SR PO SCH (08:37)
[2018-11-24] MEDS: BISACODYL 10MG SUPP PR SCH (08:38)
[2018-11-24] MEDS: DOCUSATE SODIUM 100MG CAPSULE PO SCH ×2 (08:39→17:15)
[2018-11-24] MEDS: NYSTATIN POWDER 15GM TOP SCH ×3 (08:39→17:15)
[2018-11-24] MEDS: APIXABAN 5 MG TABLET PO SCH ×2 (08:39→17:15)
[2018-11-24] MEDS: CARVEDILOL 3.125 MG TABLET PO SCH ×2 (11:00→23:00)
[2018-11-24] MEDS: FUROSEMIDE 20MG TABLET PO SCH ×2 (11:00→23:46)
[2018-11-24 12:00] VITALS: BP 96/46
[2018-11-24 16:00] VITALS: BP 95/68
[2018-11-24 20:00] VITALS: BP 112/58
[2018-11-24] MEDS: POLYETHYLENE GLYCOL 3350 (17GM) 1 DOSE PACK PO SCH (21:31)
[2018-11-25] VITALS: BP 107/62
[2018-11-25 04:00] VITALS: BP 110/60
[2018-11-25] MEDS: METOCLOPRAMIDE HCL 10MG/2ML VIAL IV SCH ×4 (05:23→23:34)
[2018-11-25] MEDS: POTASSIUM CHLORIDE 20MEQ TABLET SR PO SCH ×2 (09:00→09:34)
[2018-11-25] MEDS: BISACODYL 10MG SUPP PR SCH (09:34)
[2018-11-25] MEDS: DOCUSATE SODIUM 100MG CAPSULE PO SCH ×2 (09:34→18:15)
[2018-11-25] MEDS: APIXABAN 5 MG TABLET PO SCH ×2 (09:36→18:15)
[2018-11-25] MEDS: SPIRONOLACTONE 25MG TABLET PO SCH (09:36)
[2018-11-25] MEDS: NYSTATIN POWDER 15GM TOP SCH ×3 (09:50→18:15)
[2018-11-25] MEDS: FUROSEMIDE 20MG TABLET PO SCH ×2 (11:21→22:14)
[2018-11-25] MEDS: CARVEDILOL 3.125 MG TABLET PO SCH ×2 (11:22→22:13)
[2018-11-25 16:00] VITALS: BP 117/63
[2018-11-25 20:00] VITALS: BP 109/55
[2018-11-25] MEDS: POLYETHYLENE GLYCOL 3350 (17GM) 1 DOSE PACK PO SCH (21:06)
[2018-11-26] VITALS: BP 116/72
[2018-11-26 04:00] VITALS: BP 120/55
[2018-11-26] MEDS: METOCLOPRAMIDE HCL 10MG/2ML VIAL IV SCH ×4 (05:41→23:34)
[2018-11-26 08:00] VITALS: BP 103/71
[2018-11-26] MEDS: POTASSIUM CHLORIDE 20MEQ TABLET SR PO SCH (09:00)
[2018-11-26] MEDS: APIXABAN 5 MG TABLET PO SCH ×2 (10:28→17:12)
[2018-11-26] MEDS: FUROSEMIDE 20MG TABLET PO SCH ×2 (10:29→22:09)
[2018-11-26] MEDS: DOCUSATE SODIUM 100MG CAPSULE PO SCH ×2 (10:29→17:12)
[2018-11-26] MEDS: BISACODYL 10MG SUPP PR SCH (10:29)
[2018-11-26] MEDS: NYSTATIN POWDER 15GM TOP SCH ×3 (10:29→17:12)
[2018-11-26] MEDS: CARVEDILOL 3.125 MG TABLET PO SCH ×2 (10:30→22:09)
[2018-11-26] MEDS: SPIRONOLACTONE 25MG TABLET PO SCH (10:33)
[2018-11-26 12:00] VITALS: BP 124/65
[2018-11-26] MEDS ORDERED: POTASSIUM CHLORIDE 20MEQ/PACKET PO NR (12:30)
[2018-11-26 16:00] VITALS: BP 126/66
[2018-11-26 20:00] VITALS: BP_SYST 124; BP_SYST 149; BP_DIAS 106; BP_DIAS 61
[2018-11-26] MEDS: MORPHINE SULFATE 2 MG/ML CPJ (NOT FOR IM USE) IV PRN (20:36)
[2018-11-26] MEDS: POLYETHYLENE GLYCOL 3350 (17GM) 1 DOSE PACK PO SCH (20:39)
[2018-11-26] MEDS: ZOLPIDEM TARTRATE 5MG TABLET PO PRN ×2 (20:47→21:10)
[2018-11-27] VITALS: BP 118/66
[2018-11-27 04:00] VITALS: BP 125/71
[2018-11-27] MEDS: METOCLOPRAMIDE HCL 10MG/2ML VIAL IV SCH ×3 (05:39→16:44)
[2018-11-27 08:00] VITALS: BP 118/70
[2018-11-27] MEDS: BISACODYL 10MG SUPP PR SCH (09:00)
[2018-11-27] MEDS: APIXABAN 5 MG TABLET PO SCH ×2 (09:40→16:43)
[2018-11-27] MEDS: POTASSIUM CHLORIDE 20MEQ TABLET SR PO SCH (09:41)
[2018-11-27] MEDS: DOCUSATE SODIUM 100MG CAPSULE PO SCH ×2 (09:43→16:43)
[2018-11-27] MEDS: SPIRONOLACTONE 25MG TABLET PO SCH (09:44)
[2018-11-27] MEDS: NYSTATIN POWDER 15GM TOP SCH ×3 (09:44→16:44)
[2018-11-27] MEDS: FUROSEMIDE 20MG TABLET PO SCH (10:35)
[2018-11-27] MEDS: CARVEDILOL 3.125 MG TABLET PO SCH (10:35)
[2018-11-27 12:00] VITALS: BP 116/76
[2018-11-27] MEDS: MORPHINE SULFATE 2 MG/ML CPJ (NOT FOR IM USE) IV PRN (15:26)
[2018-11-27 16:00] VITALS: BP 106/63
[2018-11-27 20:00] VITALS: BP 118/80
[2018-11-27] MEDS: POLYETHYLENE GLYCOL 3350 (17GM) 1 DOSE PACK PO SCH (22:33)
[2018-11-28] VITALS (7 sets, daily range): BP systolic 112–122; BP diastolic 62–78
[2018-11-28] MEDS: METOCLOPRAMIDE HCL 10MG/2ML VIAL IV SCH ×4 (01:31→18:10)
[2018-11-28] MEDS: FUROSEMIDE 20MG TABLET PO SCH ×3 (01:31→22:14)
[2018-11-28] MEDS: CARVEDILOL 3.125 MG TABLET PO SCH ×3 (01:31→22:15)
[2018-11-28] MEDS: DOCUSATE SODIUM 100MG CAPSULE PO SCH ×2 (08:40→18:10)
[2018-11-28] MEDS: POTASSIUM CHLORIDE 20MEQ TABLET SR PO SCH (08:41)
[2018-11-28] MEDS: SPIRONOLACTONE 25MG TABLET PO SCH (08:41)
[2018-11-28] MEDS: BISACODYL 10MG SUPP PR SCH (08:41)
[2018-11-28] MEDS: APIXABAN 5 MG TABLET PO SCH ×2 (08:41→18:10)
[2018-11-28 12:53] LABS: BASOPHILS % 0.6 % (0.0-2.0); EOSINOPHILS % 0.9 % (0.0-5.0); HEMATOCRIT. 41.7 % (42.0-52.0); HEMOGLOBIN. 12.8 g/dL (14.0-18.0); MEAN CORPUSCULAR HEMOGLOBIN 26.5 pg (28.0-32.0); MEAN CORPUSCULAR VOLUME 86.2 fL (80.0-94.0); MEAN PLATELET VOLUME 9.6 fl (7.4-10.4); MONOCYTES % 8.9 % (2.0-8.0); NEUTROPHILS % 81.6 % (40.0-76.0); PLATELET 188 x1000/uL (130-400); RED BLOOD CELL COUNT 4.83 mill/uL (4.7-6.1); RED CELL DISTRIBUTION WIDTH 17.4 % (11.6-14.6)
[2018-11-28 12:57] LABS: CHLORIDE 93 mEq/L (98-107)
[2018-11-28] MEDS ORDERED: LISINOPRIL 2.5MG TABLET PO SCH (13:00)
[2018-11-28] MEDS: NYSTATIN POWDER 15GM TOP SCH ×3 (13:00→18:10)
[2018-11-28] MEDS: POLYETHYLENE GLYCOL 3350 (17GM) 1 DOSE PACK PO SCH (22:14)
[2018-11-29] VITALS: BP 119/80
[2018-11-29] MEDS: METOCLOPRAMIDE HCL 10MG/2ML VIAL IV SCH ×5 (00:39→23:44)
[2018-11-29 04:00] VITALS: BP 102/57
[2018-11-29] MEDS: MORPHINE SULFATE 2 MG/ML CPJ (NOT FOR IM USE) IV PRN ×2 (07:25→17:22)
[2018-11-29 08:00] VITALS: BP 127/66
[2018-11-29] MEDS: BISACODYL 10MG SUPP PR SCH ×2 (10:22→10:34)
[2018-11-29] MEDS: LISINOPRIL 2.5MG TABLET PO SCH (10:38)
[2018-11-29] MEDS: APIXABAN 5 MG TABLET PO SCH ×2 (10:39→17:12)
[2018-11-29] MEDS: DOCUSATE SODIUM 100MG CAPSULE PO SCH ×2 (10:39→17:12)
[2018-11-29] MEDS: SPIRONOLACTONE 25MG TABLET PO SCH (10:39)
[2018-11-29] MEDS: NYSTATIN POWDER 15GM TOP SCH ×3 (10:40→17:13)
[2018-11-29] MEDS: POTASSIUM CHLORIDE 20MEQ TABLET SR PO SCH (10:44)
[2018-11-29] MEDS: CARVEDILOL 3.125 MG TABLET PO SCH ×2 (11:00→21:50)
[2018-11-29 13:00] VITALS: BP 103/54
[2018-11-29] MEDS: FUROSEMIDE 20MG TABLET PO SCH ×2 (13:10→23:38)
[2018-11-29 16:00] VITALS: BP 116/56
[2018-11-29 20:07] VITALS: BP 112/60
[2018-11-29] MEDS: POLYETHYLENE GLYCOL 3350 (17GM) 1 DOSE PACK PO SCH (21:50)
[2018-11-29] MEDS: ZOLPIDEM TARTRATE 5MG TABLET PO PRN (23:38)
[2018-11-30] VITALS (7 sets, daily range): BP systolic 90–131; BP diastolic 44–70
[2018-11-30] MEDS: METOCLOPRAMIDE HCL 10MG/2ML VIAL IV SCH ×3 (05:05→17:12)
[2018-11-30] MEDS: LISINOPRIL 2.5MG TABLET PO SCH (09:00)
[2018-11-30] MEDS: FUROSEMIDE 40MG/4ML VIAL IVP SCH ×2 (09:00→20:30)
[2018-11-30] MEDS: BISACODYL 10MG SUPP PR SCH ×2 (09:00)
[2018-11-30] MEDS: NYSTATIN POWDER 15GM TOP SCH ×3 (09:00→17:18)
[2018-11-30] MEDS: LACTULOSE 20G/30ML UDC PO SCH ×4 (10:00→17:12)
[2018-11-30] MEDS: SPIRONOLACTONE 25MG TABLET PO SCH (10:18)
[2018-11-30] MEDS: DOCUSATE SODIUM 100MG CAPSULE PO SCH ×2 (10:18→17:12)
[2018-11-30] MEDS: APIXABAN 5 MG TABLET PO SCH (10:18)
[2018-11-30] MEDS: POTASSIUM CHLORIDE 20MEQ TABLET SR PO SCH (10:18)
[2018-11-30] MEDS: CARVEDILOL 3.125 MG TABLET PO SCH ×2 (11:00→22:04)
[2018-11-30] MEDS: MORPHINE SULFATE 2 MG/ML CPJ (NOT FOR IM USE) IV PRN ×2 (17:13→22:03)
[2018-11-30] MEDS: ZOLPIDEM TARTRATE 5MG TABLET PO PRN (17:17)
[2018-11-30] MEDS: POLYETHYLENE GLYCOL 3350 (17GM) 1 DOSE PACK PO SCH (20:30)
[2018-12-01] VITALS: BP 110/76
[2018-12-01] MEDS: METOCLOPRAMIDE HCL 10MG/2ML VIAL IV SCH ×4 (00:20→19:20)
[2018-12-01 04:00] VITALS: BP 99/68
[2018-12-01] MEDS: MORPHINE SULFATE 2 MG/ML CPJ (NOT FOR IM USE) IV PRN (04:55)
[2018-12-01 08:00] VITALS: BP 125/66
[2018-12-01] MEDS: NYSTATIN POWDER 15GM TOP SCH ×3 (09:00→17:00)
[2018-12-01] MEDS: SPIRONOLACTONE 25MG TABLET PO SCH (09:35)
[2018-12-01] MEDS: LISINOPRIL 2.5MG TABLET PO SCH (09:35)
[2018-12-01] MEDS: POTASSIUM CHLORIDE 20MEQ TABLET SR PO SCH (09:35)
[2018-12-01] MEDS: FUROSEMIDE 40MG/4ML VIAL IVP SCH ×2 (09:36→22:21)
[2018-12-01] MEDS: BISACODYL 10MG SUPP PR SCH ×2 (09:36→09:39)
[2018-12-01] MEDS: DOCUSATE SODIUM 100MG CAPSULE PO SCH ×2 (09:36→19:20)
[2018-12-01 12:00] VITALS: BP 117/61
[2018-12-01] MEDS: CARVEDILOL 3.125 MG TABLET PO SCH ×2 (13:27→22:21)
[2018-12-01] MEDS: METOLAZONE 2.5MG TABLET PO NR ×2 (13:35→13:39)
[2018-12-01 16:00] VITALS: BP 113/54
[2018-12-01 20:00] VITALS: BP 124/57
[2018-12-01] MEDS: POLYETHYLENE GLYCOL 3350 (17GM) 1 DOSE PACK PO SCH (22:21)
[2018-12-02] VITALS: BP 123/74
[2018-12-02] MEDS: METOCLOPRAMIDE HCL 10MG/2ML VIAL IV SCH ×5 (01:23→23:53)
[2018-12-02 04:00] VITALS: BP 133/77
[2018-12-02 06:55] LABS: BASOPHILS % 0.7 % (0.0-2.0); EOSINOPHILS % 2.1 % (0.0-5.0); HEMOGLOBIN. 12.5 g/dL (14.0-18.0); LYMPHOCYTES % 8.6 % (20.0-50.0); MEAN CORPUSCULAR VOLUME 85.9 fL (80.0-94.0); MEAN PLATELET VOLUME 9.4 fl (7.4-10.4); MONOCYTES % 8.2 % (2.0-8.0); NEUTROPHILS % 80.4 % (40.0-76.0); PLATELET 251 x1000/uL (130-400); RED BLOOD CELL COUNT 4.65 mill/uL (4.7-6.1); RED CELL DISTRIBUTION WIDTH 17.8 % (11.6-14.6)
[2018-12-02 07:03] LABS: CHLORIDE 94 mEq/L (98-107)
[2018-12-02 08:14] VITALS: BP 133/72
[2018-12-02] MEDS: BISACODYL 10MG SUPP PR SCH ×2 (09:00)
[2018-12-02] MEDS: DOCUSATE SODIUM 100MG CAPSULE PO SCH ×2 (10:44→17:00)
[2018-12-02] MEDS: SPIRONOLACTONE 25MG TABLET PO SCH (10:44)
[2018-12-02] MEDS: LISINOPRIL 2.5MG TABLET PO SCH (10:44)
[2018-12-02] MEDS: POTASSIUM CHLORIDE 20MEQ TABLET SR PO SCH (10:45)
[2018-12-02] MEDS: FUROSEMIDE 40MG/4ML VIAL IVP SCH ×2 (10:47→21:03)
[2018-12-02] MEDS: CARVEDILOL 3.125 MG TABLET PO SCH ×2 (11:00→23:53)
[2018-12-02] MEDS: NYSTATIN POWDER 15GM TOP SCH ×3 (12:11→17:00)
[2018-12-02 12:34] VITALS: BP 140/76
[2018-12-02] MEDS: LACTULOSE 20G/30ML UDC PO SCH ×2 (13:00→17:00)
[2018-12-02 16:53] VITALS: BP 129/64
[2018-12-02] MEDS: APIXABAN 5 MG TABLET PO SCH (17:00)
[2018-12-02 20:00] VITALS: BP 100/55
[2018-12-02] MEDS: POLYETHYLENE GLYCOL 3350 (17GM) 1 DOSE PACK PO SCH (21:03)
[2018-12-02] MEDS: IPRATROPIUM/ALBUTEROL 0.5-3(2.5)MG/3ML NEB HHN PRN (21:39)
[2018-12-03] VITALS: BP 113/59
[2018-12-03 04:00] VITALS: BP 112/56
[2018-12-03] MEDS: METOCLOPRAMIDE HCL 10MG/2ML VIAL IV SCH ×4 (05:59→23:15)
[2018-12-03 08:29] VITALS: BP 109/55
[2018-12-03] MEDS: LISINOPRIL 2.5MG TABLET PO SCH (09:00)
[2018-12-03] MEDS: APIXABAN 5 MG TABLET PO SCH ×2 (09:23→18:29)
[2018-12-03] MEDS: BISACODYL 10MG SUPP PR SCH (09:23)
[2018-12-03] MEDS: SPIRONOLACTONE 25MG TABLET PO SCH (09:23)
[2018-12-03] MEDS: POTASSIUM CHLORIDE 20MEQ TABLET SR PO SCH (09:23)
[2018-12-03] MEDS: DOCUSATE SODIUM 100MG CAPSULE PO SCH ×2 (09:23→17:00)
[2018-12-03] MEDS: FUROSEMIDE 40MG/4ML VIAL IVP SCH ×2 (09:35→20:52)
[2018-12-03] MEDS: NYSTATIN POWDER 15GM TOP SCH ×3 (09:35→17:00)
[2018-12-03] MEDS: CARVEDILOL 3.125 MG TABLET PO SCH ×2 (11:00→23:00)
[2018-12-03] MEDS: IPRATROPIUM/ALBUTEROL 0.5-3(2.5)MG/3ML NEB HHN PRN ×2 (12:11→20:44)
[2018-12-03 12:26] VITALS: BP 115/77
[2018-12-03 16:10] VITALS: BP 96/62
[2018-12-03 20:00] VITALS: BP 117/63
[2018-12-03] MEDS: POLYETHYLENE GLYCOL 3350 (17GM) 1 DOSE PACK PO SCH (20:53)
[2018-12-03] MEDS: MORPHINE SULFATE 2 MG/ML CPJ (NOT FOR IM USE) IV PRN (20:55)
[2018-12-04] VITALS: BP 97/64
[2018-12-04] MEDS: IPRATROPIUM/ALBUTEROL 0.5-3(2.5)MG/3ML NEB HHN PRN ×2 (03:55)
[2018-12-04 04:00] VITALS: BP 96/58
[2018-12-04] MEDS: METOCLOPRAMIDE HCL 10MG/2ML VIAL IV SCH ×3 (06:46→17:10)
[2018-12-04] MEDS: SPIRONOLACTONE 25MG TABLET PO SCH (09:00)
[2018-12-04] MEDS: NYSTATIN POWDER 15GM TOP SCH ×3 (09:00→17:10)
[2018-12-04] MEDS: LISINOPRIL 2.5MG TABLET PO SCH (09:00)
[2018-12-04] MEDS: POTASSIUM CHLORIDE 20MEQ TABLET SR PO SCH (09:00)
[2018-12-04] MEDS: APIXABAN 5 MG TABLET PO SCH ×2 (09:23→17:10)
[2018-12-04] MEDS: FUROSEMIDE 40MG/4ML VIAL IVP SCH ×2 (09:24→22:20)
[2018-12-04] MEDS: DOCUSATE SODIUM 100MG CAPSULE PO SCH ×2 (09:24→17:10)
[2018-12-04] MEDS: BISACODYL 10MG SUPP PR SCH (09:25)
[2018-12-04] MEDS: MORPHINE SULFATE 2 MG/ML CPJ (NOT FOR IM USE) IV PRN ×2 (09:30→17:22)
[2018-12-04] MEDS: CARVEDILOL 3.125 MG TABLET PO SCH ×2 (11:37→22:21)
[2018-12-04 12:00] VITALS: BP 99/61
[2018-12-04 16:00] VITALS: BP 107/62
[2018-12-04 20:00] VITALS: BP 109/73
[2018-12-04] MEDS: POLYETHYLENE GLYCOL 3350 (17GM) 1 DOSE PACK PO SCH (22:27)
[2018-12-05] VITALS: BP 94/62
[2018-12-05] MEDS: IPRATROPIUM/ALBUTEROL 0.5-3(2.5)MG/3ML NEB HHN PRN (00:33)
[2018-12-05] MEDS: METOCLOPRAMIDE HCL 10MG/2ML VIAL IV SCH ×5 (00:54→23:54)
[2018-12-05 04:00] VITALS: BP 127/64
[2018-12-05 08:00] VITALS: BP 104/60
[2018-12-05] MEDS: POTASSIUM CHLORIDE 20MEQ TABLET SR PO SCH (09:00)
[2018-12-05] MEDS: LISINOPRIL 2.5MG TABLET PO SCH (09:00)
[2018-12-05] MEDS: BISACODYL 10MG SUPP PR SCH (09:00)
[2018-12-05] MEDS: FUROSEMIDE 40MG/4ML VIAL IVP SCH (09:14)
[2018-12-05] MEDS: APIXABAN 5 MG TABLET PO SCH ×2 (09:15→18:55)
[2018-12-05] MEDS: DOCUSATE SODIUM 100MG CAPSULE PO SCH ×2 (09:15→18:55)
[2018-12-05] MEDS: NYSTATIN POWDER 15GM TOP SCH ×3 (09:15→17:00)
[2018-12-05] MEDS: SPIRONOLACTONE 25MG TABLET PO SCH (09:16)
[2018-12-05] MEDS: CARVEDILOL 3.125 MG TABLET PO SCH ×2 (11:00→23:53)
[2018-12-05 12:00] VITALS: BP 106/71
[2018-12-05] MEDS: TRAMADOL 50MG TABLET PO PRN (12:53)
[2018-12-05] MEDS ORDERED: DEXTROSE 50% WATER 50ML SYRINGE IV PRN (15:15)
[2018-12-05 16:00] VITALS: BP 110/76
[2018-12-05] MEDS: BLOOD SUGAR DIAGNOSTIC STRIP TEST SCH ×2 (17:20→21:00)
[2018-12-05] MEDS: INSULIN LISPRO 100 UNITS/ML SUBCUT SCH ×2 (17:50→21:00)
[2018-12-05 20:00] VITALS: BP 115/68
[2018-12-05] MEDS: POLYETHYLENE GLYCOL 3350 (17GM) 1 DOSE PACK PO SCH (21:00)
[2018-12-05] MEDS: FUROSEMIDE 100MG/10ML VIAL IVP SCH (21:08)
[2018-12-06] VITALS: BP 110/54
[2018-12-06 04:00] VITALS: BP 112/52
[2018-12-06] MEDS: METOCLOPRAMIDE HCL 10MG/2ML VIAL IV SCH ×3 (06:23→18:15)
[2018-12-06] MEDS: BLOOD SUGAR DIAGNOSTIC STRIP TEST SCH ×4 (06:44→21:00)
[2018-12-06] MEDS: INSULIN LISPRO 100 UNITS/ML SUBCUT SCH ×4 (07:50→22:28)
[2018-12-06 08:00] VITALS: BP 109/79
[2018-12-06] MEDS: LISINOPRIL 2.5MG TABLET PO SCH (09:00)
[2018-12-06] MEDS: BISACODYL 10MG SUPP PR SCH (09:00)
[2018-12-06] MEDS: SPIRONOLACTONE 25MG TABLET PO SCH (09:35)
[2018-12-06] MEDS: APIXABAN 5 MG TABLET PO SCH ×2 (09:36→18:15)
[2018-12-06] MEDS: POTASSIUM CHLORIDE 20MEQ TABLET SR PO SCH (09:36)
[2018-12-06] MEDS: DOCUSATE SODIUM 100MG CAPSULE PO SCH ×2 (09:37→18:15)
[2018-12-06] MEDS: FUROSEMIDE 100MG/10ML VIAL IVP SCH ×2 (09:38→21:00)
[2018-12-06 10:29] LABS: BG CARBOXYHEMOGLOBIN 1.2 % (0.5-1.5); BG DEOXYHEMOGLOBIN 11.1 % (0.0-5.0); BG FRACTION INSPIRED OXYGEN 32; BG HCO3 ACT 39.1 mmol/L (22.0-26.0); BG METHEMOGLOBIN 0.1 % (0.0-1.5); BG OXYGEN SATURATION 88.8 % (92.0-98.5); BG OXYHEMOGLOBIN 87.6 % (94.0-97.0); BG PCO2 75.9 mmHg (35.0-45.0); BG SAMPLE SITE RIGHT RADIAL; BG TOTAL HEMOGLOBIN 13.7 g/dL (12.0-18.0); BG VENT MODE NASAL CANNULA
[2018-12-06] MEDS: CARVEDILOL 3.125 MG TABLET PO SCH ×2 (11:00→23:00)
[2018-12-06 12:00] VITALS: BP 105/66
[2018-12-06] MEDS: NYSTATIN POWDER 15GM TOP SCH ×3 (13:00→18:15)
[2018-12-06 16:00] VITALS: BP 117/54
[2018-12-06] MEDS: IPRATROPIUM/ALBUTEROL 0.5-3(2.5)MG/3ML NEB HHN SCH ×2 (17:31→20:53)
[2018-12-06 20:00] VITALS: BP 97/55
[2018-12-06] MEDS: POLYETHYLENE GLYCOL 3350 (17GM) 1 DOSE PACK PO SCH (21:00)
[2018-12-06] MEDS: TRAMADOL 50MG TABLET PO PRN (23:43)
[2018-12-07] VITALS: BP 102/60
[2018-12-07] MEDS: METOCLOPRAMIDE HCL 10MG/2ML VIAL IV SCH ×4 (00:28→17:29)
[2018-12-07] MEDS: IPRATROPIUM/ALBUTEROL 0.5-3(2.5)MG/3ML NEB HHN SCH ×6 (00:51→21:22)
[2018-12-07] MEDS: ACETYLCYSTEINE 100MG/ML 10% VIAL 4ML INH SCH (00:51)
[2018-12-07 04:00] VITALS: BP 112/81
[2018-12-07] MEDS: CALCIUM CARBONATE 500MG TABLET CHEW PO PRN ×3 (04:37→17:29)
[2018-12-07] MEDS: BLOOD SUGAR DIAGNOSTIC STRIP TEST SCH ×4 (06:11→20:50)
[2018-12-07] MEDS: INSULIN LISPRO 100 UNITS/ML SUBCUT SCH ×4 (07:50→21:00)
[2018-12-07 08:04] VITALS: BP 125/85
[2018-12-07] MEDS: FUROSEMIDE 100MG/10ML VIAL IVP SCH ×2 (08:15→20:50)
[2018-12-07] MEDS: LISINOPRIL 2.5MG TABLET PO SCH (08:15)
[2018-12-07] MEDS: BISACODYL 10MG SUPP PR SCH (08:16)
[2018-12-07] MEDS: SPIRONOLACTONE 25MG TABLET PO SCH (08:16)
[2018-12-07] MEDS: DOCUSATE SODIUM 100MG CAPSULE PO SCH ×2 (08:16→17:29)
[2018-12-07] MEDS: APIXABAN 5 MG TABLET PO SCH ×2 (08:16→17:29)
[2018-12-07] MEDS: POTASSIUM CHLORIDE 20MEQ TABLET SR PO SCH (08:25)
[2018-12-07] MEDS: NYSTATIN POWDER 15GM TOP SCH ×3 (10:46→17:30)
[2018-12-07 12:36] LABS: HEMATOCRIT 37.7 % (42.0-52.0); HEMOGLOBIN 11.9 g/dL (14.0-18.0); MEAN CORPUSCULAR HEMOGLOBIN 26.6 pg (28.0-32.0); MEAN CORPUSCULAR VOLUME 84.3 fL (80.0-94.0); PLATELET 166 x1000/uL (130-400); RED BLOOD CELL COUNT 4.47 mill/uL (4.7-6.1); RED CELL DISTRIBUTION WIDTH 17.4 % (11.6-14.6)
[2018-12-07 12:46] LABS: CHLORIDE 90 mEq/L (98-107)
[2018-12-07] MEDS: CARVEDILOL 3.125 MG TABLET PO SCH ×2 (12:56→23:59)
[2018-12-07 13:00] VITALS: BP 122/69
[2018-12-07 16:15] VITALS: BP 90/60
[2018-12-07 20:00] VITALS: BP 112/77
[2018-12-07] MEDS: POLYETHYLENE GLYCOL 3350 (17GM) 1 DOSE PACK PO SCH (20:50)
[2018-12-08] VITALS: BP 141/66
[2018-12-08] MEDS: METOCLOPRAMIDE HCL 10MG/2ML VIAL IV SCH ×5 (00:03→23:25)
[2018-12-08] MEDS: IPRATROPIUM/ALBUTEROL 0.5-3(2.5)MG/3ML NEB HHN SCH ×6 (00:12→19:48)
[2018-12-08 04:00] VITALS: BP 123/72
[2018-12-08] MEDS: BLOOD SUGAR DIAGNOSTIC STRIP TEST SCH ×4 (06:57→21:43)
[2018-12-08] MEDS: INSULIN LISPRO 100 UNITS/ML SUBCUT SCH ×4 (07:50→21:00)
[2018-12-08 08:47] VITALS: BP 82/43
[2018-12-08] MEDS: LISINOPRIL 2.5MG TABLET PO SCH (09:00)
[2018-12-08] MEDS: POTASSIUM CHLORIDE 20MEQ TABLET SR PO SCH ×2 (09:00→09:38)
[2018-12-08] MEDS: SPIRONOLACTONE 25MG TABLET PO SCH (09:00)
[2018-12-08] MEDS: FUROSEMIDE 100MG/10ML VIAL IVP SCH ×2 (09:36→21:54)
[2018-12-08] MEDS: DOCUSATE SODIUM 100MG CAPSULE PO SCH ×2 (09:37→17:40)
[2018-12-08] MEDS: NYSTATIN POWDER 15GM TOP SCH ×3 (09:38→17:41)
[2018-12-08] MEDS: BISACODYL 10MG SUPP PR SCH (09:38)
[2018-12-08] MEDS: APIXABAN 5 MG TABLET PO SCH ×2 (09:38→17:40)
[2018-12-08 11:48] VITALS: BP 101/64
[2018-12-08] MEDS: CARVEDILOL 3.125 MG TABLET PO SCH ×2 (11:57→23:25)
[2018-12-08] MEDS: CALCIUM CARBONATE 500MG TABLET CHEW PO PRN (14:43)
[2018-12-08 15:54] VITALS: BP 118/68
[2018-12-08 20:39] VITALS: BP 105/66
[2018-12-08] MEDS: POLYETHYLENE GLYCOL 3350 (17GM) 1 DOSE PACK PO SCH (21:00)
[2018-12-09] MEDS: IPRATROPIUM/ALBUTEROL 0.5-3(2.5)MG/3ML NEB HHN SCH ×6 (00:20→20:46)
[2018-12-09] MEDS: ACETYLCYSTEINE 100MG/ML 10% VIAL 4ML INH SCH ×4 (00:20→16:29)
[2018-12-09 00:42] VITALS: BP 118/62
[2018-12-09 04:00] VITALS: BP 92/57
[2018-12-09] MEDS: CALCIUM CARBONATE 500MG TABLET CHEW PO PRN ×2 (04:05→12:17)
[2018-12-09] MEDS: METOCLOPRAMIDE HCL 10MG/2ML VIAL IV SCH ×3 (06:15→18:00)
[2018-12-09] MEDS: BLOOD SUGAR DIAGNOSTIC STRIP TEST SCH ×4 (06:37→21:34)
[2018-12-09] MEDS: INSULIN LISPRO 100 UNITS/ML SUBCUT SCH ×4 (07:50→21:00)
[2018-12-09 08:00] VITALS: BP 110/67
[2018-12-09] MEDS: BISACODYL 10MG SUPP PR SCH (09:00)
[2018-12-09] MEDS: POTASSIUM CHLORIDE 20MEQ TABLET SR PO SCH (09:00)
[2018-12-09] MEDS: DOCUSATE SODIUM 100MG CAPSULE PO SCH (10:01)
[2018-12-09] MEDS: FUROSEMIDE 100MG/10ML VIAL IVP SCH ×2 (10:01→21:00)
[2018-12-09] MEDS: NYSTATIN POWDER 15GM TOP SCH ×3 (10:01→17:00)
[2018-12-09] MEDS: LISINOPRIL 2.5MG TABLET PO SCH (10:01)
[2018-12-09] MEDS: SPIRONOLACTONE 25MG TABLET PO SCH (10:02)
[2018-12-09] MEDS: APIXABAN 5 MG TABLET PO SCH ×2 (10:02→18:29)
[2018-12-09] MEDS: CARVEDILOL 3.125 MG TABLET PO SCH (11:00)
[2018-12-09 12:00] VITALS: BP 96/52
[2018-12-09] MEDS: SODIUM CHLORIDE 0.9% 1,000 ML IV SCH (14:52)
[2018-12-09 16:00] VITALS: BP 93/62
[2018-12-09 20:00] VITALS: BP 86/42
[2018-12-10] VITALS: BP 101/61
[2018-12-10] MEDS: CARVEDILOL 3.125 MG TABLET PO SCH ×2 (00:01→11:00)
[2018-12-10] MEDS: METOCLOPRAMIDE HCL 10MG/2ML VIAL IV SCH ×4 (00:01→19:37)
[2018-12-10] MEDS: IPRATROPIUM/ALBUTEROL 0.5-3(2.5)MG/3ML NEB HHN SCH ×6 (00:30→20:15)
[2018-12-10] MEDS: TRAMADOL 50MG TABLET PO PRN (02:28)
[2018-12-10] MEDS: SODIUM CHLORIDE 0.9% 1,000 ML IV SCH (02:32)
[2018-12-10 04:00] VITALS: BP 103/66
[2018-12-10 07:03] LABS: CHLORIDE 89 mEq/L (98-107)
[2018-12-10] MEDS: BLOOD SUGAR DIAGNOSTIC STRIP TEST SCH ×4 (07:08→20:44)
[2018-12-10 07:19] LABS: EOSINOPHILS % 2.8 % (0.0-5.0); HEMATOCRIT. 37.4 % (42.0-52.0); HEMOGLOBIN. 11.7 g/dL (14.0-18.0); LYMPHOCYTES % 9.7 % (20.0-50.0); MEAN CORPUSCULAR HEMOGLOBIN 26.6 pg (28.0-32.0); MEAN CORPUSCULAR VOLUME 85.1 fL (80.0-94.0); MEAN PLATELET VOLUME 9.8 fl (7.4-10.4); MONOCYTES % 12.6 % (2.0-8.0); NEUTROPHILS % 73.9 % (40.0-76.0); PLATELET 175 x1000/uL (130-400); RED BLOOD CELL COUNT 4.39 mill/uL (4.7-6.1); RED CELL DISTRIBUTION WIDTH 17.6 % (11.6-14.6)
[2018-12-10] MEDS: CALCIUM CARBONATE 500MG TABLET CHEW PO PRN (07:35)
[2018-12-10] MEDS: INSULIN LISPRO 100 UNITS/ML SUBCUT SCH ×4 (07:50→20:47)
[2018-12-10] MEDS: ACETYLCYSTEINE 100MG/ML 10% VIAL 4ML INH SCH ×3 (07:58→20:15)
[2018-12-10 08:00] VITALS: BP 116/74
[2018-12-10] MEDS: POTASSIUM CHLORIDE 20MEQ TABLET SR PO SCH (09:00)
[2018-12-10] MEDS: LISINOPRIL 2.5MG TABLET PO SCH (09:50)
[2018-12-10] MEDS: APIXABAN 5 MG TABLET PO SCH ×2 (09:56→19:37)
[2018-12-10] MEDS: FUROSEMIDE 100MG/10ML VIAL IVP SCH ×2 (09:56→20:44)
[2018-12-10] MEDS: BISACODYL 10MG SUPP PR SCH (11:39)
[2018-12-10 12:00] VITALS: BP 92/51
[2018-12-10 16:00] VITALS: BP 117/61
[2018-12-10 20:00] VITALS: BP 119/53
[2018-12-11] VITALS (7 sets, daily range): BP systolic 95–153; BP diastolic 62–74
[2018-12-11] MEDS: METOCLOPRAMIDE HCL 10MG/2ML VIAL IV SCH ×5 (00:17→23:43)
[2018-12-11] MEDS: CARVEDILOL 3.125 MG TABLET PO SCH ×3 (00:17→23:43)
[2018-12-11] MEDS: IPRATROPIUM/ALBUTEROL 0.5-3(2.5)MG/3ML NEB HHN SCH ×6 (00:24→20:47)
[2018-12-11] MEDS: ACETYLCYSTEINE 100MG/ML 10% VIAL 4ML INH SCH ×2 (04:37→15:19)
[2018-12-11] MEDS: BLOOD SUGAR DIAGNOSTIC STRIP TEST SCH ×4 (06:33→21:21)
[2018-12-11] MEDS: INSULIN LISPRO 100 UNITS/ML SUBCUT SCH ×5 (07:45→21:21)
[2018-12-11] MEDS: LISINOPRIL 2.5MG TABLET PO SCH (09:00)
[2018-12-11] MEDS: BISACODYL 10MG SUPP PR SCH (09:52)
[2018-12-11] MEDS: APIXABAN 5 MG TABLET PO SCH ×2 (09:52→18:31)
[2018-12-11] MEDS: FUROSEMIDE 100MG/10ML VIAL IVP SCH ×2 (09:52→21:17)
[2018-12-11] MEDS: POTASSIUM CHLORIDE 20MEQ TABLET SR PO SCH (09:52)
[2018-12-11 10:23] LABS: BASOPHILS % 0.6 % (0.0-2.0); EOSINOPHILS % 2.2 % (0.0-5.0); HEMATOCRIT. 43.3 % (42.0-52.0); HEMOGLOBIN. 13.3 g/dL (14.0-18.0); LYMPHOCYTES % 9.3 % (20.0-50.0); MEAN CORPUSCULAR HEMOGLOBIN 26.4 pg (28.0-32.0); MEAN PLATELET VOLUME 9.7 fl (7.4-10.4); MONOCYTES % 10.6 % (2.0-8.0); NEUTROPHILS % 77.3 % (40.0-76.0); PLATELET 195 x1000/uL (130-400); RED BLOOD CELL COUNT 5.04 mill/uL (4.7-6.1); RED CELL DISTRIBUTION WIDTH 17.5 % (11.6-14.6)
[2018-12-11 10:34] LABS: CHLORIDE 92 mEq/L (98-107)
[2018-12-11] MEDS: TRAMADOL 50MG TABLET PO PRN (21:24)
[2018-12-11] MEDS: CALCIUM CARBONATE 500MG TABLET CHEW PO PRN (21:25)
[2018-12-12] VITALS: BP 107/61
[2018-12-12] MEDS: IPRATROPIUM/ALBUTEROL 0.5-3(2.5)MG/3ML NEB HHN SCH ×6 (00:22→20:36)
[2018-12-12] MEDS: ACETYLCYSTEINE 100MG/ML 10% VIAL 4ML INH SCH (00:23)
[2018-12-12 04:00] VITALS: BP 109/67
[2018-12-12] MEDS: TRAMADOL 50MG TABLET PO PRN (05:00)
[2018-12-12] MEDS: METOCLOPRAMIDE HCL 10MG/2ML VIAL IV SCH ×4 (05:01→23:58)
[2018-12-12 07:06] LABS: BASOPHILS % 0.8 % (0.0-2.0); EOSINOPHILS % 2.8 % (0.0-5.0); HEMATOCRIT. 39.2 % (42.0-52.0); HEMOGLOBIN. 11.9 g/dL (14.0-18.0); LYMPHOCYTES % 10.5 % (20.0-50.0); MEAN CORPUSCULAR HEMOGLOBIN 25.9 pg (28.0-32.0); MEAN CORPUSCULAR VOLUME 85.4 fL (80.0-94.0); MEAN PLATELET VOLUME 9.8 fl (7.4-10.4); MONOCYTES % 11.4 % (2.0-8.0); NEUTROPHILS % 74.5 % (40.0-76.0); PLATELET 202 x1000/uL (130-400); RED CELL DISTRIBUTION WIDTH 17.1 % (11.6-14.6)
[2018-12-12] MEDS: BLOOD SUGAR DIAGNOSTIC STRIP TEST SCH ×4 (07:20→21:45)
[2018-12-12 07:22] LABS: CHLORIDE 91 mEq/L (98-107)
[2018-12-12] MEDS: INSULIN LISPRO 100 UNITS/ML SUBCUT SCH ×4 (07:50→21:00)
[2018-12-12] MEDS: MORPHINE SULFATE 2 MG/ML CPJ (NOT FOR IM USE) IV PRN ×3 (08:13→15:51)
[2018-12-12 08:34] VITALS: BP 103/69
[2018-12-12] MEDS: POTASSIUM CHLORIDE 20MEQ TABLET SR PO SCH (09:00)
[2018-12-12] MEDS: BISACODYL 10MG SUPP PR SCH (09:00)
[2018-12-12] MEDS: FUROSEMIDE 100MG/10ML VIAL IVP SCH (09:00)
[2018-12-12] MEDS: LISINOPRIL 2.5MG TABLET PO SCH (09:00)
[2018-12-12] MEDS: APIXABAN 5 MG TABLET PO SCH ×2 (09:00→17:45)
[2018-12-12] MEDS: CARVEDILOL 3.125 MG TABLET PO SCH ×2 (11:10→23:00)
[2018-12-12 11:49] VITALS: BP 125/74
[2018-12-12] MEDS: FUROSEMIDE 20MG TABLET PO SCH ×2 (14:00→21:45)
[2018-12-12 15:46] VITALS: BP 91/53
[2018-12-12 20:51] VITALS: BP 113/66
[2018-12-13] MEDS: IPRATROPIUM/ALBUTEROL 0.5-3(2.5)MG/3ML NEB HHN SCH ×6 (00:13→20:32)
[2018-12-13 00:15] VITALS: BP 90/51
[2018-12-13 04:00] VITALS: BP 143/65
[2018-12-13] MEDS: FUROSEMIDE 20MG TABLET PO SCH ×2 (05:26→19:08)
[2018-12-13] MEDS: METOCLOPRAMIDE HCL 10MG/2ML VIAL IV SCH ×3 (05:26→19:09)
[2018-12-13] MEDS: BLOOD SUGAR DIAGNOSTIC STRIP TEST SCH ×5 (06:24→21:30)
[2018-12-13] MEDS: INSULIN LISPRO 100 UNITS/ML SUBCUT SCH ×3 (07:50→17:50)
[2018-12-13 08:23] VITALS: BP 88/56
[2018-12-13] MEDS: LISINOPRIL 2.5MG TABLET PO SCH (09:00)
[2018-12-13 10:23] LABS: HEMATOCRIT. 39.9 % (42.0-52.0); HEMOGLOBIN. 12.8 g/dL (14.0-18.0); MEAN CORPUSCULAR HEMOGLOBIN 27.3 pg (28.0-32.0); MEAN CORPUSCULAR VOLUME 85.1 fL (80.0-94.0); MEAN PLATELET VOLUME 9.6 fl (7.4-10.4); PLATELET 190 x1000/uL (130-400); RED BLOOD CELL COUNT 4.69 mill/uL (4.7-6.1); RED CELL DISTRIBUTION WIDTH 17.5 % (11.6-14.6)
[2018-12-13 10:30] LABS: CHLORIDE 91 mEq/L (98-107)
[2018-12-13] MEDS: APIXABAN 5 MG TABLET PO SCH ×2 (10:55→19:08)
[2018-12-13] MEDS: CALCIUM CARBONATE 500MG TABLET CHEW PO PRN ×2 (10:55→19:07)
[2018-12-13] MEDS: BISACODYL 10MG SUPP PR SCH (10:55)
[2018-12-13] MEDS: CARVEDILOL 3.125 MG TABLET PO SCH (11:00)
[2018-12-13] MEDS ORDERED: MORPHINE SULFATE 2 MG/ML CPJ (NOT FOR IM USE) IV PRN (11:00)
[2018-12-13 11:58] VITALS: BP 101/57
[2018-12-13 13:15] LABS: PLATELET ESTIMATE NORMAL
[2018-12-13 16:16] VITALS: BP 97/53
[2018-12-13 20:00] VITALS: BP 64/42
[2018-12-14] MEDS: IPRATROPIUM/ALBUTEROL 0.5-3(2.5)MG/3ML NEB HHN SCH ×6 (00:26→21:38)
[2018-12-14] MEDS: FUROSEMIDE 20MG TABLET PO SCH ×4 (00:40→21:00)
[2018-12-14] MEDS: METOCLOPRAMIDE HCL 10MG/2ML VIAL IV SCH ×4 (00:44→18:39)
[2018-12-14] MEDS: CARVEDILOL 3.125 MG TABLET PO SCH ×3 (00:44→17:15)
[2018-12-14] MEDS: BLOOD SUGAR DIAGNOSTIC STRIP TEST SCH (01:13)
[2018-12-14 02:40] VITALS: BP 116/67
[2018-12-14 08:00] VITALS: BP 108/43
[2018-12-14 08:28] LABS: BASOPHILS % 0.8 % (0.0-2.0); EOSINOPHILS % 2.9 % (0.0-5.0); HEMATOCRIT. 37.4 % (42.0-52.0); HEMOGLOBIN. 11.7 g/dL (14.0-18.0); LYMPHOCYTES % 10.2 % (20.0-50.0); MEAN CORPUSCULAR HEMOGLOBIN 26.6 pg (28.0-32.0); MEAN CORPUSCULAR VOLUME 84.8 fL (80.0-94.0); MEAN PLATELET VOLUME 9.6 fl (7.4-10.4); MONOCYTES % 11.3 % (2.0-8.0); NEUTROPHILS % 74.8 % (40.0-76.0); PLATELET 193 x1000/uL (130-400); RED BLOOD CELL COUNT 4.41 mill/uL (4.7-6.1); RED CELL DISTRIBUTION WIDTH 17.2 % (11.6-14.6)
[2018-12-14 08:29] LABS: CHLORIDE 93 mEq/L (98-107)
[2018-12-14] MEDS: LISINOPRIL 2.5MG TABLET PO SCH (09:00)
[2018-12-14] MEDS: BISACODYL 10MG SUPP PR SCH (09:00)
[2018-12-14 12:00] VITALS: BP 95/56
[2018-12-14] MEDS: APIXABAN 5 MG TABLET PO SCH ×3 (13:08→21:00)
[2018-12-14] MEDS: CALCIUM CARBONATE 500MG TABLET CHEW PO PRN ×2 (13:08→23:00)
[2018-12-14 15:41] VITALS: BP 162/83
[2018-12-14 20:27] VITALS: BP 128/65
[2018-12-14] MEDS: INSULIN LISPRO 100 UNITS/ML SUBCUT SCH (21:11)
[2018-12-15] VITALS (7 sets, daily range): BP systolic 92–156; BP diastolic 54–81
[2018-12-15] MEDS: METOCLOPRAMIDE HCL 10MG/2ML VIAL IV SCH ×4 (00:47→17:23)
[2018-12-15] MEDS: IPRATROPIUM/ALBUTEROL 0.5-3(2.5)MG/3ML NEB HHN SCH ×5 (01:03→20:51)
[2018-12-15] MEDS: FUROSEMIDE 20MG TABLET PO SCH ×3 (05:14→21:57)
[2018-12-15] MEDS: CARVEDILOL 3.125 MG TABLET PO SCH ×2 (06:21→17:23)
[2018-12-15] MEDS: BLOOD SUGAR DIAGNOSTIC STRIP TEST SCH ×4 (06:35→21:57)
[2018-12-15] MEDS: INSULIN LISPRO 100 UNITS/ML SUBCUT SCH ×4 (07:50→21:00)
[2018-12-15] MEDS: LISINOPRIL 2.5MG TABLET PO SCH (09:00)
[2018-12-15] MEDS: BISACODYL 10MG SUPP PR SCH (09:00)
[2018-12-15] MEDS: APIXABAN 5 MG TABLET PO SCH ×2 (09:52→17:23)
[2018-12-15] MEDS: TRAMADOL 50MG TABLET PO PRN (13:01)
[2018-12-15] MEDS: CALCIUM CARBONATE 500MG TABLET CHEW PO PRN (15:42)
[2018-12-16 00:15] VITALS: BP 115/66
[2018-12-16] MEDS: IPRATROPIUM/ALBUTEROL 0.5-3(2.5)MG/3ML NEB HHN SCH ×5 (01:46→20:10)
[2018-12-16 04:00] VITALS: BP 100/64
[2018-12-16] MEDS: CARVEDILOL 3.125 MG TABLET PO SCH (05:00)
[2018-12-16] MEDS: FUROSEMIDE 20MG TABLET PO SCH ×3 (05:32→22:01)
[2018-12-16] MEDS: BLOOD SUGAR DIAGNOSTIC STRIP TEST SCH ×4 (06:20→22:00)
[2018-12-16] MEDS: INSULIN LISPRO 100 UNITS/ML SUBCUT SCH ×4 (07:50→22:00)
[2018-12-16 08:00] VITALS: BP 95/64
[2018-12-16] MEDS: LISINOPRIL 2.5MG TABLET PO SCH (09:00)
[2018-12-16] MEDS: APIXABAN 5 MG TABLET PO SCH ×2 (09:00→17:00)
[2018-12-16] MEDS: BISACODYL 10MG SUPP PR SCH (10:18)
[2018-12-16 12:00] VITALS: BP 98/68
[2018-12-16 15:12] LABS: 25-HYDROXY VITAMIN D3 20 ng/mL (.)
[2018-12-16 16:00] VITALS: BP 110/56
[2018-12-16] MEDS ORDERED: CARVEDILOL 3.125 MG TABLET PO SCH (17:00)
[2018-12-16 20:49] VITALS: BP 110/56
[2018-12-16] MEDS: ERGOCALCIFEROL 50000UNITS CAPSULE PO SCH (22:30)
[2018-12-17] MEDS: IPRATROPIUM/ALBUTEROL 0.5-3(2.5)MG/3ML NEB HHN SCH ×7 (00:01→23:59)
[2018-12-17 00:31] VITALS: BP 107/67
[2018-12-17 04:00] VITALS: BP 98/65
[2018-12-17] MEDS: BLOOD SUGAR DIAGNOSTIC STRIP TEST SCH ×4 (06:52→21:00)
[2018-12-17] MEDS: FUROSEMIDE 20MG TABLET PO SCH ×3 (06:54→22:12)
[2018-12-17] MEDS: INSULIN LISPRO 100 UNITS/ML SUBCUT SCH ×4 (07:50→21:00)
[2018-12-17] MEDS: LISINOPRIL 2.5MG TABLET PO SCH (08:48)
[2018-12-17] MEDS: APIXABAN 5 MG TABLET PO SCH ×2 (08:49→18:33)
[2018-12-17 09:00] VITALS: BP 106/76
[2018-12-17 12:00] VITALS: BP 125/57
[2018-12-17 14:25] LABS: CHLORIDE 92 mEq/L (98-107)
[2018-12-17 14:34] LABS: HEMATOCRIT. 37.9 % (42.0-52.0); HEMOGLOBIN. 11.7 g/dL (14.0-18.0); MEAN CORPUSCULAR HEMOGLOBIN 26.3 pg (28.0-32.0); MEAN CORPUSCULAR VOLUME 84.8 fL (80.0-94.0); MEAN PLATELET VOLUME 9.8 fl (7.4-10.4); PLATELET 172 x1000/uL (130-400); RED BLOOD CELL COUNT 4.47 mill/uL (4.7-6.1); RED CELL DISTRIBUTION WIDTH 17.2 % (11.6-14.6)
[2018-12-17 16:00] VITALS: BP 108/65
[2018-12-17 17:12] LABS: PLATELET ESTIMATE NORMAL
[2018-12-17] MEDS: BISACODYL 10MG SUPP PR SCH (18:33)
[2018-12-17 20:00] VITALS: BP 101/49
[2018-12-18 00:45] VITALS: BP 104/52
[2018-12-18 04:00] VITALS: BP 114/65
[2018-12-18] MEDS: IPRATROPIUM/ALBUTEROL 0.5-3(2.5)MG/3ML NEB HHN SCH ×5 (05:21→21:33)
[2018-12-18] MEDS: FUROSEMIDE 20MG TABLET PO SCH ×3 (05:52→21:35)
[2018-12-18 08:00] VITALS: BP 108/69
[2018-12-18] MEDS: BLOOD SUGAR DIAGNOSTIC STRIP TEST SCH ×4 (08:09→21:34)
[2018-12-18] MEDS: APIXABAN 5 MG TABLET PO SCH ×2 (08:42→17:15)
[2018-12-18] MEDS: INSULIN LISPRO 100 UNITS/ML SUBCUT SCH ×4 (08:47→21:00)
[2018-12-18] MEDS: BISACODYL 10MG SUPP PR SCH (08:50)
[2018-12-18] MEDS: LISINOPRIL 2.5MG TABLET PO SCH (08:50)
[2018-12-18 12:00] VITALS: BP 100/62
[2018-12-18] MEDS ORDERED: FUROSEMIDE 40MG/4ML VIAL IVP NR (12:15)
[2018-12-18] MEDS: MORPHINE SULFATE 2 MG/ML CPJ (NOT FOR IM USE) IV PRN (13:53)
[2018-12-18 16:00] VITALS: BP 117/62
[2018-12-18 20:00] VITALS: BP 95/61
[2018-12-18] MEDS: CARVEDILOL 3.125 MG TABLET PO SCH (21:00)
[2018-12-19] VITALS: BP 111/70
[2018-12-19] MEDS: IPRATROPIUM/ALBUTEROL 0.5-3(2.5)MG/3ML NEB HHN SCH ×6 (01:13→21:10)
[2018-12-19 04:00] VITALS: BP 142/82
[2018-12-19] MEDS: FUROSEMIDE 20MG TABLET PO SCH (06:19)
[2018-12-19] MEDS: BLOOD SUGAR DIAGNOSTIC STRIP TEST SCH ×4 (06:20→21:00)
[2018-12-19 07:22] LABS: HEMATOCRIT. 38.3 % (42.0-52.0); HEMOGLOBIN. 11.8 g/dL (14.0-18.0); MEAN CORPUSCULAR HEMOGLOBIN 26.3 pg (28.0-32.0); MEAN CORPUSCULAR VOLUME 85.6 fL (80.0-94.0); MEAN PLATELET VOLUME 9.3 fl (7.4-10.4); PLATELET 177 x1000/uL (130-400); RED BLOOD CELL COUNT 4.48 mill/uL (4.7-6.1); RED CELL DISTRIBUTION WIDTH 17.4 % (11.6-14.6)
[2018-12-19 07:38] LABS: CHLORIDE 91 mEq/L (98-107)
[2018-12-19] MEDS: INSULIN LISPRO 100 UNITS/ML SUBCUT SCH ×4 (07:50→21:00)
[2018-12-19 08:00] VITALS: BP 136/80
[2018-12-19] MEDS: CALCIUM CARBONATE 500MG TABLET CHEW PO PRN (09:09)
[2018-12-19] MEDS: LISINOPRIL 2.5MG TABLET PO SCH (09:09)
[2018-12-19] MEDS: CARVEDILOL 3.125 MG TABLET PO SCH ×2 (09:10→21:01)
[2018-12-19] MEDS: BISACODYL 10MG SUPP PR SCH (09:10)
[2018-12-19] MEDS: APIXABAN 5 MG TABLET PO SCH ×2 (09:15→17:42)
[2018-12-19 12:00] VITALS: BP 112/75
[2018-12-19 13:07] LABS: PLATELET ESTIMATE NORMAL
[2018-12-19 16:00] VITALS: BP 94/60
[2018-12-19] MEDS: FUROSEMIDE 40MG TABLET PO SCH (17:43)
[2018-12-19] MEDS ORDERED: POTASSIUM CHLORIDE 20MEQ TABLET SR PO NR (17:45)
[2018-12-19 20:00] VITALS: BP 106/78
[2018-12-20] VITALS: BP 115/60
[2018-12-20] MEDS: IPRATROPIUM/ALBUTEROL 0.5-3(2.5)MG/3ML NEB HHN SCH ×6 (00:56→21:46)
[2018-12-20 04:00] VITALS: BP 109/73
[2018-12-20] MEDS: FUROSEMIDE 40MG TABLET PO SCH ×2 (06:03→17:29)
[2018-12-20] MEDS: BLOOD SUGAR DIAGNOSTIC STRIP TEST SCH ×4 (07:20→21:46)
[2018-12-20] MEDS: INSULIN LISPRO 100 UNITS/ML SUBCUT SCH ×4 (07:50→21:00)
[2018-12-20 08:00] VITALS: BP 100/84
[2018-12-20 08:15] LABS: HEMATOCRIT. 39.4 % (42.0-52.0); HEMOGLOBIN. 12.1 g/dL (14.0-18.0); MEAN CORPUSCULAR HEMOGLOBIN 26.3 pg (28.0-32.0); MEAN CORPUSCULAR VOLUME 85.9 fL (80.0-94.0); MEAN PLATELET VOLUME 9.7 fl (7.4-10.4); PLATELET 175 x1000/uL (130-400); RED BLOOD CELL COUNT 4.59 mill/uL (4.7-6.1); RED CELL DISTRIBUTION WIDTH 17.5 % (11.6-14.6)
[2018-12-20] MEDS: BISACODYL 10MG SUPP PR SCH (08:24)
[2018-12-20] MEDS: APIXABAN 5 MG TABLET PO SCH ×2 (08:24→17:29)
[2018-12-20] MEDS: LISINOPRIL 2.5MG TABLET PO SCH (08:25)
[2018-12-20] MEDS: CARVEDILOL 3.125 MG TABLET PO SCH ×2 (08:25→20:39)
[2018-12-20 08:50] LABS: CHLORIDE 90 mEq/L (98-107)
[2018-12-20 12:00] VITALS: BP 91/64
[2018-12-20 16:00] VITALS: BP 99/63
[2018-12-20] MEDS: CALCIUM CARBONATE 500MG TABLET CHEW PO PRN (16:01)
[2018-12-20] MEDS: MORPHINE SULFATE 2 MG/ML CPJ (NOT FOR IM USE) IV PRN ×2 (16:52→23:29)
[2018-12-20 20:00] VITALS: BP 129/53
[2018-12-21] VITALS: BP 113/54
[2018-12-21] MEDS: IPRATROPIUM/ALBUTEROL 0.5-3(2.5)MG/3ML NEB HHN SCH ×6 (01:12→21:05)
[2018-12-21 04:00] VITALS: BP 101/68
[2018-12-21] MEDS: BLOOD SUGAR DIAGNOSTIC STRIP TEST SCH ×4 (06:29→21:00)
[2018-12-21] MEDS: FUROSEMIDE 40MG TABLET PO SCH ×2 (06:30→17:52)
[2018-12-21 06:43] LABS: BASOPHILS % 0.8 % (0.0-2.0); EOSINOPHILS % 4.4 % (0.0-5.0); HEMATOCRIT. 39.3 % (42.0-52.0); HEMOGLOBIN. 11.9 g/dL (14.0-18.0); LYMPHOCYTES % 8.8 % (20.0-50.0); MEAN CORPUSCULAR VOLUME 85.6 fL (80.0-94.0); MEAN PLATELET VOLUME 9.8 fl (7.4-10.4); MONOCYTES % 7.4 % (2.0-8.0); NEUTROPHILS % 78.6 % (40.0-76.0); PLATELET 186 x1000/uL (130-400); RED BLOOD CELL COUNT 4.59 mill/uL (4.7-6.1); RED CELL DISTRIBUTION WIDTH 17.6 % (11.6-14.6)
[2018-12-21 07:04] LABS: CHLORIDE 89 mEq/L (98-107)
[2018-12-21] MEDS: INSULIN LISPRO 100 UNITS/ML SUBCUT SCH ×4 (07:50→21:00)
[2018-12-21 08:00] VITALS: BP 117/68
[2018-12-21] MEDS ORDERED: FUROSEMIDE 40MG/4ML VIAL IVP SCH (08:30)
[2018-12-21] MEDS: APIXABAN 5 MG TABLET PO SCH ×2 (09:26→17:52)
[2018-12-21] MEDS: BISACODYL 10MG SUPP PR SCH (09:29)
[2018-12-21] MEDS: CARVEDILOL 3.125 MG TABLET PO SCH ×2 (09:29→20:24)
[2018-12-21 12:00] VITALS: BP 92/52
[2018-12-21] MEDS: MORPHINE SULFATE 2 MG/ML CPJ (NOT FOR IM USE) IV PRN (13:20)
[2018-12-21 14:34] LABS: PLATELET ESTIMATE NORMAL
[2018-12-21 16:00] VITALS: BP 115/75
[2018-12-21] MEDS: LACTULOSE 20G/30ML UDC PO SCH ×3 (17:52→20:24)
[2018-12-21 20:00] VITALS: BP 148/110
[2018-12-22] VITALS: BP 127/33
[2018-12-22] MEDS: IPRATROPIUM/ALBUTEROL 0.5-3(2.5)MG/3ML NEB HHN SCH ×6 (01:18→21:30)
[2018-12-22 04:00] VITALS: BP 138/56
[2018-12-22] MEDS: FUROSEMIDE 40MG TABLET PO SCH ×2 (06:28→18:04)
[2018-12-22 07:41] LABS: CHLORIDE 89 mEq/L (98-107)
[2018-12-22] MEDS: INSULIN LISPRO 100 UNITS/ML SUBCUT SCH ×4 (07:50→21:00)
[2018-12-22] MEDS: BLOOD SUGAR DIAGNOSTIC STRIP TEST SCH ×4 (07:58→20:02)
[2018-12-22 08:00] VITALS: BP 117/64
[2018-12-22] MEDS: BISACODYL 10MG SUPP PR SCH (08:50)
[2018-12-22] MEDS: CARVEDILOL 3.125 MG TABLET PO SCH ×2 (08:50→20:02)
[2018-12-22] MEDS: APIXABAN 5 MG TABLET PO SCH ×2 (08:51→17:00)
[2018-12-22 11:27] LABS: HEMATOCRIT. 42.6 % (42.0-52.0); HEMOGLOBIN. 12.9 g/dL (14.0-18.0); MEAN CORPUSCULAR HEMOGLOBIN 26.2 pg (28.0-32.0); MEAN CORPUSCULAR VOLUME 86.5 fL (80.0-94.0); MEAN PLATELET VOLUME 9.8 fl (7.4-10.4); PLATELET 184 x1000/uL (130-400); RED BLOOD CELL COUNT 4.92 mill/uL (4.7-6.1); RED CELL DISTRIBUTION WIDTH 17.3 % (11.6-14.6)
[2018-12-22 12:22] LABS: PLATELET ESTIMATE NORMAL
[2018-12-22 16:00] VITALS: BP 105/57
[2018-12-22 20:00] VITALS: BP 116/63
[2018-12-23] VITALS: BP 107/69
[2018-12-23] MEDS: IPRATROPIUM/ALBUTEROL 0.5-3(2.5)MG/3ML NEB HHN SCH ×5 (01:19→20:24)
[2018-12-23 04:00] VITALS: BP 127/76
[2018-12-23] MEDS: FUROSEMIDE 40MG TABLET PO SCH ×3 (05:26→17:05)
[2018-12-23 06:57] LABS: CHLORIDE 89 mEq/L (98-107)
[2018-12-23] MEDS: BLOOD SUGAR DIAGNOSTIC STRIP TEST SCH ×4 (07:20→20:37)
[2018-12-23] MEDS: INSULIN LISPRO 100 UNITS/ML SUBCUT SCH ×4 (07:50→20:36)
[2018-12-23 08:00] VITALS: BP 118/51
[2018-12-23] MEDS: CARVEDILOL 3.125 MG TABLET PO SCH ×2 (08:41→20:10)
[2018-12-23] MEDS: BISACODYL 10MG SUPP PR SCH (08:41)
[2018-12-23] MEDS: APIXABAN 5 MG TABLET PO SCH ×2 (08:41→17:05)
[2018-12-23] MEDS ORDERED: MORPHINE SULFATE 2 MG/ML CPJ (NOT FOR IM USE) IV PRN (08:45)
[2018-12-23] MEDS: LACTULOSE 20G/30ML UDC PO NR ×2 (10:56→11:21)
[2018-12-23] MEDS: HYDROCODONE/APAP 7.5/325MG 1 TAB TABLET PO PRN ×2 (10:57→22:50)
[2018-12-23 12:00] VITALS: BP 110/74
[2018-12-23 16:00] VITALS: BP 124/65
[2018-12-23] MEDS: ERGOCALCIFEROL 50000UNITS CAPSULE PO SCH (17:05)
[2018-12-23 20:00] VITALS: BP 128/80
[2018-12-23] MEDS: CALCIUM CARBONATE 500MG TABLET CHEW PO PRN (20:11)
[2018-12-24] VITALS: BP 108/58
[2018-12-24] MEDS: IPRATROPIUM/ALBUTEROL 0.5-3(2.5)MG/3ML NEB HHN SCH ×4 (01:27→20:05)
[2018-12-24 04:00] VITALS: BP 119/71
[2018-12-24] MEDS: FUROSEMIDE 40MG TABLET PO SCH ×3 (06:00→17:26)
[2018-12-24] MEDS: BLOOD SUGAR DIAGNOSTIC STRIP TEST SCH ×4 (06:29→20:47)
[2018-12-24] MEDS: INSULIN LISPRO 100 UNITS/ML SUBCUT SCH ×3 (07:50→17:21)
[2018-12-24 08:00] VITALS: BP 113/85
[2018-12-24] MEDS: BISACODYL 10MG SUPP PR SCH (09:00)
[2018-12-24] MEDS: APIXABAN 5 MG TABLET PO SCH ×2 (09:19→17:21)
[2018-12-24] MEDS: CARVEDILOL 3.125 MG TABLET PO SCH ×2 (09:20→20:42)
[2018-12-24 12:00] VITALS: BP 121/76
[2018-12-24] MEDS ORDERED: FUROSEMIDE 40MG/4ML VIAL IVP SCH (13:15)
[2018-12-24 16:00] VITALS: BP 93/45
[2018-12-24 20:00] VITALS: BP 118/71
== END 2018-12-24 22:21 | DRG 291 ==
LOC: ER 22:41 → 5EST 10-17 01:02 → EDBEDREQ 10-17 01:22 → EDBEDREQSVC 10-17 01:22 → EDBEDREQTM 10-17 01:22 → ENRESERV 10-17 01:33 → 8WST 10-25 16:28 → 7WST 11-17 18:01 → 8WST 11-24 19:21 → 6WST 11-30 07:08 → 6EST 12-18 18:01
PROVIDERS: ADMIT Internal Medicine; ATTEND Internal Medicine
PROC: B54NZZZ Ultrasonography of Left Upper Extremity Veins (ICD-10-PCS; 2018-10-16)
PROC: 5A09557 Assistance with Respiratory Ventilation, Greater than 96 Consecutive Hours, Continuous Positive Airway Pressure (ICD-10-PCS; 2018-10-16)
PROC: 05HY33Z Insertion of Infusion Device into Upper Vein, Percutaneous Approach (ICD-10-PCS; 2018-10-17)
PROC: 5A09357 Assistance with Respiratory Ventilation, Less than 24 Consecutive Hours, Continuous Positive Airway Pressure (ICD-10-PCS; 2018-10-26)
PROC: 5A09357 Assistance with Respiratory Ventilation, Less than 24 Consecutive Hours, Continuous Positive Airway Pressure (ICD-10-PCS; 2018-12-06)
PROC: 5A09357 Assistance with Respiratory Ventilation, Less than 24 Consecutive Hours, Continuous Positive Airway Pressure (ICD-10-PCS; 2018-12-07)
PROC: 5A09357 Assistance with Respiratory Ventilation, Less than 24 Consecutive Hours, Continuous Positive Airway Pressure (ICD-10-PCS; 2018-12-08)
PROC: 5A09357 Assistance with Respiratory Ventilation, Less than 24 Consecutive Hours, Continuous Positive Airway Pressure (ICD-10-PCS; 2018-12-11)
PROC: 5A09357 Assistance with Respiratory Ventilation, Less than 24 Consecutive Hours, Continuous Positive Airway Pressure (ICD-10-PCS; 2018-12-12)
PROC: 5A09357 Assistance with Respiratory Ventilation, Less than 24 Consecutive Hours, Continuous Positive Airway Pressure (ICD-10-PCS; 2018-12-13)
PROC: 5A09357 Assistance with Respiratory Ventilation, Less than 24 Consecutive Hours, Continuous Positive Airway Pressure (ICD-10-PCS; 2018-12-15)
PROC: 5A09357 Assistance with Respiratory Ventilation, Less than 24 Consecutive Hours, Continuous Positive Airway Pressure (ICD-10-PCS; 2018-12-17)
PROC: 5A09357 Assistance with Respiratory Ventilation, Less than 24 Consecutive Hours, Continuous Positive Airway Pressure (ICD-10-PCS; 2018-12-18)
PROC: 5A09357 Assistance with Respiratory Ventilation, Less than 24 Consecutive Hours, Continuous Positive Airway Pressure (ICD-10-PCS; 2018-12-19)
PROC: 5A09357 Assistance with Respiratory Ventilation, Less than 24 Consecutive Hours, Continuous Positive Airway Pressure (ICD-10-PCS; 2018-12-20)
PROC: 02HV33Z Insertion of Infusion Device into Superior Vena Cava, Percutaneous Approach (ICD-10-PCS; principal; 2018-12-21)
PROC: B548ZZA Ultrasonography of Superior Vena Cava, Guidance (ICD-10-PCS; 2018-12-21)
PROC: 5A09357 Assistance with Respiratory Ventilation, Less than 24 Consecutive Hours, Continuous Positive Airway Pressure (ICD-10-PCS; 2018-12-21)
PROC: 5A09357 Assistance with Respiratory Ventilation, Less than 24 Consecutive Hours, Continuous Positive Airway Pressure (ICD-10-PCS; 2018-12-22)
DX: I13.0 Hypertensive heart and chronic kidney disease with heart failure and stage 1 through stage 4 chronic kidney disease, or unspecified chronic kidney disease (principal); I50.43 Acute on chronic combined systolic (congestive) and diastolic (congestive) heart failure; G82.50 Quadriplegia, unspecified; J18.9 Pneumonia, unspecified organism; J96.01 Acute respiratory failure with hypoxia; J96.02 Acute respiratory failure with hypercapnia; E44.0 Moderate protein-calorie malnutrition; G93.40 Encephalopathy, unspecified; J44.1 Chronic obstructive pulmonary disease with (acute) exacerbation; E66.2 Morbid (severe) obesity with alveolar hypoventilation; J44.0 Chronic obstructive pulmonary disease with (acute) lower respiratory infection; E87.2 Acidosis; I47.2 Ventricular tachycardia; I48.92 Unspecified atrial flutter; J98.11 Atelectasis; N17.9 Acute kidney failure, unspecified; K56.690 Other partial intestinal obstruction; I42.0 Dilated cardiomyopathy; I48.91 Unspecified atrial fibrillation; E78.5 Hyperlipidemia, unspecified; D63.8 Anemia in other chronic diseases classified elsewhere; N18.9 Chronic kidney disease, unspecified; E11.22 Type 2 diabetes mellitus with diabetic chronic kidney disease; E55.9 Vitamin D deficiency, unspecified; E87.6 Hypokalemia; F17.210 Nicotine dependence, cigarettes, uncomplicated; I25.5 Ischemic cardiomyopathy; I27.20 Pulmonary hypertension, unspecified; E66.9 Obesity, unspecified; I49.3 Ventricular premature depolarization; I95.89 Other hypotension; R26.9 Unspecified abnormalities of gait and mobility; K57.90 Diverticulosis of intestine, part unspecified, without perforation or abscess without bleeding; N50.82 Scrotal pain; Z79.01 Long term (current) use of anticoagulants; Z79.4 Long term (current) use of insulin; I25.2 Old myocardial infarction; Z68.31 Body mass index [BMI] 31.0-31.9, adult; Z79.899 Other long term (current) drug therapy; Z99.81 Dependence on supplemental oxygen; Z88.0 Allergy status to penicillin; Z88.8 Allergy status to other drugs, medicaments and biological substances; Z86.14 Personal history of Methicillin resistant Staphylococcus aureus infection; L89.102 Pressure ulcer of unspecified part of back, stage 2
CPT/HCPCS: 36415; 36573; 36600; 71045; 74018; 74177; 76937; 80048; 80061; 82270; 82306; 82375; 82607; 82746; 82805; 82962; 83605; 83735; 83880; 84134; 84145; 84443; 84484; 85027; 92523; 92610; 93005; 94640; 94660; 96360; 97110; 97140; 97162; 97164; 97166; 97168; 97530; 97535; 99291; A4565; A6261; C1725; C1893; J0692; J1815; J1885; J1940; J2270; J2405; J2765; J3475; J3480; J3490; J7030; J7040; J7042; J7050; J7060; J7121; J7512; J7608; J7620; Q9963; Q9967